=== PATIENT | male | born 1955 | race Caucasian/White ===

== ENCOUNTER 2023-12-11 18:55 | Emergency (ER) | payer BC, SELFPAY ==
[2023-12-11 18:55] VITALS: BP 149/93; PULSE 66; RESP 16; TEMP 36.8; O2SAT 98; BMI 36.6
--- NOTE | 2023-12-11 19:28 | EKG12_ITS ---
Test Reason : ABD PAIN Blood Pressure : / mmHG Vent. Rate : 061 BPM Atrial Rate : 061 BPM P-R Int : 176 ms QRS Dur : 096 ms QT Int : 398 ms P-R-T Axes : 026 -26 030 degrees QTc Int : 400 ms Normal sinus rhythm Normal ECG Confirmed by KI GUERRIER MD ([id number]), communications editor ARIEL BROWN ([id number]) on 12/14/2023 8:14:19 AM Referred By: JAIME Confirmed By:KI GUERRIER MD
--- NOTE | 2023-12-11 19:28 | EDS_ITS ---
HPI HPI - GI History of Present Illness Chief Complaint: Abd Pain Detail of Chief Complaint: Epigastric abdominal pain now resolved. Abdominal Pain/Flank Pain Onset: Today Context: Gradual Onset Timing: Continuous Quality: Sharp Location: Epigastric Current Severity: Gone Maximum Severity: Moderate Worsened by: Nothing Relieved by: Nothing Nausea/Vomiting/Emesis GI Symptom: Negative for Nausea or Vomiting Diarrhea/Melena/Hematochezia GI Symptom: Negative for Diarrhea, Melena or Hematochezia Associated Symptoms Associated Symptoms: Negative for Dysuria, Frequency, Hematuria or Urgency Narrative Narrative: 68-year-old male history of hypertension and cholesterol. Was sitting at home. Had epigastric abdominal pain began around 6:00 and resolved around 645. He said it got more intense and he fell like he was going get sick called the squad and now is resolved. He initially took some Tums without relief squad did not give him any medication. No chest pain. No shortness of breath. No back pain. Currently is pain-free and says he feels fine. Thinks it may have been gas pain. No prior abdominal surgeries. Prior similar symptoms: No Recent Illness/Hospitalization: No PFSH PFSH Medical History Basal cell carcinoma Sleep apnea Hypertension Hypercholesteremia Home Medications ?Medication ?Instructions ?Recorded ?Last Taken ?Type aspirin 81 mg tablet,delayed 81 mg PO .q3day 12/11/23 Unknown History release (Adult Aspirin Regimen) atorvastatin 10 mg tablet 10 mg PO DAILY 12/11/23 Unknown History losartan 100 1 tab PO DAILY 12/11/23 Unknown History mg-hydrochlorothiazide 25 mg tablet Allergy/AdvReac Type Severity Reaction Status Date / Time No Known Allergies Allergy Verified 12/11/23 18:59 Social History Smoking Status: Never smoker ROS ROS ED ROS Narrative Epigastric abdominal pain. Resolved. Constitutional Constitutional ED: Denies chills or fever(s) ENT ENT ED: Denies ear pain Cardiovascular Cardiovascular: Denies chest pain or palpitations Respiratory/Chest Respiratory/Chest: Denies cough, dyspnea or dyspnea on exertion Gastrointestinal Gastrointestinal: Reports abdominal pain; Denies constipation, diarrhea, melena, nausea or vomiting Genitourinary Genitourinary ED: Denies dysuria Musculoskeletal Musculoskeletal: Denies arthralgias Integumentary Denies abscess Neurologic Neurologic: Denies headache(s) Psychiatric Psychiatric: Denies anxiety Endocrine Endocrinology: Denies polydipsia Hematologic/Lymphatic Hematologic/Lymphatic: Denies easy bleeding Allergic/Immunologic Allergic/Immunologic ED: Denies mouth swelling, tongue swelling or urticaria EXAM Physical Exam Narrative Exam Narrative: 68-year-old male vital signs stable afebrile. Sitting upright in bed. Currently without symptoms pain-free. Family at bedside. H EENT exam unremarkable. Neck nontender. Lungs are clear. Heart regular rhythm no murmur. Chest wall ribs nontender. Abdomen soft, nontender, nondistended, normal bowel sounds without peritoneal signs. No pulsatile mass. No reproduc ible pain. Epigastric, right upper quadrant right lower quadrant are all unremarkable. Soft. Positive bowel sounds. Moving all 4 extremities. Nontender no edema. He is awake and alert. Answering questions following commands. Normal produce team lead strength. Normal dorsi plantarflexion. Nontender no edema. Const Vital Signs: 12/11/23 18:55 Temperature 98.2 F Temperature Source Temporal Pulse Rate 66 Respiratory Rate 16 Blood Pressure 149/93 H Blood Pressure Mean 111 Pulse Ox 98 Oxygen Delivery Method Room Air Positive well nourished and well developed; Negative for cachectic, contractures or unkempt General Appearance ED: well developed and NAD; Negative for unkempt, cachectic, contractures or pallor Nutritional Appearance: Negative for cachectic HEENT Reports moist mucous membranes; Denies dry mucous membranes normocephalic and atraumatic; Negative for trauma or tenderness Mouth ED: No dry mucous membranes Mouth: No dry mucous membranes Eyes PERRL and EOMs intact bilaterally General Eye ED: Negative for pale conjunctiva or scleral icterus Neck no lymphadenopathy, supple and no JVD General: Negative for tenderness Carotids: Negative for other Lymph Lymphatic: Negative for other Resp normal respiratory effort and clear to auscultation bilaterally Effort and Inspection: Negative for respiratory distress Auscultation: Negative for rales, rhonchi, wheezes or diminished lung sounds Cardio regular rate, regular rhythm, S1 normal heart sound, S2 normal heart sound and no murmurs Rate: Negative for bradycardia or tachycardic Rhythm: Negative for abnormal rhythm GI non-tender, non-distended and no masses Inspection: Negative for abdominal distention Auscultation: normoactive bowel sounds Palpation: soft; Negative for tender, guarding, hernia, mass, pulsatile mass or rebound tenderness present Back/Spine no CVA tenderness General Back: Negative for CVA tenderness Cervical Spine: Negative for cervical spine tenderness Thoracic Spine / Upper Back: Negative for thoracic spinal tenderness Coccyx: Negative for other Extremity full ROM General Extremety ED: Negative for edema, tenderness or other findings General Extremity: Negative for edema or other findings Neuro CN's II-XII intact bilaterally and moves all extremities Sensorium / Orientation: alert, oriented to person, oriented to place and oriented to time; Negative for orientation impaired, confused, lethargic or stuporous Motor Exam: strength 5/5 throughout; Negative for general weakness or strength abnormal Psych mental status grossly normal and thought process normal Appearance: Negative for unkempt Attitude: No agitated Mood & Affect: Negative for depressed, anxious or tearful Skin no wounds General Skin Exam: Negative for jaundice or pallor Lesions: no lesions Rashes: no rashes Trauma: Negative for abrasion Nails: Negative for discolored MDM MDM MDM Narrative Medical decision making narrative: 68-year-old male with epigastric abdominal pain now resolved. Completely pain- free now. No reproducible pain. Could have been gas, could have been reflux. Excetra. Screening labs. Will be obtained. I will check an EKG and troponin but does not sound cardiac. He does not need any abdominal imaging because currently is completely pain-free. Repeat exam patient is doing well. Abdomen is completely nontender. He is schafer ving no symptoms or pain at this time. He is comfortable being discharged home. We discussed all his test results. History & Record Review Discussion w/independent historian: Patient and Family Additional record(s) reviewed:: Prior inpatient record, Prior outpatient record, Prior ED visit and Prior labs Lab Data Attestation: I reviewed the patient's lab results. Lab results narrative: CBC unremarkable. White count of 10. H&H 13.5 and 40. Platelets 229. Electrolytes show gap 6. Normal BUN of 17 creatinine 1. Glucose 84. Liver enzymes unremarkable. Total bilirubin 1.7. Lipase normal at 37. Chest x-ray normal. Troponin is normal at 7. Labs: Laboratory Results - last 24 hr 12/11/23 19:34 WBC 10.7 RBC 4.37 L Hgb 13.5 Hct 40.4 MCV 92.4 MCH 30.9 MCHC 33.4 RDW Std Deviation 41.9 RDW Coeff of Maria Del Carmen 12.4 Plt Count 229 MPV 11.4 Immature Gran % (Auto) 0.700 Neut % (Auto) 79.8 H Lymph % (Auto) 9.4 L [place] % (Auto) 6.8 Eos % (Auto) 2.8 Baso % (Auto) 0.5 Absolute Neuts (auto) 8.5 H Absolute Lymphs (auto) 1.01 Nucleated RBC % 0 Sodium 144 Potassium 3.8 Chloride 111 H Carbon Dioxide 27.0 Anion Gap 6 BUN 17 Creatinine 1.08 Estim Creat Clear Calc 74.96 Est GFR (MDRD) Af Amer 87 Est GFR (MDRD) Non-Af 72 BUN/Creatinine Ratio 15.7 Glucose 84 Calcium 9.1 Total Bilirubin 1.70 H AST 27 ALT 60 Alkaline Phosphatase 99 Troponin I High Sens 7 Total Protein 6.4 Albumin 3.5 Globulin 2.9 Albumin/Globulin Ratio 1.2 Lipase 37 Radiography Chest X-Ray - ED: 1 View, Normal, Heart, Lungs, Mediastinum, Bony Structures, No Acute Disease and Chronic Changes Diagnostic Testing: Chest x-ray, portable, single view interpreted by myself shows no acute abnormality. Normal cardiac silhouette. Normal mediastinum. Normal lung kruger. Chronic changes. Rhythm Strip Rhythm Strip: Sinus Rhythm Rate: 61 Ectopy: None EKG Initial EKG: Attestation: I personally reviewed and interpreted this EKG as follows: Interpretation: Sinus Rhythm and No Acute Injury Pattern Comments: Normal sinus rhythm rate of 61 no acute signs of NV, ischemia or dysrhythmia. Discharge Plan Triage Chief Complaint: Abd Pain ED Provider: Adrian Duarte Dx/Rx/DC Orders Prescriptions: No Action atorvastatin 10 mg tablet 10 mg PO DAILY losartan-hydrochlorothiazide 100-25 mg tablet 1 tab PO DAILY aspirin [Adult Aspirin Regimen] 81 mg tablet,delayed release (DR/EC) 81 mg PO .q3day Primary Care Provider: Hermila Kumar Referrals: Hermila Kumar DO [Primary Care Provider] - Print Language: Slovenian
[2023-12-11 19:41] LABS: Absolute Lymphocyte Count 1.01 X10^3/uL (0.83-4.51); Absolute Neutrophil Count 8.5 X10^3/uL (2.0-7.7); Basophil# 0.05 X10^3/uL; Basophil% 0.5 % (0-1); Eosinophils% 2.8 % (0-5); Hematocrit 40.4 % (40-54); Hemoglobin 13.5 g/dL (13.0-16.5); Lymphocyte # 1.01 X10^3/ul (0.83-4.51); Lymphocyte % 9.4 % (19-41); Mean Corp Hgb Conc 33.4 g/dL (32-36); Mean Corpuscular Hgb 30.9 pg (27.0-32.0); Mean Corpuscular Volume 92.4 fL (80-94); Mean Platelet Vol. 11.4 fl (6.2-12.0); Monocyte# 0.73 X10^3/uL; Monocyte% 6.8 % (0-10); NRBC Flagged by Analyzer 0 % (0-5); Neutrophil # 8.54 X10^3/uL (2.7-7.7); Neutrophil % 79.8 % (47-70); Platelet Count 229 K/mm3 (150-450); RBC Distribution Width CV 12.4 % (11.6-14.6); RBC Distribution Width SD 41.9 fl (35.1-43.9); Red Blood Count 4.37 M/mm3 (4.6-6.2); White Blood Count 10.7 K/mm3 (4.4-11.0)
[2023-12-11 20:02] LABS: ALB/GLOB Ratio 1.2 RATIO (0.9-2.4); AST(SGOT) 27 U/L (15-37); Alanine Aminotransfer ALT/SGPT 60 U/L (16-61); Albumin, Serum 3.5 g/dL (3.2-5.0); Alkaline Phosphatase 99 U/L (45-117); Anion Gap 6 (5-15); BUN 17 mg/dL (7-18); BUN/Creat Ratio 15.7 RATIO (10-20); Calcium,Total 9.1 mg/dL (8.5-10.1); Chloride 111 mmol/L (98-107); Creatinine, Serum 1.08 mg/dL (0.70-1.30); EST Glomerular Filtration Rate 72 mL/min (>60); Est Glom Filt Rate - Afr Amer 87 mL/min (>60); Estimated Creatinine Clearance 74.96 ml/min; Globulin 2.9 g/dL (2.2-4.2); Glucose 84 mg/dL (74-106); Lipase 37 U/L (13-75); Potassium 3.8 mmol/L (3.5-5.1); Protein, Total 6.4 g/dL (6.4-8.2); Sodium Level 144 mmol/L (136-145); Troponin-I HS 7 pg/mL (3.0-78.0)
--- NOTE | 2023-12-11 20:10 | RAD_ITS ---
EXAM: XR CHEST, 1 VIEW CLINICAL INDICATION: atypical epigastric pain TECHNIQUE: Frontal view of the chest. COMPARISON: 04/01/2015 FINDINGS: LUNGS AND PLEURAL SPACES: Unremarkable. No consolidation or edema. No pneumothorax. No effusion. HEART: Unremarkable. Cardiac silhouette not enlarged. MEDIASTINUM: Central airways and mediastinal contour are unremarkable. BONES/JOINTS: Unremarkable. No acute fracture. SOFT TISSUES: Unremarkable. RAD/Chest 1 View (Portable) IMPRESSION: No radiographic evidence of acute cardiopulmonary disease. Electronically Signed: Renny Hunt MD at 20:47 EDT ,
[2023-12-11 20:47] VITALS: BP 137/78; PULSE 55; RESP 20; TEMP 36.7; O2SAT 97
== END 2023-12-11 20:51 | disposition home or self-care (01) ==
PROVIDERS: Emergency Provider Emergency Medicine; PCP Internal Medicine; Visit Provider Emergency Medicine
DX: R10.13 Epigastric pain (principal); E78.00 Pure hypercholesterolemia, unspecified; I10 Essential (primary) hypertension; Z79.82 Long term (current) use of aspirin; Z79.899 Other long term (current) drug therapy
CPT/HCPCS: 71045; 80053; 83690; 84484; 85025; 93005; 99283

== ENCOUNTER → 2024-03-16 | Outpatient (CLI) | payer BC, SELFPAY ==
--- NOTE | 2024-03-16 07:08 | US_ITS ---
STUDY: ABDOMINAL ULTRASOUND - RIGHT UPPER QUADRANT; ELASTOGRAPHY REASON FOR VISIT: Male, 68 years old. Fatty infiltration of the liver. TECHNIQUE: Ultrasound evaluation of the right upper quadrant was performed with real-time and static chu-scale imaging. Point quantification shear wave elastography was performed ([id number]). TECHNICAL QUALITY: Adequate. COMPARISON: None. FINDINGS: Liver: The liver measures 16.9 cm. There is increased echogenicity consistent with fatty infiltration. The bile ducts are within normal limits. There is hepatic color flow. The direction of portal flow is hepatopetal. There is no demonstrated mass lesion. Median liver stiffness measured 5.4 kPa. Gallbladder: Normal distended gallbladder. The gallbladder wall measures 3 mm. There is a negative sonographic Contreras''s sign. There is no pericholecystic fluid. There are no gallstones. Common Bile Duct (C.B.D.): The common bile duct measures 5 mm. Pancreas: There is normal echogenicity of the visualized pancreas. There is no demonstrated pancreatic mass or cyst. Right Kidney: Normal size of the right kidney. The right kidney measures 11.4 cm x 5.3 cm x 5.4 cm. Normal renal cortex. The right cortex measures 1.6 cm. There is no demonstrated renal mass or cyst. There is no right hydronephrosis. US/ABD Limited w/ Elastography IMPRESSION: 1. Liver stiffness measures 5.4 kPa compatible with F0-F1 (Normal to mild liver fibrosis) Metavir score. Electronically Signed: Romeo Burgos MD at 9:21 EST ,
== END | disposition home or self-care (01) ==
PROVIDERS: PCP Internal Medicine; Referring Provider Internal Medicine; Visit Provider Internal Medicine
DX: K76.0 Fatty (change of) liver, not elsewhere classified (principal)
CPT/HCPCS: 76705; 76981

== ENCOUNTER 2024-04-08 09:37 | Emergency (ER) | payer BC, SELFPAY ==
[2024-04-08 09:40] VITALS: BP 153/91; PULSE 63; RESP 18; TEMP 37; O2SAT 98
[2024-04-08 09:41] VITALS: BMI 33.4
--- NOTE | 2024-04-08 09:42 | ED.RN ---
spole with dr. villarreal if he wanted to see pt. in triage. states to room the pt.
--- NOTE | 2024-04-08 09:59 | EKG12_ITS ---
Test Reason : Blood Pressure : */* mmHG Vent. Rate : 53 BPM Atrial Rate : 53 BPM P-R Int : 186 ms QRS Dur : 96 ms QT Int : 436 ms P-R-T Axes : 25 -24 16 degrees QTcB Int : 409 ms Sinus bradycardia Otherwise normal ECG Confirmed by CHEY ENGLAND, KI ([id number]), magazine editor ARIEL BROWN ([id number]) on 04/10/2024 8:36:22 AM Referred By: Confirmed By: KI GUERRIER MD
--- NOTE | 2024-04-08 09:59 | CT_ITS ---
INDICATION: left facial droop and paraesthesias EXAMINATION: CT BRAIN WITHOUT CONTRAST, CTA HEAD, AND CTA NECK TECHNIQUE: Noncontrast axial images were obtained of the brain. Subsequently, routine carotid CT angiogram protocol was performed without and with IV contrast. In addition, images were obtained of the [place]. NASCET criteria using the distal ICAs for comparison were used for evaluation of stenoses. 3D reconstructions were reviewed. The protocol utilizes one or more of the following dose reduction techniques: automated exposure control, adjustment of mA and/or kV according to patient size,and/or use of iterative reconstruction technique. IV Contrast dosage and agent: 100 cc of [id number] COMPARISON: No relevant prior comparison study available FINDINGS: --CT BRAIN WITHOUT CONTRAST: BRAIN PARENCHYMA: No intra- or extra-axial hemorrhage. No evidence of acute infarct. No intracranial mass or mass effect. There is preservation of the chu/white matter interface. Posterior fossa structures are unremarkable. CSF SPACES: Appropriate for age. No hydrocephalus. Basal cisterns are patent. CALVARIUM, SKULL BASE, PARANASAL SINUSES AND MASTOID AIR CELLS: Coarsened thickening of the right maxillary sinus. ASPECTS Score for Acute Strokes: 10 --CTA NECK: AORTIC ARCH AND BRANCHES: Normal anatomy, patent. RIGHT CCA: No occlusion, significant stenosis or dissection. RIGHT ICA: No occlusion, significant stenosis or dissection. LEFT CCA: No occlusion, significant stenosis or dissection. LEFT ICA: Mild atherosclerotic calcifications in the proximal left ICA with less than 50% stenosis. RIGHT VERTEBRAL ARTERY: No occlusion, significant stenosis or dissection. LEFT VERTEBRAL ARTERY: No occlusion, significant stenosis or dissection. NECK SOFT TISSUES: Unremarkable. --CTA HEAD: --Anterior circulation: ICAs: [Mild atherosclerotic calcifications of the cavernous internal carotid arteries without significant stenosis. ACAs: No significant stenosis at the visualized segments. ACOM: Not visualized. MCAs: Questionable minimal narrowing of the distal left M2 segment without significant stenosis. --Posterior circulation: PCOMs: Faintly visualized on the left side. email producer: No significant stenosis at the visualized segments. BASILAR ARTERY: No significant stenosis. VERTEBRAL ARTERIES: No significant stenosis at the intradural/visualized segments. No evidence of intracranial aneurysm or vascular malformation. CT/CTA Head AND Neck W/ Contrast IMPRESSION: 1. No intracranial great vessel stenosis. 2. Mild atherosclerotic calcifications of the proximal left ICA without significant stenosis. 3. Otherwise unremarkable examination. Electronically Signed: Donovan Winter MD at 12:04 EST ,
--- NOTE | 2024-04-08 10:00 | EX.ED.DYSGE1 ---
HPI History of Present Illness Chief Complaint: Numb/Ting Detail of Chief Complaint: Left face paresthesias and facial droop Informant: patient Narrative Narrative: Patient presents with left-sided paresthesias and facial droop that he noticed this morning. Patient states that he before he went to bed last night he had sensation that he had a fat lip but was able to brush his teeth and did not see anything abnormal. When he woke up this morning around 5:30 AM he had numbness and tingling to the left side of his face and had a facial droop. Patient states that he was able to workout without any difficulty. Patient denies paresthesias in the extremities or weakness in extremities. He denies any vision changes or difficulty with speech. He thinks he may be having a Hutchinson's palsy as he has had multiple friends and have had Hutchinson's palsy. He denies recent illness. He said no fever. He denies significant headache. [facility] Medical History Basal cell carcinoma Sleep apnea Hypertension Hypercholesteremia Home Medications ?Medication ?Instructions ?Recorded ?Last Taken ?Type aspirin 81 mg tablet,delayed 81 mg PO .q3day 12/11/23 Unknown History release (Adult Aspirin Regimen) atorvastatin 10 mg tablet 10 mg PO DAILY 12/11/23 Unknown History losartan 100 1 tab PO DAILY 12/11/23 Unknown History mg-hydrochlorothiazide 25 mg tablet famciclovir 500 mg tablet 500 mg PO Q8H 5 days #21 tabs 04/08/24 Unknown Rx prednisone 20 mg tablet 20 mg PO BID #10 tabs 04/08/24 Unknown Rx Allergy/AdvReac Type Severity Reaction Status Date / Time No Known Allergies Allergy Verified 04/08/24 09:39 Social History Smoking Status: Never smoker ROS ROS ED Review of Systems ROS Unobtainable: other Constitutional Constitutional ED: Reports lethargy; Denies chills, fever(s), sweats or weight loss Eyes Eyes: Denies blurry vision, change in vision or diplopia ENT ENT ED: Denies rhinorrhea or sore throat Cardiovascular Cardiovascular: Denies chest pain, orthopnea or racing heartbeat Respiratory/Chest Respiratory/Chest: Denies cough, dyspnea, dyspnea on exertion, orthopnea or sputum Gastrointestinal Gastrointestinal: Denies abdominal pain, diarrhea, nausea or vomiting Genitourinary Genitourinary ED: Denies dysuria, hematuria or urinary frequency Musculoskeletal Musculoskeletal: Denies arthralgias, back pain, myalgias or neck pain Integumentary Denies abscess, Abrasions or rash Neurologic Neurologic: Reports headache(s) and other Details: Left facial droop and left-sided facial paresthesias ; Denies weakness Psychiatric Psychiatric: Denies anxiety, depression or suicidal thoughts Endocrine Endocrinology: Denies polydipsia, polyphagia or polyuria Hematologic/Lymphatic Hematologic/Lymphatic: Denies easy bleeding, easy bruising or lymphadenopathy Allergic/Immunologic Allergic/Immunologic ED: Denies mouth swelling, tongue swelling or urticaria EXAM Physical Exam Const Vital Signs: 04/08/24 09:40 04/08/24 11:37 04/08/24 12:00 Temperature 98.6 F Temperature Source Oral Pulse Rate 63 55 L 54 L Respiratory Rate 18 16 Blood Pressure 153/91 H 125/96 H 127/69 H Blood Pressure Mean 111 105 88 Pulse Ox 98 100 Oxygen Delivery Method Room Air Room Air Positive well nourished and well developed General Appearance ED: well developed and NAD HEENT Reports TM's clear and moist mucous membranes HEENT Narrative: Left facial droop with decree sensation to the left face. Patient unable to wrinkle the left side of the forehead. He has weakness of the left upper eyelid. normocephalic and atraumatic; Negative for trauma or tenderness Tympanic Membrane ED: Yes TM's clear Eyes PERRL and EOMs intact bilaterally General Eye ED: Negative for pale conjunctiva or scleral icterus Neck no lymphadenopathy, supple and no JVD General: Negative for tenderness Chest Wall inspection of chest normal and palpation of chest normal Chest: Negative for tenderness Resp normal respiratory effort and clear to auscultation bilaterally Effort and Inspection: Negative for respiratory distress or pain with movement Auscultation: Negative for rhonchi, wheezes or diminished lung sounds Cardio regular rate, regular rhythm, S1 normal heart sound, S2 normal heart sound and no murmurs Peripheral Pulses: pulses 2+ throughout GI normal to inspection, nondistended, normoactive bowel sounds, soft to palpation, non-tender, non-distended and no masses Back/Spine no CVA tenderness and no thoracic nor lumbar tenderness Extremity normal to inspection General Extremety ED: Negative for edema General Extremity: Negative for edema Neuro oriented x3, CN's II-XII intact bilaterally, no sensory deficits noted and gait normal Neuro Narrative: Left facial droop and numbness and decree sensation to left face. Unable to wrinkle left forehead. Weakness of the left upper eyelid. No focal weakness otherwise. No difficulty with speech or vision. No ataxia. Sensorium / Orientation: awake, alert, oriented to person, oriented to place and oriented to time Motor Exam: strength 5/5 throughout and strength abnormal Psych mental status grossly normal Skin no rashes or lesions noted and no wounds MDM MDM MDM Narrative Medical decision making narrative: Patient presents to the emergency department with left facial droop and paresthesias to the left face. Symptoms may have started last evening. Patient out of the window for thrombolytics. Woke up with symptoms this morning. No other focal deficits on exam. In the differential would be stroke versus Hutchinson's palsy although suspect this is likely Hutchinson's palsy. Patient had a CBC with differential on arrival sure why, 7.5 with hemoglobin 15.7 and platelet count of 261. Chemistries unremarkable. EKG obtained showed sinus bradycardia with rate of 53 bpm. CTA of head and neck obtained. CT without contrast initially showed no acute findings. There is no evidence of large vessel occlusions or narrowing of the blood vessels in the head or neck. At this point clinically I suspect this is a Hutchinson's palsy. Will start patient on prednisone as well as antiviral. Will refer the neurology for follow-up. Lab Data Attestation: I reviewed the patient's lab results. Labs: Laboratory Results - last 24 hr 04/08/24 04/08/24 09:48 10:08 WBC 7.5 RBC 5.00 Hgb 15.7 Hct 46.0 MCV 92.0 MCH 31.4 MCHC 34.1 RDW Std Deviation 40.5 RDW Coeff of Maria Del Carmen 12.0 Plt Count 261 MPV 11.4 Immature Gran % (Auto) 0.700 Neut % (Auto) 65.2 Lymph % (Auto) 20.5 [place] % (Auto) 8.5 Eos % (Auto) 4.3 Baso % (Auto) 0.8 Absolute Neuts (auto) 4.9 Absolute Lymphs (auto) 1.54 Nucleated RBC % 0 Sodium 139 Potassium 3.5 Chloride 104 Carbon Dioxide 30.0 Anion Gap 5 BUN 13 Creatinine 1.02 Estim Creat Clear Calc 83.22 Est GFR (MDRD) Af Amer 93 Est GFR (MDRD) Non-Af 77 BUN/Creatinine Ratio 12.7 Glucose 94 Calcium 9.5 POC Glucose 98 Radiography Diagnostic Testing: Clinical Impression(s) from Imaging Studies Head/Neck CTA 04/08/24 09:59 IMPRESSION: 1. No intracranial great vessel stenosis. 2. Mild atherosclerotic calcifications of the proximal left ICA without significant stenosis. 3. Otherwise unremarkable examination. Electronically Signed: Donovan Winter MD at 12:04 EST , EKG Initial EKG: Attestation: I personally reviewed and interpreted this EKG as follows: Comments: Sinus bradycardia with ventricular rate of 53 bpm with no acute ST segment changes Discharge Plan Triage Chief Complaint: Numb/Ting ED Provider: Morteza Franz Dx/Rx/DC Orders Clinical Impression: Hutchinson's palsy Instructions: Hutchinson's Palsy Prescriptions: New prednisone 20 mg tablet 20 mg PO BID Qty: 10 0RF famciclovir 500 mg tablet 500 mg PO Q8H 5 Days Qty: 21 0RF No Action atorvastatin 10 mg tablet 10 mg PO DAILY losartan-hydrochlorothiazide 100-25 mg tablet 1 tab PO DAILY aspirin [Adult Aspirin Regimen] 81 mg tablet,delayed release (DR/EC) 81 mg PO .q3day Primary Care Provider: Hermila Kumar Referrals: Hermila Kumar DO [Primary Care Provider] - Galo Gr MD [Non-Staff -Ordering Privileges] - 3-5 Days Activity Restrictions/Additional Instructions: You should tape your left eyelid shut at night to avoid injury to your cornea. Print Language: [place]an Disposition Disposition: Home, Self Care
[2024-04-08 10:21] LABS: Absolute Lymphocyte Count 1.54 X10^3/uL (0.83-4.51); Absolute Neutrophil Count 4.9 X10^3/uL (2.0-7.7); Basophil# 0.06 X10^3/uL; Basophil% 0.8 % (0-1); Eosinophil# 0.32 X10^3/uL; Eosinophils% 4.3 % (0-5); Hemoglobin 15.7 g/dL (13.0-16.5); Lymphocyte # 1.54 X10^3/ul (0.83-4.51); Lymphocyte % 20.5 % (19-41); Mean Corp Hgb Conc 34.1 g/dL (32-36); Mean Corpuscular Hgb 31.4 pg (27.0-32.0); Mean Platelet Vol. 11.4 fl (6.2-12.0); Monocyte# 0.64 X10^3/uL; Monocyte% 8.5 % (0-10); NRBC Flagged by Analyzer 0 % (0-5); Neutrophil % 65.2 % (47-70); Platelet Count 261 K/mm3 (150-450); RBC Distribution Width SD 40.5 fl (35.1-43.9); White Blood Count 7.5 K/mm3 (4.4-11.0)
[2024-04-08 10:32] LABS: Bedside Glucose 98 mg/dL (74-106)
[2024-04-08 10:36] LABS: Anion Gap 5 (5-15); BUN 13 mg/dL (7-18); BUN/Creat Ratio 12.7 RATIO (10-20); Calcium,Total 9.5 mg/dL (8.5-10.1); Chloride 104 mmol/L (98-107); Creatinine, Serum 1.02 mg/dL (0.70-1.30); EST Glomerular Filtration Rate 77 mL/min (>60); Est Glom Filt Rate - Afr Amer 93 mL/min (>60); Estimated Creatinine Clearance 83.22 ml/min; Glucose 94 mg/dL (74-106); Potassium 3.5 mmol/L (3.5-5.1); Sodium Level 139 mmol/L (136-145)
[2024-04-08 11:37] VITALS: BP 125/96; PULSE 55; RESP 16; O2SAT 100
[2024-04-08 12:00] VITALS: BP 127/69; PULSE 54
[2024-04-08] MEDS: predniSONE 20 MG Tablet 60 MG PO (12:18)
[2024-04-08 12:32] VITALS: BP 127/69; PULSE 54; RESP 16; TEMP 37; O2SAT 100
== END 2024-04-08 12:32 | disposition home or self-care (01) ==
PROVIDERS: Emergency Provider Emergency Medicine; PCP Internal Medicine; Visit Provider Emergency Medicine
DX: G51.0 Bell's palsy (principal); R00.1 Bradycardia, unspecified; I10 Essential (primary) hypertension; E78.00 Pure hypercholesterolemia, unspecified; Z79.82 Long term (current) use of aspirin; Z79.899 Other long term (current) drug therapy
CPT/HCPCS: 70496; 70498; 80048; 82962; 85025; 93005; 99282; Q9967

== ENCOUNTER → 2024-05-11 | Outpatient (CLI) | payer BC, SELFPAY ==
[2024-05-17 15:07] LABS: Lyme IgG P18 Ab Absent (.); Lyme IgG P23 Ab Absent (.); Lyme IgG P28 Ab Absent (.); Lyme IgG P30 Ab Absent (.); Lyme IgG P39 Ab Absent (.); Lyme IgG P41 Ab Present (.); Lyme IgG P45 Ab Absent (.); Lyme IgG P58 Ab Absent (.); Lyme IgG P66 Ab Absent (.); Lyme IgG P93 Ab Absent (.); Lyme IgG WB Interpretation Negative (.); Lyme IgM P23 Ab Absent (.); Lyme IgM P39 Ab Absent (.); Lyme IgM P41 Ab Absent (.); Lyme IgM WB Interpretation Negative (.)
== END | disposition home or self-care (01) ==
PROVIDERS: PCP Internal Medicine
DX: G51.0 Bell's palsy (principal)
CPT/HCPCS: 36415; 86617

== ENCOUNTER → 2024-06-08 | Outpatient (CLI) | payer BC, SELFPAY ==
--- NOTE | 2024-06-08 06:38 | MRI_ITS ---
PROCEDURE: BRAIN W/WO CONTRAST REASON FOR EXAM: Atypical Hutchinson's palsy; left side. TECHNIQUE: Multiplanar, multisequence MRI of the brain with and without intravenous gadolinium-based contrast. CONTRAST: 20 mL of IV Clariscan. COMPARISON: None. FINDINGS: The ventricles are normal in size and midline in position. No evidence of acute hemorrhage or infarction. No extra-axial blood or fluid collections. Right maxillary sinus retention cyst. Left maxillary sinus mucosal thickening. The mastoid air cells are well aerated. The orbits are unremarkable. MRI/Brain W/WO Contrast IMPRESSION: No acute intracranial abnormalities. Reading Location: [place] [id number]
== END | disposition home or self-care (01) ==
PROVIDERS: PCP Internal Medicine
DX: G51.0 Bell's palsy (principal)
CPT/HCPCS: 70553; A9575

== ENCOUNTER → 2024-12-12 | Outpatient (CLI) | payer MEDICARE, OTHER, SELFPAY ==
--- OUTSIDE RECORDS SUMMARY | 2024-12-12 06:34 | XMS RPT_ITS | CCD ---
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 Hossein Veloz Unavailable Renee Layton LPN Unavailable Unavailable Josselin Alvarado LPN Unavailable Unavailable Messenger Nola PEREYRA Unavailable Unavailable Unavailable Unavailable Ciesa ROOFER GYPSUM, Susana Unavailable Hermila Kumar DO Unavailable Mohit MAP COLORER Dipika Unavailable Unavailable Unavailable Unavailable Juan Luis Miranda LPN Unavailable Unavailable Camilla RIVERS, Kayela Unavailable Unavailable Hermila Kumar DO Attending Unavailable Hermila Kumar DO Referring Unavailable Hermila Kumar DO Consulting Unavailable Spencer FREDY, Cornelio Unavailable Unavailable Dr. Hermila Kumar DO Primary Care Provider Dr. Hermila Kumar DO Attending Provider Dr. Hermila Kumar DO Referring Provider [phone] Osei WATSON, Dr. Pro Attending Provider [phone] Dr. Morteza Franz DO Emergency Provider Dr. Simone Chacko MD Attending Provider Quan ANALYSIS ANALYST-CMigdalia Attending Provider [phone] Quan ANALYSIS ANALYST-CMigdalia Referring Provider Bharat Roper Attending Unavailable José, Hermila Referring Unavailable José, Hermila Primary Care Unavailable José, Hermila Referring Unavailable José, Hermila Primary Care Unavailable TatumdnerMigdalia Attending Unavailable Adrian Duarte Attending Unavailable José, Hermila Primary Care Unavailable Provider, Ed Physician Attending Unavailab le José, Hermila Primary Care Unavailable José, Hermila Attending Unavailable José, Hermila Referring Unavailable José, Hermila Primary Care Unavailable José, Hermila Attending Unavailable José, Hermila Referring Unavailable José, Hermila Primary Care Unavailable José, Hermila Primary Care Unavailable Migdalia Glass Attending Unavailable Tatumdner, Migdalia Referring Unavailable Bordner, Migdalia Referring Unavailable José, Hermila Primary Care Unavailable Migdalia Glass Attending Unavailable Morteza Franz Attending Unavailable José, Hermila Primary Care Unavailable Simone Chacko Attending Unavailable José, Hermila Referring Unavailable José, Hermila Primary Care Unavailable Medications Current Medications Medication Drug Class(es) Dates Sig (Normalized) Sig (Original) aspirin 81 mg delayed release oral tablet (20 sources) Platelet Aggregation Inhibitor, Nonsteroidal Anti-inflammatory Drug Start: 12-11-2023 End: 05-11-2024 Aspirin (Adult Aspirin Regimen) 81 mg tablet,delayed release (/EC) Active 81 mg PO .COMPLEX May 11, 2024 9:31am 81 mg orally every 3 days; End: 04-08-2010 atorvastatin 10 mg oral tablet (20 sources) HMG-CoA Reductase Inhibitor Start: 12-11-2023 take 1 tablet by mouth once daily Atorvastatin 10 mg tablet Active 10 mg PO DAILY December 11, 2023 12:00am Start: 01-30-2022 Start: 07-31-2021 Start: 07-05-2020 Start: 05-07-2020 take 1 tablet by renan th once daily Atorvastatin Calcium 10 MG Oral Tablet 1 (one) Tablet qd for 0 days Quantity: 90 {Tablet} Refills: 3 Ordered: 07-May-2020 Hermila Kumar DO, DO, Kathleen Start : 07-May-2020 Active Comments: Mail order. new dose Start: 11-02-2019 take 1 tablet by renan th once daily Atorvastatin Calcium 10 MG Oral Tablet 1 (one) Tablet qd for 0 days Quantity: 90 {Tablet} Refills: 3 Ordered: 02-Nov-2019 Hermila Kumar DO, DO, Kathleen Start : 02-Nov-2019 Active Comments: Mail order. new dose Start: 04-27-2019 take 1 tablet by renan th once daily Atorvastatin Calcium 10 MG Oral Tablet 1 (one) Tablet qd for 0 days Quantity: 90 {Tablet} Refills: 3 Ordered: 27-Apr-2019 Hermila Kumar DO, DO, Kathleen Start : 27-Apr-2019 Active Comments: Mail order. Start: 07-26-2017 take 1 tablet by renan th once daily Atorvastatin Calcium 10 MG Oral Tablet 1 (one) Tablet qd for 0 days Quantity: 90 {Tablet} Refills: 3 Ordered: 26-Jul-2017 Hermila Kumar DO, DO, Kathleen Start : 26-Jul-2017 Active Comment on above: Mail order. Mail order. new dose cholecalciferol 0.125 mg oral capsule (20 sources) Vitamin D Start: 05-11-19 take 1 capsule by mouth once daily Cholecalciferol (Vitamin D3) 125 mcg (5,000 unit) capsule Active 125 ug PO daily May 11, 2024 1:00am Start: 12-06-2015 Start: 12-06-2015 take 2 capsules by m outh once daily Vitamin D3 2000 UNIT Oral Capsule 2 (two) Capsule qd for 0 days Quantity: 30 {Capsule} Refills: 4 Ordered: 06-Dec-2015 Hermila Kumar DO, DO, Kathleen Start : 06-Dec-2015 Active hydroCHLOROthiazide 25 mg / losartan potassium 100 mg oral tablet (20 sources) Thiazide Diuretic, Angiotensin 2 Receptor Joya Start: 12-11-2023 Losartan-Hydrochlorothiazide 100-25 mg tablet Active 1 {tbl} PO DAILY December 11, 2023 12:00am Start: 01-30-2022 Start: 07-31-2021 Start: 07-05-2020 Start: 07-05-2020 take 1 tablet by mouth once da halina Losartan Potassium-HCTZ 100- 25 MG Oral Tablet 1 (one) Tablet qd for 0 days Quantity: 90 {Tablet} Refills: 3 Ordered: 05-Jul-2020 Hermila Kumar DO, DO, Kathleen Start : 05-Jul-2020 Active Comments: Mail order. Start: 02-07-2020 take 1 tablet by mouth once da halina Losartan Potassium-HCTZ 100- 25 MG Oral Tablet 1 (one) Tablet qd for 0 days Quantity: 90 {Tablet} Refills: 3 Ordered: 07-Feb-2020 Hermila Kumar DO, DO, Kathleen Start : 07-Feb-2020 Active Comments: Mail order. Start: 04-27-2019 take 1 tablet by mouth once da halina Losartan Potassium-HCTZ 100- 25 MG Oral Tablet 1 (one) Tablet qd for 0 days Quantity: 90 {Tablet} Refills: 3 Ordered: 27-Apr-2019 Hermila Kumar DO, DO, Kathleen Start : 27-Apr-2019 Active Comments: Mail order. Start: 03-09-2018 take 1 tablet by mouth once da halina Losartan Potassium-HCTZ 100- 25 MG Oral Tablet 1 (one) Tablet qd for 0 days Quantity: 90 {Tablet} Refills: 0 Ordered: 09-Mar-2018 Hermila Kumar DO, DO, Kathleen Start : 09-Mar-2018 Active Comment on above: Mail order. vitamin e 180 mg oral capsule (20 sources) Start: 05-11-2024 take 1 capsule by mouth once daily Vitamin E (Dl, Acetate) 180 mg (400 unit) capsule Active 180 mg PO daily May 11, 2024 1:00am take 1 capsule by mouth once mary ellen ly Vitamin E 100 UNIT Oral Capsule 1 daily (100 UNIT) Active Completed/Discontinued Medications Medication Drug Class(es) Dates Sig (Normalized) Sig (Original) docosahexaenoic acid 120 mg / eicosapentaenoic acid 180 mg oral capsule (20 sources) Start: 02-01-2013 End: 04-27-2019 Start: 02-01-2013 End: 04-27-2019 take 2 capsules by mouth once daily FISH OIL ULTRA, 1000MG (Oral Capsule) 2 (two) Capsule Capsule qd for 0 days Quantity: 60 {Capsule} Refills: 0 Ordered: 27-Apr-2019 Dipika Rueda CMA Start : 01-Feb-2013 End : 27-Apr-2019 Discontinued Comments: This order discontinued per [facility]. Comment on above: This order discontin ued per [facility]. famciclovir 500 mg oral tablet (1 source) Herpes Simplex Virus Nucleoside Analog DNA Polymerase Inhibitor Start: 024 End: 025 take 1 tablet by mouth every eight hours Famciclovir 500 mg tablet Discontinued 500 mg PO Q8H 30 08April 08, 2024 1:15pm May 11, 2024 9:32am hydroCHLOROthiazide 25 mg / valsartan 160 mg oral tablet (20 sources) Thiazide Diuretic, Angiotensin 2 Receptor Joya Start: 017 End: 018 Start: 03-15-2017 End: 11-08-2017 take 1 tablet by mouth once daily Diovan HCT 160-25 MG Oral Tablet 1 Tablet qd for 0 days Quantity: 90 {Tablet} Refills: 3 Ordered: 08-Nov-2017 Shanell Conrad RN Start : 15-Mar-2017 End : 08-Nov-2017 Inactive Comments: Mail order. Comment on above: Mail order. icosapent ethyl 1000 mg oral capsule (20 sources) Start: 06-15-2013 End: 02-17-2017 Start: 06-15-2013 End: 02-17-2017 take 2 capsules by mouth twice daily Vascepa 1 GM Oral Capsule 2 (two) Capsule Capsule bid for 0 days Quantity: 120 {Capsule} Refills: 4 Ordered: 17-Feb-2017 Nola Cordova RN Start : 15-Jun-2013 End : 17-Feb-2017 Inactive omega-3 acid ethyl esters (alf) 1000 mg oral capsule (8 sources) Start: 02-01-2013 End: 04-27-2019 take 2 capsules by mouth once daily FISH OIL ULTRA, 1000MG (Oral Capsule) 2 (two) Capsule Capsule qd for 0 days Quantity: 60 {Capsule} Refills: 0 Ordered: 27-Apr-2019 Dipika Rueda CMA Start : 01-Feb-2013 End : 27-Apr-2019 Discontinued Comments: This order discontinued per [facility]. Comment on above: This order discontinued per [facility]. predniSONE 20 mg oral tablet (1 source) Start: 04-08-2024 End: 05-11-2024 take 1 tablet by mouth twice daily Prednisone 20 mg tablet Discontinued 20 mg PO TWICE A DAY April 08, 2024 1:00am May 11, 2024 9:32am sildenafil 100 mg oral tablet (20 sources) Phosphodiesterase 5 Inhibitor Start: 07-31-2021 Start: 05-01-2019 Start: 08-18-2017 End: 04-27-2019 Start: 12-06-2015 Viagra 100 MG Oral Tablet 1 (one) Tablet 2-3 times a week prn for 0 days Quantity: 12 {Tablet} Refills: 3 Ordered: 06-Dec-2015 Hermila Kumar DO, DO, Kathleen Start : 06-Dec-2015 Active Comment on above: DAW Mail order. NEGATED: Highlighted row has not occurred!drug or medication (20 sources) No Known Histori jordana Medications Problems Active Problems Problem Classification Problem Date Documented Date Episodic/Chronic Administrative/socia l admission (20 sources) Counseling procedure with explicit context; Translations: [Patient encounter status] 12-06-2017 Episodic Disorders of lipid metabolism (20 sources) Hypercholesterolemia; Translations: [Hypercholesteremia] Onset: 5 12-06-2017 Chronic Essential hypertension (20 sources) Benign essential hypertension; Translations: [Benign essential HTN] 12-06-2017 Chronic Fluid and electrolyte disorders (20 sources) Hypokalemia; Translations: [Hypokalemia] Resolved: 2 12-02-2012 Episodic Immunizations and screening for infectious disease (20 sources) Need for prophylactic vaccination and inoculation against influenza; Translations: [Patient encounter status] 01-23-2021 Episodic Nonspecific chest pain (20 sources) Chest pain; Translations: [Chest pain] Resolved: 2 12-02-2012 Episodic Nutritional deficiencies (20 sources) Vitamin D deficiency, unspecified; Translations: [Vitamin D deficiency] 12-06-2017 Chronic Other connective tissue disease (20 sources) Aching leg syndrome; Translations: [Aching leg syndrome] Resolved: 0 12-06-2017 Episodic Comment on above: was seen in er Other connective tissue disease (20 sources) Pain in left foot; Translations: [Chronic pain of left foot] 03-17-2017 Episodic Comment on above: attention heel Other liver diseases (1 source) Fatty (change of) liver, not elsewhere classified; Translations: [Fatty (change of) liver, not elsewhere classified] Onset: 5 Chronic Other lower respiratory disease (20 sources) Snoring 12-06-2017 Episodic Other male genital disorders (5 sources) Impotence of organic origin; Translations: [Erectile Dysfunction (Renamed from ED (erectile dysfunction))] 12-06-2017 Chronic Other male genital disorders (10 sources) Impotence; Translations: [Erectile Dysfunction (Renamed from ED (erectile dysfunction))] 10-20-2018 Chronic Other male genital disorders (20 sources) Male erectile dysfunction, unspecified; Translations: [Erectile Dysfunction (Renamed from ED (erectile dysfunction))] 02-14-2020 Chronic Other nervous system disorders (4 sources) Hutchinson's palsy; Translations: [Hutchinson's palsy] 06-19-2024 Episodic Comment on above: 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 He presented to the emergency department and was treated with prednisone and famciclovir x 5 days.He is making a good recovery with a few mild deficits still remaining as noted in the HPI.Screening for Lyme disease was negative. MRI brain W/WO contrast did not note any cranial nerve abnormalities. Stroke was ruled out. Other nervous system disorders (1 source) Facial palsy; Translations: [Hutchinson's palsy] 05-11-2024 Episodic Other nervous system disorders (3 sources) Tremor; Translations: [Tremor, unspecified] 06-19-2024 Episodic Comment on above: There is presence of a low amplitude, low-frequency tremor in the bilateral hands, left slightly worse than right. This appears to be a mild, essential tremor and not a parkinsonian tremor. Per the patient, there is a familial component of essential tremor. The patient states that this tremor has been present most of his life. 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 Significance may represent a 5th cranial nerve issue or may be a variation of 7th cranial nerve. Other non-epithelial cancer of skin (20 sources) Basal cell carcinoma of skin; Translations: [Basal cell carcinoma] 12-06-2017 Episodic Other nutritional; endocrine; and metabolic disorders (20 sources) Body mass index 30+ - obesity; Translations: [BMI 34.0-34.9,adult] Resolved: 0 12-06-2017 Chronic Other screening for suspected conditions (not mental disorders or infectious disease) (20 sources) Abnormal findings on diagnostic imaging of liver and biliary tract; Translations: [Blood chemistry abnormal] Resolved: 9 12-06-2017 Episodic Comment on above: mri liver validated that liver lesion was a hemangioma-- pos anti-smooth musc le antibody Other skin disorders (20 sources) Acne; Translations: [Acne] 12-06-2017 Episodic Other skin disorders (20 sources) Keloid scar; Translations: [Keloid] 12-06-2017 Episodic Residual codes; unclassified (20 sources) Obstructive sleep apnea syndrome; Translations: [CHRISTINA on CPAP] 12-06-2017 Chronic Comment on above: wears cpapm faithful ly Residual codes; unclassified (10 sources) Needs influenza immunization; Translations: [Need for prophylactic vaccination and inoculation against influenza (Renamed from Need for immunization against influenza)] 01-31-2020 Episodic Residual codes; unclassified (20 sources) Current non-smoker ; Translations: [Current non-smoker] 11-02-2019 Episodic Residual codes; unclassified (20 sources) Non-smoker; Translations: [Non-smoker] 01-23-2021 Episodic Syncope (20 sources) Vasovagal syncope; Translations: [Vasovagal syncope] Resolved: 6 02-17-2017 Episodic Unclassified (20 sources) Benign essential HTN Unclassified (20 sources) SCREENING FOR CANCER OF THE PROSTATE (V76.44) Unclassified (20 sources) HYPERTENSION, BENIGN ESSENTIAL (401.1) Unclassified (20 sources) Unclassified (20 sources) Hypercholesteremia (272.0) Unclassified (20 sources) Current non-smoker ; Translations: [Current non-smoker] 12-06-2017 Unclassified (20 sources) Screening status; Translations: [Encounter for screening for malignant neoplasm of colon (Renamed from Special screening for malignant neoplasms, colon)] 12-06-2017 Unclassified (20 sources) BMI 33.0-33.9,adult Unclassified (20 sources) Nutritional counseling; Translations: [Patient encounter status] 10-20-2018 Unclassified (20 sources) BMI 34.0-34.9,adult Unclassified (20 sources) Hypercholesteremia Unclassified (20 sources) CHRISTINA on CPAP Unclassified (20 sources) Elevated LFTs (Renamed from Elevated liver function tests) Unclassified (20 sources) Erectile Dysfunction (Renamed from ED (erectile dysfunction)) Unclassified (19 sources) Pain, foot, chronic, left Unclassified (20 sources) Screening for prostate cancer Unclassified (19 sources) BMI 31.0-31.9,adult Unclassified (19 sources) Keloid Unclassified (20 sources) Patient encounter status; Translations: [Encounter for hepatitis C virus screening test for high risk patient] 11-02-2019 Unclassified (20 sources) Non-smoker; Translations: [Non-smoker] 11-02-2019 Viral infection (6 sources) 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; Translations: [Shingles (herpes zoster) polyneuropathy] 04-21-2022 Episodic Past or Other Problems Problem Classification Problem Date Documented Da te Episodic/Chronic Abdominal pain (2 sources) Abdominal pain; Translations: [Unspecified abdominal pain] Onset: 12-24-2023 12-19-2023 Episodic Other connective tissue disease (14 sources) Chronic pain of left foot; Translations: [Pain, foot, chronic, left] 03-17-2017 Comment on above: attention heel Other nervous system disorders (1 source) Hutchinson's palsy; Translations: [Hutchinson's palsy] Onset: 06-20-2024 Episodic Other nervous system disorders (1 source) Tremor, unspecified; Translations: [Tremor, unspecified] Onset: 05-11-2024 Episodic Other nervous system disorders (1 source) Disorder of trigeminal nerve, unspecified; Translations: [Disorder of trigeminal nerve, unspecified] Onset: 05-11-2024 Episodic Other nervous system disorders (1 source) Anesthesia of skin; Translations: [Anesthesia of skin] Onset: 05-02-2024 Episodic Unclassified (19 sources) ABNORMAL BLOOD EXAMINATION FINDINGS NEC (790.99) Unclassified (20 sources) Abnormal liver ultrasound Unclassified (19 sources) Abnormal blood chemistry Unclassified (20 sources) Abnormal blood finding; Translations: [Hematopoietic system finding] Resolved: 12-06-2015 02-17-2017 Unclassified (19 sources) Leg pain, bilateral (729.5) Results Test Name Value Interpretation Reference Range Facility Coronary Angiography CTon Coronary Angiography CT [facility] [address] [place] [address] 09/25/24 1700 MR#: [id number] Acct: [id number] Name: NOEMI PERKINS Rep #: [id number] : 1955 69 From: Bharat Roper MD PCP: Dr. Hermila Kumar, DO Status:REG REF Y Location: CT Calcium Scoring Date of Study:: 09/22/24 Indications Indications: FH Coronary Calcium Scoring: High-resolution Computed Tomographic imaging of the chest was performed on ], with particular attention paid to the coronary arteries. Images from the examination were analyzed for the presence and extent of coronary artery calcification , using coronary calcium quantification software. The patient tolerated the procedure well and there were no complications. The results of the coronary calcification analysis are provided below. Findings Coronary Artery Left Anterior Descending (LAD): 31.6 Left Circumflex (LCX): 4 Right Coronary Artery (RCA): 188 Total Agatston Score: 224 Percentile Rankin-50% Calcium Scoring Interpretation: Different methods to categorize the overall amount of coronary plaque. Overall amount CAC SIS Visual of coronary plaque P1 Mild -100 <2 1-2 vessels with mild amount of plaque P2 Moderate 101-300 3-4 1-2 vessels with moderate amount, 3 vessels with mild amount of plaque P3 Severe 301-999 5-7 3 vessels with moderate amount, 1 vessel with severe amount of plaque P4 Extensive >1000 >8 2-3 vessels with severe amount of plaque Calcium Score: Moderate: 1-2 vessels w/moderate amt, 3 vessels w/mild amt of plaque Conclusion: 1-2 vessel moderate CAD present. 09/25/24 170 Date Bharat Roper MD Cosigner Signature (if applicable): Date CC: Dr. Bharat Roper MD; Dr. Hermila Kumar DO Signed Normal [facility] Limited Chest CT Cardiac Onl yon 09-22-[address] Cardiac Only [facility] [address] [place], [place] [id number] Limited Chest CT Cardiac Only MR#: [id number] Acct: [id number] Name: NOEMI PERKINS Rep #: [id number] : 1955 M 69 From: Gavin Lazaro PCP: Dr. Hermila Kumar DO Status: REG REF Study: Limited Chest CT Cardiac Only Date of Exam: Exam# [id number] Ordering Dr: Hermila Kumar DO PROCEDURE: LIMITED CHEST CT CARDIAC ONLY REASON FOR EXAM: SCREEN TECHNIQUE: CT for coronary artery calcium scoring. One or more dose reduction techniques were used (e.g., Automated exposure control, adjustment of the mA and/or kV according to patient size, use of iterative reconstruction technique). COMPARISON: None. CT/Limited Chest CT Cardiac Only IMPRESSION: Limited imaging of the lungs demonstrates no acute process. No pleural effusion or pneumothorax is seen in visualized areas. No adenopathy is noted. The visualized upper abdomen demonstrates no significant abnormality. Reading Location: [address] CC: Dr. Hermila Kumar DO [place]: Signed Normal [facility] Neurology Visit Reporton Neurology Visit Report [facility] [address] [place] [address], [address] [place] [id number] OFFICE VISIT Date of Service: 06/19/24 MR#: [id number] Acct: [id number] Name: NOEMI PERKINS Rep #: [id number] : 1955 Provider: ALON almonte Age/Sex: 68/M Location: [facility] [place]. Status: Signed HPI HPI Chief Complaint: Follow-up, 1 month Details: The patient is a 68-year-old right handed male who presents for 1 month follow-up. He was originally referred by [facility] ER for left-sided Hutchinson's Palsy. He established care with Dr. Chacko on 05/11/2024. History: (04/08/2024): Patient presented to [facility] for left-sided facial weakness. He was determined to have Hutchinson's Palsy. Emergency room completed a CTA head/neck that was rather unremarkable. There was no significant stenosis. There was mild atherosclerotic calcifications of the proximal left ICA without significant stenosis. Please see supplemental information below for radiology report. He was discharged from the ER with a 5-day course of prednisone and famciclovir. (05/11/2024): Patient established care and was evaluated by neurologist Dr. Chacko along with myself. The patient completed treatment of prednisone and famciclovir for his left-sided Hutchinson's palsy. He is showing good improvement. He had a complete Hutchinson's palsy by his description. On exam, he can close his left eye but there is decreased blink. There is some loss of facial expression on the left side involving the forehead, cheek, and lips. Of interest, is the loss of sensation at the corner of the left side of the mouth, loss of sensation lateral aspect of the tongue and tip of the tongue. The loss of sensation involving the tongue anterior two thirds on the left side is a branch of the 7th nerve known as the chorda tympani. The corner of the mouth however is more often thought of is being supplied by the 5th cranial nerve. This would imply that patient may have either to cranial nerves involved or he may have an anatomic variation on the 7th cranial nerve. Because of the slightly atypical anatomic distribution with regard to sensory change, an MRI brain with and without contrast was ordered. The patient was also screened for Lyme disease as he frequents the outdoors. He has not had recent COVID. He has been vaccinated for shingles. He has not had any vesicle outbreaks noted. This is sometimes seen in cases of Carey Rangel.There may be a genetic component as multiple family members have had Hutchinson's palsy. (06/19/2024): Mr. Perkins presents today for a follow-up visit with myself to review results and to evaluate progress. He is accompanied by his . The laboratory findings were not indicative of Lyme disease or an acute infection. Serology only had band 41 present- this is not indicative of disease as there would need to be 5 positive bands to correlate with a positive test. The MRI images were reviewed with Dr. Chacko and and no abnormalities were appreciated. There was no evidence of stroke. Please see supplemental information for the full radiology report. These negative findings were shared with the patient. On exam, the patient is making excellent improvement. He states that he feels he has significantly improved since his last visit approximately 1 month ago but starting to plateau. 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 This is again noted on his forehead, cheeks, and lips. He describes mild loss of taste on the left side of his tongue. Taste impairment can sometimes be difficult to differentiate from true sensory loss; however, there remains to be decreased sensation on the lateral aspect of his left upper and lower lip. His tongue is midline. The patient states that lip numbness has made some improvement over the past 3 months. The patient states he has no problems with chewing, pocketing food, drooling, etc. I do not warrant him to be an aspiration risk; therefore, I do not believe a speech therapy consult for swallowing function is needed at present time. The patient is able to close his left eye completely. He had saccadic pursuit horizontally and vertically. Pupils were equal, approximately 4mm in size, and round. There is not excessive lacrimation. He describes chronic, bilateral eye irritation with tearing secondary to air leaks on his CPAP machine. There is no hyperacusis. Hearing is equal bilaterally on exam. The patient states he never had hearing sensitivity or distortion of sound. The patient did described the presence of pain behind his left ear for 3 weeks wh (more content not included)... Normal [facility] Brain W/WO Contraston 2024 Brain W/WO Contrast [facility] Imaging Services [address] [place], [place] [address] Brain W/WO Contrast MR#: [id number] Acct: [id number] Name: NOEMI PERKISN Rep #: [id number] : 1955 M 68 From: Adria Schmidt MD PCP: Dr. Hermila Kumar DO Status: REG CLI Study: Brain W/WO Contrast Date of Exam: 06/08/24 Exam# [id number] Ordering Dr: Migdalia Glass ANALYSIS ANALYST-C PROCEDURE: BRAIN W/WO CONTRAST REASON FOR EXAM: Atypical Hutchinson's palsy; left side. TECHNIQUE: Multiplanar, multisequence MRI of the brain with and without intravenous gadolinium-based contrast. CONTRAST: 20 mL of IV Clariscan. COMPARISON: None. FINDINGS: The ventricles are normal in size and midline in position. No evidence of acute hemorrhage or infarction. No extra-axial blood or fluid collections. Right maxillary sinus retention cyst. Left maxillary sinus mucosal thickening. The mastoid air cells are well aerated. The orbits are unremarkable. MRI/Brain W/WO Contrast IMPRESSION: No acute intracranial abnormalities. Reading Location: [id number] CC: ANALYSIS ANALYST-C Migdalia Glass; Dr. Hermila Kumar DO [place]: Signed Normal [facility] Magnetic resonance imaging r eportOrdered By: Adria Schmidt on 06-08-2024 Study report [facility] Imaging Services [address] [place], [place] [address] Brain W/WO Contrast MR#: [id number] Acct: [id number] Name: NOEMI PERKINS Rep #: [id number] : 1955 M 68 From: Paul Schmidt MD PCP: Dr. Hermila Kumar DO Status: RE G CLI Study:Brain W/WO Contrast Date of Exam: 06/08/24 Exam# [id number] Ordering Dr: Migdalia Glass ANALYSIS ANALYST-Fabiana PROCEDURE: BRAIN W/WO CONTRAST REASON FOR EXAM: Atypical Hutchinson's palsy; left side. TECHNIQUE: Multiplanar, multisequence MRI of the brain with and without intravenous gadolinium-based contrast. CONTRAST: 20 mL of IV Clariscan. COMPARISON: None. FINDINGS: The ventricles are normal in size and midline in position. No evidence of acutehemorrhage or infarction. No extra-axial blood or fluid collections. Right maxillary sinus retention cyst. Left maxillary sinus mucosal thickening. The mastoid air cells are well aerated. The orbits are unremarkable. MRI/Brain W/WO Contrast IMPRESSION: No acute intracranial abnormalities. Reading Location: [id number] CC: ANALYSIS ANALYST-Fabiana Glsas; Dr. Hermila Kumar DO ~ [place]: Signed [facility] Lyme Antibodies,W Bloton LYME IgG INTERP Negative Normal . [facility] Comment on above: Result Comment: Posi tive: 5 of the following Borrelia-specific bands: 18,23,28,30,39,41,45,58, 66, and 93. Negative: No bands or banding patterns which do not meet positive criteria. Performed By: #### L 7000.5800 ####[facility] [address] [place], [address] LYME IgM INTERP Negative Normal . [facility] Comment on above: Result Comment: Note : An equivocal or positive EIA result followed by a negative Line Blot result is considered NEGATIVE. An equivocal or positive EIA result followed by a positive Line Blot is considered POSITIVE by the CDC. Positive: 2 of the following bands: 23,39 or 41 Negative: No bands or banding patterns which do not meet positive criteria. Criteria for positivity are those recommended by CDC/ASTPHLD. p23=Osp C, x63=hxvteeraf Note: Sera from individuals with the following may cross react in the Lyme Line Blot assays: other spirochetal diseases (periodontal disease, leptospirosis, relapsing fever, yaws, and pinta); connective autoimmune (Rheumatoid Arthritis and Systemic Lupus Erythematosus and also individuals with Antinuclear Antibody); other infections ([place] Spotted Fever; Cristofer-Panchal Virus, and Cytomegalovirus). Please Note: Lyme immunoblot alone is not recommended for the diagnosis of Lyme disease. Current guidelines recommend the use of a two-tiered approach to Lyme serology testing to improve the sensitivity and specificity of testing. [facility] offers test code 536050 Lyme Disease Serology with Reflex to aid in the diagnosis of Lyme Disease. Performed at: [address] [id number] Vp Product Management: Ann Yun MD, Phone: [phone] Performed By: #### L ####[facility] [address] [place], [address] P18 Ab Absent Normal . [facility] Comment on above: Performed By: #### L 6999.0 ####[facility] [address] [place], [address] P23 Ab Absent Normal . [facility] Comment on above: Performed By: #### L 6999.5799 ####[facility] [address] [place], [address] P28 Ab Absent Normal . [facility] Comment on above: Performed By: #### L 6999.5800 ####[facility] [address] [place], [address] P30 Ab Absent Normal . [facility] Comment on above: Performed By: #### L 6999.580 ####[facility] [address] [place], [address] P39 Ab Absent Normal . [facility] Comment on above: Performed By: #### L 6999.5800 ####[facility] [address] [place], [address] P41 Ab Present Abnormal . [facility] Comment on above: Performed By: #### L 7000.5800 ####[facility] [address] [place], [address] P41 Ab Absent Normal . [facility] Comment on above: Performed By: #### L 7000.5800 ####[facility] [address] [place], [address] P45 Ab Absent Normal . [facility] Comment on above: Performed By: #### L 7000.5800 ####[facility] [address] [place], [address] P58 Ab Absent Normal . [facility] Comment on above: Performed By: #### L 7000.5800 ####[facility] [address] [place], [address] P66 Ab Absent Normal . [facility] Comment on above: Performed By: #### L 7000.5800 ####[facility] [address] [place], [address] P93 Ab Absent Normal . [facility] Comment on above: Performed By: #### L 7000.5800 ####[facility] [address] [place], [address] Lyme disease 18 kil[place] p rotein IgG antibody detectionOrdered By: Migdalia Glass on 05-11-2024 Lyme Disease IgG Ab 18 kDa Band Absent . [facility] Lyme disease 23 [place] p rotein IgM antibody detectionOrdered By: Migdalia Glass on 05-11-2024 Lyme Disease IgM Ab 23 kDa Band Absent . [facility] Lyme disease 28 [place] p rotein IgG antibody detectionOrdered By: Migdalia Glass on 05-11-2024 Lyme Disease IgG Ab 28 kDa Band Absent . [facility] Lyme disease 39 [place] p rotein IgG antibody detectionOrdered By: Migdalia Glass on 05-11-2024 Lyme Disease IgG Ab 39 kDa Band Absent . [facility] Lyme disease 39 [place] p rotein IgM antibody detectionOrdered By: Migdalia Glass on 05-11-2024 Lyme Disease IgM Ab 39 kDa Band Absent . [facility] Lyme disease 41 [place] p rotein IgG antibody detectionOrdered By: Migdalia Glass on 05-11-2024 Lyme Disease IgG Ab 41 kDa Band Present High . [facility] Lyme disease 41 [place] p rotein IgM antibody detectionOrdered By: Migdalia Glass on 05-11-2024 Lyme Disease IgM Ab 41 kDa Band Absent . [facility] Lyme disease 45 kil[place] p rotein IgG antibody detectionOrdered By: Migdalia Glass on 05-11-2024 Lyme Disease IgG Ab 45 kDa Band Absent . [facility] Lyme disease 58 kil[place] p rotein IgG antibody detectionOrdered By: Migdalia Glass on 05-11-2024 Lyme Disease IgG Ab 58 kDa Band Absent . [facility] Lyme disease 66 kil[place] p rotein IgG antibody assayOrdered By: Migdalia Glass on 05-11-2024 Lyme Disease IgG Ab 66 kDa Band Absent . [facility] Lyme disease p23 IgG antibod y assayOrdered By: Migdalia Glass on 05-11-2024 Lyme Disease IgG Ab 23 kDa Band Absent . [facility] Neurology Visit Reporton Neurology Visit Report [facility] [address], [address] [place] [address] OFFICE VISIT Date of Service: 05/11/24 MR#: [id number] Acct: [id number] Name: NOEMI PERKINS Rep #: [id number] : 1955 Provider: Dr. Simone ny MD Age/Sex: 68/M Location: [facility] Status: Signed HPI HPI Chief Complaint: Establish Care Details: The patient is a 68-year-old right handed male who presents to [facility]. He was referred 04/08/2024 by [facility] ER for Hutchinson's Palsy. Emergency room did CTA head/neck with radiology interpretation: 1. ???No intracranial great vessel stenosis 2. ???Mild atherosclerotic calcifications of the proximal left ICA without significant stenosis 3. ???Otherwise, unremarkable examination. He was discharged from ER with new RX's: prednisone 20 mg tablet 20 mg PO BID Qty: 10 0RF and famciclovir 500 mg tablet 500 mg PO Q8H 5 Days Qty: 21 0RF. Patient presents with his for evaluation of Hutchinson's palsy. Patient has received treatment completed treatment for left-sided Hutchinson's palsy. He is showing good improvement. He had a complete Hutchinson's palsy by his description. At this point in time he can close his left eye. He does have some decreased blink and some loss of facial expression on the left side involving the forehead as well as the muscles of the cheek and lips. Of interest is the loss of sensation at the corner of the left side of the mouth, loss of sensation lateral aspect of the tongue and tip of the tongue. The loss of sensation involving the tongue anterior two thirds on the left side is a branch of the 7th nerve known as the chorda tympani. The corner of the mouth however is more often thought of is being supplied by the 5th cranial nerve. This would imply that patient may have either to cranial nerves involved or he may have an anatomic variation on the 7th cranial nerve. Patient appears to be making excellent improvement. Because he has a slightly atypical anatomic distribution with regard to sensory change I thought it would be appropriate to obtain an MRI with and without contrast of the brain. I also thought it be appropriate to screen patient for Lyme disease. He does go into the [facility]. He has not had recent COVID. He has been vaccinated for shingles. He has not had any vesicle outbreaks noted. This is sometimes seen in cases of Carey Rangel. Multiple family members have had Hutchinson's palsy. ROS General No recent illnesses no recent tick bites. HEENT: No recent head trauma or neck trauma. Conjunctive a clear although he has blocked tear ducts causing frequent tearing. No difficulties with his parotid gland. Did have ear infections as a child. 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 Neurologic no strokes no seizures. Did have sciatica in the past left-sided. Exam Const Other: Blood pressure 146/84 pulse 67 respiration 16 temperature 98.6 O2 sat 96%. General well-developed well-nourished male. BMI 33.4% Respiratory clear to auscultation Cardiac regular rhythm no murmur Abdomen nondistended Extremities without evidence of trauma Skin appears intact. No obvious lesions on exposed areas Neurologic examination: Mental status: Awake alert oriented person place day month and year. Memory intact. Language shows no senior receptionist expression repetition. Insight and judgment is normal. No delusions hallucinations. CN II-XII: Pupils equal round react to light. Visual kruger full to confrontation. Extraocular muscles intact. No nystagmus. Patient does have a Hutchinson's palsy moderate degree left side of face. He can close the eye. Hutchinson's phenomenon noted. Sensation does appear to be changed left corner of mouth tip of left side of tongue and perhaps lateral aspect of tongue. Tuning fork test for hearing is intact in all 3 test. Swallowing phonation and tongue otherwise normal. Tongue is normal with respect to motor movement. Motor exam: No focal weakness identified. Normal bulk tone and strength. Cerebellar testing shows that he does have a mild tremor on finger-nose maneuvers. It is greater on the right than the left but asymmetry is very subtle. Reflexes are 2+ at the biceps 2+ right knee absent left knee (old sciatica problem) toes downgoing. Sensory exam intact to tactile and vibratory sense. Station gait normal. Romberg slight wavering. No drift. Assessment and Plan Assessment and Plan (1) Hutchinson's palsy: Status: Acute Comment: Left (2) Tremor: Status: Acute Comment: Patient had a complete Hutchinson's palsy as noted in HPI. Patient did receive treatment and appears to be making good recovery. Patient did have a small sensory area on the le (more content not included)... Normal [facility] No Panel InformationOrdered By: Migdalia Glass on 05-11-2024 Lyme Disease IgG Ab 30 kDa Band Absent . [facility] Lyme Disease IgG Ab 93 kDa Band Absent . [facility] Lyme Disease IgG West Blot Interp Negative . [facility] Comment on above: Positive: 5 of the f ollowing Borrelia-specific bands: 18,23,28,30,39,41,45,58, 66, and 93. Negative: No bands or banding patterns which do not meet positive criteria. Lyme Disease IgM Ab (Western Blot) Negative . [facility] Comment on above: Note: An equivocal o r positive EIA result followed by anegative Line Blot result is considered NEGATIVE. Anequivocal or positive EIA result followed by a positiveLine Blot is considered POSITIVE by the CDC.Positive: 2 of the following bands: 23,39 or 41Negative: No bands or banding patterns which do not meetpositive criteria.Criteria for positivity are those recommended byCDC/ASTPHLD. p23=Osp C, j07=[id number]:Sera from individuals with the following may cross reactin the Lyme Line Blot assays: other spirochetal diseases(periodontal disease, leptospirosis, relapsing fever, yaws,and pinta); connective autoimmune (Rheumatoid Arthritis andSystemic Lupus Erythematosus and also individuals withAntinuclear Antibody); other infections (Rick MountainSpotted Fever; Cristofer-Panchal Virus, and Cytomegalovirus).Please Note: Lyme immunoblot alone is not recommended forthe diagnosis of Lyme disease. Current guidelines recommendthe use of a two-tiered approach to Lyme serology testingto improve the sensitivity and specificity of testing.[facility] offers test code 605499 Lyme Disease Serology withReflex to aid in the diagnosis of Lyme Disease.Performed at: [address] [id number] Director: Ann Yun MD, Phone: [phone] Lead EKGon 04-08-2024 12 Lead EKG [facility] Cardiovascular Services [address] [place] [address] 12 Lead EKG 04/08/24 1103 MR#: [id number] Acct: [id number] Name: NOEMI PERKINS Rep #: [id number] : 1955 68 From: Bharat Roper MD Attending Dr: Status: DEP ER Ordering : Morteza Franz DO Date: 04/08/24 Location: ED Sex: M C Admitted: Test Reason : Blood Pressure : */* mmHG Vent. Rate : 53 BPM Atrial Rate : 53 BPM P-R Int : 186 ms QRS Dur : 96 ms QT Int : 436 ms P-R-T Axes : 25 -24 16 degrees QTcB Int : 409 ms Sinus bradycardia Otherwise normal ECG Confirmed by BHARAT ROPER MD ([id number]), editorial project manager ARIEL BROWN ([id number]) on 04/10/2024 8:36:22 AM Referred By: Confirmed By: BHARAT ROPER MD 04/10/24 0836 Date Bharat Roper MD CC: Dr. Hermila Kumar, DO; Dr. Morteza Franz DO Signed Normal [facility] Absolute neutrophil countOrd ered By: Morteza Franz on 04-08-2024 Neutrophils (Bld) [#/Vol] 4.9 10*3/uL 2.0-7.7 [facility] Basic Metabolic Profile (BMP )on 04-08-2024 BUN/CRE 12.7 RATIO Normal 10-20 [facility] Comment on above: Performed By: #### L 100.0100, L500.2500 #### [facility] [address] [place], [address] CA,Total 9.5 mg/dL Normal 8.5-10.1 [facility] Comment on above: Performed By: #### L 100.0100, L500.2500 #### [facility] [address] [place], [address] Chloride [Moles/Vol] 104 mmol/L Normal 98-107 [facility] Comment on above: Performed By: #### L 100.0100, L500.2500 #### [facility] [address] [place], [address] CO2 [Moles/Vol] 30.0 mmol/L Normal 21.0-32.0 [facility] Comment on above: Performed By: #### L 100.0100, L500.2500 #### [facility] [address] [place], [address] Creatinine [Mass/Vol] 1.02 mg/dL Normal 0.70-1.30 [facility] Comment on above: Result Comment: The validity of the calculated GFR GFRAA in patients over 70 years has not been determined. Clinical correlation is essential. Performed By: #### L 100.0100, L500.2500 #### [facility] [address] [place], [address] ECRCL 83.22 ml/min Normal [facility] Comment on above: Performed By: #### L 100.0100, L500.2500 #### [facility] [address] [place], [address] EST GFR - AA 93 mL/min Normal >60 [facility] Comment on above: Result Comment: Afri can [place] GFR Calc Performed By: #### L 100.0100, L500.2500 #### [facility] [address] [place], [address] GAP 5 Normal 5-15 [facility] Comment on above: Performed By: #### L 100.0100, L500.2500 #### [facility] [address] [place], [address] GFR/1.73 sq M.predicted among non-blacks MDRD (S/P/Bld) [Vol rate/Area] 77 mL/min/{1.73_m2} Normal >60 [facility] Comment on above: Result Comment: Non- GFR Calc Performed By: #### L 100.0100, L500.2500 #### [facility] [address] [place], [address] Glucose [Mass/Vol] 94 mg/dL Normal 74-106 [facility] Comment on above: Performed By: #### L 100.0100, L500.2500 #### [facility] [address] [place], [address] Potassium [Moles/Vol] 3.5 mmol/L Normal 3.5-5.1 [facility] Comment on above: Performed By: #### L 100.0100, L500.2500 #### [facility] [address] [place], [address] Sodium [Moles/Vol] 139 mmol/L Normal 136-145 [facility] Comment on above: Performed By: #### L 100.0100, L500.2500 #### [facility] [address] [place], [address] Urea nitrogen [Mass/Vol] 13 mg/dL Normal 7-18 [facility] Comment on above: Performed By: #### L 100.0100, L500.2500 #### [facility] [address] [place], [address] Basophil percentageOrdered B y: Remus Ungur on 04-08-2024 Basophils/100 WBC (Bld) 0.8 % 0-1 [facility] Bedside Glucoseon 04-08-2024 FINGERSTICK GLU 98 mg/dL Normal 74-106 [facility] Comment on above: Result Comment: MARYBETH CONLEY OF PATIENT CARE PER NURSING PROTOCOL Performed By: #### L 501.080 #### [facility] [address] [place], [address] Blood urea nitrogen (BUN)/cr eatinine ratioOrdered By: Remus Ungur on 04-08-2024 Urea nitrogen/Creatinine [Mass ratio] 12.7 mg/mg 10-20 [facility] CBC W/Diff, Automatedon - Absolute Lymph 1.54 X10 3/uL Normal 0.83-4.51 [facility] Comment on above: Performed By: #### L 100.0100, L500.2500 #### [facility] [address] [place], [address] Absolute Neut 4.9 X10 3/uL Normal 2.0-7.7 [facility] Comment on above: Performed By: #### L 100.0100, L500.2500 #### [facility] [address] [place], [address] Basophils/100 WBC (Bld) 0.8 % Normal 0-1 [facility] Comment on above: Performed By: #### L 100.0100, L500.2500 #### [facility] [address] [place], [address] Eosinophils/100 WBC (Bld) 4.3 % Normal 0-5 [facility] Comment on above: Performed By: #### L 100.0100, L500.2500 #### [facility] [address] [place], [address] Erythrocyte distribution width (RBC) [Ratio] 12.0 % Normal 11.6-14.6 [facility] Comment on above: Performed By: #### L 100.0100, L500.2500 #### [facility] [address] [place], [address] Hematocrit (Bld) [Volume fraction] 46.0 % Normal 40-54 [facility] Comment on above: Performed By: #### L 100.0100, L500.2500 #### [facility] [address] [place], [address] Hemoglobin (Bld) [Mass/Vol] 15.7 g/dL Normal 13.0-16.5 [facility] Comment on above: Performed By: #### L 100.0100, L500.2500 #### [facility] [address] [place], [address] IG% 0.700 Normal 0.0-0.9 [facility] Comment on above: Result Comment: IG% - Immature Granulocytes (promyelocytes, myelocytes and metamyelocytes) > 1% indicates that a LEFT SHIFT is Present. Performed By: #### L 100.0100, L500.2500 #### [facility] [address] [place], [address] Lymphocytes/100 WBC (Bld) 20.5 % Normal 19-41 [facility] Comment on above: Performed By: #### L 100.0100, L500.2500 #### [facility] [address] [place], [address] MCH (RBC) [Entitic mass] 31.4 pg Normal 27.0-32.0 [facility] Comment on above: Performed By: #### L 100.0100, L500.2500 #### [facility] [address] [place], [address] MCHC (RBC) [Mass/Vol] 34.1 g/dL Normal 32-36 [facility] Comment on above: Performed By: #### L 100.0100, L500.2500 #### [facility] [address] [place], [address] MCV (RBC) [Entitic vol] 92.0 fL Normal 80-94 [facility] Comment on above: Performed By: #### L 100.0100, L500.2500 #### [facility] [address] [place], [address] Monocytes/100 WBC (Bld) 8.5 % Normal 0-10 [facility] Comment on above: Performed By: #### L 100.0100, L500.2500 #### [facility] [address] [place], [address] Neutrophils/100 WBC (Bld) 65.2 % Normal 47-70 [facility] Comment on above: Performed By: #### L 100.0100, L500.2500 #### [facility] [address] [place], [address] Nucleated RBC (Bld) [#/Vol] 0 10*3/uL Normal 0-5 [facility] [facility] Comment on above: Performed By: #### L 100.0100, L500.2500 #### [facility] [address] [place], [address] Platelet mean volume (Bld) [Entitic vol] 11.4 fL Normal 6.2-12.0 [facility] Comment on above: Performed By: #### L 100.0100, L500.2500 #### [facility] [address] [place], [address] Platelets (Bld) [#/Vol] 261 10*3/uL Normal 150-450 [facility] Comment on above: Performed By: #### L 100.0100, L500.2500 #### [facility] [address] [place], [address] RBC (Bld) [#/Vol] 5.00 10*6/uL Normal 4.6-6.2 [facility] Comment on above: Performed By: #### L 100.0100, L500.2500 #### [facility] [address] [place], [address] RDW SD 40.5 fl Normal 35.1-43.9 [facility] Comment on above: Performed By: #### L 100.0100, L500.2500 #### [facility] [address] [place], [address] WBC (Bld) [#/Vol] 7.5 10*3/uL Normal 4.4-11.0 [facility] Comment on above: Performed By: #### L 100.0100, L500.2500 #### [facility] [address] [place], [address] CTA Head AND Neck W/ Contras ton 04-08-2024 CTA Head AND Neck W/ Contrast [facility] Imaging Services [address] [place] [address] CTA Head AND Neck W/ Contrast MR#: [id number] Acct: [id number] Name: NOEMI PERKINS Rep #: [id number] : 1955 M 68 From: Donovan Lazaro PCP: Dr. Hermila Kumar, DO Status: REG ER Study: CTA Head AND Neck W/ Contrast Date of Exam: Exam# [id number] Ordering Dr: Morteza Franz DO [id number] INDICATION: left facial droop and paraesthesias EXAMINATION: CT BRAIN WITHOUT CONTRAST, CTA HEAD, AND CTA NECK TECHNIQUE: Noncontrast axial images were obtained of the brain. Subsequently, routine carotid CT angiogram protocol was performed without and with IV contrast. In addition, images were obtained of the [place]. NASCET criteria using the distal ICAs for comparison were used for evaluation of stenoses. 3D reconstructions were reviewed. The protocol utilizes one or more of the following dose reduction techniques: automated exposure control, adjustment of mA and/or kV according to patient size,and/or use of iterative reconstruction technique. IV Contrast dosage and agent: 100 cc of Isovue-370 COMPARISON: No relevant prior comparison study available FINDINGS: --CT BRAIN WITHOUT CONTRAST: BRAIN PARENCHYMA: No intra- or extra-axial hemorrhage. No evidence of acute infarct. No intracranial mass or mass effect. There is preservation of the chu/white matter interface. Posterior fossa structures are unremarkable. CSF SPACES: Appropriate for age. No hydrocephalus. Basal cisterns are patent. CALVARIUM, SKULL BASE, PARANASAL SINUSES AND MASTOID AIR CELLS: Coarsened thickening of the right maxillary sinus. ASPECTS Score for Acute Strokes: 10 --CTA NECK: AORTIC ARCH AND BRANCHES: Normal anatomy, patent. RIGHT CCA: No occlusion, significant stenosis or dissection. RIGHT ICA: No occlusion, significant stenosis or dissection. LEFT CCA: No occlusion, significant stenosis or dissection. LEFT ICA: Mild atherosclerotic calcifications in the proximal left ICA with less than 50% stenosis. RIGHT VERTEBRAL ARTERY: No occlusion, significant stenosis or dissection. LEFT VERTEBRAL ARTERY: No occlusion, significant stenosis or dissection. NECK SOFT TISSUES: Unremarkable. --CTA HEAD: --Anterior circulation: ICAs: [Mild atherosclerotic calcifications of the cavernous internal carotid arteries without significant stenosis. ACAs: No significant stenosis at the visualized segments. ACOM: Not visualized. MCAs: Questionable minimal narrowing of the distal left M2 segment without significant stenosis. --Posterior circulation: PCOMs: Faintly visualized on the left side. 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 BASILAR ARTERY: No significant stenosis. VERTEBRAL ARTERIES: No significant stenosis at the intradural/visualized segments. No evidence of intracranial aneurysm or vascular malformation. CT/CTA Head AND Neck W/ Contrast IMPRESSION: 1. No intracranial great vessel stenosis. 2. Mild atherosclerotic calcifications of the proximal left ICA without significant stenosis. 3. Otherwise unremarkable examination. Electronically Signed: Donovan Winter MD at 12:04 EST , CC: Dr. Hermila Kumar DO; Dr. Morteza Franz DO [place]: Signed Normal [facility] Carbon dioxide measurementOr dered By: Morteza Franz on 04-08-2024 CO2 [Moles/Vol] 30.0 mmol/L 21.0-32.0 [facility] Chloride measurementOrdered By: Morteza Franz on 04-08-2024 Chloride [Moles/Vol] 104 mmol/L 98-107 [facility] Emergency Department Summary on 04-08-2024 Emergency Department Summary [facility] Medical Records Department [address] [place] [address] Emergency Department Summary 04/08/24 MR#: [id number] Acct: [id number] Name: NOEMI PERKINS Rep #: [id number] : 1955 68 From: Morteza Franz DO PCP: Dr. Hermila Kumar DO Status:DEP ER Location: ED HPI History of Present Illness Chief Complaint: Numb/Ting Detail of Chief Complaint: Left face paresthesias and facial droop Informant: patient Narrative Narrative: Patient presents with left-sided paresthesias and facial droop that he noticed this morning. Patient states that he before he went to bed last night he had sensation that he had a fat lip but was able to brush his teeth and did not see anything abnormal. When he woke up this morning around 5:30 AM he had numbness and tingling to the left side of his face and had a facial droop. Patient states that he was able to workout without any difficulty. Patient denies paresthesias in the extremities or weakness in extremities. He denies any vision changes or difficulty with speech. He thinks he may be having a Hutchinson's palsy as he has had multiple friends and have had Hutchinson's palsy. He denies recent illness. He said no fever. He denies significant headache. [facility] Medical History Basal cell carcinoma Sleep apnea Hypertension Hypercholesteremia Home Medications ???Medication ???Instructions ???Recorded ???Last Taken ???Type aspirin 81 mg tablet,delayed 81 mg PO .q3day 12/11/23 Unknown History release (Adult Aspirin Regimen) atorvastatin 10 mg tablet 10 mg PO DAILY 12/11/23 Unknown History losartan 100 1 tab PO DAILY 12/11/23 Unknown History mg-hydrochlorothiazide 25 mg tablet famciclovir 500 mg tablet 500 mg PO Q8H 5 days #21 tabs 04/08/24 Unknown Rx prednisone 20 mg tablet 20 mg PO BID #10 tabs 04/08/24 Unknown Rx Allergy/AdvReac Type Severity Reaction Status Date / Time No Known Allergies Allergy Verified 04/08/24 09:39 Social History Smoking Status: Never smoker ROS ROS ED Review of Systems ROS Unobtainable: other Constitutional Constitutional ED: Reports lethargy; Denies chills, fever(s), sweats or weight loss Eyes Eyes: Denies blurry vision, change in vision or diplopia ENT ENT ED: Denies rhinorrhea or sore throat Cardiovascular Cardiovascular: Denies chest pain, orthopnea or racing heartbeat Respiratory/Chest Respiratory/Chest: Denies cough, dyspnea, dyspnea on exertion, orthopnea or sputum Gastrointestinal Gastrointestinal: Denies abdominal pain, diarrhea, nausea or vomiting Genitourinary Genitourinary ED: Denies dysuria, hematuria or urinary frequency Musculoskeletal Musculoskeletal: Denies arthralgias, back pain, myalgias or neck pain Integumentary Denies abscess, Abrasions or rash Neurologic Neurologic: Reports headache(s) and other Details: Left facial droop and left-sided facial paresthesias ; Denies weakness Psychiatric Psychiatric: Denies anxiety, depression or suicidal thoughts Endocrine Endocrinology: Denies polydipsia, polyphagia or polyuria Hematologic/Lymphatic Hematologic/Lymphatic: Denies easy bleeding, easy bruising or lymphadenopathy Allergic/Immunologic Allergic/Immunologic ED: Denies mouth swelling, tongue swelling or urticaria EXAM Physical Exam Const Vital Signs: 04/08/24 09:40 04/08/24 11:37 04/08/24 12:00 Temperature 98.6 F Temperature Source Oral Pulse Rate 63 55 L 54 L Respiratory Rate 18 16 Blood Pressure 153/91 H 125/96 H 127/69 H Blood Pressure Mean 111 105 88 Pulse Ox 98 100 Oxygen Delivery Method Room Air Room Air Positive well nourished and well developed General Appearance ED: well developed and NAD HEENT Reports TM's clear and moist mucous membranes HEENT Narrative: Left facial droop with decree sensation to the left face. Patient unable to wrinkle the left side of the forehead. He has weakness of the left upper eyelid. normocephalic and atraumatic; Negative for trauma or tenderness Tympanic Membrane ED: Yes TM's clear Eyes PERRL and EOMs intact bilaterally General Eye ED: Negative for pale conjunctiva or scleral icterus Neck no lymphadenopathy, supple and no JVD General: Negative for tenderness Chest Wall inspection of chest normal and palpation of chest normal Chest: Negative for tenderness Resp normal respiratory effort and clear to auscultation bilaterally Effort and Inspection: Negative for respiratory distress or pain with movement Auscultation: Negative for rhonchi, wheezes or diminished lung sounds Cardio regular rate, regular rhythm, S1 normal heart sound, S2 normal heart sound and no murmurs Peripheral Pulses: pulses 2+ throughout GI normal to inspectio (more content not included)... Normal [facility] Eosinophil percentageOrdered By: Morteza Franz on 04-08-2024 Eosinophils/100 WBC (Bld) 4.3 % 0-5 [facility] Erythrocyte distribution wid th ratioOrdered By: Morteza Franz on 04-08-2024 Erythrocyte distribution width (RBC) [Ratio] 12.0 % 11.6-14.6 [facility] Erythrocyte distribution wid th standard deviationOrdered By: Morteza Franz on 04-08-2024 Erythrocyte distribution width (RBC) [Entitic vol] 40.5 fL 35.1-43.9 [facility] Estimated glomerular filtrat ion rate (GFR) AmericanOrdered By: Morteza Franz on 04-08-2024 Estimated GFR (MDRD) Amer 93 mL/min >60 [facility] Comment on above: GFR Calc Estimation of creatinine kalli aranceOrdered By: Morteza Franz on 04-08-2024 Estimated Creatinine Clearance Calc 83.22 ml/min [facility] Glomerular filtration rate ( GFR) estimationOrdered By: Morteza Franz on 04-08-2024 Estimated GFR (MDRD) Non-Af Amer 77 mL/min >60 [facility] Comment on above: Non- GFR Calc Glucose measurementOrdered B y: Morteza Franz on 04-08-2024 Glucose [Mass/Vol] 94 mg/dL 74-106 [facility] Glucose measurement at bedsi deOrdered By: Morteza Franz on 04-08-2024 Bedside Glucose (Misc Panel) 98 mg/dL 74-106 [facility] Comment on above: MANAGEMENT OF PATIEN T CARE PER NURSING PROTOCOL Hematocrit Auto (Bld) [Volum e fraction]Ordered By: Morteza Franz on 04-08-2024 Hematocrit (Bld) [Volume fraction] 46.0 % 40-54 [facility] Hemoglobin measurementOrdere d By: Mroteza Franz on 04-08-2024 Hemoglobin (Bld) [Mass/Vol] 15.7 g/dL 13.0-16.5 [facility] Immature granulocytes/100 WB C Auto (Bld)Ordered By: Morteza Franz on 04-08-2024 Immature granulocytes/100 WBC (Bld) 0.700 % 0.0-0.9 [facility] Comment on above: IG% - Immature Granu locytes (promyelocytes, myelocytes and metamyelocytes) > 1% indicates that a LEFT SHIFT is Present. Lymphocytes Auto (Unsp spec) [#/Vol]Ordered By: Morteza Franz on 04-08-2024 Lymphocytes (Bld) [#/Vol] 1.54 10*3/uL 0.83-4.51 [facility] Lymphocytes/100 WBC Auto (Un sp spec)Ordered By: Morteza Franz on 04-08-2024 Lymphocytes/100 WBC (Bld) 20.5 % 19-41 [facility] MCV (mean corpuscular volume ) determinationOrdered By: Rem Unglibby on 04-08-2024 MCV (RBC) [Entitic vol] 92.0 fL 80-94 [facility] Mean corpuscular hemoglobin (MCH) determinationOrdered By: Remus Ungur on 04-08-2024 MCH (RBC) [Entitic mass] 31.4 pg 27.0-32.0 [facility] Mean corpuscular hemoglobin concentration (MCHC) determinationOrdered By: Remus Ungur on 04-08-2024 MCHC (RBC) [Mass/Vol] 34.1 g/dL 32-36 [facility] Mean platelet volume determi nationOrdered By: Remus Ungur on 04-08-2024 Platelet mean volume (Bld) [Entitic vol] 11.4 fL 6.2-12.0 [facility] Monocyte percentageOrdered B y: Remus Unglibby on 04-08-2024 Monocytes/100 WBC (Bld) 8.5 % 0-10 [facility] Neutrophil percentageOrdered By: Remus Ungur on 04-08-2024 Neutrophils/100 WBC (Bld) 65.2 % 47-70 [facility] Nucleated red blood cell per centageOrdered By: Rem Ungur on 04-08-2024 Nucleated RBC/100 WBC (Bld) [Ratio] 0 % 0-5 [facility] Platelet countOrdered By: Re crystal Franz on 04-08-2024 Platelets (Bld) [#/Vol] 261 10*3/uL 150-450 [facility] Potassium measurementOrdered By: Rem Unglibby on 04-08-2024 Potassium [Moles/Vol] 3.5 mmol/L 3.5-5.1 [facility] RBC Auto (Bld) [#/Vol]Ordere d By: Remus Ungur on 04-08-2024 RBC (Bld) [#/Vol] 5.00 10*6/uL 4.6-6.2 [facility] Serum anion gap measurementO rdered By: Remus Unglibby on 04-08-2024 Anion gap [Moles/Vol] 5 mmol/L 5-15 [facility] Serum or plasma calcium ai urement (mass/volume)Ordered By: Remus Patrickur on 04-08-2024 Calcium [Mass/Vol] 9.5 mg/dL 8.5-10.1 [facility] Serum or plasma creatinine m easurement (mass/volume)Ordered By: Remus Ungur on 04-08-2024 Creatinine [Mass/Vol] 1.02 mg/dL 0.70-1.30 [facility] Comment on above: The validity of the calculated GFR & GFRAA in patients over 70 years has not been determined. Clinical correlation is essential. Serum or plasma urea nitroge n measurement (mass/volume)Ordered By: Remus Unglibby on 04-08-2024 Urea nitrogen [Mass/Vol] 13 mg/dL 7-18 [facility] Sodium levelOrdered By: Remu s Ungur on 04-08-2024 Sodium [Moles/Vol] 139 mmol/L 136-145 [facility] White blood cell (WBC) count Ordered By: Remus Unglibby on 04-08-2024 WBC (Bld) [#/Vol] 7.5 10*3/uL 4.4-11.0 [facility] ABD Limited w/ Elastographyo n 03-16-2024 ABD Limited w/ Elastography [facility] Imaging Services [address] [place], [place] [id number] ABD Limited w/ Elastography MR#: [id number] Acct: [id number] Name: NOEMI PERKINS Rep #: [id number] : 1955 M 68 From: Romeo ucrtis MD PCP: Dr. Hermila Kumar, DO Status: REG CLI Study: ABD Limited w/ Elastography Date of Exam: 09/02 Exam# [id number] Ordering Dr: Hermila Kumar DO [id number] STUDY: ABDOMINAL ULTRASOUND - RIGHT UPPER QUADRANT; ELASTOGRAPHY REASON FOR VISIT: Male, 68 years old. Fatty infiltration of the liver. TECHNIQUE: Ultrasound evaluation of the right upper quadrant was performed with real-time and static chu-scale imaging. Point quantification shear wave elastography was performed (Kal[place]). TECHNICAL QUALITY: Adequate. COMPARISON: None. FINDINGS: Liver: The liver measures 16.9 cm. There is increased echogenicity consistent with fatty infiltration. The bile ducts are within normal limits. There is hepatic color flow. The direction of portal flow is hepatopetal. There is no demonstrated mass lesion. Median liver stiffness measured 5.4 kPa. Gallbladder: Normal distended gallbladder. The gallbladder wall measures 3 mm. There is a negative sonographic Contreras''s sign. There is no pericholecystic fluid. There are no gallstones. Common Bile Duct (C.B.D.): The common bile duct measures 5 mm. Pancreas: There is normal echogenicity of the visualized pancreas. There is no demonstrated pancreatic mass or cyst. Right Kidney: Normal size of the right kidney. The right kidney measures 11.4 cm x 5.3 cm x 5.4 cm. Normal renal cortex. The right cortex measures 1.6 cm. There is no demonstrated renal mass or cyst. There is no right hydronephrosis. US/ABD Limited w/ Elastography IMPRESSION: 1. Liver stiffness measures 5.4 kPa compatible with F0-F1 (Normal to mild liver fibrosis) Metavir score. Electronically Signed: Romeo Burgos MD at 9:21 EST Reading Location ID and State: [facility] / [place] , Service support , CC: Dr. Hermila Kumar DO [place]: Signed Normal [facility] 12 Lead EKGon 12-11-2023 12 Lead EKG [facility] Cardiovascular Services [address] [place] [address] 12 Lead EKG 12/11/23 1939 MR#: [id number] Acct: [id number] Name: LONA PERKINS Rep #: [id number] : 1955 68 From: Bharat Roper MD Attending Dr: Status: DEP ER Ordering Dr: Adrian Duarte MD Date: 12/11/23 Location: ED Sex: M C Admitted: Test Reason : ABD PAIN Blood Pressure : / mmHG Vent. Rate : 061 BPM Atrial Rate : 061 BPM P-R Int : 176 ms QRS Dur : 096 ms QT Int : 398 ms P-R-T Axes : 026 -26 030 degrees QTc Int : 400 ms Normal sinus rhythm Normal ECG Confirmed by JACQUELIN ENGLAND, BHARAT ([id number]), editorial project manager ARIEL BROWN ([id number]) on 12/14/2023 8:14:19 AM Referred By: JW Confirmed By:BHARAT ROPER MD 12/14/23 0814 Date Bharat Roper MD CC: Dr. Adrian Duarte MD; Dr. Hermila Kumar, Signed Normal [facility] CBC W/Diff, Automatedon 08-3 -2023 Absolute Lymph 1.01 X10 3/uL Normal 0.83-4.51 [facility] Comment on above: Performed By: #### L 500.4050, L501.2450, L501.4020, L100.0100 #### [facility] [address] [place], [address] Absolute Neut 8.5 X10 3/uL High 2.0-7.7 [facility] Comment on above: Performed By: #### L 500.4050, L501.2450, L501.4020, L100.0100 #### [facility] [address] [place], [address] Basophils/100 WBC (Bld) 0.5 % Normal 0-1 [facility] Comment on above: Performed By: #### L 500.4050, L501.2450, L501.4020, L100.0100 #### [facility] [address] [place], [address] Eosinophils/100 WBC (Bld) 2.8 % Normal 0-5 [facility] Comment on above: Performed By: #### L 500.4050, L501.2450, L501.4020, L100.0100 #### [facility] [address] [place], [address] Erythrocyte distribution width (RBC) [Ratio] 12.4 % Normal 11.6-14.6 [facility] Comment on above: Performed By: #### L 500.4050, L501.2450, L501.4020, L100.0100 #### [facility] [address] [place], [address] Hematocrit (Bld) [Volume fraction] 40.4 % Normal 40-54 [facility] Comment on above: Performed By: #### L 500.4050, L501.2450, L501.4020, L100.0100 #### [facility] [address] [place], [address] Hemoglobin (Bld) [Mass/Vol] 13.5 g/dL Normal 13.0-16.5 [facility] Comment on above: Performed By: #### L 500.4050, L501.2450, L501.4020, L100.0100 #### [facility] [address] [place], [address] IG% 0.700 Normal 0.0-0.9 [facility] Comment on above: Result Comment: IG% - Immature Granulocytes (promyelocytes, myelocytes and metamyelocytes) > 1% indicates that a LEFT SHIFT is Present. Performed By: #### L 500.4050, L501.2450, L501.4020, L100.0100 #### [facility] [address] [place], [address] Lymphocytes/100 WBC (Bld) 9.4 % Low 19-41 [facility] Comment on above: Performed By: #### L 500.4050, L501.2450, L501.4020, L100.0100 #### [facility] [address] [place], [address] MCH (RBC) [Entitic mass] 30.9 pg Normal 27.0-32.0 [facility] Comment on above: Performed By: #### L 500.4050, L501.2450, L501.4020, L100.0100 #### [facility] [address] [place], [address] MCHC (RBC) [Mass/Vol] 33.4 g/dL Normal 32-36 [facility] Comment on above: Performed By: #### L 500.4050, L501.2450, L501.4020, L100.0100 #### [facility] [address] [place], [address] MCV (RBC) [Entitic vol] 92.4 fL Normal 80-94 [facility] Comment on above: Performed By: #### L 500.4050, L501.2450, L501.4020, L100.0100 #### [facility] [address] [place], [address] Monocytes/100 WBC (Bld) 6.8 % Normal 0-10 [facility] Comment on above: Performed By: #### L 500.4050, L501.2450, L501.4020, L100.0100 #### [facility] [address] [place], [address] Neutrophils/100 WBC (Bld) 79.8 % High 47-70 [facility] Comment on above: Performed By: #### L 500.4050, L501.2450, L501.4020, L100.0100 #### [facility] [address] [place], [address] Nucleated RBC (Bld) [#/Vol] 0 10*3/uL Normal 0-5 [facility] Comment on above: Performed By: #### L 500.4050, L501.2450, L501.4020, L100.0100 #### [facility] [address] [place], [address] Platelet mean volume (Bld) [Entitic vol] 11.4 fL Normal 6.2-12.0 [facility] Comment on above: Performed By: #### L 500.4050, L501.2450, L501.4020, L100.0100 #### [facility] [address] [place], [address] Platelets (Bld) [#/Vol] 229 10*3/uL Normal 150-450 [facility] Comment on above: Performed By: #### L 500.4050, L501.2450, L501.4020, L100.0100 #### [facility] [address] [place], [address] RBC (Bld) [#/Vol] 4.37 10*6/uL Low 4.6-6.2 [facility] Comment on above: Performed By: #### L 500.4050, L501.2450, L501.4020, L100.0100 #### [facility] [address] [place], [address] RDW SD 41.9 fl Normal 35.1-43.9 [facility] Comment on above: Performed By: #### L 500.4050, L501.2450, L501.4020, L100.0100 #### [facility] [address] [place], [address] WBC (Bld) [#/Vol] 10.7 10*3/uL Normal 4.4-11.0 [facility] Comment on above: Performed By: #### L 500.4050, L501.2450, L501.4020, L100.0100 #### [facility] [address] [place], [address] Chest 1 View (Portable)on Chest 1 View (Portable) [facility] Imaging Services [address] [place] [address] Chest 1 View (Portable) MR#: [id number] Acct: [id number] Name: LONA PERKINS Rep #: [id number] : 1955 M 68 From: Renny Hunt MD PCP: Dr. Hermila Kumar, Status: REG ER Study: Chest 1 View (Portable) Date of Exam: 12/11/23 Exam# [id number] Ordering Dr: Adrian Duarte MD [id number] EXAM: XR CHEST, 1 VIEW CLINICAL INDICATION: atypical epigastric pain TECHNIQUE: Frontal view of the chest. COMPARISON: 04/01/2015 FINDINGS: LUNGS AND PLEURAL SPACES: Unremarkable. No consolidation or edema. No pneumothorax. No effusion. HEART: Unremarkable. Cardiac silhouette not enlarged. MEDIASTINUM: Central airways and mediastinal contour are unremarkable. BONES/JOINTS: Unremarkable. No acute fracture. SOFT TISSUES: Unremarkable. RAD/Chest 1 View (Portable) IMPRESSION: No radiographic evidence of acute cardiopulmonary disease. Electronically Signed: Renny Hunt MD at 20:47 EDT , CC: Dr. Adrian Duarte MD; Dr. Hermila Kumar DO [place]: Signed Normal [facility] Comprehensive Metabolic Prof ilon 12-11-2023 Albumin [Mass/Vol] 3.5 g/dL Normal 3.2-5.0 [facility] Comment on above: Order Comment: 'TROP ' Serial specimen #1, #2 or #3: 1 Performed By: #### L 500.4050, L501.2450, L501.4020, L100.0100 #### [facility] [address] [place], [address] Albumin/Globulin [Mass ratio] 1.2 {ratio} Normal 0.9-2.4 [facility] Comment on above: Order Comment: 'TROP ' Serial specimen #1, #2 or #3: 1 Performed By: #### L 500.4050, L501.2450, L501.4020, L100.0100 #### [facility] [address] [place], [address] ALK P 99 U/L Normal 45-117 [facility] Comment on above: Order Comment: 'TROP ' Serial specimen #1, #2 or #3: 1 Performed By: #### L 500.4050, L501.2450, L501.4020, L100.0100 #### [facility] [address] [place], [address] ALT [Catalytic activity/Vol] 60 U/L Normal 16-61 [facility] Comment on above: Order Comment: 'TROP ' Serial specimen #1, #2 or #3: 1 Performed By: #### L 500.4050, L501.2450, L501.4020, L100.0100 #### [facility] [address] [place], [address] AST [Catalytic activity/Vol] 27 U/L Normal 15-37 [facility] Comment on above: Order Comment: 'TROP ' Serial specimen #1, #2 or #3: 1 Performed By: #### L 500.4050, L501.2450, L501.4020, L100.0100 #### [facility] [address] [place], [address] Bilirubin [Mass/Vol] 1.70 mg/dL High 0.20-1.00 [facility] Comment on above: Order Comment: 'TROP ' Serial specimen #1, #2 or #3: 1 Result Comment: For patients on eltrombopag therapy, use of Dimension [place] TBIL is not recommended. Performed By: #### L 500.4050, L501.2450, L501.4020, L100.0100 #### [facility] [address] [place], [address] BUN/CRE 15.7 RATIO Normal 10-20 [facility] Comment on above: Order Comment: 'TROP ' Serial specimen #1, #2 or #3: 1 Performed By: #### L 500.4050, L501.2450, L501.4020, L100.0100 #### [facility] [address] [place], [address] CA,Total 9.1 mg/dL Normal 8.5-10.1 [facility] Comment on above: Order Comment: 'TROP ' Serial specimen #1, #2 or #3: 1 Performed By: #### L 500.4050, L501.2450, L501.4020, L100.0100 #### [facility] [address] [place], [address] Chloride [Moles/Vol] 111 mmol/L High 98-107 [facility] Comment on above: Order Comment: 'TROP ' Serial specimen #1, #2 or #3: 1 Performed By: #### L 500.4050, L501.2450, L501.4020, L100.0100 #### [facility] [address] [place], [address] CO2 [Moles/Vol] 27.0 mmol/L Normal 21.0-32.0 [facility] Comment on above: Order Comment: 'TROP ' Serial specimen #1, #2 or #3: 1 Performed By: #### L 500.4050, L501.2450, L501.4020, L100.0100 #### [facility] [address] [place], [address] Creatinine [Mass/Vol] 1.08 mg/dL Normal 0.70-1.30 [facility] Comment on above: Order Comment: 'TROP ' Serial specimen #1, #2 or #3: 1 Result Comment: The validity of the calculated GFR GFRAA in patients over 70 years has not been determined. Clinical correlation is essential. Performed By: #### L 500.4050, L501.2450, L501.4020, L100.0100 #### [facility] [address] [place], [address] ECRCL 74.96 ml/min Normal [facility] Comment on above: Order Comment: 'TROP ' Serial specimen #1, #2 or #3: 1 Performed By: #### L 500.4050, L501.2450, L501.4020, L100.0100 #### [facility] [address] [place], [address] EST GFR - AA 87 mL/min Normal >60 [facility] Comment on above: Order Comment: 'TROP ' Serial specimen #1, #2 or #3: 1 Result Comment: Afri can [place] GFR Calc Performed By: #### L 500.4050, L501.2450, L501.4020, L100.0100 #### [facility] [address] [place], [address] GAP 6 Normal 5-15 [facility] Comment on above: Order Comment: 'TROP ' Serial specimen #1, #2 or #3: 1 Performed By: #### L 500.4050, L501.2450, L501.4020, L100.0100 #### [facility] [address] [place], [address] GFR/1.73 sq M.predicted among non-blacks MDRD (S/P/Bld) [Vol rate/Area] 72 mL/min/{1.73_m2} Normal >60 [facility] Comment on above: Order Comment: 'TROP ' Serial specimen #1, #2 or #3: 1 Result Comment: Non- GFR Calc Performed By: #### L 500.4050, L501.2450, L501.4020, L100.0100 #### [facility] [address] [place], [address] Globulin (S) [Mass/Vol] 2.9 g/dL Normal 2.2-4.2 [facility] Comment on above: Order Comment: 'TROP ' Serial specimen #1, #2 or #3: 1 Performed By: #### L 500.4050, L501.2450, L501.4020, L100.0100 #### [facility] [address] [place], [address] Glucose [Mass/Vol] 84 mg/dL Normal 74-106 [facility] Comment on above: Order Comment: 'TROP ' Serial specimen #1, #2 or #3: 1 Performed By: #### L 500.4050, L501.2450, L501.4020, L100.0100 #### [facility] [address] [place], [address] Potassium [Moles/Vol] 3.8 mmol/L Normal 3.5-5.1 [facility] Comment on above: Order Comment: 'TROP ' Serial specimen #1, #2 or #3: 1 Performed By: #### L 500.4050, L501.2450, L501.4020, L100.0100 #### [facility] [address] [place], [address] Sodium [Moles/Vol] 144 mmol/L Normal 136-145 [facility] Comment on above: Order Comment: 'TROP ' Serial specimen #1, #2 or #3: 1 Performed By: #### L 500.4050, L501.2450, L501.4020, L100.0100 #### [facility] [address] [place], [address] T PROT 6.4 g/dL Normal 6.4-8.2 [facility] Comment on above: Order Comment: 'TROP ' Serial specimen #1, #2 or #3: 1 Performed By: #### L 500.4050, L501.2450, L501.4020, L100.0100 #### [facility] [address] [place], [address] Urea nitrogen [Mass/Vol] 17 mg/dL Normal 7-18 [facility] Comment on above: Order Comment: 'TROP ' Serial specimen #1, #2 or #3: 1 Performed By: #### L 500.4050, L501.2450, L501.4020, L100.0100 #### [facility] [address] [place], [address] Emergency Department Summary on 12-11-2023 Emergency Department Summary [facility] Medical Records Department [address] [place] [address] Emergency Department Summary 12/11/23 MR#: [id number] Acct: [id number] Name: LONA PERKINS Rep #: [id number] : 1955 68 From: Adrian Duarte MD PCP: Dr. Hermila Kumar, DO Status:REG ER Location: ED HPI HPI - GI History of Present Illness Chief Complaint: Abd Pain Detail of Chief Complaint: Epigastric abdominal pain now resolved. Abdominal Pain/Flank Pain Onset: Today Context: Gradual Onset Timing: Continuous Quality: Sharp Location: Epigastric Current Severity: Gone Maximum Severity: Moderate Worsened by: Nothing Relieved by: Nothing Nausea/Vomiting/Emesis GI Symptom: Negative for Nausea or Vomiting Diarrhea/Melena/Hematoche codi GI Symptom: Negative for Diarrhea, Melena or Hematochezia Associated Symptoms Associated Symptoms: Negative for Dysuria, Frequency, Hematuria or Urgency Narrative Narrative: 68-year-old male history of hypertension and cholesterol. Was sitting at home. Had epigastric abdominal pain began around 6:00 and resolved around 645. He said it got more intense and he fell like he was going get sick called the squad and now is resolved. He initially took some Tums without relief squad did not give him any medication. No chest pain. No shortness of breath. No back pain. Currently is pain-free and says he feels fine. Thinks it may have been gas pain. No prior abdominal surgeries. Prior similar symptoms: No Recent Illness/Hospitalization: No PFSH PFS Medical History Basal cell carcinoma Sleep apnea Hypertension Hypercholesteremia Home Medications ???Medication ???Instructions ???Recorded ???Last Taken ???Type aspirin 81 mg tablet,delayed 81 mg PO .q3day 12/11/23 Unknown History release (Adult Aspirin Regimen) atorvastatin 10 mg tablet 10 mg PO DAILY 12/11/23 Unknown History losartan 100 1 tab PO DAILY 12/11/23 Unknown History mg-hydrochlorothiazide 25 mg tablet Allergy/AdvReac Type Severity Reaction Status Date / Time No Known Allergies Allergy Verified 12/11/23 18:59 Social History Smoking Status: Never smoker ROS ROS ED ROS Narrative Epigastric abdominal pain. Resolved. Constitutional Constitutional ED: Denies chills or fever(s) ENT ENT ED: Denies ear pain Cardiovascular Cardiovascular: Denies chest pain or palpitations Respiratory/Chest Respiratory/Chest: Denies cough, dyspnea or dyspnea on exertion Gastrointestinal Gastrointestinal: Reports abdominal pain; Denies constipation, diarrhea, melena, nausea or vomiting Genitourinary Genitourinary ED: Denies dysuria Musculoskeletal Musculoskeletal: Denies arthralgias Integumentary Denies abscess Neurologic Neurologic: Denies headache(s) Psychiatric Psychiatric: Denies anxiety Endocrine Endocrinology: Denies polydipsia Hematologic/Lymphatic Hematologic/Lymphatic: Denies easy bleeding Allergic/Immunologic Allergic/Immunologic ED: Denies mouth swelling, tongue swelling or urticaria EXAM Physical Exam Narrative Exam Narrative: 68-year-old male vital signs stable afebrile. Sitting upright in bed. Currently without symptoms pain-free. Family at bedside. H EENT exam unremarkable. Neck nontender. Lungs are clear. Heart regular rhythm no murmur. Chest wall ribs nontender. Abdomen soft, nontender, nondistended, normal bowel sounds without peritoneal signs. No pulsatile mass. No reproducible pain. Epigastric, right upper quadrant right lower quadrant are all unremarkable. Soft. Positive bowel sounds. Moving all 4 extremities. Nontender no edema. He is awake and alert. Answering questions following commands. Normal valve grinder strength. Normal dorsi plantarflexion. Nontender no edema. Const Vital Signs: 12/11/23 18:55 Temperature 98.2 F Temperature Source Temporal Pulse Rate 66 Respiratory Rate 16 Blood Pressure 149/93 H Blood Pressure Mean 111 Pulse Ox 98 Oxygen Delivery Method Room Air Positive well nourished and well developed; Negative for cachectic, contractures or unkempt General Appearance ED: well developed and NAD; Negative for unkempt, cachectic, contractures or pallor Nutritional Appearance: Negative for cachectic HEENT Reports moist mucous membranes; Denies dry mucous membranes normocephalic and atraumatic; Negative for trauma or tenderness Mouth ED: No dry mucous membranes Mouth: No dry mucous membranes Eyes PERRL and EOMs intact bilaterally General Eye ED: Negative for pale conjunctiva or scleral icterus Neck no lymphadenopathy, supple and no JVD General: Negative for tenderness Carotids: Negative for other Lymph Lymphatic: Negative for other Resp normal respiratory effort and cl (more content not included)... Normal [facility] L501.4020on 12-11-2023 TROPONIN-I HS 7 pg/mL Normal 3.0-78.0 [facility] Comment on above: Order Comment: 'TROP ' Serial specimen #1, #2 or #3: 1 Result Comment: Plea se Note: New Test Units and Gender Specific Reference Ranges. For more information see Policy Stat Procedure [place] High Sensitivity Troponin (TNIH) and attachments. Performed By: #### L 500.4050, L501.2450, L501.4020, L100.0100 ####[facility] [id number] [place], [address] Lipaseon 12-11-2023 Lipase [Catalytic activity/Vol] 37 U/L Normal 13-75 [facility] Comment on above: Order Comment: 'TROP ' Serial specimen #1, #2 or #3: 1 Result Comment: Plea se note: LIPASE revised reference range effective 22. New Lipase methodology. Expected to produce lower values than the previous assay method. NEW Reference Range: 13 - 75 U/L Performed By: #### L 500.4050, L501.2450, L501.4020, L100.0100 #### [facility] [address] [place], [address] CALCIFEDIOL ([id number])Ordered B y: Strap Buckler on 09-02-2022 25-hydroxyvitamin D [Mass/Vol] 51.0 ng/mL Normal 30.0-100.0 [facility]; [facility] Work Phone: CBC, PLATELETS & MANUAL DIFF ([id number])Ordered By: Strap Buckler on 09-02-2022 Basophils (Bld) [#/Vol] 0.1 10*3/uL Normal 0.0-0.2 [facility]; [facility] Work Phone: Basophils/100 WBC (Bld) 1 % Normal [facility]; [facility] Work Phone: Eosinophils (Bld) [#/Vol] 0.3 10*3/uL Normal 0.0-0.4 [facility]; [facility] Work Phone: Eosinophils/100 WBC (Bld) 4 % Normal [facility]; [facility] Work Phone: Erythrocyte distribution width (RBC) [Ratio] 12.4 % Normal 11.6-15.4 [facility]; [facility] Work Phone: Hematocrit (Bld) [Volume fraction] 44.7 % Normal 37.5-51.0 [facility]; [facility] Work Phone: Hemoglobin (Bld) [Mass/Vol] 15.3 g/dL Normal 13.0-17.7 [facility]; [facility] Work Phone: Immature granulocytes (Bld) [#/Vol] 0.1 10*3/uL Normal 0.0-0.1 [facility]; [facility] Work Phone: Immature granulocytes/100 WBC (Bld) 1 % Normal [facility]; [facility] Work Phone: Lymphocytes (Bld) [#/Vol] 1.2 10*3/uL Normal 0.7-3.1 [facility]; [facility] Work Phone: Lymphocytes/100 WBC (Bld) 16 % Normal [facility]; [facility] Work Phone: MCH (RBC) [Entitic mass] 31.5 pg Normal 26.6-33.0 [facility]; [facility] Work Phone: MCHC (RBC) [Mass/Vol] 34.2 g/dL Normal 31.5-35.7 [facility]; [facility] Work Phone: MCV (RBC) [Entitic vol] 92 fL Normal 79-97 [facility]; [facility] Work Phone: Monocytes (Bld) [#/Vol] 0.5 10*3/uL Normal 0.1-0.9 [facility]; [facility] Work Phone: Monocytes/100 WBC (Bld) 7 % Normal [facility]; [facility] Work Phone: Neutrophils (Bld) [#/Vol] 5.3 10*3/uL Normal 1.4-7.0 [facility]; [facility] Work Phone: Neutrophils/100 WBC (Bld) 71 % Normal [facility]; [facility] Work Phone: Platelets (Bld) [#/Vol] 236 10*3/uL Normal 150-450 [facility]; [facility] Work Phone: RBC (Bld) [#/Vol] 4.85 10*6/uL Normal 4.14-5.80 [facility]; [facility] Work Phone: WBC (Bld) [#/Vol] 7.4 10*3/uL Normal 3.4-10.8 [facility]; [facility] Work Phone: LIPID PANEL ([id number])Ordered B y: Strap Buckler on 09-02-2022 Cholesterol [Mass/Vol] 165 mg/dL Normal 100-199 [facility]; [facility] Work Phone: Cholesterol in HDL [Mass/Vol] 42 mg/dL Normal [facility]; [facility] Work Phone: Triglyceride [Mass/Vol] 208 mg/dL Abnormal 0-[address] [facility]; [facility] Work Phone: LIPID PANEL ([id number]) 35 mg/dL Normal 5-40 [facility]; [facility] Work Phone: LIPID PANEL ([id number]) 88 mg/dL Normal 0-99 [facility]; [facility] Work Phone: LIPID PANEL ([id number]) 2.1 {ratio} Normal 0.0-3.6 [facility]; [facility] Work Phone: METABOLIC PANEL, COMPREHENSI VE ([id number])Ordered By: Strap Buckler on 09-02-2022 Albumin [Mass/Vol] 4.5 g/dL Normal 3.8-4.8 [facility]; [facility] Work Phone: Albumin/Globulin [Mass ratio] 2.1 {ratio} Normal 1.2-2.[address] [facility]; [facility] Work Phone: ALP [Catalytic activity/Vol] 118 U/L Normal 44-[address] [facility]; [facility] Work Phone: ALT [Catalytic activity/Vol] 50 U/L Abnormal 0-[address] [facility]; [facility] Work Phone: AST [Catalytic activity/Vol] 21 U/L Normal 0-[address] [facility]; [facility] Work Phone: Bilirubin [Mass/Vol] 1.9 mg/dL Abnormal 0.0-1.2 [facility]; [facility] Work Phone: Calcium [Mass/Vol] 9.7 mg/dL Normal 8.6-10.2 [facility]; [facility] Work Phone: Chloride [Moles/Vol] 102 mmol/L Normal 96-106 [facility]; [facility] Work Phone: CO2 [Moles/Vol] 26 mmol/L Normal 20-29 [facility]; [facility] Work Phone: Creatinine [Mass/Vol] 1.09 mg/dL Normal 0.76-1.27 [facility]; [facility] Work Phone: Globulin (S) [Mass/Vol] 2.1 g/dL Normal 1.5-4.5 [facility]; [facility] Work Phone: Glucose [Mass/Vol] 93 mg/dL Normal 70-99 [facility]; [facility] Work Phone: Potassium [Moles/Vol] 4.0 mmol/L Normal 3.5-5.2 [facility]; [facility] Work Phone: Protein [Mass/Vol] 6.6 g/dL Normal 6.0-8.5 [facility]; [facility] Work Phone: Sodium [Moles/Vol] 142 mmol/L Normal 134-144 [facility]; [facility] Work Phone: Urea nitrogen [Mass/Vol] 13 mg/dL Normal 8-27 [facility]; [facility] Work Phone: Urea nitrogen/Creatinine [Mass ratio] 12 mg/mg Normal 10-24 [facility]; [facility] Work Phone: METABOLIC PANEL, COMPREHENSIVE ([id number]) 74 mL/min/1.73 Normal [facility]; [facility] Work Phone: MICROALB;CREAT RATION, RAND UR ([id number])Ordered By: Strap Buckler on 09-02-2022 Albumin DL <= 20 mg/L (U) [Mass/Vol] mg/dL Normal [facility]; [facility] Work Phone: Albumin/Creatinine (U) [Mass ratio] <4 Normal 0-29 [facility]; [facility] Work Phone: Creatinine (U) [Mass/Vol] 81.3 mg/dL Normal [facility]; [facility] Work Phone: PSA (PROSTATE SPECIFIC ANTIG EN) ([id number])Ordered By: Strap Buckler on 05-24-2023 Prostate specific Ag [Mass/Vol] 3.1 ng/mL Normal 0.0-4.0 [facility]; [facility] Work Phone: TSH (THYROID STIMULATING HOR LYNNE) ([id number])Ordered By: Strap Buckler on 09-02-2022 TSH Qn 2.370 {uIU/mL} Normal 0.450-4.50 0 [facility]; [facility] Work Phone: Urinalysis, Complete W/ Micr oscopic Examination with reflex to urine culture, routine ([id number])Ordered By: Strap Buckler on 09-02-2022 Urinalysis, Complete W/ Microscopic Examination with reflex to urine culture, routine (21364) 1.015 1 Normal 1.005-1.03 0 [facility]; [facility] Work Phone: Urinalysis, Complete W/ Microscopic Examination with reflex to urine culture, routine (86085) 6.5 1 Normal 5.0-7.5 [facility]; [facility] Work Phone: Urinalysis, Complete W/ Microscopic Examination with reflex to urine culture, routine (31290) Yellow Normal [facility]; [facility] Work Phone: Urinalysis, Complete W/ Microscopic Examination with reflex to urine culture, routine (16626) Clear Normal [facility]; [facility] Work Phone: Urinalysis, Complete W/ Microscopic Examination with reflex to urine culture, routine (46011) Negative Normal [facility]; [facility] Work Phone: Urinalysis, Complete W/ Microscopic Examination with reflex to urine culture, routine (58601) 0.2 mg/dL Normal 0.2-1.0 [facility]; [facility] Work Phone: Urinalysis, Complete W/ Microscopic Examination with reflex to urine culture, routine (81704) MICRON Normal [facility]; [facility] Work Phone: Urinalysis, Complete W/ Microscopic Examination with reflex to urine culture, routine (25717) See below: Normal [facility]; [facility] Work Phone: Urinalysis, Complete W/ Microscopic Examination with reflex to urine culture, routine (68593) NOFLEX Normal [facility]; [facility] Work Phone: CBC, PLATELETS & MANUAL DIFF ([id number])Ordered By: Strap Buckler on 01-22-2022 Basophils (Bld) [#/Vol] 0.0 10*3/uL Normal 0.0-0.2 [facility]; [facility] Work Phone: Basophils/100 WBC (Bld) 1 % Normal [facility]; [facility] Work Phone: Eosinophils (Bld) [#/Vol] 0.3 10*3/uL Normal 0.0-0.4 [facility]; [facility] Work Phone: Eosinophils/100 WBC (Bld) 4 % Normal [facility]; [facility] Work Phone: Erythrocyte distribution width (RBC) [Ratio] 12.4 % Normal 11.6-15.4 [facility]; [facility] Work Phone: Hematocrit (Bld) [Volume fraction] 43.7 % Normal 37.5-51.0 [facility]; [facility] Work Phone: Hemoglobin (Bld) [Mass/Vol] 14.4 g/dL Normal 13.0-17.7 [facility]; [facility] Work Phone: Immature granulocytes (Bld) [#/Vol] 0.1 10*3/uL Normal 0.0-0.1 [facility]; [facility] Work Phone: Immature granulocytes/100 WBC (Bld) 1 % Normal [facility]; [facility] Work Phone: Lymphocytes (Bld) [#/Vol] 1.2 10*3/uL Normal 0.7-3.1 [facility]; [facility] Work Phone: Lymphocytes/100 WBC (Bld) 19 % Normal [facility]; [facility] Work Phone: MCH (RBC) [Entitic mass] 30.9 pg Normal 26.6-33.0 [facility]; [facility] Work Phone: MCHC (RBC) [Mass/Vol] 33.0 g/dL [facility] 31.5-35.7 [facility]; [facility] Work Phone: MCV (RBC) [Entitic vol] 94 fL Normal 79-97 [facility]; [facility] Work Phone: Monocytes (Bld) [#/Vol] 0.6 10*3/uL Normal 0.1-0.9 [facility]; [facility] Work Phone: Monocytes/100 WBC (Bld) 9 % Normal [facility]; [facility] Work Phone: Neutrophils (Bld) [#/Vol] 4.4 10*3/uL Normal 1.4-7.0 [facility]; [facility] Work Phone: Neutrophils/100 WBC (Bld) 66 % Normal [facility]; [facility] Work Phone: Platelets (Bld) [#/Vol] 221 10*3/uL Normal 150-450 [facility]; [facility] Work Phone: RBC (Bld) [#/Vol] 4.66 10*6/uL Normal 4.14-5.80 [facility]; [facility] Work Phone: WBC (Bld) [#/Vol] 6.6 10*3/uL Normal 3.4-10.8 [facility] [facility] [place] [facility]; [facility] Work Phone: LIPID PANEL ([id number])Ordered B y: Strap Buckler on 01-22-2022 Cholesterol [Mass/Vol] 152 mg/dL Normal 100-199 [facility]; [facility] Work Phone: Cholesterol in HDL [Mass/Vol] 44 mg/dL Normal [facility]; [facility] Work Phone: Triglyceride [Mass/Vol] 169 mg/dL Abnormal 0-149 [facility]; [facility] Work Phone: LIPID PANEL ([id number]) 29 mg/dL Normal 5-40 Compr ensive [facility]; [facility] Work Phone: LIPID PANEL ([id number]) 79 mg/dL Normal 0-99 [facility] ehensive Internal Medicine; [facility] Work Phone: LIPID PANEL ([id number]) 1.8 {ratio} Normal 0.0-3.6 [facility] Internal Medicine; [facility] Internal Medicine Work Phone: METABOLIC PANEL, COMPREHENSI VE ([id number])Ordered By: Strap Buckler on 01-22-2022 Albumin [Mass/Vol] 4.3 g/dL Normal 3.8-4.8 [facility] Internal Medicine; [facility] Internal Medicine Work Phone: Albumin/Globulin [Mass ratio] 2.0 {ratio} Normal 1.2-2.[address] [facility] Internal Medicine; [facility] Internal Medicine Work Phone: ALP [Catalytic activity/Vol] 114 U/L Normal 44-[address] [facility] Internal Medicine; [facility] Internal Medicine Work Phone: ALT [Catalytic activity/Vol] 35 U/L Normal 0-[address] [facility] Internal [facility]; [facility] Work Phone: AST [Catalytic activity/Vol] 18 U/L Normal 0-[address] [facility] Internal Medicine; [facility] Internal Medicine Work Phone: Bilirubin [Mass/Vol] 1.2 mg/dL Normal 0.0-1.2 [facility] Internal Medicine; [facility] Internal Medicine Work Phone: Calcium [Mass/Vol] 9.4 mg/dL Normal 8.6-10.2 [facility] Internal Medicine; [facility] Work Phone: Chloride [Moles/Vol] 103 mmol/L Normal 96-106 [facility]; [facility] Internal Medicine Work Phone: CO2 [Moles/Vol] 24 mmol/L Normal 20-29 [facility] Internal Medicine; [facility] Internal Medicine Work Phone: Creatinine [Mass/Vol] 1.01 mg/dL Normal 0.76-1.27 [facility] Internal Medicine; [facility] Internal Medicine Work Phone: Globulin (S) [Mass/Vol] 2.1 g/dL Normal 1.5-4.5 [facility]; [facility] Work Phone: Glucose [Mass/Vol] 96 mg/dL Normal 70-99 [facility] Work Phone: Potassium [Moles/Vol] 4.1 mmol/L Normal 3.5-5.2 [facility] prehensive Internal Medicine; [facility] Work Phone: Protein [Mass/Vol] 6.4 g/dL Normal 6.0-8.5 [facility] Work Phone: Sodium [Moles/Vol] 141 mmol/L Normal 134-144 [facility] Internal Medicine; [facility] Work Phone: Urea nitrogen [Mass/Vol] 14 mg/dL Normal 8-27 [facility]; [facility] Work Phone: Urea nitrogen/Creatinine [Mass ratio] 14 mg/mg Normal 10-24 [facility]; [facility] Work Phone: METABOLIC PANEL, COMPREHENSIVE ([id number]) 82 mL/min/1.73 Normal [facility]; [facility] Work Phone: MICROALBUMINOrdered By: Syst em Truant Officer on 01-22-2022 Albumin DL <= 20 mg/L (U) [Mass/Vol] 6.2 ug/mL Normal [facility]; [facility] Work Phone: Albumin/Creatinine (U) [Mass ratio] 4 {mg/g_creat} Normal 0-29 [facility]; [facility] Work Phone: Creatinine (U) [Mass/Vol] 162.1 mg/dL Normal [facility]; [facility] Work Phone: TSH (THYROID STIMULATING HOR LYNNE) ([id number])Ordered By: Strap Buckler on 01-22-2022 TSH Qn 2.940 {uIU/mL} Normal 0.450-4.50 0 [facility]; [facility] Work Phone: URINALYSIS ([id number])Ordered By : Strap Buckler on 01-22-2022 Appearance (U) Clear Normal [facility]; [facility] Work Phone: Bilirubin Ql (U) Negative Normal Comprehe nsive Internal Medicine; [facility] Internal Medicine Work Phone: Color (U) Yellow Normal [facility]; [facility] Work Phone: Glucose Ql (U) Negative Normal [facility]; [facility] Internal Medicine Work Phone: Hemoglobin Ql (U) Negative Normal Compreh ensive Internal Medicine; [facility] Internal Medicine Work Phone: Ketones Ql (U) Negative Normal [facility]; [facility] Internal Medicine Work Phone: Leukocyte esterase Test strip Ql (U) Negative Normal [facility]; [facility] Work Phone: Microscopic observation LM Nom (Urine sed) MICNIP Normal [facility]; [facility] Internal Medicine Work Phone: Nitrite Ql (U) Negative Normal [facility]; [facility] Work Phone: pH (U) 6.5 [pH] Normal 5.0-7.5 [facility]; [facility] Work Phone: Protein Ql (U) Negative Normal [facility]; [facility] Internal Medicine Work Phone: Specific gravity (U) [Rel density] 1.021 1 Normal 1.005-1.03 0 [facility]; [facility] Work Phone: Urobilinogen (U) [Mass/Vol] 0.2 mg/dL Normal 0.2-1.0 [facility]; [facility] Work Phone: CALCIFEDIOL ([id number])Ordered B y: Strap Buckler on 07-31-2021 25-hydroxyvitamin D [Mass/Vol] 46.2 ng/mL Normal 30.0-100.0 [facility]; [facility] Internal Medicine Work Phone: CBC W/AUTO DIFF WBC ([id number])O rdered By: Strap Buckler on 07-31-2021 Basophils (Bld) [#/Vol] 0.1 10*3/uL Normal 0.0-0.2 [facility]; [facility] Internal Medicine Work Phone: Basophils/100 WBC (Bld) 1 % Normal [facility]; [facility] Work Phone: Eosinophils (Bld) [#/Vol] 0.3 10*3/uL Normal 0.0-0.4 [facility]; [facility] Work Phone: Eosinophils/100 WBC (Bld) 4 % Normal [facility]; [facility] Work Phone: Erythrocyte distribution width (RBC) [Ratio] 12.6 % Normal 11.6-15.4 [facility]; [facility] Work Phone: Hematocrit (Bld) [Volume fraction] 45.1 % Normal 37.5-51.0 [facility]; [facility] Work Phone: Hemoglobin (Bld) [Mass/Vol] 15.3 g/dL Normal 13.0-17.7 [facility]; [facility] Work Phone: Immature granulocytes (Bld) [#/Vol] 0.0 10*3/uL Normal 0.0-0.1 [facility]; [facility] Work Phone: Immature granulocytes/100 WBC (Bld) 1 % Normal [facility]; [facility] Work Phone: Lymphocytes (Bld) [#/Vol] 1.3 10*3/uL Normal 0.7-3.1 [facility]; [facility] Work Phone: Lymphocytes/100 WBC (Bld) 19 % Normal [facility]; [facility] Work Phone: MCH (RBC) [Entitic mass] 31.3 pg Normal 26.6-33.0 [facility]; [facility] Work Phone: MCHC (RBC) [Mass/Vol] 33.9 g/dL Normal 31.5-35.7 [facility] prehensive Internal Medicine; [facility] Work Phone: MCV (RBC) [Entitic vol] 92 fL Normal 79-97 [facility]; [facility] Work Phone: Monocytes (Bld) [#/Vol] 0.5 10*3/uL Normal 0.1-0.9 [facility]; [facility] Work Phone: Monocytes/100 WBC (Bld) 8 % Normal [facility]; [facility] Work Phone: Neutrophils (Bld) [#/Vol] 4.6 10*3/uL Normal 1.4-7.0 [facility]; [facility] Work Phone: Neutrophils/100 WBC (Bld) 67 % Normal [facility]; [facility] Work Phone: Platelets (Bld) [#/Vol] 268 10*3/uL Normal 150-450 [facility]; [facility] Work Phone: RBC (Bld) [#/Vol] 4.89 10*6/uL Normal 4.14-5.80 Compr ensive [facility]; [facility] Work Phone: WBC (Bld) [#/Vol] 6.7 10*3/uL Normal 3.4-10.8 Compre [facility] [place] [facility]; [facility] Work Phone: LIPID PANEL ([id number])Ordered B y: Strap Buckler on 07-31-2021 Cholesterol [Mass/Vol] 166 mg/dL Normal 100-199 [facility]; [facility] Work Phone: Cholesterol in HDL [Mass/Vol] 46 mg/dL Normal [facility]; [facility] Work Phone: Triglyceride [Mass/Vol] 159 mg/dL Abnormal 0-149 [facility]; [facility] Work Phone: LIPID PANEL ([id number]) 28 mg/dL Normal 5-40 [facility]ensive [facility]; [facility] Work Phone: LIPID PANEL ([id number]) 92 mg/dL Normal 0-99 Compr [facility]; [facility] Work Phone: LIPID PANEL ([id number]) 2.0 {ratio} Normal 0.0-3.6 [facility]; [facility] Work Phone: METABOLIC PANEL, COMPREHENSI VE ([id number])Ordered By: Strap Buckler on 07-31-2021 Albumin [Mass/Vol] 4.6 g/dL Normal 3.8-4.8 [facility] Internal [facility]; [facility] Work Phone: Albumin/Globulin [Mass ratio] 2.3 {ratio} Abnormal 1.2-2.[address] [facility]; [facility] Work Phone: ALP [Catalytic activity/Vol] 115 U/L Normal 44-[address] [facility]; [facility] Work Phone: ALT [Catalytic activity/Vol] 39 U/L Normal 0-[address] [facility]; [facility] Work Phone: AST [Catalytic activity/Vol] 21 U/L Normal 0-[address] [facility] Internal Medicine; [facility] Medicine Work Phone: Bilirubin [Mass/Vol] 2.2 mg/dL Abnormal 0.0-1.2 [facility]; [facility] Work Phone: Calcium [Mass/Vol] 9.8 mg/dL Normal 8.6-10.2 [facility]; [facility] Work Phone: Chloride [Moles/Vol] 103 mmol/L Normal 96-106 [facility]; [facility] Internal Medicine Work Phone: CO2 [Moles/Vol] 23 mmol/L Normal 20-29 [facility]; [facility] Work Phone: Creatinine [Mass/Vol] 1.05 mg/dL Normal 0.76-1.27 [facility]; [facility] Work Phone: Globulin (S) [Mass/Vol] 2.0 g/dL Normal 1.5-4.[address] [facility] Internal Medicine; [facility] Internal Medicine Work Phone: Glucose [Mass/Vol] 88 mg/dL Normal 65-99 [facility] Internal Medicine; [facility] Internal Medicine Work Phone: Potassium [Moles/Vol] 4.1 mmol/L Normal 3.5-5.2 [facility] prehensive Internal Medicine; [facility] Work Phone: Protein [Mass/Vol] 6.6 g/dL Normal 6.0-8.5 [facility]; [facility] Work Phone: Sodium [Moles/Vol] 142 mmol/L Normal 134-144 [facility]; [facility] Work Phone: Urea nitrogen [Mass/Vol] 15 mg/dL Normal 8-27 [facility]; [facility] Work Phone: Urea nitrogen/Creatinine [Mass ratio] 14 mg/mg Normal 10-24 [facility]; [facility] Work Phone: METABOLIC PANEL, COMPREHENSIVE ([id number]) 78 mL/min/1.73 Normal Comprehens [facility]; [facility] Work Phone: MICROALBUMINOrdered By: Syst em Truant Officer on 07-31-2021 Albumin DL <= 20 mg/L (U) [Mass/Vol] 3.8 ug/mL Normal [facility]; [facility] Work Phone: Albumin/Creatinine (U) [Mass ratio] 3 {mg/g_creat} Normal 0-[address] [facility]; [facility] Work Phone: Creatinine (U) [Mass/Vol] 141.3 mg/dL Normal [facility]; [facility] Work Phone: PSA (PROSTATE SPECIFIC ANTIG EN) (V76.44)Ordered By: Strap Buckler on 07-31-2021 Prostate specific Ag [Mass/Vol] 3.4 ng/mL Normal 0.0-4.0 [facility]; [facility] Work Phone: TSH ([id number])Ordered By: Syste m Truant Officer on 07-31-2021 TSH Qn 2.670 {uIU/mL} Normal 0.450-4.[address] [facility] Internal [facility]; [facility] Work Phone: URINALYSIS, W/ MICRO ([id number]) Ordered By: Strap Buckler on 07-31-2021 Appearance (U) Clear Normal Comprehens [facility]; [facility] Work Phone: Bilirubin Ql (U) Negative Normal Comprehe nsive Internal Medicine; [facility] Internal Medicine Work Phone: Color (U) Yellow Normal [facility]; [facility] Work Phone: Glucose Ql (U) Negative Normal Comprehens [facility]; [facility] Internal Medicine Work Phone: Hemoglobin Ql (U) Negative Normal Compreh ensive Internal Medicine; [facility] Internal Medicine Work Phone: Ketones Ql (U) Negative Normal Com[facility]; [facility] Internal Medicine Work Phone: Leukocyte esterase Test strip Ql (U) Negative Normal [facility]; [facility] Work Phone: Microscopic observation LM Nom (Urine sed) MICRON Normal [facility]; [facility] Internal Medicine Work Phone: Microscopic observation LM Nom (Urine sed) See below: Normal [facility]; [facility] Internal Medicine Work Phone: Nitrite Ql (U) Negative Normal [facility]; [facility] Internal [facility] Work Phone: pH (U) 7.0 [pH] Normal 5.0-7.5 [facility]; [facility] Work Phone: Protein Ql (U) Trace Normal Com[facility]; [facility] Internal Medicine Work Phone: Specific gravity (U) [Rel density] 1.020 1 Normal 1.005-1.03 0 [facility]; [facility] Work Phone: Urobilinogen (U) [Mass/Vol] 0.2 mg/dL Normal 0.2-1.0 [facility]; [facility] Internal Medicine Work Phone: CBC & PLATELETS (AUTO) ([id number] [id number])Ordered By: Strap Buckler on 06-16-2021 Erythrocyte distribution width (RBC) [Ratio] 12.5 % Normal 11.6-15.4 [facility]; [facility] Work Phone: Hematocrit (Bld) [Volume fraction] 45.5 % Normal 37.5-51.0 [facility]; [facility] Work Phone: Hemoglobin (Bld) [Mass/Vol] 15.5 g/dL Normal 13.0-17.[address] [facility] Internal Medicine; [facility] Internal Medicine Work Phone: MCH (RBC) [Entitic mass] 31.1 pg Normal 26.6-33.0 [facility]; [facility] Internal Medicine Work Phone: MCHC (RBC) [Mass/Vol] 34.1 g/dL Normal 31.5-35.7 [facility] Internal [facility]; [facility] Internal Medicine Work Phone: MCV (RBC) [Entitic vol] 91 fL Normal 79-[address] [facility] Internal Medicine; [facility] Internal Medicine Work Phone: Platelets (Bld) [#/Vol] 269 10*3/uL Normal 150-450 [facility]; [facility] Internal Medicine Work Phone: RBC (Bld) [#/Vol] 4.99 10*6/uL Normal 4.14-5.80 [facility] Internal [facility]; [facility] Internal Medicine Work Phone: WBC (Bld) [#/Vol] 8.5 10*3/uL Normal 3.4-10.8 [facility] Internal Medicine; [facility] Internal Medicine Work Phone: PT (PROTHROMBIN TIME) ([id number] )Ordered By: Strap Buckler on 06-16-2021 INR Coag (PPP) [Relative time] 1.0 {INR} Normal 0.9-1.[address] [facility] Internal [facility] Internal Medicine Work Phone: PT Coag (PPP) [Time] 10.4 s Normal 9.1-12.0 [facility] Internal [facility] Internal Medicine Work Phone: RENAL FUNCTION PANEL ([id number]) Ordered By: Strap Buckler on 06-16-2021 Albumin [Mass/Vol] 4.7 g/dL Normal 3.8-4.8 [facility] [place] [facility] Work Phone: Calcium [Mass/Vol] 9.9 mg/dL Normal 8.6-10.2 [facility] [place] [facility] Work Phone: Chloride [Moles/Vol] 103 mmol/L Normal 96-106 Comp rehensive Internal Medicine; [facility] Work Phone: CO2 [Moles/Vol] 22 mmol/L Normal 20-29 [facility]; [facility] Work Phone: Creatinine [Mass/Vol] 1.10 mg/dL Normal 0.76-1.27 [facility] prehensive Internal Medicine; [facility] Work Phone: Glucose [Mass/Vol] 80 mg/dL Normal 65-99 [facility]; [facility] Work Phone: Phosphate [Mass/Vol] 3.5 mg/dL Normal 2.8-4.1 [facility]; [facility] Work Phone: Potassium [Moles/Vol] 4.2 mmol/L Normal 3.5-5.2 [facility] prehensive Internal Medicine; [facility] Work Phone: Sodium [Moles/Vol] 143 mmol/L Normal 134-144 [facility]; [facility] Work Phone: Urea nitrogen [Mass/Vol] 14 mg/dL Normal 8-[address] [facility]; [facility] Work Phone: Urea nitrogen/Creatinine [Mass ratio] 13 mg/mg Normal 10-24 [facility]; [facility] Work Phone: RENAL FUNCTION PANEL ([id number]) 74 mL/min/1.[address] [facility]; [facility] Work Phone: Urinalysis, Office ([id number])Or dered By: Ana Lilia Alvarez on 06-16-2021 Bilirubin Ql (U) Negative Normal [facility] ns[facility]; [facility] Work Phone: Glucose Test strip (U) [Mass/Vol] Negative Normal [facility]; [facility] Work Phone: Hemoglobin Ql (U) non-hemolyzed trace Normal [facility]; [facility] Work Phone: Ketones Ql (U) Negative Normal [facility]; [facility] Work Phone: Leukocyte esterase Test strip Ql (U) Negative Normal [facility]; [facility] Work Phone: Nitrite Ql (U) Negative Normal Comprehens [facility]; [facility] Work Phone: pH (U) 6 [pH] Abnormal [facility]; [facility] Work Phone: Protein Ql (U) Negative Normal Comprehens [facility]; [facility] Work Phone: Specific gravity (U) [Rel density] 1.010 1 Normal [facility]; [facility] Work Phone: Urobilinogen (24H U) [Mass/Time] Normal Normal [facility]; [facility] Work Phone: CBC, PLATELETS & MANUAL DIFF ([id number])Ordered By: Strap Buckler on 01-20-2021 Basophils (Bld) [#/Vol] 0.1 10*3/uL Normal 0.0-0.2 [facility]; [facility] Work Phone: Basophils/100 WBC (Bld) 1 % Normal [facility]; [facility] Work Phone: Eosinophils (Bld) [#/Vol] 0.3 10*3/uL Normal 0.0-0.4 [facility]; [facility] Work Phone: Eosinophils/100 WBC (Bld) 6 % Normal [facility]; [facility] Work Phone: Erythrocyte distribution width (RBC) [Ratio] 12.4 % Normal 11.6-15.4 [facility]; [facility] Work Phone: Hematocrit (Bld) [Volume fraction] 42.5 % Normal 37.5-51.0 [facility]; [facility] Work Phone: Hemoglobin (Bld) [Mass/Vol] 14.1 g/dL Normal 13.0-17.7 [facility]; [facility] Work Phone: Immature granulocytes (Bld) [#/Vol] 0.0 10*3/uL Normal 0.0-0.1 [facility]; [facility] Work Phone: Immature granulocytes/100 WBC (Bld) 1 % Normal [facility]; [facility] Work Phone: Lymphocytes (Bld) [#/Vol] 1.1 10*3/uL Normal 0.7-3.1 [facility]; [facility] Work Phone: Lymphocytes/100 WBC (Bld) 21 % Normal [facility]; [facility] Work Phone: MCH (RBC) [Entitic mass] 31.2 pg Normal 26.6-33.0 [facility]; [facility] Work Phone: MCHC (RBC) [Mass/Vol] 33.2 g/dL Normal 31.5-35.7 [facility] prehensive Internal Medicine; [facility] Work Phone: MCV (RBC) [Entitic vol] 94 fL Normal 79-97 [facility]; [facility] Work Phone: Monocytes (Bld) [#/Vol] 0.5 10*3/uL Normal 0.1-0.9 [facility]; [facility] Work Phone: Monocytes/100 WBC (Bld) 9 % Normal [facility]; [facility] Work Phone: Neutrophils (Bld) [#/Vol] 3.2 10*3/uL Normal 1.4-7.0 [facility]; [facility] Work Phone: Neutrophils/100 WBC (Bld) 62 % Normal [facility]; [facility] Work Phone: Platelets (Bld) [#/Vol] 224 10*3/uL Normal 150-450 [facility]; [facility] Work Phone: RBC (Bld) [#/Vol] 4.52 10*6/uL Normal 4.14-5.80 [facility] ehensive Internal Medicine; [facility] Work Phone: WBC (Bld) [#/Vol] 5.1 10*3/uL Normal 3.4-10.8 Compre hensive Internal Medicine; [facility] Work Phone: LIPID PANEL (30882)Ordered B y: Strap Buckler on 01-20-2021 Cholesterol [Mass/Vol] 169 mg/dL Normal 100-199 [facility]; [facility] Work Phone: Cholesterol in HDL [Mass/Vol] 54 mg/dL Normal [facility]; [facility] Work Phone: Triglyceride [Mass/Vol] 85 mg/dL Normal 0-149 [facility]; [facility] Work Phone: LIPID PANEL (15765) 16 mg/dL Normal 5-40 [facility]; [facility] Work Phone: LIPID PANEL (94133) 99 mg/dL Normal 0-99 [facility]; [facility] Work Phone: LIPID PANEL (20786) 1.8 {ratio} Normal 0.0-3.6 [facility]; [facility] Work Phone: METABOLIC PANEL, COMPREHENSI VE (84787)Ordered By: Strap Buckler on 01-20-2021 Albumin [Mass/Vol] 4.5 g/dL Normal 3.8-4.8 [facility]; [facility] Work Phone: Albumin/Globulin [Mass ratio] 2.3 {ratio} Abnormal 1.2-2.[address] [facility]; [facility] Work Phone: ALP [Catalytic activity/Vol] 99 U/L Normal 44-121 [facility]; [facility] Work Phone: ALT [Catalytic activity/Vol] 19 U/L Normal 0-44 [facility]; [facility] Work Phone: AST [Catalytic activity/Vol] 16 U/L Normal 0-[address] [facility]; [facility] Work Phone: Bilirubin [Mass/Vol] 1.9 mg/dL Abnormal 0.0-1.2 [facility]; [facility] Work Phone: Calcium [Mass/Vol] 9.4 mg/dL Normal 8.6-10.2 [facility] [place]; [facility] Work Phone: Chloride [Moles/Vol] 106 mmol/L Normal 96-106 [facility]; [facility] Work Phone: CO2 [Moles/Vol] 24 mmol/L Normal 20-29 [facility]; [facility] Work Phone: Creatinine [Mass/Vol] 1.02 mg/dL Normal 0.76-1.27 [facility]; [facility] Work Phone: GFR/1.73 sq M.predicted among blacks CKD-EPI (S/P/Bld) [Vol rate/Area] 88 mL/min/1.[address] [facility]; [facility] Work Phone: GFR/1.73 sq M.predicted among non-blacks CKD-EPI (S/P/Bld) [Vol rate/Area] 76 mL/min/1.[address] [facility]; [facility] Work Phone: Globulin (S) [Mass/Vol] 2.0 g/dL Normal 1.5-4.[address] [facility]; [facility] Work Phone: Glucose [Mass/Vol] 98 mg/dL Normal 65-99 [facility]; [facility] Work Phone: Potassium [Moles/Vol] 4.2 mmol/L Normal 3.5-5.2 [facility]; [facility] Work Phone: Protein [Mass/Vol] 6.5 g/dL Normal 6.0-8.5 [facility]; [facility] Work Phone: Sodium [Moles/Vol] 143 mmol/L Normal 134-144 [facility]; [facility] Work Phone: Urea nitrogen [Mass/Vol] 15 mg/dL Normal 8-[address] [facility]; [facility] Work Phone: Urea nitrogen/Creatinine [Mass ratio] 15 mg/mg Normal 10-[address] [facility]; [facility] Work Phone: MICROALBUMINOrdered By: Syst em Truant Officer on 01-20-2021 Albumin DL <= 20 mg/L (U) [Mass/Vol] 7.1 ug/mL Normal [facility]; [facility] Work Phone: Albumin/Creatinine (U) [Mass ratio] 5 {mg/g_creat} Normal 0-29 [facility]; [facility] Work Phone: Creatinine (U) [Mass/Vol] 148.7 mg/dL Normal [facility]; [facility] Work Phone: TSH (THYROID STIMULATING HOR LYNNE) ([id number])Ordered By: Strap Buckler on 01-20-2021 TSH Qn 2.000 {uIU/mL} Normal 0.450-4.50 0 [facility]; [facility] Work Phone: URINALYSIS ([id number])Ordered By : Strap Buckler on 01-20-2021 Appearance (U) Clear Normal [facility]; [facility] Work Phone: Bilirubin Ql (U) Negative Normal Comprehe nsive [facility]; [facility] Work Phone: Color (U) Yellow Normal [facility]; [facility] Work Phone: Glucose Ql (U) Negative Normal [facility]; [facility] Work Phone: Hemoglobin Ql (U) Negative Normal Compreh ensive [facility]; [facility] Work Phone: Ketones Ql (U) Negative Normal [facility]; [facility] Work Phone: Leukocyte esterase Test strip Ql (U) Negative Normal [facility]; [facility] Work Phone: Microscopic observation LM Nom (Urine sed) MICNIP Normal [facility]; [facility] Work Phone: Nitrite Ql (U) Negative Normal [facility]; [facility] Work Phone: pH (U) 7.0 [pH] Normal 5.0-7.5 [facility]; [facility] Work Phone: Protein Ql (U) Negative Normal [facility]; [facility] Work Phone: Specific gravity (U) [Rel density] 1.022 1 Normal 1.005-1.03 0 [facility]; [facility] Work Phone: Urobilinogen (U) [Mass/Vol] 0.2 mg/dL Normal 0.2-1.0 [facility]; [facility] Work Phone: CBC W/AUTO DIFF WBC (12167)O rdered By: Strap Buckler on 06-26-2020 Basophils (Bld) [#/Vol] 0.0 {x10E3/uL} Normal 0.0-0.2 [facility]; [facility] Work Phone: Comment on above: Test(s) 672455-QBF-B ; 736672-OSB-X; 651904-Oxiaoxmxckdrc; 865540-Rmwuqpsqhjx, Total; 697565-MGT-M (Total); 836180-Frvvf LDL-P; 209486-LHV Size; 185494-DM-JR Scorewas developed and its performance characteristics determinedby Drop[employer]. It has not been cleared or approved by the Foodand Drug Administration.PATIENT WAS FASTINGPERFORMED BY: [employer] [address] [id number] BY: [employer] Hmafke6440 [facility] [id number] Basophils (Bld) [#/Vol] 0.0 10*3/uL Normal 0.0-0.2 [facility]; [facility] Work Phone: Basophils/100 WBC (Bld) 0 % Normal [facility]; [facility] Work Phone: Comment on above: Test(s) 846569-DSG-G ; 199092-VER-L; 282794-Lazamgabyzlfp; 965380-Cokjxzohppr, Total; 401429-AZC-O (Total); 331851-Crkmz LDL-P; 452285-EDD Size; 215926-OR-XS Scorewas developed and its performance characteristics determinedby Dropbox. It has not been cleared or approved by the Foodand Drug Administration.PATIENT WAS FASTINGPERFORMED BY: [employer] [id number] BY: [employer] Stixkm8260 [facility] [id number] Eosinophils (Bld) [#/Vol] 0.2 {x10E3/uL} Normal 0.0-0.4 [facility]; [facility] Work Phone: Comment on above: Test(s) 576117-QXI-A ; 715352-VEJ-P; 865708-Vsxiuountkand; 892519-Xoyydkkkqto, Total; 776027-QVK-R (Total); 945989-Htpyn LDL-P; 689188-ZYB Size; 549520-IW-YZ Scorewas developed and its performance characteristics determinedby Drop[employer]. It has not been cleared or approved by the Foodand Drug Administration.PATIENT WAS FASTINGPERFORMED BY: [employer] [address] [id number] BY: [employer]6370 [facility] [id number] Eosinophils (Bld) [#/Vol] 0.2 10*3/uL Normal 0.0-0.4 [facility]; [facility] Work Phone: Eosinophils/100 WBC (Bld) 2 % Normal [facility]; [facility] Work Phone: Comment on above: Test(s) 715390-UBC-P ; 958104-OWP-R; 290242-Slckwmcvwssku; 846708-Jqfetkpbaee, Total; 342120-FZC-O (Total); 957526-Zqeke LDL-P; 097334-NJK Size; 824991-CH-OF Scorewas developed and its performance characteristics determinedby Dropbox. It has not been cleared or approved by the Foodand Drug Administration.PATIENT WAS FASTINGPERFORMED BY: [employer] [id number] BY: [employer] Gvnynr0380 [facility] [id number] Erythrocyte distribution width (RBC) [Ratio] 12.2 % Normal 11.6-15.4 [facility]; [facility] Work Phone: Comment on above: Test(s) 650569-KUE-J ; 796550-HYR-T; 161249-Dbwzhmubvvkko; 838767-Ldkngfjleiw, Total; 377533-TLE-Z (Total); 574313-Tonta LDL-P; 032039-IQN Size; 561215-JT-IE Scorewas developed and its performance characteristics determinedby [employer]. It has not been cleared or approved by the Foodand Drug Administration.PATIENT WAS FASTINGPERFORMED BY: [employer] [id number] BY: [email or web address] [facility] [id number] Hematocrit (Bld) [Volume fraction] 42.0 % Normal 37.5-51.[address] [facility] Internal [facility]; [facility] Work Phone: Comment on above: Test(s) 386372-ZYZ-Z ; 582158-FFA-V; 550388-Lvaymjsyntkxh; 307856-Cyayasnkzyr, Total; 559464-EGQ-W (Total); 331267-Hnkgc LDL-P; 612907-DDC Size; 856565-YY-GR Scorewas developed and its performance characteristics determinedby Dropbox. It has not been cleared or approved by the Foodand Drug Administration.PATIENT WAS FASTINGPERFORMED BY: [employer] [id number] BY: [employer]6370 [facility] [id number] Hemoglobin (Bld) [Mass/Vol] 14.4 g/dL Normal 13.0-17.7 [facility]; [facility] Work Phone: Comment on above: Test(s) 282047-XSA-J ; 997407-ZRU-V; 786951-Cdhboruefzxpq; 217537-Qdzipphafil, Total; 255831-KIE-S (Total); 028096-Bpnvo LDL-P; 728739-HAF Size; 171938-VN-EP Scorewas developed and its performance characteristics determinedby Dropbox. It has not been cleared or approved by the Foodand Drug Administration.PATIENT WAS FASTINGPERFORMED BY: [employer] [id number] BY: EndoInSightEast Orange VA Medical CenterRdrpxk7112 [facility] [id number] Immature granulocytes (Bld) [#/Vol] 0.0 {x10E3/uL} Normal 0.0-0.1 [facility]; [facility] Work Phone: Comment on above: Test(s) 183975-YZR-F ; 694528-UTQ-S; 491395-Sdpqmimufbzqm; 556952-Zraywemjycp, Total; 282631-ZWV-N (Total); 321188-Axyff LDL-P; 341714-HQI Size; 429141-WD-YQ Scorewas developed and its performance characteristics determinedby Dropbox. It has not been cleared or approved by the Foodand Drug Administration.PATIENT WAS FASTINGPERFORMED BY: [employer] [id number] BY: EndoInSightAngela V[place] [id number] [facility] [id number] Immature granulocytes (Bld) [#/Vol] 0.0 10*3/uL Normal 0.0-0.1 [facility]; [facility] Work Phone: Immature granulocytes/100 WBC (Bld) 1 % Normal [facility]; [facility] Work Phone: Comment on above: Test(s) 619258-WLU-D ; 602255-VOJ-X; 539584-Hhobngddarveq; 506986-Unlckurcraq, Total; 716236-JAF-E (Total); 721354-Dipoh LDL-P; 090612-HCR Size; 105267-DC-TO Scorewas developed and its performance characteristics determinedby Dropbox. It has not been cleared or approved by the Foodand Drug Administration.PATIENT WAS FASTINGPERFORMED BY: [employer] [id number] BY: EndoInSight72 Clark Streetblin [place] [id number] Lymphocytes (Bld) [#/Vol] 1.1 {x10E3/uL} Normal 0.7-3.1 [facility]; [facility] Work Phone: Comment on above: Test(s) 419302-TRC-K ; 488806-WLW-G; 099074-Kcfwssyprchhc; 797793-Yrvixslavtu, Total; 989717-VWT-U (Total); 948216-Wcsio LDL-P; 874847-JGW Size; 802537-GC-OZ Scorewas developed and its performance characteristics determinedby Dropbox. It has not been cleared or approved by the Foodand Drug Administration.PATIENT WAS FASTINGPERFORMED BY: [employer] [address] [id number] BY: [employer]6370 [facility] [id number] Lymphocytes (Bld) [#/Vol] 1.1 10*3/uL Normal 0.7-3.1 [facility]; [facility] Work Phone: Lymphocytes/100 WBC (Bld) 16 % Normal [facility]; [facility] Work Phone: Comment on above: Test(s) 627797-XSD-Z ; 348104-TJB-O; 432525-Gjxykxfceewlm; 194953-Scwppoznxno, Total; 762185-QWR-L (Total); 487270-Ubueh LDL-P; 959801-XUZ Size; 364445-PM-SJ Scorewas developed and its performance characteristics determinedby Dropbox. It has not been cleared or approved by the Foodand Drug Administration.PATIENT WAS FASTINGPERFORMED BY: [employer] [address] [id number] BY: [email or web address] [facility] [id number] MCH (RBC) [Entitic mass] 32.0 pg Normal 26.6-33.0 [facility]; [facility] Work Phone: Comment on above: Test(s) 354601-FGQ-G ; 226145-VAS-C; 645505-Auuvgfsudgajz; 158477-Ybkduvdmrqa, Total; 596483-ECD-J (Total); 618252-Djxaf LDL-P; 034833-IMA Size; 436869-KW-DK Scorewas developed and its performance characteristics determinedby Dropbox. It has not been cleared or approved by the Foodand Drug Administration.PATIENT WAS FASTINGPERFORMED BY: [employer] [id number] BY: [email or web address] [facility] [id number] MCHC (RBC) [Mass/Vol] 34.3 g/dL Normal 31.5-35.7 [facility] prehensive Internal Medicine; [facility] Work Phone: Comment on above: Test(s) 249505-BHN-J ; 945917-CER-I; 375840-Sjvbsxlbfhixe; 985993-Sqsploolqay, Total; 750174-MDU-Q (Total); 784661-Wfnur LDL-P; 809349-HPT Size; 454895-UO-FC Scorewas developed and its performance characteristics determinedby Dropbox. It has not been cleared or approved by the Foodand Drug Administration.PATIENT WAS FASTINGPERFORMED BY: [employer] [address] [id number] BY: [employer]6370 [facility] [id number] MCV (RBC) [Entitic vol] 93 fL Normal 79-[address] [facility]; [facility] Work Phone: Comment on above: Test(s) 667515-MVQ-U ; 069774-WYQ-C; 067622-Egbaznxjcljzz; 076418-Fhlopiqlplf, Total; 233100-KXH-H (Total); 437209-Okhmb LDL-P; 999661-ZYO Size; 471391-ZJ-OD Scorewas developed and its performance characteristics determinedby Dropbox. It has not been cleared or approved by the Foodand Drug Administration.PATIENT WAS FASTINGPERFORMED BY: [employer] [id number] BY: [employer]6370 [facility] [id number] Monocytes (Bld) [#/Vol] 0.5 {x10E3/uL} Normal 0.1-0.9 [facility]; [facility] Work Phone: Comment on above: Test(s) 729312-LGL-F ; 874709-ZJL-R; 171246-Ruxicqdhmfifn; 759413-Esxrnkksbpe, Total; 171190-OVV-X (Total); 275777-Xiiqw LDL-P; 012610-IWR Size; 056742-PZ-SQ Scorewas developed and its performance characteristics determinedby Dropbox. It has not been cleared or approved by the Foodand Drug Administration.PATIENT WAS FASTINGPERFORMED BY: [employer] [address] [id number] BY: [email or web address] [facility] [id number] Monocytes (Bld) [#/Vol] 0.5 10*3/uL Normal 0.1-0.9 [facility]; [facility] Work Phone: Monocytes/100 WBC (Bld) 7 % Normal [facility]; [facility] Work Phone: Comment on above: Test(s) 744255-MGD-D ; 100448-YKD-V; 947036-Pditsvortsici; 464542-Wvtvynegdne, Total; 968190-MLV-O (Total); 373311-Qgyic LDL-P; 158252-SEV Size; 285315-JO-ZG Scorewas developed and its performance characteristics determinedby Dropbox. It has not been cleared or approved by the Foodand Drug Administration.PATIENT WAS FASTINGPERFORMED BY: [employer] [address] [id number] BY: [employer]6370 [facility] [id number] Neutrophils (Bld) [#/Vol] 5.1 {x10E3/uL} Normal 1.4-7.0 [facility]; [facility] Work Phone: Comment on above: Test(s) 703691-OGU-M ; 709144-ZIS-L; 817219-Efnoqsdhbpzmd; 823777-Gjeiacmgzfa, Total; 652695-WKX-F (Total); 809979-Vdsld LDL-P; 565082-AMU Size; 086261-PL-YX Scorewas developed and its performance characteristics determinedby Dropbox. It has not been cleared or approved by the Foodand Drug Administration.PATIENT WAS FASTINGPERFORMED BY: [employer] [id number] BY: [email or web address] [facility] [id number] Neutrophils (Bld) [#/Vol] 5.1 10*3/uL Normal 1.4-7.0 [facility]; [facility] Work Phone: Neutrophils/100 WBC (Bld) 74 % Normal [facility]; [facility] Work Phone: Comment on above: Test(s) 490695-LQE-L ; 740750-LMW-O; 786984-Abkmrdsnjnluc; 621144-Qncyrxcpcpj, Total; 445903-YNE-I (Total); 305040-Uoeuf LDL-P; 045494-QZN Size; 917660-UT-NR Scorewas developed and its performance characteristics determinedby Dropbox. It has not been cleared or approved by the [employer] Drug Administration.PATIENT WAS FASTINGPERFORMED BY: [employer] [id number] BY: [employer]6370 [facility] [id number] Platelets (Bld) [#/Vol] 231 {x10E3/uL} Normal 150-450 [facility]; [facility] Work Phone: Comment on above: Test(s) 609734-GVZ-J ; 056331-AVZ-S; 149039-Zbgtmsghdtash; 015546-Faookrhvmjg, Total; 652300-GKM-H (Total); 823159-Rxgng LDL-P; 300274-OJF Size; 660443-IL-KK Scorewas developed and its performance characteristics determinedby Dropbox. It has not been cleared or approved by the Foodand Drug Administration.PATIENT WAS FASTINGPERFORMED BY: [employer] [address] [id number] BY: [employer] Dlhnor9945 [facility] [id number] Platelets (Bld) [#/Vol] 231 10*3/uL Normal 150-[address] [facility]; [facility] Work Phone: RBC (Bld) [#/Vol] 4.50 {x10E6/uL} Normal 4.14-5.80 [facility] Internal [facility]; [facility] Work Phone: Comment on above: Test(s) 329353-DOT-Z ; 107842-HWH-B; 912363-Pzfniyiqwmeka; 277718-Libqciksnwd, Total; 674173-EWW-K (Total); 032773-Glriw LDL-P; 706934-ITD Size; 492807-NG-IS Scorewas developed and its performance characteristics determinedby Dropbox. It has not been cleared or approved by the Foodand Drug Administration.PATIENT WAS FASTINGPERFORMED BY: [employer] [address] [id number] BY: [employer] Lbwthn6156 [facility] [id number] RBC (Bld) [#/Vol] 4.50 10*6/uL Normal 4.14-5.80 [facility]; [facility] Work Phone: WBC (Bld) [#/Vol] 6.9 {x10E3/uL} Normal 3.4-10.8 [facility]; [facility] Work Phone: Comment on above: Test(s) 493089-BES-V ; 239645-LFD-G; 624129-Qlppiitryxshc; 996753-Fwaqdrzjksi, Total; 546574-SDE-R (Total); 179936-Uyles LDL-P; 583250-EYP Size; 263880-IL-JK Scorewas developed and its performance characteristics determinedby Dropbox. It has not been cleared or approved by the Foodand Drug Administration.PATIENT WAS FASTINGPERFORMED BY: [facility] [id number] BY: EndoInSightEast Orange VA Medical CenterRwvvox8409 [facility] [id number] WBC (Bld) [#/Vol] 6.9 10*3/uL Normal 3.4-10.8 [facility]; [facility] Work Phone: METABOLIC PANEL, COMPREHENSI VE (33910)Ordered By: Strap Buckler on 06-26-2020 Albumin [Mass/Vol] 4.5 g/dL Normal 3.8-4.8 [facility]; [facility] Work Phone: Comment on above: Test(s) 209272-ZHI-N ; 521492-YSW-O; 595826-Ywmkkovatgzmu; 372536-Umoopzlatmi, Total; 473156-RSO-W (Total); 915265-Inzij LDL-P; 541573-LKQ Size; 766815-AH-RH Scorewas developed and its performance characteristics determinedby Dropbox. It has not been cleared or approved by the Foodand Drug Administration.PATIENT WAS FASTINGPERFORMED BY: [employer] [id number] BY: EndoInSightEast Orange VA Medical CenterNkzmgo2610 [facility] [id number] Albumin/Globulin [Mass ratio] 2.1 {ratio} Normal 1.2-2.[address] [facility] Internal [facility]; [facility] Work Phone: Comment on above: Test(s) 711977-YSD-G ; 086414-WKC-G; 546561-Lefbtxgdupmik; 162674-Cpnbchwgixu, Total; 436587-XNJ-C (Total); 327224-Ahbym LDL-P; 407244-FPD Size; 165349-NX-LN Scorewas developed and its performance characteristics determinedby Dropbox. It has not been cleared or approved by the Foodand Drug Administration.PATIENT WAS FASTINGPERFORMED BY: [employer] [id number] BY: [employer] Xqzvit5534 [place] ElementumBlue Ridge Regional Hospital [id number] ALP [Catalytic activity/Vol] 97 [iU]/L Normal 39-117 [facility]; [facility] Work Phone: Comment on above: Test(s) 279790-RAP-Q ; 762516-MDM-U; 634609-Wkaikrpnaogtx; 313328-Idqjuiplkar, Total; 131506-DOY-Q (Total); 630619-Mnmaq LDL-P; 470553-YZW Size; 042192-GA-AP Scorewas developed and its performance characteristics determinedby Dropbox. It has not been cleared or approved by the Foodand Drug Administration.PATIENT WAS FASTINGPERFORMED BY: [employer] [address] [id number] BY: [employer] Wucplw8238 [facility] [id number] ALP [Catalytic activity/Vol] 97 U/L Normal 39-117 [facility]; [facility] Work Phone: ALT [Catalytic activity/Vol] 25 [iU]/L Normal 0-44 [facility]; [facility] Work Phone: Comment on above: Test(s) 814814-UJF-V ; 511198-LNJ-Q; 449966-Zdmbafrirknlz; 291639-Mbaptiqkpkp, Total; 683523-SSQ-V (Total); 686258-Ejanf LDL-P; 775394-IKW Size; 330476-JB-UR Scorewas developed and its performance characteristics determinedby Dropbox. It has not been cleared or approved by the Foodand Drug Administration.PATIENT WAS FASTINGPERFORMED BY: End[facility]Sight[address] [id number] BY: EndoInSightAngela [place] [id number] [facility] [id number] ALT [Catalytic activity/Vol] 25 U/L Normal 0-44 [facility]; [facility] Work Phone: AST [Catalytic activity/Vol] 17 [iU]/L Normal 0-40 [facility]; [facility] Work Phone: Comment on above: Test(s) 212242-LFL-O ; 506008-IMB-M; 592172-Jlzwgfbkrznto; 109187-Yhiuwobtfzg, Total; 109442-GQY-E (Total); 821594-Skuyg LDL-P; 863553-UIF Size; 165277-UY-DP Scorewas developed and its performance characteristics determinedby Dropbox. It has not been cleared or approved by the Foodand Drug Administration.PATIENT WAS FASTINGPERFORMED BY: [employer] [address] [id number] BY: [email or web address] [facility] [id number] AST [Catalytic activity/Vol] 17 U/L Normal 0-40 [facility]; [facility] Work Phone: Bilirubin [Mass/Vol] 1.6 mg/dL Abnormal 0.0-1.2 [facility]; [facility] Work Phone: Comment on above: Test(s) 225425-CZW-J ; 208428-VVP-L; 278866-Ntkzdvppyvwjy; 554242-Qamdjwhmzsh, Total; 050039-NSY-S (Total); 761671-Eozcc LDL-P; 035415-LYN Size; 896964-PM-JF Scorewas developed and its performance characteristics determinedby Dropbox. It has not been cleared or approved by the [employer] Drug Administration.PATIENT WAS FASTINGPERFORMED BY: [employer] [address] [id number] BY: [employer]6[address] [facility] [id number] Calcium [Mass/Vol] 9.6 mg/dL Normal 8.6-10.2 [facility]; [facility] Work Phone: Comment on above: Test(s) 635459-UTF-H ; 102867-KAX-J; 144984-Ykoojmijyogak; 843941-Jummcipduiv, Total; 309549-LHV-J (Total); 975070-Igmjr LDL-P; 898809-GGU Size; 694145-VH-LY Scorewas developed and its performance characteristics determinedby Dropbox. It has not been cleared or approved by the Foodand Drug Administration.PATIENT WAS FASTINGPERFORMED BY: [employer] [address] [id number] BY: [employer]6[address] [facility] [id number] Chloride [Moles/Vol] 105 mmol/L Normal 96-106 [facility]; [facility] Work Phone: Comment on above: Test(s) 108827-HXA-D ; 578384-QSP-A; 320871-Koxpjyulklxdo; 224684-Iyuyervskcb, Total; 094029-RUE-T (Total); 796446-Kcknz LDL-P; 176007-QAK Size; 577762-LL-AI Scorewas developed and its performance characteristics determinedby Dropbox. It has not been cleared or approved by the Foodand Drug Administration.PATIENT WAS FASTINGPERFORMED BY: [employer] [address] [id number] BY: [employer]6[address] [facility] [id number] CO2 [Moles/Vol] 23 mmol/L Normal 20-29 [facility] Internal [facility]; [facility] Work Phone: Comment on above: Test(s) 173997-SGV-J ; 714206-MBU-W; 653552-Ezrvnfjtiumyj; 314440-Mhnqnvsofci, Total; 271235-CAA-Q (Total); 160272-Bocjk LDL-P; 788659-XOT Size; 308711-XC-OH Scorewas developed and its performance characteristics determinedby Dropbox. It has not been cleared or approved by the Foodand Drug Administration.PATIENT WAS FASTINGPERFORMED BY: [employer] [address] [id number] BY: [employer]6[address] [facility] [id number] Creatinine [Mass/Vol] 0.97 mg/dL Normal 0.76-1.27 [facility] prehensive Internal Medicine; [facility] Work Phone: Comment on above: Test(s) 594013-QYP-V ; 934200-TOR-Z; 498837-Ycunifobnfbpk; 007293-Qksuwipuvqw, Total; 315267-BDK-Y (Total); 932387-Tuvup LDL-P; 909978-YWD Size; 600614-NB-VO Scorewas developed and its performance characteristics determinedby Dropbox. It has not been cleared or approved by the Foodand Drug Administration.PATIENT WAS FASTINGPERFORMED BY: [employer] [address] [id number] BY: [email or web address] [facility] [id number] GFR/1.73 sq M predicted among blacks CKD-EPI (S/P/Bld) [Vol rate/Area] 94 mL/min/1.73 Normal [facility]; [facility] Work Phone: Comment on above: Test(s) 923682-UMZ-V ; 830061-VWB-K; 382321-Dmscaadduqqam; 124377-Svdchnpppql, Total; 950869-KVA-S (Total); 524475-Oduks LDL-P; 008617-KGK Size; 148109-HO-VM Scorewas developed and its performance characteristics determinedby Dropbox. It has not been cleared or approved by the Foodand Drug Administration.PATIENT WAS FASTINGPERFORMED BY: [employer] [address] [id number] BY: [employer] [id number] [facility] [id number] GFR/1.73 sq M predicted among non-blacks CKD-EPI (S/P/Bld) [Vol rate/Area] 82 mL/min/1.73 Normal [facility]; [facility] Work Phone: Comment on above: Test(s) 399208-CEB-F ; 699045-OJN-M; 948462-Ziiyktsqvfaqf; 497069-Exbbrhbsjtg, Total; 858345-CWY-P (Total); 438123-Zpftc LDL-P; 148664-WTD Size; 546606-DP-ZL Scorewas developed and its performance characteristics determinedby Dropbox. It has not been cleared or approved by the Foodand Drug Administration.PATIENT WAS FASTINGPERFORMED BY: [employer] [address] [id number] BY: [employer] Ziicfd0872 [place] [facility] [id number] Globulin (S) [Mass/Vol] 2.1 g/dL Normal 1.5-4.[address] [facility] Internal Medicine; [facility] Work Phone: Comment on above: Test(s) 857837-QQC-V ; 755426-NWH-I; 351204-Slzpkvaidhxhr; 358614-Lqmtsibmwpy, Total; 645845-RFP-S (Total); 658450-Qxweg LDL-P; 519938-IVZ Size; 056448-LS-BZ Scorewas developed and its performance characteristics determinedby Dropbox. It has not been cleared or approved by the Foodand Drug Administration.PATIENT WAS FASTINGPERFORMED BY: [employer] [address] [id number] BY: [email or web address] [facility] [id number] Glucose [Mass/Vol] 93 mg/dL Normal 65-99 [facility] Internal Medicine; [facility] Work Phone: Comment on above: Test(s) 067881-URE-A ; 057753-DXS-P; 812287-Bdtebwfqvmsbz; 829467-Jkfbujpozmu, Total; 544412-LNJ-P (Total); 517469-Aqovn LDL-P; 172105-UKS Size; 101974-ZX-QB Scorewas developed and its performance characteristics determinedby Dropbox. It has not been cleared or approved by the Foodand Drug Administration.PATIENT WAS FASTINGPERFORMED BY: [employer] [address] [id number] BY: [employer]6[address] [facility] [id number] Potassium [Moles/Vol] 4.4 mmol/L Normal 3.5-5.2 [facility]; [facility] Work Phone: Comment on above: Test(s) 185751-IWT-S ; 963880-QHV-P; 025100-Auzxjmvxysnsf; 148616-Glxqtrmsznx, Total; 345005-MFE-D (Total); 421325-Ycqcu LDL-P; 609098-FQO Size; 035557-WS-RI Scorewas developed and its performance characteristics determinedby Dropbox. It has not been cleared or approved by the Foodand Drug Administration.PATIENT WAS FASTINGPERFORMED BY: [employer] [id number] BY: [email or web address] [facility] [id number] Protein [Mass/Vol] 6.6 g/dL Normal 6.0-8.5 [facility]; [facility] Work Phone: Comment on above: Test(s) 689259-AFP-B ; 884520-RZS-O; 404966-Vztenqrjuevco; 455278-Znbqmaicvqt, Total; 481330-IHJ-J (Total); 657119-Ocyee LDL-P; 328121-TIG Size; 946975-FW-YR Scorewas developed and its performance characteristics determinedby Dropbox. It has not been cleared or approved by the Foodand Drug Administration.PATIENT WAS FASTINGPERFORMED BY: [employer] [id number] BY: [employer]6370 [facility] [id number] Sodium [Moles/Vol] 142 mmol/L Normal 134-144 [facility]; [facility] Work Phone: Comment on above: Test(s) 265270-XXK-X ; 269986-IAK-J; 822415-Lswzceeyuggaq; 787432-Awxbxydwace, Total; 476697-PYD-M (Total); 419791-Gxnku LDL-P; 086200-UHD Size; 638968-IU-IS Scorewas developed and its performance characteristics determinedby Dropbox. It has not been cleared or approved by the Foodand Drug Administration.PATIENT WAS FASTINGPERFORMED BY: [employer] [address] [id number] BY: EndoInSightNew Mexico Behavioral Health Institute at Las VegasIhxnnm4892 [address] [facility] [id number] Urea nitrogen [Mass/Vol] 13 mg/dL Normal 8-27 [facility]; [facility] Work Phone: Comment on above: Test(s) 450937-VNM-G ; 174511-ZWY-W; 691219-Bqeyoynoqsdzt; 476662-Ekanadjmrvi, Total; 242238-HON-O (Total); 901375-Efxyo LDL-P; 124614-NJC Size; 089477-XY-FL Scorewas developed and its performance characteristics determinedby Dropbox. It has not been cleared or approved by the Foodand Drug Administration.PATIENT WAS FASTINGPERFORMED BY: [employer] [address] [id number] BY: [employer]6[address] [facility] [id number] Urea nitrogen/Creatinine [Mass ratio] 13 mg/mg Normal 10-24 [facility]; [facility] Work Phone: Comment on above: Test(s) 644480-CQQ-E ; 566168-PJN-N; 738737-Dsztbonzfybqj; 827802-Wrhqsrurihs, Total; 829675-WQC-U (Total); 590989-Jzjab LDL-P; 492090-SAX Size; 736499-XL-KW Scorewas developed and its performance characteristics determinedby Dropbox. It has not been cleared or approved by the Foodand Drug Administration.PATIENT WAS FASTINGPERFORMED BY: [employer] [address] [id number] BY: [employer] Solutions[employer]6[address] [facility] [id number] MICROALBUMINOrdered By: Syst em Truant Officer on 06-26-2020 Albumin DL <= 20 mg/L (U) [Mass/Vol] 3.4 ug/mL Normal [facility]; [facility] Work Phone: Comment on above: Test(s) 420410-LBG-H ; 088067-DMZ-O; 168125-Awwcrsuktobbe; 790650-Qjspycudyof, Total; 226330-BFM-E (Total); 780236-Llihg LDL-P; 394386-VBM Size; 455292-MV-WL Scorewas developed and its performance characteristics determinedby Dropbox. It has not been cleared or approved by the Foodand Drug Administration.PATIENT WAS FASTINGPERFORMED BY: [employer] [address] [id number] BY: [facility] [id number] Albumin/Creatinine (U) [Mass ratio] 4 {mg/g_creat} Normal 0-29 [facility]; [facility] Work Phone: Comment on above: Normal: 0 - 29 Moder ately increased: 30 - 300 Severely increased: >300 Test(s) 994764-CZS-C ; 915807-JTF-R; 588433-Rmzfxhyemzebn; 309093-Irljcquzvgc, Total; 582185-JHH-M (Total); 122059-Qppxd LDL-P; 839440-VDZ Size; 084942-IT-JH Scorewas developed and its performance characteristics determinedby Dropbox. It has not been cleared or approved by the [employer] Drug Administration.PATIENT WAS FASTINGPERFORMED BY: [employer] [id number] BY: [email or web address] [facility] [id number] Creatinine (U) [Mass/Vol] 75.9 mg/dL Normal [facility]; [facility] Work Phone: Comment on above: Test(s) 697102-YHR-E ; 946339-LRX-S; 893194-Vvmgkojzekwca; 143261-Voxxfqjtexf, Total; 652381-LID-M (Total); 999238-Wmjge LDL-P; 846919-BJJ Size; 053680-OK-PO Scorewas developed and its performance characteristics determinedby Dropbox. It has not been cleared or approved by the Foodand Drug Administration.PATIENT WAS FASTINGPERFORMED BY: [employer] [address] [id number] BY: [employer] Oiskge3093 [facility] [id number] NMR Profile (53936)Ordered B y: Strap Buckler on 06-26-2020 Cholesterol [Mass/Vol] 159 mg/dL Normal 100-199 [facility]; [facility] Work Phone: Comment on above: Test(s) 971775-OZT-M ; 163942-ONX-Y; 132926-Gmtezdtfmvvjb; 669520-Ilyzeqaznqk, Total; 995775-GIF-L (Total); 509122-Uflxc LDL-P; 875397-MER Size; 052272-WN-TV Scorewas developed and its performance characteristics determinedby Dropbox. It has not been cleared or approved by the Foodand Drug Administration.PATIENT WAS FASTINGPERFORMED BY: [employer] [address] [id number] BY: [email or web address] [facility] [id number] Lipoprotein.alpha [Moles/Vol] 34.8 umol/L Normal [facility]; [facility] Work Phone: Comment on above: Test(s) 305778-ZTL-Q ; 054475-VYQ-M; 625202-Gkzcwkrdiwrro; 352767-Bgsnyylmqto, Total; 533454-YFG-Y (Total); 279060-Cmfze LDL-P; 763033-UWR Size; 127432-YM-JR Scorewas developed and its performance characteristics determinedby Dropbox. It has not been cleared or approved by the Foodand Drug Administration.PATIENT WAS FASTINGPERFORMED BY: [employer] [id number] BY: [employer] Bxxhkj0818 [address] [facility] [id number] Lipoprotein.beta.subp article [Entitic length] 20.1 nm Abnormal [facility]; [facility] Work Phone: Comment on above: INTERPRETATIVE INFORMATION PARTICLE CONCENTRATION AND SIZE <--Lower CVD Risk Higher CVD Risk--> LDL AND HDL PARTICLES Percentile in Reference Population HDL-P (total) High 75th 50th 25th Low >34.9 34.9 30.5 26.7 <26.7 . Small LDL-P Low 25th 50th 75th High <117 117 527 839 >839 . LDL Size <-Large (Pattern A)-> <-Small (Pattern B)-> 23.0 20.6 20.5 19.0 Small LDL-P and LDL Size are associated with CVD risk, but not afterLDL-P is taken into account. Test(s) 256375-KLP-J ; 258648-UFP-X; 549733-Eqpguqfrnzlbu; 214822-Bfcoqeosqxa, Total; 276430-IKJ-E (Total); 972989-Uykak LDL-P; 730756-CJB Size; 561855-JI-YB Scorewas developed and its performance characteristics determinedby Dropbox. It has not been cleared or approved by the Foodand Drug Administration.PATIENT WAS FASTINGPERFORMED BY: [facility] [address] [id number] BY: LabCoEast Orange VA Medical CenterErrgfg7328 [facility] [id number] Lipoprotein.beta.subp article [Moles/Vol] 1215 nmol/L Abnormal Comprehens[facility] e [facility]; [facility] Work Phone: Comment on above: Low < 1000 Moderate 1000 - 1299 Borderline-High 1300 - 1599 High 1600 - 2000 Very High > 2000 Test(s) 691350-SML-N ; 991888-TED-T; 220166-Yiajjlpzcgapc; 101623-Fskpmeuqnjq, Total; 816320-VQV-I (Total); 600175-Dkryu LDL-P; 829371-PUD Size; 778114-SD-TY Scorewas developed and its performance characteristics determinedby Dropbox. It has not been cleared or approved by the Foodand Drug Administration.PATIENT WAS FASTINGPERFORMED BY: [employer] [address] [id number] BY: [email or web address] [facility] [id number] Lipoprotein.beta.subp article.small [Moles/Vol] 788 nmol/L Abnormal [facility]; [facility] Work Phone: Comment on above: Test(s) 982588-UYP-O ; 984986-PWP-T; 433107-Whapbkzanannw; 497835-Aodqhaeqron, Total; 063124-PFS-B (Total); 258229-Uswhs LDL-P; 647132-WRO Size; 047659-BC-FP Scorewas developed and its performance characteristics determinedby Dropbox. It has not been cleared or approved by the Foodand Drug Administration.PATIENT WAS FASTINGPERFORMED BY: [employer] [address] [id number] BY: [employer]6370 [facility] [id number] Triglyceride [Mass/Vol] 132 mg/dL Normal 0-149 [facility]; [facility] Work Phone: Comment on above: Test(s) 952071-CQH-G ; 609859-CFQ-I; 404833-Yjlfkovxbapxa; 732533-Oskmnrcziuy, Total; 315219-FYP-P (Total); 679333-Hwjqg LDL-P; 925307-OWP Size; 066735-ZL-DJ Scorewas developed and its performance characteristics determinedby Dropbox. It has not been cleared or approved by the Foodand Drug Administration.PATIENT WAS FASTINGPERFORMED BY: [employer] [address] [id number] BY: [employer]6370 [facility] [id number] NMR Profile (52112) 52 mg/dL Normal [facility]ensive Internal Medicine; [facility] Work Phone: Comment on above: Test(s) 498932-IBB-I ; 840282-DOT-O; 924663-Rjjwoxhzsxmmr; 877364-Fqdlmtxzhvd, Total; 663315-ZZT-F (Total); 559461-Mpwmf LDL-P; 317146-YKT Size; 655290-VS-CP Scorewas developed and its performance characteristics determinedby Dropbox. It has not been cleared or approved by the Foodand Drug Administration.PATIENT WAS FASTINGPERFORMED BY: [employer] [id number] BY: [email or web address] [facility] [id number] NMR Profile (84573) 84 mg/dL Normal 0-99 [facility]ensive [facility] Medicine; [facility] Work Phone: Comment on above: . Optimal < 100 Abov e optimal 100 - 129 Borderline 130 - 159 High 160 - 189 Very high > 189 . Test(s) 940459-DXG-T ; 438768-FWO-O; 762238-Qczgiruedsbcz; 802133-Kdvbwbwhhtu, Total; 071558-JOH-W (Total); 864427-Xdexl LDL-P; 688355-YSU Size; 779925-PE-SO Scorewas developed and its performance characteristics determinedby Dropbox. It has not been cleared or approved by the Foodand Drug Administration.PATIENT WAS FASTINGPERFORMED BY: [employer] [address] [id number] BY: [employer]6370 [facility] [id number] NMR Profile (69568) 132 mg/dL Normal 0-149 [facility] ehensive Internal Medicine; [facility] Work Phone: NMR Profile (68813) 159 mg/dL Normal 100-199 [facility]ensive [facility]; [facility] Work Phone: TSH (62777)Ordered By: Crowd Fusion[employer] m Truant Officer on 06-26-2020 TSH Qn 2.560 {uIU/mL} Normal 0.450-4.50 0 [facility]; [facility] Work Phone: Comment on above: Test(s) 741091-EWT-R ; 080462-JXX-B; 477764-Jqwccquczhgsq; 529210-Ibrfowgucdu, Total; 969425-UIE-I (Total); 961348-Okced LDL-P; 825683-WYV Size; 526975-LH-YE Scorewas developed and its performance characteristics determinedby Dropbox. It has not been cleared or approved by the Foodand Drug Administration.PATIENT WAS FASTINGPERFORMED BY: [employer] [facility] [id number] BY: [email or web address] [place] [id number] URINALYSIS, W/ MICRO (73405) Ordered By: Strap Buckler on 06-26-2020 Appearance (U) Clear Normal [facility]; [facility] Work Phone: Comment on above: Test(s) 636057-KQX-G ; 357053-PAS-P; 332945-Rcztvviaiyznb; 473276-Iqjpejxkfnq, Total; 820881-NHT-J (Total); 686393-Yavwd LDL-P; 044217-PBJ Size; 150173-UI-NZ Scorewas developed and its performance characteristics determinedby Dropbox. It has not been cleared or approved by the Foodand Drug Administration.PATIENT WAS FASTINGPERFORMED BY: [employer] [id number] BY: mobifriends70 [employer] [place] [id number] Bilirubin Ql (U) Negative Normal Comprehe nsive Internal Medicine; [facility] Work Phone: Comment on above: Test(s) 899805-YJU-H ; 173768-OQX-M; 794516-Nbyixzzyxidzl; 158505-Oqwcralntsb, Total; 964771-GSJ-L (Total); 447571-Raxga LDL-P; 379067-RRI Size; 350390-EK-MP Scorewas developed and its performance characteristics determinedby Dropbox. It has not been cleared or approved by the Foodand Drug Administration.PATIENT WAS FASTINGPERFORMED BY: [employer] [address] [id number] BY: mobifriends70 [place] [facility] [id number] Bilirubin Ql (U) Negative Normal Comprehe nsive Internal Medicine; [facility] Work Phone: Color (U) Yellow Normal [facility]; [facility] Work Phone: Comment on above: Test(s) 292257-OVW-J ; 903836-LTI-F; 662908-Vknlylzocwmij; 175427-Jdsdaqcxcvz, Total; 044674-YZK-T (Total); 399677-Ztmft LDL-P; 591734-ASC Size; 891243-JG-JG Scorewas developed and its performance characteristics determinedby Dropbox. It has not been cleared or approved by the [employer] Drug Administration.PATIENT WAS FASTINGPERFORMED BY: [employer] [address] [id number] BY: [email or web address] [facility] [id number] Glucose Ql (U) Negative Normal [facility]; [facility] Work Phone: Comment on above: Test(s) 943279-DSZ-P ; 150653-HNN-Y; 482092-Guxlgegihuzkt; 036350-Uzbblpmczys, Total; 923495-LKP-E (Total); 550652-Yvccm LDL-P; 132780-WKA Size; 507007-NO-YT Scorewas developed and its performance characteristics determinedby Dropbox. It has not been cleared or approved by the Foodand Drug Administration.PATIENT WAS FASTINGPERFORMED BY: [employer] [address] [id number] BY: [employer]6370 [address] [facility] [id number] Glucose Ql (U) Negative Normal [facility]prehens [facility]; [facility] Work Phone: Hemoglobin Ql (U) Negative Normal Compreh ensive Internal Medicine; [facility] Work Phone: Comment on above: Test(s) 046663-HGZ-I ; 695650-QNL-G; 939044-Pxdrvnmqlrrvb; 258753-Hiostytueet, Total; 146387-SXF-B (Total); 640304-Yyjlf LDL-P; 078101-BUP Size; 002536-RX-JP Scorewas developed and its performance characteristics determinedby Dropbox. It has not been cleared or approved by the Foodand Drug Administration.PATIENT WAS FASTINGPERFORMED BY: [employer] [id number] BY: [email or web address] [facility] [id number] Hemoglobin Ql (U) Negative Normal Compreh ensive Internal Medicine; [facility] Work Phone: Ketones Ql (U) Negative Normal Comprehens [facility]; [facility] Work Phone: Comment on above: Test(s) 575404-AEQ-O ; 590994-ZLC-I; 130205-Pijzntmatgbae; 053304-Sknmtpotrpe, Total; 678619-SQM-I (Total); 097286-Zcpxn LDL-P; 437792-MDV Size; 173089-LP-EH Scorewas developed and its performance characteristics determinedby Dropbox. It has not been cleared or approved by the Foodand Drug Administration.PATIENT WAS FASTINGPERFORMED BY: [employer] [address] [id number] BY: [employer] Qsurcy2600 [facility] [id number] Ketones Ql (U) Negative Normal [facility]; [facility] Work Phone: Leukocyte esterase Test strip Ql (U) Negative Normal [facility]; [facility] Work Phone: Comment on above: Test(s) 692509-VMH-K ; 220846-GQU-V; 820043-Zhpiguodstqhm; 907507-Iaadoikolxx, Total; 073775-WDJ-Z (Total); 187301-Jnazt LDL-P; 743331-YCY Size; 089773-YF-WT Scorewas developed and its performance characteristics determinedby Dropbox. It has not been cleared or approved by the Foodand Drug Administration.PATIENT WAS FASTINGPERFORMED BY: [employer] [address] [id number] BY: [email or web address] [facility] [id number] Leukocyte esterase Test strip Ql (U) Negative Normal [facility]; [facility] Work Phone: Microscopic observation LM Nom (Urine sed) See below: Normal [facility]; [facility] Work Phone: Comment on above: Microscopic was javon cated and was performed. Test(s) 633401-YAP-P ; 807275-QCS-P; 360137-Cafddketqowvn; 471198-Sgjlvzbzpmk, Total; 029076-JUG-W (Total); 984661-Aouce LDL-P; 368133-VTC Size; 638168-QJ-TV Scorewas developed and its performance characteristics determinedby [employer]. It has not been cleared or approved by the Foodand Drug Administration.PATIENT WAS FASTINGPERFORMED BY: [employer] [address] [id number] BY: [employer]6370 [facility] [id number] Microscopic observation LM Nom (Urine sed) MICRON Normal [facility]; [facility] Work Phone: Comment on above: Microscopic follows if indicated. Test(s) 640936-NKR-Q ; 624481-AVE-K; 994760-Wheqanjyymdhj; 049302-Jrglfgkmbow, Total; 133786-GZX-Z (Total); 234575-Hpbhg LDL-P; 036813-BVR Size; 645356-FI-AW Scorewas developed and its performance characteristics determinedby [employer]. It has not been cleared or approved by the Foodand Drug Administration.PATIENT WAS FASTINGPERFORMED BY: BN [facility] [id number] BY: [employer] Ywbens1324 [facility] [id number] Nitrite Ql (U) Negative Normal Comprehens [facility]; [facility] Work Phone: Comment on above: Test(s) 821164-FEN-D ; 739928-MRB-R; 264668-Zzewgerbtlxnl; 089292-Ohptltjyodg, Total; 926515-JAM-A (Total); 102768-Ncwsw LDL-P; 615464-ZKT Size; 122374-OM-XW Scorewas developed and its performance characteristics determinedby [employer]. It has not been cleared or approved by the Foodand Drug Administration.PATIENT WAS FASTINGPERFORMED BY: [employer] [address] [id number] BY: [email or web address] [address] ElementumBlue [facility] [id number] Nitrite Ql (U) Negative Normal Comprehens [facility]; [facility] Work Phone: pH (U) 6.5 [pH] Normal 5.0-7.5 [facility]; [facility] Work Phone: Comment on above: Test(s) 434806-VYR-T ; 410758-CFA-W; 450014-Tzvpfsnlnzgkp; 632196-Affsrdsheip, Total; 547459-UWR-O (Total); 710634-Qksnh LDL-P; 577234-JDZ Size; 011565-UM-HY Scorewas developed and its performance characteristics determinedby [employer]. It has not been cleared or approved by the Foodand Drug Administration.PATIENT WAS FASTINGPERFORMED BY: [employer] [id number] BY: [employer] Orqqkd1602 [facility] [id number] Protein Ql (U) Negative Normal Comprehens [facility]; [facility] Work Phone: Comment on above: Test(s) 779931-PHP-D ; 994445-LYM-B; 219718-Lfyfomtjpmddm; 667161-Bpbebxucoaw, Total; 561731-SKV-Z (Total); 421480-Uyjib LDL-P; 619288-JAK Size; 197830-BY-ES Scorewas developed and its performance characteristics determinedby [employer]. It has not been cleared or approved by the Foodand Drug Administration.PATIENT WAS FASTINGPERFORMED BY: [employer] [address] [id number] BY: [email or web address] [facility] [id number] Protein Ql (U) Negative Normal Comprehens [facility]; [facility] Work Phone: Specific gravity (U) [Rel density] 1.014 1 Normal 1.005-1.03 0 [facility]; [facility] Work Phone: Comment on above: Test(s) 688403-VAC-N ; 951910-IZF-Y; 820279-Qgkdyzuyahnya; 123887-Dkswhwkvffu, Total; 586055-UHC-D (Total); 011555-Svvus LDL-P; 438984-ZMI Size; 070347-SH-BQ Scorewas developed and its performance characteristics determinedby [employer]. It has not been cleared or approved by the Foodand Drug Administration.PATIENT WAS FASTINGPERFORMED BY: [employer] [address] [id number] BY: [employer]6370 [facility] [id number] Urobilinogen (U) [Mass/Vol] 0.2 mg/dL Normal 0.2-1.0 [facility]; [facility] Work Phone: Urobilinogen Test strip (U) [Mass/Vol] 0.2 mg/dL Normal 0.2-1.0 [facility]; [facility] Work Phone: Comment on above: Test(s) 538303-MBJ-J ; 800955-BLO-N; 635688-Ilerlfwyesaaq; 668673-Iurobibuixo, Total; 729084-SFA-Y (Total); 855530-Euvkz LDL-P; 095896-MXX Size; 761536-XO-WQ Scorewas developed and its performance characteristics determinedby [employer]. It has not been cleared or approved by the Foodand Drug Administration.PATIENT WAS FASTINGPERFORMED BY: [employer] [id number] BY: [facility] Ghrumj5844 [facility] [id number] HEPATIC FUNCTION PANEL (8007 6)Ordered By: Strap Buckler on 01-31-2020 Albumin [Mass/Vol] 4.5 g/dL Normal 3.8-4.8 [facility] Internal Medicine Work Phone: Comment on above: Test(s) 422691-DAA-A ; 417414-PFG-P; 076872-Okrurscsvpjfp; 816696-Oerlefuwvnz, Total; 967444-ZRI-J (Total); 343168-Rwmqk LDL-P; 062879-YNG Size; 897629-MV-WG Scorewas developed and its performance characteristics determinedby [employer]. It has not been cleared or approved by the Foodand Drug Administration.PATIENT WAS FASTINGPERFORMED BY: [employer] [address] [id number] BY: mobifriends70 [facility] [id number] ALP [Catalytic activity/Vol] 111 [iU]/L Normal 39-[address] [facility] Internal Medicine Work Phone: Comment on above: Test(s) 334313-XND-Z ; 846801-TZR-A; 863991-Xaoxetnuuaqxz; 042811-Cnmgwiowakl, Total; 973599-QNW-M (Total); 751933-Vgifv LDL-P; 180490-WNW Size; 874763-YW-GT Scorewas developed and its performance characteristics determinedby [employer]. It has not been cleared or approved by the Foodand Drug Administration.PATIENT WAS FASTINGPERFORMED BY: [employer] [address] [id number] BY: mobifriends70 Lfores InnohatRandolph Health [id number] ALP [Catalytic activity/Vol] 111 U/L Normal 39-117 [facility]; [facility] Work Phone: ALT [Catalytic activity/Vol] 40 [iU]/L Normal 0-[address] [facility] Internal Medicine Work Phone: Comment on above: Test(s) 899714-JID-Y ; 749023-ZSA-Y; 921972-Cjxmoghpofhre; 449280-Cpcmbucamfh, Total; 425883-PAA-M (Total); 844060-Opejb LDL-P; 279303-VXF Size; 365420-RV-ON Scorewas developed and its performance characteristics determinedby [employer]. It has not been cleared or approved by the Foodand Drug Administration.PATIENT WAS FASTINGPERFORMED BY: [employer] [id number] BY: FliqzSt. Joseph Medical CenterManhattan PharmaceuticalsRandolph Health [id number] ALT [Catalytic activity/Vol] 40 U/L Normal 0-44 [facility]; [facility] Internal [facility] Work Phone: AST [Catalytic activity/Vol] 20 [iU]/L Normal 0-[address] [facility] Internal Medicine Work Phone: Comment on above: Test(s) 535680-LOE-Z ; 836174-WUG-O; 816820-Liwgdwqxfjyot; 349924-Rrvgdrzrbmd, Total; 711830-NBQ-W (Total); 395215-Shmrl LDL-P; 310895-ZHA Size; 029958-PI-PE Scorewas developed and its performance characteristics determinedby [employer]. It has not been cleared or approved by the Foodand Drug Administration.PATIENT WAS FASTINGPERFORMED BY: [employer] [address] [id number] BY: [email or web address] [facility] [id number] AST [Catalytic activity/Vol] 20 U/L Normal 0-[address] [facility]; [facility] Work Phone: Bilirubin [Mass/Vol] 1.9 mg/dL Abnormal 0.0-1.2 Comp rehensive Internal Medicine Work Phone: Comment on above: Test(s) 644025-VTU-O ; 993594-BBF-Q; 329662-Iydhczfyvqivc; 987176-Fpzxoqqritr, Total; 088580-QAT-D (Total); 919144-Pzymv LDL-P; 435113-DVR Size; 793778-KD-TL Scorewas developed and its performance characteristics determinedby [employer]. It has not been cleared or approved by the Foodand Drug Administration.PATIENT WAS FASTINGPERFORMED BY: [employer] [address] [id number] BY: [email or web address] [facility] [id number] Bilirubin.direct [Mass/Vol] 0.35 mg/dL Normal 0.00-0.[address] [facility] Internal Medicine Work Phone: Comment on above: Test(s) 000333-CLX-M ; 332137-BJW-O; 554445-Fdwsztugebyxm; 903417-Nziaiphkgle, Total; 458386-BFC-J (Total); 302080-Wrkng LDL-P; 840095-NTX Size; 458517-MX-RK Scorewas developed and its performance characteristics determinedby [employer]. It has not been cleared or approved by the Foodand Drug Administration.PATIENT WAS FASTINGPERFORMED BY: [employer] [address] [id number] BY: [employer] Tujwqd7286 [facility] [id number] Protein [Mass/Vol] 6.6 g/dL Normal 6.0-8.5 [facility] Internal Medicine Work Phone: Comment on above: Test(s) 346145-FEN-X ; 230488-APU-D; 023763-Csxqojslcogek; 142236-Chfjyhqtwss, Total; 930061-ZVZ-O (Total); 883913-Ojzqf LDL-P; 066364-KIU Size; 068032-EP-BE Scorewas developed and its performance characteristics determinedby [employer]. It has not been cleared or approved by the Foodand Drug Administration.PATIENT WAS FASTINGPERFORMED BY: [employer] Nhzxpvkziw4891 [facility] [id number] BY: EndoInSightEast Orange VA Medical CenterZdohbp5205 [facility] [id number] HEPATITIS C ANTIBODY (04837) Ordered By: Strap Buckler on 01-31-2020 HCV Ab Signal/Cutoff IA [Rel units/Vol] {ratio} Normal 0.0-0.9 [facility] Work Phone: Comment on above: Negative: < 0.8 Inde terminate: 0.8 - 0.9 Positive: > 0.9 . The CDC recommends that a positive HCV antibody result be followed up with a HCV Nucleic Acid Amplification test (231417). Test(s) 993241-VYT-M ; 379961-WEB-I; 694516-Hpnyutkqmvbhe; 712392-Dzrrnvdpqrz, Total; 433225-EWF-H (Total); 484041-Kmuin LDL-P; 441803-XEY Size; 370568-CQ-PT Scorewas developed and its performance characteristics determinedby [employer]. It has not been cleared or approved by the Foodand Drug Administration.PATIENT WAS FASTINGPERFORMED BY: [employer] Icrqznoyfr8679 [facility] [id number] BY: [employer] Wdritj2308 [facility] [id number] HCV Ab Signal/Cutoff IA [Rel units/Vol] {ratio} Normal 0.0-0.9 [facility]; [facility] Work Phone: NMR Profile (69799)Ordered B y: Strap Buckler on 01-31-2020 Cholesterol [Mass/Vol] 166 mg/dL Normal 100-199 [facility] Work Phone: Comment on above: Test(s) 490177-WOH-X ; 374150-EPX-H; 225457-Xvcwcifxaylfy; 911245-Nebdxoivrvp, Total; 222294-PHG-J (Total); 987808-Altjf LDL-P; 807912-BLE Size; 517086-PF-PD Scorewas developed and its performance characteristics determinedby [employer]. It has not been cleared or approved by the Foodand Drug Administration.PATIENT WAS FASTINGPERFORMED BY: [employer] [id number] BY: [employer] Ghfktf2446 Flores ElementumBlue Ridge Regional Hospital [id number] Cholesterol in LDL [Mass/Vol] 88 mg/dL Normal 0-99 [facility] Work Phone: Comment on above: . Optimal < 100 Abov e optimal 100 - 129 Borderline 130 - 159 High 160 - 189 Very high > 189 . Test(s) 236223-FZV-F ; 943327-ADF-T; 763051-Xrfiirgcaetgn; 273083-Grrinqvbxnq, Total; 701966-QFH-J (Total); 912017-Sbwlj LDL-P; 236824-FNK Size; 798814-BS-UB Scorewas developed and its performance characteristics determinedby [employer]. It has not been cleared or approved by the Foodand Drug Administration.PATIENT WAS FASTINGPERFORMED BY: Kiva[address] [id number] BY: mobifriends70 [facility] [id number] Lipoprotein.alpha [Moles/Vol] 35.1 umol/L Normal [facility] Work Phone: Comment on above: Test(s) 001849-MLP-U ; 069986-GKB-W; 819476-Eluzyqjbedpjj; 537880-Wugwrnhugsg, Total; 509934-KXR-J (Total); 250728-Tvmja LDL-P; 371290-ZPI Size; 619251-BF-AU Scorewas developed and its performance characteristics determinedby [employer]. It has not been cleared or approved by the Foodand Drug Administration.PATIENT WAS FASTINGPERFORMED BY: [employer] [address] [id number] BY: [employer]6370 [facility] [id number] Lipoprotein.beta.subp article [Entitic length] 20.0 nm Abnormal [facility] Work Phone: Comment on above: INTERPRETATIVE INFORMATION PARTICLE CONCENTRATION AND SIZE <--Lower CVD Risk Higher CVD Risk--> LDL AND HDL PARTICLES Percentile in Reference Population HDL-P (total) High 75th 50th 25th Low >34.9 34.9 30.5 26.7 <26.7 . Small LDL-P Low 25th 50th 75th High <117 117 527 839 >839 . LDL Size <-Large (Pattern A)-> <-Small (Pattern B)-> 23.0 20.6 20.5 19.0 Small LDL-P and LDL Size are associated with CVD risk, but not afterLDL-P is taken into account. Test(s) 874199-TLT-C ; 827327-FMP-M; 448812-Yukjlmsykxjrh; 488711-Wvpqmhdogcd, Total; 809076-FQK-D (Total); 059147-Cdofj LDL-P; 784782-LLH Size; 320306-ZR-OP Scorewas developed and its performance characteristics determinedby [employer]. It has not been cleared or approved by the Foodand Drug Administration.PATIENT WAS FASTINGPERFORMED BY: LabMedigram[address] [id number] BY: LabMedigramEast Orange VA Medical CenterQoltpi9890 [facility] [id number] Lipoprotein.beta.subp article [Moles/Vol] 1287 nmol/L Abnormal Comprehensiv e Internal Medicine Work Phone: Comment on above: Low < 1000 Moderate 1000 - 1299 Borderline-High 1300 - 1599 High 1600 - 2000 Very High > 2000 Test(s) 563293-ROJ-G ; 242288-NEI-G; 867179-Vnziflksinkcu; 955942-Ofjwalopohx, Total; 838445-HIP-P (Total); 070014-Ttvld LDL-P; 224575-HNJ Size; 792106-FQ-SQ Scorewas developed and its performance characteristics determinedby [employer]. It has not been cleared or approved by the Foodand Drug Administration.PATIENT WAS FASTINGPERFORMED BY: [employer] [address] [id number] BY: mobifriends70 [place] InnohatRandolph Health [id number] Lipoprotein.beta.subp article.small [Moles/Vol] 842 nmol/L Abnormal [facility] Work Phone: Comment on above: Test(s) 085794-KTH-O ; 579482-ZHS-A; 236597-Jbkdawljlkbva; 539944-Tptzdhymjdt, Total; 353168-JBQ-F (Total); 774280-Lryyn LDL-P; 248171-ABB Size; 046034-TT-LT Scorewas developed and its performance characteristics determinedby [employer]. It has not been cleared or approved by the Foodand Drug Administration.PATIENT WAS FASTINGPERFORMED BY: [employer] [address] [id number] BY: mobifriends70 VR1[facility] [id number] Triglyceride [Mass/Vol] 202 mg/dL Abnormal 0-149 [facility] Work Phone: Comment on above: Test(s) 446516-WLX-W ; 494818-FOO-K; 380979-Ekvkhdwaheosw; 386826-Meadibexuwq, Total; 922860-TJS-O (Total); 927705-Tvegu LDL-P; 354895-NZT Size; 978432-OS-EU Scorewas developed and its performance characteristics determinedby [employer]. It has not been cleared or approved by the Foodand Drug Administration.PATIENT WAS FASTINGPERFORMED BY: [employer] [address] [id number] BY: [employer]6370 FloresSt. Joseph Medical CenterManhattan PharmaceuticalsRandolph Health [id number] NMR Profile (92430) 44 mg/dL Normal [facility] Work Phone: Comment on above: Test(s) 267484-PJR-V ; 809945-EFX-C; 172478-Qizntvlddcmgb; 171106-Pybrakgdrff, Total; 946538-MDQ-K (Total); 522157-Dfqvg LDL-P; 990381-VFR Size; 493703-JM-TJ Scorewas developed and its performance characteristics determinedby [employer]Siste[employer]. It has not been cleared or approved by the Foodand Drug Administration.PATIENT WAS FASTINGPERFORMED BY: BN [facility] Fmmnppywhc8348 [facility] [id number] BY: CB [facility] Fxxskh1304 [facility] [id number] NMR Profile (47028) 88 mg/dL Normal 0-99 [facility] ehensive Internal Medicine; [facility] Work Phone: NMR Profile (66309) 202 mg/dL Abnormal 0-149 [facility] ehensive Internal Medicine; [facility] Work Phone: NMR Profile (72322) 166 mg/dL Normal 100-199 [facility]ensive Internal Medicine; [facility] Work Phone: PSA (PROSTATE SPECIFIC ANTIG EN) (V76.44)Ordered By: Strap Buckler on 01-31-2020 Prostate specific Ag [Mass/Vol] 2.4 ng/mL Normal 0.0-4.0 [facility] Work Phone: Comment on above: Neema ECLIA methodol ogy. .According to the [place] [employer], Serum PSA shoulddecrease and remain at undetectable levels after radicalprostatectomy. The AUA defines biochemical recurrence as an initialPSA value 0.2 ng/mL or greater followed by a subsequent confirmatoryPSA value 0.2 ng/mL or greater.Values obtained with different assay methods or kits cannot be usedinterchangeably. Results cannot be interpreted as absolute evidenceof the presence or absence of malignant disease. Test(s) 905694-BKP-Y ; 041537-WHM-V; 179456-Eemgwebtopfnm; 866678-Crvksizsrdc, Total; 302776-YOI-Y (Total); 019483-Kllez LDL-P; 702120-ISD Size; 481582-UX-TF Scorewas developed and its performance characteristics determinedby [employer]. It has not been cleared or approved by the Foodand Drug Administration.PATIENT WAS FASTINGPERFORMED BY: [employer] [address] [id number] BY: [employer] Opfhdg3002 [facility] [id number] CALCIFEDIOL (08590)Ordered B y: Strap Buckler on 10-24-2019 25-Hydroxyvitamin D2+25-Hydroxyvitamin D3 [Mass/Vol] 45.5 ng/mL Normal 30.0-100.0 [facility] Work Phone: Comment on above: Vitamin D deficiency has been defined by the [place] of[place]icine and an Endocrine Society practice guideline as alevel of serum 25-OH vitamin D less than 20 ng/mL (1,2).The Endocrine Society went on to further define vitamin Dinsufficiency as a level between 21 and 29 ng/mL (2).1. IOM ([place] of Medicine). 2010. Dietary reference intakes for calcium and D. [place]: The National Academies Press.2. An aMaria MF, Dhaval NC, Glendy RAGLAND, et al. Evaluation, treatment, and prevention of vitamin D deficiency: an Endocrine Society clinical practice guideline. JCEM. 2010; 96(7):1911-30. Test(s) 464811-OVM-I ; 357764-IGO-H; 743639-JZP-R; 277452-Xusijqiuzqnxh; 665519-Owjgnvmyyei, Total; 201854-BLV-P (Total);222164-Dberf LDL-P; 808239-NNJ Size; 443956-FU-IS Scorewas developed and its performance characteristics determinedby [employer]. It has not been cleared or approved by the Foodand Drug Administration.PATIENT WAS FASTINGPERFORMED BY: [employer] [address] [id number] BY: [employer] Eyqiot8613 [facility] [id number] CBC, PLATELETS & MANUAL DIFF (75784)Ordered By: Strap Buckler on 10-24-2019 Basophils (Bld) [#/Vol] 0.1 {x10E3/uL} Normal 0.0-0.2 [facility] Work Phone: Comment on above: Test(s) 843111-GHP-L ; 209022-XNR-X; 458533-PKZ-C; 494097-Vxunxntahywja; 826986-Rccyuoqpgpb, Total; 909732-NYT-E (Total);396671-Irdbz LDL-P; 385860-HSN Size; 860851-WV-NK Scorewas developed and its performance characteristics determinedby [employer]. It has not been cleared or approved by the Foodand Drug Administration.PATIENT WAS FASTINGPERFORMED BY: Kiva[address] [id number] BY: mobifriends70 [facility] [id number] Basophils (Bld) [#/Vol] 0.1 10*3/uL Normal 0.0-0.2 [facility]; [facility] Work Phone: Basophils/100 WBC (Bld) 1 % Normal [facility] Work Phone: Comment on above: Test(s) 002277-DYZ-C ; 774265-WIL-C; 072004-DYA-G; 644975-Fqayxymuowmrb; 151571-Jroqzivbbjv, Total; 292454-CPA-W (Total);172132-Evgzn LDL-P; 626405-NPI Size; 986265-TW-AC Scorewas developed and its performance characteristics determinedby [employer]. It has not been cleared or approved by the Foodand Drug Administration.PATIENT WAS FASTINGPERFORMED BY: [employer] [address] [id number] BY: mobifriends70 [facility] [id number] Eosinophils (Bld) [#/Vol] 0.3 {x10E3/uL} Normal 0.0-0.4 [facility] Work Phone: Comment on above: Test(s) 661251-BZY-Z ; 604902-RFL-C; 452984-NTP-J; 950580-Bevnrnmixidgh; 081781-Ioxwnsjkhhm, Total; 099431-RLJ-N (Total);230596-Szuos LDL-P; 335567-LXM Size; 346686-PG-TK Scorewas developed and its performance characteristics determinedby [employer]. It has not been cleared or approved by the Foodand Drug Administration.PATIENT WAS FASTINGPERFORMED BY: [employer] [address] [id number] BY: [employer] Ppoikc9375 [facility] [id number] Eosinophils (Bld) [#/Vol] 0.3 10*3/uL Normal 0.0-0.4 [facility]; [facility] Work Phone: Eosinophils/100 WBC (Bld) 4 % Normal [facility] Work Phone: Comment on above: Test(s) 052270-INQ-O ; 210668-JGM-X; 278858-LMD-V; 235742-Dsswgzurswchy; 285974-Azkavippwgf, Total; 143328-SUM-J (Total);069284-Ydskp LDL-P; 720718-WVI Size; 434228-VJ-ZW Scorewas developed and its performance characteristics determinedby [employer]. It has not been cleared or approved by the Foodand Drug Administration.PATIENT WAS FASTINGPERFORMED BY: [employer] [address] [id number] BY: [employer]6370 [facility] [id number] Erythrocyte distribution width (RBC) [Ratio] 12.3 % Normal 11.6-15.4 [facility] Work Phone: Comment on above: Test(s) 589759-TFX-J ; 015818-YWJ-C; 015216-RYJ-U; 382237-Ecuvcflfclvvh; 675528-Bmsmgzltjxu, Total; 070414-CXK-D (Total);174295-Azbvx LDL-P; 647608-BJK Size; 861821-BC-LX Scorewas developed and its performance characteristics determinedby [employer]. It has not been cleared or approved by the Foodand Drug Administration.PATIENT WAS FASTINGPERFORMED BY: Kiva[address] [id number] BY: [employer] Pixdrb5629 [facility] [id number] Hematocrit (Bld) [Volume fraction] 45.2 % Normal 37.5-51.0 [facility] Work Phone: Comment on above: Test(s) 598229-ZLQ-I ; 001501-FMH-B; 306952-GHB-C; 917098-Ygwenxzilyvdy; 525828-Srkixmrhvfq, Total; 107560-GLQ-L (Total);587630-Defvt LDL-P; 427506-RVK Size; 791031-WE-FH Scorewas developed and its performance characteristics determinedby [employer]. It has not been cleared or approved by the Foodand Drug Administration.PATIENT WAS FASTINGPERFORMED BY: Kiva[address] [id number] BY: [employer]6370 [facility]Two [facility] [id number] Hemoglobin (Bld) [Mass/Vol] 15.0 g/dL Normal 13.0-17.7 [facility] Work Phone: Comment on above: Test(s) 702263-RAM-Q ; 247517-YVU-M; 560248-NMR-J; 114897-Xnmxtaafqukwh; 450076-Mxjejtjpgqw, Total; 539047-IYF-W (Total);773757-Wqhrg LDL-P; 485631-HXR Size; 677307-ZM-XG Scorewas developed and its performance characteristics determinedby [employer]. It has not been cleared or approved by the Foodand Drug Administration.PATIENT WAS FASTINGPERFORMED BY: [employer] [address] [id number] BY: Sherpa Digital MediaEast Orange VA Medical CenterRprqyw4815 [facility] [id number] Immature granulocytes (Bld) [#/Vol] 0.1 {x10E3/uL} Normal 0.0-0.1 [facility] Work Phone: Comment on above: Test(s) 576247-QOP-I ; 066524-BTK-M; 578360-WSG-E; 735640-Rqqncenjvtxsg; 327911-Lnpiphapttg, Total; 295718-ZHD-J (Total);657348-Ralea LDL-P; 717181-XJA Size; 653099-JM-BQ Scorewas developed and its performance characteristics determinedby [employer]. It has not been cleared or approved by the Foodand Drug Administration.PATIENT WAS FASTINGPERFORMED BY: [employer] [address] [id number] BY: mobifriends70 [address] [facility] [id number] Immature granulocytes (Bld) [#/Vol] 0.1 10*3/uL Normal 0.0-0.1 [facility]; [facility] Work Phone: Immature granulocytes/100 WBC (Bld) 1 % Normal [facility] Work Phone: Comment on above: Test(s) 499276-BVW-M ; 055643-LUO-Y; 315616-ADW-X; 283285-Rszbifmqfhuja; 708886-Jfuegfnkcmb, Total; 648120-KDX-T (Total);429686-Fmtnl LDL-P; 553942-LCY Size; 240961-FN-EV Scorewas developed and its performance characteristics determinedby [employer]. It has not been cleared or approved by the Foodand Drug Administration.PATIENT WAS FASTINGPERFORMED BY: [employer] [address] [id number] BY: [employer]6370 FloresSt. Joseph Medical CenterManhattan PharmaceuticalsRandolph Health [id number] Lymphocytes (Bld) [#/Vol] 1.3 {x10E3/uL} Normal 0.7-3.1 [facility] Work Phone: Comment on above: Test(s) 318960-AAX-Y ; 994686-MUW-P; 265464-FPS-T; 914800-Myqoxzrsqxecq; 998023-Ebvonavrepm, Total; 226153-AFN-M (Total);267116-Waaml LDL-P; 863076-EGN Size; 854605-KS-GI Scorewas developed and its performance characteristics determinedby [employer]. It has not been cleared or approved by the Foodand Drug Administration.PATIENT WAS FASTINGPERFORMED BY: [employer] [address] [id number] BY: [employer] Ycvbfc2583 [facility] [id number] Lymphocytes (Bld) [#/Vol] 1.3 10*3/uL Normal 0.7-3.1 [facility]; [facility] Work Phone: Lymphocytes/100 WBC (Bld) 18 % Normal [facility] Work Phone: Comment on above: Test(s) 101170-BBX-G ; 828758-HNV-V; 169795-QQV-L; 214044-Cfhnyxvhwberx; 500150-Teqqjvupoez, Total; 173522-QRL-R (Total);163405-Jsnrb LDL-P; 651178-NZA Size; 723438-JA-CJ Scorewas developed and its performance characteristics determinedby [employer]. It has not been cleared or approved by the Foodand Drug Administration.PATIENT WAS FASTINGPERFORMED BY: [employer] [address] [id number] BY: [employer] Lisexm3306 [facility] [id number] MCH (RBC) [Entitic mass] 31.0 pg Normal 26.6-33.0 [facility] Work Phone: Comment on above: Test(s) 800976-BIT-U ; 587515-YJR-A; 018973-HRY-N; 480250-Pamapwbusthut; 229836-Yhlyudzxqne, Total; 990032-WPC-X (Total);748699-Pedza LDL-P; 487970-URZ Size; 597049-YC-QA Scorewas developed and its performance characteristics determinedby [employer]. It has not been cleared or approved by the Foodand Drug Administration.PATIENT WAS FASTINGPERFORMED BY: [employer] [address] [id number] BY: [employer]6370 [facility] [id number] MCHC (RBC) [Mass/Vol] 33.2 g/dL Normal 31.5-35.7 [facility] Work Phone: Comment on above: Test(s) 504310-XIY-M ; 391776-NIR-K; 086370-AJO-Q; 496335-Kgsoscgkngmze; 398958-Qfvcfjdqslz, Total; 563699-HJX-T (Total);833679-Bzkdn LDL-P; 065919-TRW Size; 168055-BP-TU Scorewas developed and its performance characteristics determinedby [employer]. It has not been cleared or approved by the Foodand Drug Administration.PATIENT WAS FASTINGPERFORMED BY: [employer] [address] [id number] BY: mobifriends70 [facility] [id number] MCV (RBC) [Entitic vol] 93 fL Normal 79-[address] [facility] Internal Medicine Work Phone: Comment on above: Test(s) 359696-UEK-J ; 574974-HQW-K; 356906-XLE-X; 887372-Tpgtlhfcttjhy; 491600-Avniqvudvpe, Total; 153683-QWP-P (Total);693275-Apfvb LDL-P; 306402-JLD Size; 917438-ZM-XP Scorewas developed and its performance characteristics determinedby [employer]. It has not been cleared or approved by the Foodand Drug Administration.PATIENT WAS FASTINGPERFORMED BY: [employer] [address] [id number] BY: [employer] Solutionslin6370 [facility] [id number] Monocytes (Bld) [#/Vol] 0.6 {x10E3/uL} Normal 0.1-0.[address] [facility] Internal Medicine Work Phone: Comment on above: Test(s) 802562-GLR-E ; 912694-ZYZ-J; 995174-ZNR-B; 999156-Zphqwbctukogp; 118479-Chqrxkkyrnl, Total; 201223-YKT-S (Total);994632-Axsol LDL-P; 363865-JNS Size; 296482-XE-AK Scorewas developed and its performance characteristics determinedby [employer]. It has not been cleared or approved by the Foodand Drug Administration.PATIENT WAS FASTINGPERFORMED BY: [employer] [address] [id number] BY: [employer] Ikchwt3504 [facility] [id number] Monocytes (Bld) [#/Vol] 0.6 10*3/uL Normal 0.1-0.9 [facility]; [facility] Work Phone: Monocytes/100 WBC (Bld) 7 % Normal [facility] Work Phone: Comment on above: Test(s) 321830-VAH-S ; 642423-UHL-J; 829301-VTH-I; 016206-Jqwuvhadmqlyg; 929982-Qfaeyhmrjpp, Total; 881333-QYK-Q (Total);350099-Wohhr LDL-P; 399629-PPG Size; 025642-YV-CP Scorewas developed and its performance characteristics determinedby [employer]. It has not been cleared or approved by the Foodand Drug Administration.PATIENT WAS FASTINGPERFORMED BY: [employer] [address] [id number] BY: [employer] Qmlmtg3773 [facility] [id number] Neutrophils (Bld) [#/Vol] 5.2 {x10E3/uL} Normal 1.4-7.0 [facility] Work Phone: Comment on above: Test(s) 756394-ROK-U ; 188182-RRQ-N; 606608-FGW-R; 933611-Mhprfgnqnluad; 936799-Dbavnvfkkam, Total; 715249-LHP-Q (Total);453306-Knayy LDL-P; 196889-MWR Size; 383676-HC-TW Scorewas developed and its performance characteristics determinedby [employer]. It has not been cleared or approved by the Foodand Drug Administration.PATIENT WAS FASTINGPERFORMED BY: [employer] [address] [id number] BY: EndoInSightEast Orange VA Medical CenterPsugmf3469 [facility] [id number] Neutrophils (Bld) [#/Vol] 5.2 10*3/uL Normal 1.4-7.0 [facility]; [facility] Work Phone: Neutrophils/100 WBC (Bld) 69 % Normal [facility] Work Phone: Comment on above: Test(s) 864173-VQB-O ; 093256-HXQ-I; 100724-LEC-I; 876967-Dzvyexxpcwzne; 893459-Kktdqxmgtsh, Total; 855887-DSF-G (Total);528258-Clxqp LDL-P; 101490-GDN Size; 257402-WE-RR Scorewas developed and its performance characteristics determinedby [employer]. It has not been cleared or approved by the Foodand Drug Administration.PATIENT WAS FASTINGPERFORMED BY: [employer] [address] [id number] BY: [employer] Vxujoj8230 [facility] [id number] Platelets (Bld) [#/Vol] 238 {x10E3/uL} Normal 150-450 [facility] Work Phone: Comment on above: Test(s) 157715-CDJ-E ; 054721-FES-Y; 962993-GSC-T; 460393-Zodieankafaop; 271212-Ocpsdeoneer, Total; 030794-DGT-Y (Total);241419-Fuggx LDL-P; 941044-ELM Size; 267803-TI-PL Scorewas developed and its performance characteristics determinedby [employer]. It has not been cleared or approved by the Foodand Drug Administration.PATIENT WAS FASTINGPERFORMED BY: [employer] [address] [id number] BY: EndoInSightAngela Ville 1740370 [facility] [id number] Platelets (Bld) [#/Vol] 238 10*3/uL Normal 150-[address] [facility] Work Phone: RBC (Bld) [#/Vol] 4.84 {x10E6/uL} Normal 4.14-5.80 [facility] Internal Medicine Work Phone: Comment on above: Test(s) 335386-GDK-O ; 463255-LAG-M; 353088-DIR-M; 955771-Ubomyhxcsdpbr; 425205-Oapilxdynoo, Total; 553499-CUY-X (Total);480269-Ohtkd LDL-P; 159906-WSF Size; 548093-HZ-XT Scorewas developed and its performance characteristics determinedby [employer]. It has not been cleared or approved by the Foodand Drug Administration.PATIENT WAS FASTINGPERFORMED BY: [employer] [id number] BY: mobifriends70 [facility] HospitalManhattan PharmaceuticalsRandolph Health [id number] RBC (Bld) [#/Vol] 4.84 10*6/uL Normal 4.14-5.80 [facility] Internal [facility] Internal Medicine Work Phone: WBC (Bld) [#/Vol] 7.5 {x10E3/uL} Normal 3.4-10.8 [facility] Internal Medicine Work Phone: Comment on above: Test(s) 903361-JYG-Q ; 996988-YAU-L; 810331-VYW-N; 323870-Fmtiorsmsocoe; 925398-Ucoxjmnkvyq, Total; 775558-EKA-I (Total);916551-Brpnh LDL-P; 887333-JML Size; 504626-VJ-AJ Scorewas developed and its performance characteristics determinedby [employer]. It has not been cleared or approved by the Foodand Drug Administration.PATIENT WAS FASTINGPERFORMED BY: Kivaton1447 [facility] [id number] BY: Cognitive NetworksRandolph Health [id number] WBC (Bld) [#/Vol] 7.5 10*3/uL Normal 3.4-10.8 [facility] Internal [facility]; [facility] Work Phone: METABOLIC PANEL, COMPREHENSI VE ([id number])Ordered By: Strap Buckler on 10-24-2019 Albumin [Mass/Vol] 4.7 g/dL Normal 3.8-4.8 [facility] Internal Medicine Work Phone: Comment on above: Test(s) 271526-NYJ-J ; 343384-HYG-I; 443162-TJA-B; 302446-Blwvzpupnvhbg; 805006-Jxxdgbrquqp, Total; 304128-WTB-Q (Total);858338-Zsljk LDL-P; 033396-UYF Size; 789196-ZI-AN Scorewas developed and its performance characteristics determinedby [employer]. It has not been cleared or approved by the Foodand Drug Administration.PATIENT WAS FASTINGPERFORMED BY: PowerGen[employer] [facility] [id number] BY: mobifriends70 [facility] [id number] Albumin/Globulin [Mass ratio] 2.5 {ratio} Abnormal 1.2-2.2 [facility] Work Phone: Comment on above: Test(s) 959681-KHR-E ; 329391-HOA-M; 975609-RNP-Q; 594807-Qwbssvcwrkzfy; 564649-Noxyzvrmrbm, Total; 966032-SJX-P (Total);421005-Bwolg LDL-P; 869917-MCL Size; 385621-UA-SE Scorewas developed and its performance characteristics determinedby [employer]. It has not been cleared or approved by the Foodand Drug Administration.PATIENT WAS FASTINGPERFORMED BY: [employer] Track1447 [facility] [id number] BY: [employer]6370 [facility] [id number] ALP [Catalytic activity/Vol] 107 [iU]/L Normal 39-117 [facility] Work Phone: Comment on above: Test(s) 986395-TWR-G ; 684270-UJF-E; 460095-JUL-D; 163450-Retyzsquusxrm; 447126-Oztqzjrvlta, Total; 920979-TNN-O (Total);607199-Ixtma LDL-P; 803323-LZU Size; 140691-EW-AX Scorewas developed and its performance characteristics determinedby [employer]. It has not been cleared or approved by the Foodand Drug Administration.PATIENT WAS FASTINGPERFORMED BY: [employer] [address] [id number] BY: [employer] Oouker8397 [facility] [id number] ALP [Catalytic activity/Vol] 107 U/L Normal 39-117 [facility]; [facility] Work Phone: ALT [Catalytic activity/Vol] 46 [iU]/L Abnormal 0-44 [facility] Work Phone: Comment on above: Test(s) 291929-GCF-F ; 244134-GOL-L; 968005-JTV-D; 512103-Iwkdglprkekxb; 240470-Kguzfyjqtgk, Total; 087603-UHF-U (Total);046986-Thufp LDL-P; 670830-GYT Size; 315756-NZ-MC Scorewas developed and its performance characteristics determinedby [employer]. It has not been cleared or approved by the [employer] Drug Administration.PATIENT WAS FASTINGPERFORMED BY: [employer] [address] [id number] BY: [employer] Hijemp0965 [facility] [id number] ALT [Catalytic activity/Vol] 46 U/L Abnormal 0-44 [facility]; [facility] Work Phone: AST [Catalytic activity/Vol] 25 [iU]/L Normal 0-40 [facility] Work Phone: Comment on above: Test(s) 923236-HUG-A ; 842261-SLK-R; 562983-XXS-D; 998273-Svgqgstwnwgnv; 695992-Aygtvnourpa, Total; 822802-QUP-X (Total);231001-Skzwp LDL-P; 419305-STP Size; 243658-US-RU Scorewas developed and its performance characteristics determinedby [employer]. It has not been cleared or approved by the Foodand Drug Administration.PATIENT WAS FASTINGPERFORMED BY: [employer] [address] [id number] BY: [employer] Kwptes8502 [facility] [id number] AST [Catalytic activity/Vol] 25 U/L Normal 0-40 [facility]; [facility] Work Phone: Bilirubin [Mass/Vol] 1.4 mg/dL Abnormal 0.0-1.2 [facility] Work Phone: Comment on above: Test(s) 809389-FWB-C ; 099556-GLD-L; 382707-NEA-S; 542440-Ibcnpcritmybd; 363184-Bafrtkfboxh, Total; 468515-QRV-Z (Total);467381-Kbjje LDL-P; 359414-NLY Size; 437994-YN-WP Scorewas developed and its performance characteristics determinedby [employer]. It has not been cleared or approved by the Foodand Drug Administration.PATIENT WAS FASTINGPERFORMED BY: [employer] [address] [id number] BY: EndoInSightEast Orange VA Medical CenterBbxjnu4954 [facility] [id number] Calcium [Mass/Vol] 9.5 mg/dL Normal 8.6-10.2 [facility] Internal Medicine Work Phone: Comment on above: Test(s) 215247-GDF-J ; 747826-UHL-J; 213450-LHK-D; 837252-Hdbtvwlvennun; 232571-Gnezslcmisl, Total; 035650-MFD-M (Total);414878-Ezryp LDL-P; 222074-PLQ Size; 914859-AD-HX Scorewas developed and its performance characteristics determinedby [employer]. It has not been cleared or approved by the Foodand Drug Administration.PATIENT WAS FASTINGPERFORMED BY: Kivaton1447 [facility] [id number] BY: [employer]6370 [facility] [id number] Chloride [Moles/Vol] 102 mmol/L Normal 96-106 [facility] Internal Medicine Work Phone: Comment on above: Test(s) 782758-ASO-Y ; 259937-JZP-V; 651747-PAH-A; 857873-Qrikkdfwobyur; 112540-Olpsyrmlyyq, Total; 623341-FBT-Q (Total);044759-Yzayw LDL-P; 031407-UPS Size; 284134-XQ-LK Scorewas developed and its performance characteristics determinedby [employer]. It has not been cleared or approved by the [employer] Drug Administration.PATIENT WAS FASTINGPERFORMED BY: Kivaton1447 [facility] [id number] BY: [employer]6370 [facility] [id number] CO2 [Moles/Vol] 26 mmol/L Normal 20-29 [facility] Internal Medicine Work Phone: Comment on above: Test(s) 541331-HPH-J ; 991713-YTG-Q; 266411-UKS-E; 532072-Mfewsqpnmrfpd; 753204-Zgcuaienvgi, Total; 377300-EXL-I (Total);513346-Evbox LDL-P; 955656-TKH Size; 365723-OH-OD Scorewas developed and its performance characteristics determinedby [employer]. It has not been cleared or approved by the Foodand Drug Administration.PATIENT WAS FASTINGPERFORMED BY: Kivaton1447 [facility] [id number] BY: [employer]6370 [facility] [id number] Creatinine [Mass/Vol] 1.14 mg/dL Normal 0.76-1.27 [facility] Internal Medicine Work Phone: Comment on above: Test(s) 820177-FSL-H ; 132857-HZV-V; 074780-EJO-O; 662571-Njvqghztcyyyk; 741111-Xrynxktcmwg, Total; 103152-TGY-Z (Total);173384-Ezgoi LDL-P; 767154-ETU Size; 862773-KM-FM Scorewas developed and its performance characteristics determinedby [employer]. It has not been cleared or approved by the Foodand Drug Administration.PATIENT WAS FASTINGPERFORMED BY: [employer] [address] [id number] BY: [employer] Cmvbci1461 [facility] [id number] GFR/1.73 sq M predicted among blacks CKD-EPI (S/P/Bld) [Vol rate/Area] 78 mL/min/1.73 Normal [facility] Work Phone: Comment on above: Test(s) 820337-RZE-N ; 644946-HKQ-J; 460835-IFG-U; 114352-Fimekqeijxjhl; 106192-Wfndprqwace, Total; 363164-CII-Z (Total);147369-Wrfgl LDL-P; 813760-UHH Size; 082356-GN-IE Scorewas developed and its performance characteristics determinedby [employer]. It has not been cleared or approved by the Foodand Drug Administration.PATIENT WAS FASTINGPERFORMED BY: [employer] [address] [id number] BY: [employer] Sqwvwd4292 [facility] [id number] GFR/1.73 sq M predicted among non-blacks CKD-EPI (S/P/Bld) [Vol rate/Area] 67 mL/min/1.73 Normal [facility] Work Phone: Comment on above: Test(s) 847199-UWV-A ; 288000-UKL-G; 309749-BBX-L; 151385-Dcqzdemdmuxiv; 407541-Wjikwywcgpq, Total; 826433-VCJ-F (Total);124363-Kavhv LDL-P; 510822-QEV Size; 671949-YT-BO Scorewas developed and its performance characteristics determinedby [employer]. It has not been cleared or approved by the Foodand Drug Administration.PATIENT WAS FASTINGPERFORMED BY: [employer] [address] [id number] BY: [employer] Ukzoyk7909 [facility] [id number] Globulin (S) [Mass/Vol] 1.9 g/dL Normal 1.5-4.[address] [facility] Internal Medicine Work Phone: Comment on above: Test(s) 244040-WXL-N ; 907816-RQV-P; 217094-LZF-C; 597710-Tisvfwkimahzh; 597614-Uwvlsyhcrol, Total; 021160-BDR-J (Total);637614-Payff LDL-P; 060668-ALR Size; 953494-XL-AQ Scorewas developed and its performance characteristics determinedby [employer]. It has not been cleared or approved by the Foodand Drug Administration.PATIENT WAS FASTINGPERFORMED BY: Kiva[address] [id number] BY: [employer]6370 [facility] [id number] Glucose [Mass/Vol] 96 mg/dL Normal 65-99 [facility] Internal Medicine Work Phone: Comment on above: Test(s) 156996-PDV-B ; 134945-MHE-Q; 138148-XKI-Z; 850153-Iueftjoseddxr; 984309-Khbnityshpo, Total; 073904-WKT-P (Total);971042-Wizgb LDL-P; 477311-GAU Size; 253760-QL-TO Scorewas developed and its performance characteristics determinedby [employer]. It has not been cleared or approved by the Foodand Drug Administration.PATIENT WAS FASTINGPERFORMED BY: [employer] [address] [id number] BY: EndoInSightNew Mexico Behavioral Health Institute at Las VegasKmhalp7809 [facility] [id number] Potassium [Moles/Vol] 4.0 mmol/L Normal 3.5-5.2 [facility] Internal Medicine Work Phone: Comment on above: Test(s) 743751-FEW-I ; 136121-MCZ-B; 856524-LSE-W; 573045-Iespdgbgxljjq; 102215-Ipqsbzbbmor, Total; 765557-PGA-Z (Total);443328-Epjbz LDL-P; 008825-KVU Size; 115383-SH-GJ Scorewas developed and its performance characteristics determinedby [employer]. It has not been cleared or approved by the Foodand Drug Administration.PATIENT WAS FASTINGPERFORMED BY: [employer] [address] [id number] BY: mobifriends70 [facility] [id number] Protein [Mass/Vol] 6.6 g/dL Normal 6.0-8.5 [facility] Internal Medicine Work Phone: Comment on above: Test(s) 000093-WIV-V ; 141342-QMH-S; 700439-ZRO-H; 874187-Ywiyceqqurtdd; 918824-Icafrlbclgi, Total; 427183-XCX-X (Total);222466-Lmnnq LDL-P; 917417-DMQ Size; 597568-AS-GU Scorewas developed and its performance characteristics determinedby [employer]. It has not been cleared or approved by the Foodand Drug Administration.PATIENT WAS FASTINGPERFORMED BY: [employer] [address] [id number] BY: [employer]6370 [facility] [id number] Sodium [Moles/Vol] 141 mmol/L Normal 134-144 [facility] Internal Medicine Work Phone: Comment on above: Test(s) 590054-VTG-T ; 978390-XYT-V; 857624-TFF-S; 266522-Uzzdsohrpkczh; 723971-Lpggyilcumw, Total; 507532-JWE-I (Total);980490-Ibxil LDL-P; 058563-IZH Size; 284486-SV-IY Scorewas developed and its performance characteristics determinedby [employer]. It has not been cleared or approved by the Foodand Drug Administration.PATIENT WAS FASTINGPERFORMED BY: Kiva[address] [id number] BY: [employer] Gfqfgj5499 VR1[facility] [id number] Urea nitrogen [Mass/Vol] 12 mg/dL Normal 8- [facility] Work Phone: Comment on above: Test(s) 025853-PKO-F ; 203495-UCB-A; 835368-JVR-N; 664292-Kzsbjwzllgolg; 484933-Huoembmuvpm, Total; 124118-SNQ-W (Total);047841-Nafvo LDL-P; 212816-SDY Size; 307715-DD-BT Scorewas developed and its performance characteristics determinedby [employer]. It has not been cleared or approved by the Foodand Drug Administration.PATIENT WAS FASTINGPERFORMED BY: Kiva[address] [id number] BY: mobifriends70 [address] InnohatRandolph Health [id number] Urea nitrogen/Creatinine [Mass ratio] 11 mg/mg Normal 10- [facility] Work Phone: Comment on above: Test(s) 067509-ZXF-S ; 063802-ECG-Q; 098156-VNN-U; 390159-Wjvqfzvbavpoz; 662323-Mocypmjpcbc, Total; 340179-GRN-O (Total);844546-Izqev LDL-P; 254543-SBF Size; 626124-CJ-HW Scorewas developed and its performance characteristics determinedby [employer]. It has not been cleared or approved by the Foodand Drug Administration.PATIENT WAS FASTINGPERFORMED BY: [employer] [address] [id number] BY: [employer] Solutionslin6370 [facility] [id number] MICROALBUMINOrdered By: Syst em Truant Officer on 10-24-2019 Albumin DL <= 20 mg/L (U) [Mass/Vol] mg/dL Normal [facility] Work Phone: Comment on above: Verified by repeat analysis Test(s) 288345-GMD-B ; 357459-GJK-Z; 537261-QKV-L; 105123-Arspmogsdhyjb; 574341-Sxqxldgxtxf, Total; 100752-WDH-C (Total);731944-Xvhxe LDL-P; 591055-HWB Size; 944709-EX-VP Scorewas developed and its performance characteristics determinedby [employer]. It has not been cleared or approved by the Foodand Drug Administration.PATIENT WAS FASTINGPERFORMED BY: [employer] [address] [id number] BY: mobifriends70 [facility] [id number] Albumin DL <= 20 mg/L (U) [Mass/Vol] mg/dL Normal [facility]; [facility] Work Phone: Albumin/Creatinine (U) [Mass ratio] <13 Normal 0-29 [facility] Work Phone: Comment on above: Normal: 0 - 29 Moder ately increased: 30 - 300 Severely increased: >300 Please note reference interval change Test(s) 492557-RCT-H ; 938024-PLK-C; 784360-XMZ-P; 324537-Kbcmksmqppxhn; 046765-Ncxdylwlhvk, Total; 786346-AUQ-H (Total);924020-Xgzhd LDL-P; 815572-HXP Size; 775829-AA-CA Scorewas developed and its performance characteristics determinedby [employer]. It has not been cleared or approved by the Foodand Drug Administration.PATIENT WAS FASTINGPERFORMED BY: [employer] [address] [id number] BY: [employer]6370 [facility] [id number] Creatinine (U) [Mass/Vol] 22.5 mg/dL Normal [facility] Work Phone: Comment on above: Test(s) 219800-AYJ-I ; 033612-ZLM-R; 272905-SDT-H; 135185-Sdtszvhtmiofk; 214436-Obuseldswli, Total; 394924-VND-L (Total);492736-Ojcui LDL-P; 595796-CSA Size; 647147-AC-RK Scorewas developed and its performance characteristics determinedby [employer]. It has not been cleared or approved by the Foodand Drug Administration.PATIENT WAS FASTINGPERFORMED BY: [employer] [address] [id number] BY: Kleer70 [facility] [id number] NMR Profile (14518)Ordered B y: Strap Buckler on 10-24-2019 Cholesterol [Mass/Vol] 179 mg/dL Normal 100-199 [facility] Work Phone: Comment on above: Test(s) 112661-BEP-P ; 777938-NSA-Q; 982329-AQM-M; 508610-Eyjczsfibrwgk; 490477-Lekafrywnfr, Total; 039818-TDA-V (Total);859956-Fayor LDL-P; 399367-SPR Size; 302250-WY-BV Scorewas developed and its performance characteristics determinedby [employer]. It has not been cleared or approved by the Foodand Drug Administration.PATIENT WAS FASTINGPERFORMED BY: [employer] [address] [id number] BY: mobifriends70 [facility] [id number] Lipoprotein.alpha [Moles/Vol] 37.1 umol/L Normal [facility] Work Phone: Comment on above: Test(s) 624584-BDS-Q ; 448728-MPC-L; 741468-SIF-C; 498187-Okvyhmmqyvnrv; 733023-Bvozlleoydm, Total; 267242-WOD-D (Total);118479-Vjzxn LDL-P; 594256-PBN Size; 386476-TM-CU Scorewas developed and its performance characteristics determinedby [employer]. It has not been cleared or approved by the Foodand Drug Administration.PATIENT WAS FASTINGPERFORMED BY: [employer] [address] [id number] BY: mobifriends70 [facility] [id number] Lipoprotein.beta.subp article [Entitic length] 20.0 nm Abnormal [facility] Work Phone: Comment on above: INTERPRETATIVE INFORMATION PARTICLE CONCENTRATION AND SIZE <--Lower CVD Risk Higher CVD Risk--> LDL AND HDL PARTICLES Percentile in Reference Population HDL-P (total) High 75th 50th 25th Low >34.9 34.9 30.5 26.7 <26.7 . Small LDL-P Low 25th 50th 75th High <117 117 527 839 >839 . LDL Size <-Large (Pattern A)-> <-Small (Pattern B)-> 23.0 20.6 20.5 19.0 Small LDL-P and LDL Size are associated with CVD risk, but not afterLDL-P is taken into account. Test(s) 637141-GEY-T ; 719039-AAY-N; 808701-HQQ-I; 119759-Ysccmsafxqqdl; 256213-Mqyyrgrvrbf, Total; 275199-ERP-R (Total);685770-Wguik LDL-P; 297122-YBU Size; 915573-XJ-MC Scorewas developed and its performance characteristics determinedby [facility]. It has not been cleared or approved by the Foodand Drug Administration.PATIENT WAS FASTINGPERFORMED BY: [address] [id number] BY: [facility]6370 [facility] [id number] Lipoprotein.beta.subp article [Moles/Vol] 1662 nmol/L Abnormal Comprehensiv e Internal Medicine Work Phone: Comment on above: Low < 1000 Moderate 1000 - 1299 Borderline-High 1300 - 1599 High 1600 - 2000 Very High > 2000 Test(s) 690151-IRX-L ; 572065-IFU-Q; 839400-WTJ-Q; 680956-Fmkmaxhrhgogo; 348177-Efdxqbpwiio, Total; 151464-ARZ-J (Total);906998-Owmpi LDL-P; 655998-CJT Size; 596392-OA-RZ Scorewas developed and its performance characteristics determinedby [employer]. It has not been cleared or approved by the [employer] Drug Administration.PATIENT WAS FASTINGPERFORMED BY: [employer] [id number] BY: [facility] [id number] Lipoprotein.beta.subp article.small [Moles/Vol] 1103 nmol/L Abnormal [facility] Work Phone: Comment on above: Test(s) 610114-OUH-S ; 969068-LKX-I; 388024-OIG-T; 966451-Ajemwcnsohhst; 425049-Dcjfoxsedgi, Total; 263530-ZEC-O (Total);210827-Omjzs LDL-P; 385944-PGF Size; 507886-JX-UI Scorewas developed and its performance characteristics determinedby [employer]. It has not been cleared or approved by the [employer] Drug Administration.PATIENT WAS FASTINGPERFORMED BY: [employer] [id number] BY: [employer]6370 [facility] [id number] Triglyceride [Mass/Vol] 143 mg/dL Normal 0-149 [facility] Work Phone: Comment on above: Test(s) 357254-EAX-U ; 515339-IUS-X; 749972-YHB-X; 546809-Ycnzbcskijrfx; 112648-Zcjzlrxcoqu, Total; 603705-GAR-G (Total);766746-Roben LDL-P; 175528-MMD Size; 753302-XA-WP Scorewas developed and its performance characteristics determinedby [employer]. It has not been cleared or approved by the Foodand Drug Administration.PATIENT WAS FASTINGPERFORMED BY: [employer] [id number] BY: EndoInSightEast Orange VA Medical CenterDntyhs3497 [facility] [id number] NMR Profile (63598) 105 mg/dL Abnormal 0-99 [facility] Internal Medicine Work Phone: Comment on above: . Optimal < 100 Abov e optimal 100 - 129 Borderline 130 - 159 High 160 - 189 Very high > 189 .LDL-C is inaccurate if patient is non-fasting. Test(s) 691198-XRH-T ; 623092-ZVI-M; 528809-MLX-G; 029142-Nqcslkufbhocd; 408850-Ppwyhzmwdnu, Total; 812243-RQM-X (Total);813070-Kiazo LDL-P; 596368-TAZ Size; 926311-SO-AG Scorewas developed and its performance characteristics determinedby [employer]. It has not been cleared or approved by the Foodand Drug Administration.PATIENT WAS FASTINGPERFORMED BY: [employer] [address] [id number] BY: [employer]6370 [facility] [id number] NMR Profile (13140) 45 mg/dL Normal [facility] Internal Medicine Work Phone: Comment on above: Test(s) 521055-SOL-C ; 491992-EWM-N; 493597-SJB-E; 522704-Nwjplqvpuagze; 435509-Axpezkhexcq, Total; 738509-OJK-P (Total);702445-Tdukn LDL-P; 392945-LXA Size; 791721-NF-RP Scorewas developed and its performance characteristics determinedby [employer]. It has not been cleared or approved by the Foodand Drug Administration.PATIENT WAS FASTINGPERFORMED BY: [employer] [address] [id number] BY: Sherpa Digital MediaEast Orange VA Medical CenterUahldr4229 [facility] [id number] NMR Profile (57514) 143 mg/dL Normal 0-149 Compr ehensive Internal Medicine; [facility] Work Phone: NMR Profile (12926) 179 mg/dL Normal 100-199 Compr ehensive Internal Medicine; [facility] Work Phone: URINALYSIS ([id number])Ordered By : Strap Buckler on 10-24-2019 Appearance (U) Clear Normal Comprehens [facility] Work Phone: Comment on above: Test(s) 866184-AYE-E ; 481414-DMO-U; 248778-AOY-G; 409333-Cbwtunyqnyhoq; 826097-Hnxovbopqsu, Total; 743014-LTB-J (Total);872238-Szqlm LDL-P; 599685-FHE Size; 884092-UL-WT Scorewas developed and its performance characteristics determinedby [employer]. It has not been cleared or approved by the Foodand Drug Administration.PATIENT WAS FASTINGPERFORMED BY: [employer] [place] [address] [id number] BY: mobifriends70 [facility] [id number] Bilirubin Ql (U) Negative Normal Comprehe nsive Internal Medicine Work Phone: Comment on above: Test(s) 522597-ZSN-B ; 687997-GTE-X; 329837-UBW-X; 582494-Fgdfnfdgpqpev; 780180-Vuskukgxgdv, Total; 374134-HYK-B (Total);463271-Xuvlt LDL-P; 190339-OMZ Size; 290068-GL-JD Scorewas developed and its performance characteristics determinedby [employer]. It has not been cleared or approved by the Foodand Drug Administration.PATIENT WAS FASTINGPERFORMED BY: [employer] [id number] BY: [employer]6370 [facility] [id number] Bilirubin Ql (U) Negative Normal Comprehe nsive Internal Medicine; [facility] Work Phone: Color (U) Yellow Normal [facility] Work Phone: Comment on above: Test(s) 442179-GFW-H ; 614279-TGW-E; 731164-BPC-R; 185094-Dfuhvarubdtby; 044528-Ausuxzplsdf, Total; 958812-XZU-Q (Total);666777-Bhulo LDL-P; 309497-XRV Size; 339470-SV-TK Scorewas developed and its performance characteristics determinedby [employer]. It has not been cleared or approved by the Foodand Drug Administration.PATIENT WAS FASTINGPERFORMED BY: [employer] [address] [id number] BY: [employer] Hfrhou3257 [facility] [id number] Glucose Ql (U) Negative Normal Comprehens [facility] Work Phone: Comment on above: Test(s) 998155-WQO-J ; 851487-DLD-A; 315843-TUR-Y; 520910-Pmjlvhajbmnug; 503759-Ztyvlarlsqi, Total; 116116-JHQ-C (Total);879755-Ezqpx LDL-P; 216591-KTX Size; 187639-RO-BC Scorewas developed and its performance characteristics determinedby [employer]. It has not been cleared or approved by the Foodand Drug Administration.PATIENT WAS FASTINGPERFORMED BY: [employer] [address] [id number] BY: [employer] Fkvtlm5514 [facility] [id number] Glucose Ql (U) Negative Normal Comprehens [facility]; [facility] Work Phone: Hemoglobin Ql (U) Negative Normal Compreh ensive Internal Medicine Work Phone: Comment on above: Test(s) 068299-CWE-A ; 454221-MVI-B; 862980-MVF-F; 829627-Eauebkzsqotlz; 211052-Iehyizlrvdf, Total; 479579-RQI-A (Total);906907-Tfznt LDL-P; 843557-XBK Size; 659177-PS-IA Scorewas developed and its performance characteristics determinedby [employer]. It has not been cleared or approved by the Foodand Drug Administration.PATIENT WAS FASTINGPERFORMED BY: [employer] [id number] BY: [employer] Wqkgty5856 [facility] [id number] Hemoglobin Ql (U) Negative Normal Compreh ensive Internal Medicine; [facility] Work Phone: Ketones Ql (U) Negative Normal Com[facility] Work Phone: Comment on above: Test(s) 715318-JDV-W ; 017919-UVK-U; 334943-MEH-O; 719638-Mwjmlzfseeblx; 751262-Iperokaqaht, Total; 285104-QAV-J (Total);504466-Phmmu LDL-P; 579650-GNV Size; 852930-GH-QO Scorewas developed and its performance characteristics determinedby [employer]. It has not been cleared or approved by the Foodand Drug Administration.PATIENT WAS FASTINGPERFORMED BY: [employer] [address] [id number] BY: [employer] Clkmjh8616 [facility] [id number] Ketones Ql (U) Negative Normal Comprehens [facility]; [facility] Work Phone: Leukocyte esterase Test strip Ql (U) Negative Normal [facility] Work Phone: Comment on above: Test(s) 517248-MXO-I ; 915928-YOX-X; 432170-GPP-H; 483417-Cgtxstokmhtzu; 136282-Ldpkxskhpbg, Total; 381670-RGL-D (Total);441598-Pffxi LDL-P; 048998-MZT Size; 517794-XW-FD Scorewas developed and its performance characteristics determinedby [employer]. It has not been cleared or approved by the Foodand Drug Administration.PATIENT WAS FASTINGPERFORMED BY: [employer] [address] [id number] BY: [employer] Ssntve3077 [facility] [id number] Leukocyte esterase Test strip Ql (U) Negative Normal [facility]; [facility] Work Phone: Microscopic observation LM Nom (Urine sed) MICNIP Normal [facility] Work Phone: Comment on above: Microscopic not javon cated and not performed. Test(s) 196844-TDD-P ; 437936-PQV-E; 271701-TFX-S; 389615-Wzaxicbhochru; 315958-Nyrvisxagpt, Total; 847044-WNY-E (Total);014166-Dyvrv LDL-P; 900716-IHG Size; 124242-IN-GQ Scorewas developed and its performance characteristics determinedby [employer]. It has not been cleared or approved by the Foodand Drug Administration.PATIENT WAS FASTINGPERFORMED BY: [employer] [id number] BY: [facility]qzTwo [facility] Hospital [id number] Nitrite Ql (U) Negative Normal Comprehens [facility] Work Phone: Comment on above: Test(s) 163500-LJU-R ; 198308-IGD-O; 918560-RXN-I; 906367-Zlruinisprfck; 987320-Jiswruwvymt, Total; 469156-QXQ-L (Total);379589-Abdng LDL-P; 725456-HAI Size; 614488-IN-HY Scorewas developed and its performance characteristics determinedby [employer]. It has not been cleared or approved by the Foodand Drug Administration.PATIENT WAS FASTINGPERFORMED BY: [employer] [address] [id number] BY: [employer] Solutions[employer]6370 [address] ElementumBlue [facility] Regional Hospital [id number] Nitrite Ql (U) Negative Normal Comprehens [facility]; [facility] Work Phone: pH (U) 7.5 [pH] Normal 5.0-7.5 [facility] Work Phone: Comment on above: Test(s) 812643-BJL-H ; 280278-MBI-L; 120003-MGL-Q; 464991-Mpfqtyitnpnjv; 975420-Bbajknnlkvl, Total; 242406-OUF-W (Total);092783-Ugxkc LDL-P; 266818-PEX Size; 711230-VT-HY Scorewas developed and its performance characteristics determinedby [employer]. It has not been cleared or approved by the Foodand Drug Administration.PATIENT WAS FASTINGPERFORMED BY: [employer] [address] [id number] BY: EndoInSightAngela [place] 1740370 [facility] [id number] Protein Ql (U) Negative Normal Comprehens [facility] Internal Medicine Work Phone: Comment on above: Test(s) 291037-IVL-H ; 031532-WHG-H; 537006-WCP-S; 747949-Invupllwrsrjc; 537556-Wdkqxrgtdqn, Total; 935905-HDA-O (Total);849772-Zvukl LDL-P; 161634-PVA Size; 638223-ZI-AH Scorewas developed and its performance characteristics determinedby [employer]. It has not been cleared or approved by the Foodand Drug Administration.PATIENT WAS FASTINGPERFORMED BY: [employer] [address] [id number] BY: EndoInSightEast Orange VA Medical CenterZrexvv6544 [facility] [id number] Protein Ql (U) Negative Normal Comprehens [facility]; [facility] Work Phone: Specific gravity (U) [Rel density] 1.005 1 Normal 1.005-1.03 0 [facility] Work Phone: Comment on above: Test(s) 308576-ZYC-W ; 137063-EFW-P; 453782-EPX-M; 744948-Ccojwnhtkaabu; 052635-Uqwgnsislrz, Total; 173223-PZU-L (Total);909517-Yvyjm LDL-P; 306320-XUP Size; 557714-XY-KG Scorewas developed and its performance characteristics determinedby [employer]. It has not been cleared or approved by the Foodand Drug Administration.PATIENT WAS FASTINGPERFORMED BY: [place]ataCoAndrea [place] [address] [facility] [id number] BY: [facility]6370 [facility] [id number] Urobilinogen (U) [Mass/Vol] 0.2 mg/dL Normal 0.2-1.[address] [facility] Internal Medicine; [facility] Internal Medicine Work Phone: Urobilinogen Test strip (U) [Mass/Vol] 0.2 mg/dL Normal 0.2-1.0 [facility] Internal Medicine Work Phone: Comment on above: Test(s) 256900-KHF-Q ; 984105-VJM-X; 856265-KWZ-K; 417704-Qfhgduphxlxkw; 316712-Jjdahvqdqlh, Total; 253207-AHR-X (Total);790680-Ytndn LDL-P; 103134-HZD Size; 729791-KO-TQ Scorewas developed and its performance characteristics determinedby [employer]. It has not been cleared or approved by the Foodand Drug Administration.PATIENT WAS FASTINGPERFORMED BY: [place]InSightAnd[place] [address]87 [facility] [id number] BY: EndoInSightEast Orange VA Medical CenterLkhrxq0923 [facility] [id number] CBC W/AUTO DIFF WBC (42811)O rdered By: Strap Buckler on 04-17-2019 Basophils (Bld) [#/Vol] 0.0 {x10E3/uL} Normal 0.0-0.[address] [facility] Internal Medicine Work Phone: Comment on above: PATIENT WAS FASTINGP ERFORMED BY: EndoInSightEast Orange VA Medical CenterDdsdsd8734 [facility] [id number] Basophils (Bld) [#/Vol] 0.0 10*3/uL Normal 0.0-0.[address] [facility] Internal Medicine; [facility] Internal Medicine Work Phone: Basophils/100 WBC (Bld) 0 % Normal [facility] Internal Medicine Work Phone: Comment on above: PATIENT WAS FASTINGP ERFORMED BY: [employer] [id number] Eosinophils (Bld) [#/Vol] 0.4 {x10E3/uL} Normal 0.0-0.4 [facility] Work Phone: Comment on above: PATIENT WAS FASTINGP ERFORMED BY: [facility]Asp[facility] [facility] [place] [id number] Eosinophils (Bld) [#/Vol] 0.4 10*3/uL Normal 0.0-0.4 [facility]; [facility] Work Phone: Eosinophils/100 WBC (Bld) 6 % Normal [facility] Work Phone: Comment on above: PATIENT WAS FASTINGP ERFORMED BY: [facility]Asp[facility]6370 [facility] [id number] Erythrocyte distribution width (RBC) [Ratio] 13.0 % Normal 11.6-15.4 [facility] Work Phone: Comment on above: Please note refere nce interval change PATIENT WAS FASTINGP ERFORMED BY: [facility] Hozwwc4593 [facility] [id number] Hematocrit (Bld) [Volume fraction] 42.0 % Normal 37.5-51.0 [facility] Work Phone: Comment on above: PATIENT WAS FASTINGP ERFORMED BY: [facility] Hlwyuc4691 [facility] [id number] Hemoglobin (Bld) [Mass/Vol] 14.8 g/dL Normal 13.0-17.7 [facility] Work Phone: Comment on above: PATIENT WAS FASTINGP ERFORMED BY: [facility] Ajwqdo17[address] [facility] [id number] Immature granulocytes (Bld) [#/Vol] 0.0 {x10E3/uL} Normal 0.0-0.1 [facility] Work Phone: Comment on above: PATIENT WAS FASTINGP ERFORMED BY: [facility] Yhpeyh5089 [address] [facility] [id number] Immature granulocytes (Bld) [#/Vol] 0.0 10*3/uL Normal 0.0-0.1 [facility]; [facility] Work Phone: Immature granulocytes/100 WBC (Bld) 0 % Normal [facility] Work Phone: Comment on above: PATIENT WAS FASTINGP ERFORMED BY: [facility] Qhtxgd3412 [address] [facility] Hospitalbl[facility] [place] [id number] Lymphocytes (Bld) [#/Vol] 1.4 {x10E3/uL} Normal 0.7-3.1 [facility] Work Phone: Comment on above: PATIENT WAS FASTINGP ERFORMED BY: [facility]Asp[facility] [facility] Hospitalbl[facility] [place] [id number] Lymphocytes (Bld) [#/Vol] 1.4 10*3/uL Normal 0.7-3.1 [facility]; [facility] Work Phone: Lymphocytes/100 WBC (Bld) 23 % Normal [facility] Work Phone: Comment on above: PATIENT WAS FASTINGP ERFORMED BY: [facility]6[address] [facility] [id number] MCH (RBC) [Entitic mass] 32.0 pg Normal 26.6-33.[address] [facility] Internal Medicine Work Phone: Comment on above: PATIENT WAS FASTINGP ERFORMED BY: [facility] [facility] [id number] MCHC (RBC) [Mass/Vol] 35.2 g/dL Normal 31.5-35.7 [facility] Internal Medicine Work Phone: Comment on above: PATIENT WAS FASTINGP ERFORMED BY: [facility] Qfsraa1018 [address] [facility] HospitalD[facility] [place] [id number] MCV (RBC) [Entitic vol] 91 fL Normal 79-[address] [facility] Internal Medicine Work Phone: Comment on above: PATIENT WAS FASTINGP ERFORMED BY: [facility] Wtpdmf2722 Flores RoadDublin [place] [id number] Monocytes (Bld) [#/Vol] 0.5 {x10E3/uL} Normal 0.1-0.9 [facility] Work Phone: Comment on above: PATIENT WAS FASTINGP ERFORMED BY: [facility] Iiktia9758 [facility] [id number] Monocytes (Bld) [#/Vol] 0.5 10*3/uL Normal 0.1-0.9 [facility]; [facility] Work Phone: Monocytes/100 WBC (Bld) 8 % Normal [facility] Work Phone: Comment on above: PATIENT WAS FASTINGP ERFORMED BY: [facility]6370 [facility] [id number] Neutrophils (Bld) [#/Vol] 3.8 {x10E3/uL} Normal 1.4-7.0 [facility] Work Phone: Comment on above: PATIENT WAS FASTINGP ERFORMED BY: [facility]6370 [facility] [id number] Neutrophils (Bld) [#/Vol] 3.8 10*3/uL Normal 1.4-7.0 [facility]; [facility] Work Phone: Neutrophils/100 WBC (Bld) 63 % Normal [facility] Work Phone: Comment on above: PATIENT WAS FASTINGP ERFORMED BY: [facility]6370 [facility] [id number] Platelets (Bld) [#/Vol] 247 {x10E3/uL} Normal 150-450 [facility] Work Phone: Comment on above: PATIENT WAS FASTINGP ERFORMED BY: [facility] Jwjlxq6429 [facility] [id number] Platelets (Bld) [#/Vol] 247 10*3/uL Normal 150-450 [facility]; [facility] Work Phone: RBC (Bld) [#/Vol] 4.62 {x10E6/uL} Normal 4.14-5.80 [facility] Internal Medicine Work Phone: Comment on above: PATIENT WAS FASTINGP ERFORMED BY: [facility] Myvvgz17[address] [facility] [place] [id number] RBC (Bld) [#/Vol] 4.62 10*6/uL Normal 4.14-5.80 [facility]ensive Internal Medicine; [facility] Work Phone: WBC (Bld) [#/Vol] 6.1 {x10E3/uL} Normal 3.4-10.8 [facility] Work Phone: Comment on above: PATIENT WAS FASTINGP ERFORMED BY: [facility] Urugzd7518 [facility] [id number] WBC (Bld) [#/Vol] 6.1 10*3/uL Normal 3.4-10.8 [facility] Internal Medicine; [facility] Work Phone: LIPID PANEL ([id number])Ordered B y: Strap Buckler on 04-17-2019 Cholesterol [Mass/Vol] 180 mg/dL Normal 100-199 [facility] Work Phone: Comment on above: PATIENT WAS FASTINGP ERFORMED BY: [facility] LabMedigramrp Utbrpw5166 [facility] [id number] Cholesterol in HDL [Mass/Vol] 45 mg/dL Normal [facility] Work Phone: Comment on above: PATIENT WAS FASTINGP ERFORMED BY: [facility] LabSisteer Uuvwrp6499 [address] [facility]Blue [facility] [id number] Cholesterol in LDL [Mass/Vol] 110 mg/dL Abnormal 0-99 [facility] Work Phone: Comment on above: PATIENT WAS FASTINGP ERFORMED BY: LabMedigramrp Mhjpqs2275 [address] [facility] [id number] Cholesterol in LDL/Cholesterol in HDL [Mass ratio] 2.4 {ratio} Normal 0.0-3.6 [facility] Work Phone: Comment on above: LDL/HDL Ratio Men Wo men 1/2 Avg.Risk 1.0 1.5 Avg.Risk 3.6 3.2 2X Avg.Risk 6.2 5.0 3X Avg.Risk 8.0 6.1 PATIENT WAS FASTINGP ERFORMED BY: [facility] AM AnalyticsHiram HensleyOcxpfm2953 [facility] [id number] Cholesterol in VLDL [Mass/Vol] 25 mg/dL Normal 5-40 [facility] Work Phone: Comment on above: PATIENT WAS FASTINGP ERFORMED BY: [facility] Hensleylin6370 [facility] [id number] Triglyceride [Mass/Vol] 127 mg/dL Normal 0-149 [facility] Work Phone: Comment on above: PATIENT WAS FASTINGP ERFORMED BY: [facility] Hensleylin6370 [facility] [id number] METABOLIC PANEL, COMPREHENSI VE ([id number])Ordered By: Strap Buckler on 04-17-2019 Albumin [Mass/Vol] 4.6 g/dL Normal 3.6-4.8 [facility] Internal Medicine Work Phone: Comment on above: Effective May 01, 2019 Albumin reference interval will be changing to: Age Male Female 0 - 7 days 3.6 - 4.9 3.6 - 4.9 8 - 30 days 3.4 - 4.7 3.4 - 4.7 1 - 6 month 3.7 - 4.8 3.7 - 4.8 7 months - 2 years 3.9 - 5.0 3.9 - 5.0 3 - 5 years 4.0 - 5.0 4.0 - 5.0 6 - 12 years 4.1 - 5.0 4.0 - 5.0 13 - 30 years 4.1 - 5.2 3.9 - 5.0 31 - 50 years 4.0 - 5.0 3.8 - 4.8 51 - 60 years 3.8 - 4.9 3.8 - 4.9 61 - 70 years 3.8 - 4.8 3.8 - 4.8 71 - 80 years 3.7 - 4.7 3.7 - 4.7 81 - 89 years 3.6 - 4.6 3.6 - 4.6 >89 years 3.5 - 4.6 3.5 - 4.6 PATIENT WAS FASTINGP ERFORMED BY: [facility] Reyez Mamayu9838 Flores RoadDublin [place] [id number] Albumin/Globulin [Mass ratio] 2.2 {ratio} Normal 1.2-2.2 [facility] Work Phone: Comment on above: PATIENT WAS FASTINGP ERFORMED BY: [facility] Uuwtzn3291 Flores RoadDublin [place] [id number] ALP [Catalytic activity/Vol] 99 [iU]/L Normal 39-117 [facility] Work Phone: Comment on above: PATIENT WAS FASTINGP ERFORMED BY: [facility] Chervg3896 [address] RoadDublin [place] [id number] ALP [Catalytic activity/Vol] 99 U/L Normal 39-117 [facility]; [facility] Work Phone: ALT [Catalytic activity/Vol] 29 [iU]/L Normal 0-44 [facility] Work Phone: Comment on above: PATIENT WAS FASTINGP ERFORMED BY: [facility] Zpncwo6274 [address] RoadDublin [place] [id number] ALT [Catalytic activity/Vol] 29 U/L Normal 0-44 [facility]; [facility] Work Phone: AST [Catalytic activity/Vol] 17 [iU]/L Normal 0-40 [facility] Work Phone: Comment on above: PATIENT WAS FASTINGP ERFORMED BY: LabDeaconess Incarnate Word Health SystemKhveoa8577 [address] RoadDublin [place] [id number] AST [Catalytic activity/Vol] 17 U/L Normal 0-40 [facility]; [facility] Work Phone: Bilirubin [Mass/Vol] 1.8 mg/dL Abnormal 0.0-1.2 Comp [facility] Internal Medicine Work Phone: Comment on above: PATIENT WAS FASTINGP ERFORMED BY: [facility] Nwniho1787 [address] RoadDublin [place] [id number] Calcium [Mass/Vol] 9.4 mg/dL Normal 8.6-10.2 [facility] Internal Medicine Work Phone: Comment on above: PATIENT WAS FASTINGP ERFORMED BY: CB [facility] Alewkc9600 [address] RoadDublin [place] [id number] Chloride [Moles/Vol] 104 mmol/L Normal 96-106 [facility] Work Phone: Comment on above: PATIENT WAS FASTINGP ERFORMED BY: CB [facility] Mvssoo2544 [address] RoadDublin [place] [id number] CO2 [Moles/Vol] 24 mmol/L Normal 20-29 [facility] Internal Medicine Work Phone: Comment on above: PATIENT WAS FASTINGP ERFORMED BY: CB [facility] Jldanw8429 [address] RoadDublin [place] [id number] Creatinine [Mass/Vol] 1.01 mg/dL Normal 0.76-1.27 [facility] Internal Medicine Work Phone: Comment on above: PATIENT WAS FASTINGP ERFORMED BY: [facility] Wrimph1603 [address] RoadDublin [place] [id number] GFR/1.73 sq M predicted among blacks CKD-EPI (S/P/Bld) [Vol rate/Area] 90 mL/min/1.73 Normal [facility] Work Phone: Comment on above: PATIENT WAS FASTINGP ERFORMED BY: [facility] Eesfrm4995 [address] RoadDublin [place] [id number] GFR/1.73 sq M predicted among non-blacks CKD-EPI (S/P/Bld) [Vol rate/Area] 78 mL/min/1.73 Normal [facility] Work Phone: Comment on above: PATIENT WAS FASTINGP ERFORMED BY: CB [facility] Ghuwtn0640 [address] RoadDublin [place] [id number] Globulin (S) [Mass/Vol] 2.1 g/dL Normal 1.5-4.5 [facility] Work Phone: Comment on above: PATIENT WAS FASTINGP ERFORMED BY: CB [facility] Yvepsh5750 [address] RoadDublin [place] [id number] Glucose [Mass/Vol] 90 mg/dL Normal 65-99 [facility] Internal Medicine Work Phone: Comment on above: PATIENT WAS FASTINGP ERFORMED BY: [facility] Wgguzp1332 [address] RoadDublin [place] [id number] Potassium [Moles/Vol] 4.1 mmol/L Normal 3.5-5.2 [facility] Internal Medicine Work Phone: Comment on above: PATIENT WAS FASTINGP ERFORMED BY: [facility] Wtwfpp8659 [address] Roadblin [place] [id number] Protein [Mass/Vol] 6.7 g/dL Normal 6.0-8.5 [facility] Internal Medicine Work Phone: Comment on above: PATIENT WAS FASTINGP ERFORMED BY: [facility] Nmfwui0516 [address] RoadCatawba Valley Medical Centerin [place] [id number] Sodium [Moles/Vol] 143 mmol/L Normal 134-144 [facility] Internal Medicine Work Phone: Comment on above: PATIENT WAS FASTINGP ERFORMED BY: [facility] LabCokorina Lqrtoj8[address] [facility] [place] [id number] Urea nitrogen [Mass/Vol] 14 mg/dL Normal 8-[address] [facility] Internal Medicine Work Phone: Comment on above: PATIENT WAS FASTINGP ERFORMED BY: [facility] LabCokorina Kcybhw[address] [facility]in [place] [id number] Urea nitrogen/Creatinine [Mass ratio] 14 mg/mg Normal 10-24 [facility] Work Phone: Comment on above: PATIENT WAS FASTINGP ERFORMED BY: [facility] Vmtsmz9[address] [facility]in [place] [id number] MICROALBUMINOrdered By: Syst em Truant Officer on 04-17-2019 Albumin DL <= 20 mg/L (U) [Mass/Vol] mg/dL Normal [facility] Work Phone: Comment on above: PATIENT WAS FASTINGP ERFORMED BY: [facility] Rcmlct0777 [address] Roadblin [place] [id number] Albumin DL <= 20 mg/L (U) [Mass/Vol] mg/dL Normal [facility]; [facility] Work Phone: Albumin/Creatinine (U) [Mass ratio] <3.2 Normal 0.0-30.0 [facility] Work Phone: Comment on above: Normal: 0.0 - 30.0 A lbuminuria: 31.0 - 300.0 Clinical albuminuria: >300.0 Effective May 01, 2019 the reference interval for Albumin/Creatinine Ratio will be changing to: Normal: 0 - 29 Moderately increased: 30 - 300 Severely Increased: >300 The result type will also be changing to 0. PATIENT WAS FASTINGP ERFORMED BY: [facility] Zktery7859 [address] RoadDublin [place] [id number] Creatinine (U) [Mass/Vol] 94.5 mg/dL Normal [facility] Work Phone: Comment on above: PATIENT WAS FASTINGP ERFORMED BY: [facility] Ufeykb6730 [address] RoadDublin [place] [id number] URINALYSIS, W/ MICRO ([id number]) Ordered By: Strap Buckler on 04-17-2019 Appearance (U) Clear Normal Comprehens [facility] Work Phone: Comment on above: PATIENT WAS FASTINGP ERFORMED BY: [facility] LabCokorina HensleyJkqgip6989 [address] RoadDublin [place] [id number] Bilirubin Ql (U) Negative Normal Comprehe nsive Internal Medicine Work Phone: Comment on above: PATIENT WAS FASTINGP ERFORMED BY: [facility] Osmned4539 [address] RoadDublin [place] [id number] Bilirubin Ql (U) Negative Normal Comprehe nsive Internal Medicine; [facility] Work Phone: Color (U) Yellow Normal [facility] Work Phone: Comment on above: PATIENT WAS FASTINGP ERFORMED BY: [facility] Cbgnla3712 [address] RoadDublin [place] [id number] Glucose Ql (U) Negative Normal Com[facility] Work Phone: Comment on above: PATIENT WAS FASTINGP ERFORMED BY: [facility] Jnvfpe0275 [address] RoadDublin [place] [id number] Glucose Ql (U) Negative Normal Comprehens [facility]; [facility] Work Phone: Hemoglobin Ql (U) Negative Normal Compreh ensive Internal Medicine Work Phone: Comment on above: PATIENT WAS FASTINGP ERFORMED BY: [facility] Svupqm3649 [address] RoadDublin [place] [id number] Hemoglobin Ql (U) Negative Normal Compreh ensive Internal Medicine; [facility] Work Phone: Ketones Ql (U) Negative Normal Comprehens [facility] Work Phone: Comment on above: PATIENT WAS FASTINGP ERFORMED BY: [facility] Mmifed3897 [address] RoadDublin [place] [id number] Ketones Ql (U) Negative Normal Comprehens [facility]; [facility] Work Phone: Leukocyte esterase Test strip Ql (U) Negative Normal [facility] Work Phone: Comment on above: PATIENT WAS FASTINGP ERFORMED BY: LabCo Petpdm9457 [address] RoadDublin [place] [id number] Leukocyte esterase Test strip Ql (U) Negative Normal [facility]; [facility] Work Phone: Microscopic observation LM Nom (Urine sed) MICRON Normal [facility] Work Phone: Comment on above: Microscopic follows if indicated. PATIENT WAS FASTINGP ERFORMED BY: [facility] Qrzynu3429 [address] RoadDublin [place] [id number] Microscopic observation LM Nom (Urine sed) See below: Normal [facility] Work Phone: Comment on above: Microscopic was javon cated and was performed. PATIENT WAS FASTINGP ERFORMED BY: [facility] Xeslge2612 [address] RoadDublin [place] [id number] Nitrite Ql (U) Negative Normal Comprehens [facility] Work Phone: Comment on above: PATIENT WAS FASTINGP ERFORMED BY: [facility] Neozti6179 [address] RoadDublin [place] [id number] Nitrite Ql (U) Negative Normal Comprehens [facility]; [facility] Work Phone: pH (U) 5.5 [pH] Normal 5.0-7.5 [facility] Work Phone: Comment on above: PATIENT WAS FASTINGP ERFORMED BY: [facility] LabCokorina BossQkvuvg3511 Flores Innohatin [place] [id number] Protein Ql (U) Negative Normal Comprehens [facility] Work Phone: Comment on above: PATIENT WAS FASTINGP ERFORMED BY: [facility] LabCo Ufplnp3964 [address] [facility] [id number] Protein Ql (U) Negative Normal Comprehens [facility]; [facility] Internal Medicine Work Phone: Specific gravity (U) [Rel density] 1.014 1 Normal 1.005-1.[address] [facility] Internal Medicine Work Phone: Comment on above: PATIENT WAS FASTINGP ERFORMED BY: [facility] Dkigfn1088 [facility] [id number] Urobilinogen (U) [Mass/Vol] 0.2 mg/dL Normal 0.2-1.0 [facility]; [facility] Work Phone: Urobilinogen Test strip (U) [Mass/Vol] 0.2 mg/dL Normal 0.2-1.0 [facility] Internal [facility] Work Phone: Comment on above: PATIENT WAS FASTINGP ERFORMED BY: [facility] Takczh8044 [facility] [id number] CALCIFIDIOL (24980) VIT D 25 Ordered By: Strap Buckler on 10-11-2018 25-Hydroxyvitamin D2+25-Hydroxyvitamin D3 [Mass/Vol] 44.6 ng/mL Normal 30.0-100.[address] [facility] Internal Medicine Work Phone: Comment on above: Vitamin D deficiency has been defined by the [place] ofMedicine and an Endocrine Society practice guideline as alevel of serum 25-OH vitamin D less than 20 ng/mL (1,2).The Endocrine Society went on to further define vitamin Dinsufficiency as a level between 21 and 29 ng/mL (2).1. IOM ([place] of Medicine). 2010. Dietary reference intakes for calcium and D. [place]: The National Academies Press.2. Ana Maria MF, Dhaval NC, Glendy RAGLAND, et al. Evaluation, treatment, and prevention of vitamin D deficiency: an Endocrine Society clinical practice guideline. JCEM. 2010; 96(7):1911-30. PATIENT WAS FASTINGP ERFORMED BY: [facility] Zoyqbggibk6[address] [id number] BY: [facility] Gqfywj8889 [facility] [id number] CBC W/AUTO DIFF WBC (44129)O rdered By: Strap Buckler on 10-11-2018 Basophils (Bld) [#/Vol] 0.0 {x10E3/uL} Normal 0.0-0.2 [facility] Work Phone: Comment on above: PATIENT WAS FASTINGP ERFORMED BY: [employer] Gaosnvbcfa50[address] [id number] BY: mobifriends70 [facility] [id number] Basophils (Bld) [#/Vol] 0.0 10*3/uL Normal 0.0-0.2 [facility]; [facility] Work Phone: Basophils/100 WBC (Bld) 0 % Normal [facility] Work Phone: Comment on above: PATIENT WAS FASTINGP ERFORMED BY: EndoInSight[address] [id number] BY: Kleer70 [facility] [id number] Eosinophils (Bld) [#/Vol] 0.3 {x10E3/uL} Normal 0.0-0.4 [facility] Work Phone: Comment on above: PATIENT WAS FASTINGP ERFORMED BY: EndoInSight[address] [id number] BY: [facility] Hddufi0845 [address] ElementumBlue Ridge Regional Hospital [id number] Eosinophils (Bld) [#/Vol] 0.3 10*3/uL Normal 0.0-0.4 [facility]; [facility] Work Phone: Eosinophils/100 WBC (Bld) 4 % Normal [facility] Work Phone: Comment on above: PATIENT WAS FASTINGP ERFORMED BY: EndoInSight[address] [id number] BY: LabCoAngela [place] [id number] [facility] [id number] Erythrocyte distribution width (RBC) [Ratio] 13.0 % Normal 12.3-15.4 [facility] Work Phone: Comment on above: PATIENT WAS FASTINGP ERFORMED BY: LabMedigram[address] [id number] BY: LabCo Wubzru4644 [facility] [id number] Hematocrit (Bld) [Volume fraction] 41.0 % Normal 37.5-51.0 [facility] Work Phone: Comment on above: PATIENT WAS FASTINGP ERFORMED BY: EndoInSight[address] [id number] BY: LabCo Kcdqwr2105 [facility] [id number] Hemoglobin (Bld) [Mass/Vol] 14.1 g/dL Normal 13.0-17.7 [facility] Work Phone: Comment on above: PATIENT WAS FASTINGP ERFORMED BY: LabMedigram[address] [id number] BY: LabCo Zusegt0982 [facility] [id number] Immature granulocytes (Bld) [#/Vol] 0.0 {x10E3/uL} Normal 0.0-0.1 [facility] Work Phone: Comment on above: PATIENT WAS FASTINGP ERFORMED BY: AM Analytics[address] [id number] BY: LabCoEast Orange VA Medical CenterVbvtfq9310 [facility] [id number] Immature granulocytes (Bld) [#/Vol] 0.0 10*3/uL Normal 0.0-0.1 [facility]; [facility] Work Phone: Immature granulocytes/100 WBC (Bld) 1 % Normal [facility] Work Phone: Comment on above: PATIENT WAS FASTINGP ERFORMED BY: AM Analytics[address] [id number] BY: [place] [id number] [facility] [id number] Lymphocytes (Bld) [#/Vol] 1.2 {x10E3/uL} Normal 0.7-3.1 [facility] Work Phone: Comment on above: PATIENT WAS FASTINGP ERFORMED BY: EndoInSight[address] [id number] BY: EndoInSightAngela [place] [id number] [facility] [id number] Lymphocytes (Bld) [#/Vol] 1.2 10*3/uL Normal 0.7-3.1 [facility]; [facility] Work Phone: Lymphocytes/100 WBC (Bld) 18 % Normal [facility] Work Phone: Comment on above: PATIENT WAS FASTINGP ERFORMED BY: EndoInSight[address] [id number] BY: EndoInSightEast Orange VA Medical CenterEtkebs1020 [facility] [id number] MCH (RBC) [Entitic mass] 31.2 pg Normal 26.6-33.0 [facility] Work Phone: Comment on above: PATIENT WAS FASTINGP ERFORMED BY: AM Analytics[address] [id number] BY: [place] [id number] [facility] [id number] MCHC (RBC) [Mass/Vol] 34.4 g/dL Normal 31.5-35.7 [facility]ensive [facility] Work Phone: Comment on above: PATIENT WAS FASTINGP ERFORMED BY: Lab[address] [id number] BY: [facility] LabCo Wstpmw8101 Flores RoadDublin [place] [id number] MCV (RBC) [Entitic vol] 91 fL Normal 79-97 [facility] Work Phone: Comment on above: PATIENT WAS FASTINGP ERFORMED BY: Lab[address] [id number] BY: [facility] LabCo Smsntr2487 [address] RoadDublin [place] [id number] Monocytes (Bld) [#/Vol] 0.3 {x10E3/uL} Normal 0.1-0.[address] [facility] Internal Medicine Work Phone: Comment on above: PATIENT WAS FASTINGP ERFORMED BY: AM Analytics[address] [id number] BY: [facility] LabMelinda Ville [id number] [address] [facility] [id number] Monocytes (Bld) [#/Vol] 0.3 10*3/uL Normal 0.1-0.9 [facility]; [facility] Work Phone: Monocytes/100 WBC (Bld) 5 % Normal [facility] Work Phone: Comment on above: PATIENT WAS FASTINGP ERFORMED BY: AM Analytics[address] [id number] BY: [facility] Ersyfc4145 [address] Roadblin [place] [id number] Neutrophils (Bld) [#/Vol] 5.1 {x10E3/uL} Normal 1.4-7.[address] [facility] Internal Medicine Work Phone: Comment on above: PATIENT WAS FASTINGP ERFORMED BY: [address] [id number] BY: [facility] Nhmoso6764 [facility] [id number] Neutrophils (Bld) [#/Vol] 5.1 10*3/uL Normal 1.4-7.0 [facility]; [facility] Work Phone: Neutrophils/100 WBC (Bld) 72 % Normal [facility] Work Phone: Comment on above: PATIENT WAS FASTINGP ERFORMED BY: [address] [id number] BY: LabAspirus Ontonagon Hospital6370 [facility] [id number] Platelets (Bld) [#/Vol] 277 {x10E3/uL} Normal 150-450 [facility] Work Phone: Comment on above: PATIENT WAS FASTINGP ERFORMED BY: EndoInSight[address] [id number] BY: [facility] LabAspirus Ontonagon Hospital6370 [facility] [id number] Platelets (Bld) [#/Vol] 277 10*3/uL Normal 150-450 [facility]; [facility] Work Phone: RBC (Bld) [#/Vol] 4.52 {x10E6/uL} Normal 4.14-5.80 [facility] Internal Medicine Work Phone: Comment on above: PATIENT WAS FASTINGP ERFORMED BY: EndoInSight[address] [id number] BY: [place] [id number] [facility] [id number] RBC (Bld) [#/Vol] 4.52 10*6/uL Normal 4.14-5.80 [facility] Internal Medicine; [facility] Work Phone: WBC (Bld) [#/Vol] 7.0 {x10E3/uL} Normal 3.4-10.8 [facility] Internal Medicine Work Phone: Comment on above: PATIENT WAS FASTINGP ERFORMED BY: AM Analytics[address] [id number] BY: [employer]6370 [facility] [id number] WBC (Bld) [#/Vol] 7.0 10*3/uL Normal 3.4-10.8 [facility] Internal Medicine; [facility] Work Phone: LIPOPROTEIN, BLD, BY NMR ([id number])Ordered By: Strap Buckler on 10-11-2018 Cholesterol [Mass/Vol] 175 mg/dL Normal 100-199 [facility] Work Phone: Comment on above: PATIENT WAS FASTINGP ERFORMED BY: [employer] [facility] [id number] BY: mobifriends70 [facility] [id number] Lipoprotein.alpha [Moles/Vol] 37.8 umol/L Normal [facility] Work Phone: Comment on above: PATIENT WAS FASTINGP ERFORMED BY: [employer] [place] [address] [id number] BY: mobifriends70 [facility] [id number] Lipoprotein.beta.subp article [Entitic length] 20.3 nm Abnormal [facility] Work Phone: Comment on above: INTERPRETATIVE INFORMATION PARTICLE CONCENTRATION AND SIZE <--Lower CVD Risk Higher CVD Risk--> LDL AND HDL PARTICLES Percentile in Reference Population HDL-P (total) High 75th 50th 25th Low >34.9 34.9 30.5 26.7 <26.7 . Small LDL-P Low 25th 50th 75th High <117 117 527 839 >839 . LDL Size <-Large (Pattern A)-> <-Small (Pattern B)-> 23.0 20.6 20.5 19.0 Small LDL-P and LDL Size are associated with CVD risk, but not afterLDL-P is taken into account. .These assays were developed and their performance characteristicsdetermined by [employer]. These assays have not been cleared by Nina Food and Drug Administration. The clinical utility of theselaboratory values have not been fully established. PATIENT WAS FASTINGP ERFORMED BY: [employer] LabSisteer [address] [id number] BY: [employer] LabSisteer Bqcyfp0271 [facility] [id number] Lipoprotein.beta.subp article [Moles/Vol] 1374 nmol/L Abnormal Comprehensiv e Internal Medicine Work Phone: Comment on above: Low < 1000 Moderate 1000 - 1299 Borderline-High 1300 - 1599 High 1600 - 2000 Very High > 2000 PATIENT WAS FASTINGP ERFORMED BY: [employer] LabMedigramrp [address] [id number] BY: [employer] LabMedigramrp Gpegog3454 VR1[facility] [id number] Lipoprotein.beta.subp article.small [Moles/Vol] 696 nmol/L Abnormal [facility] Work Phone: Comment on above: PATIENT WAS FASTINGP ERFORMED BY: [employer] LabMedigramrp Gthlvxbhrb[address] [id number] BY: [employer] LabSisteer Iqdxog3[address] InnohatRandolph Health [id number] Triglyceride [Mass/Vol] 133 mg/dL Normal 0-149 [facility] Work Phone: Comment on above: PATIENT WAS FASTINGP ERFORMED BY: [employer] LabMedigramrp Hdvbmfgmvh[address] [id number] BY: [employer] LabCoInnovega Kbczfz0489 [address] ElementumBlue Ridge Regional Hospital [id number] LIPOPROTEIN, BLD, BY NMR ([id number]) 97 mg/dL Normal 0-99 [facility] Work Phone: Comment on above: . Optimal < 100 Abov e optimal 100 - 129 Borderline 130 - 159 High 160 - 189 Very high > 189 .LDL-C is inaccurate if patient is non-fasting. PATIENT WAS FASTINGP ERFORMED BY: [employer] [id number] BY: [facility] Vcfhus9361 [address] ElementumBlue Ridge Regional Hospital [id number] LIPOPROTEIN, BLD, BY NMR ([id number]) 51 mg/dL Normal [facility] Work Phone: Comment on above: PATIENT WAS FASTINGP ERFORMED BY: [employer] [address] [id number] BY: [employer] Yclnpy4327 VR1[facility] [id number] LIPOPROTEIN, BLD, BY NMR ([id number]) 133 mg/dL Normal 0-149 [facility]; [facility] Work Phone: LIPOPROTEIN, BLD, BY NMR ([id number]) 175 mg/dL Normal 100-199 [facility]; [facility] Work Phone: METABOLIC PANEL, COMPREHENSI VE ([id number])Ordered By: Strap Buckler on 10-11-2018 Albumin [Mass/Vol] 4.5 g/dL Normal 3.6-4.8 [facility] Work Phone: Comment on above: PATIENT WAS FASTINGP ERFORMED BY: [employer] [address] [id number] BY: [facility] Fdiiqk2891 [address] ElementumBlue Ridge Regional Hospital [id number] Albumin/Globulin [Mass ratio] 2.3 {ratio} Abnormal 1.2-2.2 [facility] Work Phone: Comment on above: PATIENT WAS FASTINGP ERFORMED BY: EndoInSight[address] [id number] BY: [facility] Ydbjud5739 [address] [facility] [id number] ALP [Catalytic activity/Vol] 94 [iU]/L Normal 39-117 [facility] Work Phone: Comment on above: PATIENT WAS FASTINGP ERFORMED BY: [employer] [id number] BY: [employer]6[address] [facility] [id number] ALP [Catalytic activity/Vol] 94 U/L Normal 39-117 [facility]; [facility] Work Phone: ALT [Catalytic activity/Vol] 27 [iU]/L Normal 0-44 [facility] Work Phone: Comment on above: PATIENT WAS FASTINGP ERFORMED BY: [employer] [id number] BY: mobifriends70 [facility] [id number] ALT [Catalytic activity/Vol] 27 U/L Normal 0-44 [facility]; [facility] Work Phone: AST [Catalytic activity/Vol] 18 [iU]/L Normal 0-40 [facility] Work Phone: Comment on above: PATIENT WAS FASTINGP ERFORMED BY: [employer] [address] [id number] BY: [employer] Solutionslin6370 [facility] [id number] AST [Catalytic activity/Vol] 18 U/L Normal 0-40 [facility]; [facility] Work Phone: Bilirubin [Mass/Vol] 1.2 mg/dL Normal 0.0-1.2 Comp rehensive Internal Medicine Work Phone: Comment on above: PATIENT WAS FASTINGP ERFORMED BY: [employer] [id number] BY: [employer] [employer]6370 [facility] [id number] Calcium [Mass/Vol] 9.6 mg/dL Normal 8.6-10.2 [facility] [place] Internal Medicine Work Phone: Comment on above: PATIENT WAS FASTINGP ERFORMED BY: BN [facility] Idncfyfpgr6773 [facility] [id number] BY: CB [facility] Akyqiw6352 [address] RoadDublin [place] [id number] Chloride [Moles/Vol] 105 mmol/L Normal 96-106 Comp rehensive Internal Medicine Work Phone: Comment on above: PATIENT WAS FASTINGP ERFORMED BY: BN [facility] Wnszmrgnld051[address] [id number] BY: CB [facility] Gbvapn2901 [address] RoadDublin [place] [id number] CO2 [Moles/Vol] 23 mmol/L Normal 20-29 [facility] Internal Medicine Work Phone: Comment on above: PATIENT WAS FASTINGP ERFORMED BY: BN [facility] Dlctbigdth36[address] [id number] BY: CB [facility] Cufroo9[address] RoadDublin [place] [id number] Creatinine [Mass/Vol] 1.05 mg/dL Normal 0.76-1.27 [facility] Work Phone: Comment on above: PATIENT WAS FASTINGP ERFORMED BY: BN [facility] Kgdyngjxnx01[address] [id number] BY: CB [facility] Rfbmxv2700 [address] RoadDublin [place] [id number] GFR/1.73 sq M predicted among blacks CKD-EPI (S/P/Bld) [Vol rate/Area] 86 mL/min/1.73 Normal [facility] Work Phone: Comment on above: PATIENT WAS FASTINGP ERFORMED BY: BN [facility] Ezbnxhvqod7[address] [id number] BY: CB [facility] Ayzyhj3884 [address] RoadDublin [place] [id number] GFR/1.73 sq M predicted among non-blacks CKD-EPI (S/P/Bld) [Vol rate/Area] 75 mL/min/1.73 Normal [facility] Work Phone: Comment on above: PATIENT WAS FASTINGP ERFORMED BY: LabCo[address] [id number] BY: LUH [facility] Jveucf5[address] RoadDublin [place] [id number] Globulin (S) [Mass/Vol] 2.0 g/dL Normal 1.5-4.[address] [facility] Internal Medicine Work Phone: Comment on above: PATIENT WAS FASTINGP ERFORMED BY: [facility] [address] [id number] BY: LUH [facility] Vnijzr6865 [address] RoadDublin [place] [id number] Glucose [Mass/Vol] 99 mg/dL Normal 65-99 [facility] Internal Medicine Work Phone: Comment on above: PATIENT WAS FASTINGP ERFORMED BY: LabCo[address] [id number] BY: LUH [facility] Ikgfmp9796 [address] RoadDuin [place] [id number] Potassium [Moles/Vol] 3.8 mmol/L Normal 3.5-5.2 [facility] Internal Medicine Work Phone: Comment on above: PATIENT WAS FASTINGP ERFORMED BY: Lab[address] [id number] BY: LUH [facility] Jylqcm7264 [address] RoadDublin [place] [id number] Protein [Mass/Vol] 6.5 g/dL Normal 6.0-8.5 [facility] Internal Medicine Work Phone: Comment on above: PATIENT WAS FASTINGP ERFORMED BY: LabCo[address] [id number] BY: LUH [facility] Rxpebn1046 [address] RoadDublin [place] [id number] Sodium [Moles/Vol] 144 mmol/L Normal 134-144 [facility] Internal Medicine Work Phone: Comment on above: PATIENT WAS FASTINGP ERFORMED BY: LabCo[address] [id number] BY: [facility] Mavegw8297 [address] RoadDublin [place] [id number] Urea nitrogen [Mass/Vol] 14 mg/dL Normal 8-27 [facility] Work Phone: Comment on above: PATIENT WAS FASTINGP ERFORMED BY: LabCo[address] [id number] BY: [facility] Hrfeyt1491 [address] RoadDublin [place] [id number] Urea nitrogen/Creatinine [Mass ratio] 13 mg/mg Normal 10-24 [facility] Work Phone: Comment on above: PATIENT WAS FASTINGP ERFORMED BY: LabMedigram[address] [id number] BY: [facility] Vdthuv9861 [address] RoadDuin [place] [id number] MICROALBUMINOrdered By: Syst em Truant Officer on 10-11-2018 Albumin DL <= 20 mg/L (U) [Mass/Vol] 4.8 ug/mL Normal [facility] Work Phone: Comment on above: PATIENT WAS FASTINGP ERFORMED BY: Lab[address] [id number] BY: [facility] Lzsesd34[address] [facility]in [place] [id number] Albumin/Creatinine (U) [Mass ratio] 3.4 {mg/g_creat} Normal 0.0-30.0 [facility] Work Phone: Comment on above: Normal: 0.0 - 30.0 A lbuminuria: 31.0 - 300.0 Clinical albuminuria: >300.0 PATIENT WAS FASTINGP ERFORMED BY: AM Analytics[address] [id number] BY: [facility] Beaawt1173 [address] RoadDublin [place] [id number] Creatinine (U) [Mass/Vol] 139.7 mg/dL Normal [facility] Work Phone: Comment on above: PATIENT WAS FASTINGP ERFORMED BY: LabCo[address] [id number] BY: LUH [facility] Xseerh1356 [address] RoadDublin [place] [id number] URINALYSIS, W/ MICRO (41992) Ordered By: Strap Buckler on 10-11-2018 Appearance (U) Clear Normal Comprehens [facility] Internal Medicine Work Phone: Comment on above: PATIENT WAS FASTINGP ERFORMED BY: [facility] [address] [id number] BY: LUH [facility] Bmplcm6594 [address] RoadDublin [place] [id number] Bilirubin Ql (U) Negative Normal Comprehe nsive Internal Medicine Work Phone: Comment on above: PATIENT WAS FASTINGP ERFORMED BY: LabCo[address] [id number] BY: LUH [facility] Hmondz7[address] RoadDublin [place] [id number] Bilirubin Ql (U) Negative Normal Comprehe nsive Internal Medicine; [facility] Work Phone: Color (U) Yellow Normal [facility] Work Phone: Comment on above: PATIENT WAS FASTINGP ERFORMED BY: LabCo[address] [id number] BY: LUH [facility] Qsbbgp5301 Fol[address] RoadDublin [place] [id number] Glucose Ql (U) Negative Normal Comprehens [facility] Internal Medicine Work Phone: Comment on above: PATIENT WAS FASTINGP ERFORMED BY: LabCo[address] [id number] BY: LUH [facility] Trpcaf4264 [address] RoadDublin [place] [id number] Glucose Ql (U) Negative Normal Comprehens [facility]; [facility] Work Phone: Hemoglobin Ql (U) Negative Normal Compreh ensive Internal Medicine Work Phone: Comment on above: PATIENT WAS FASTINGP ERFORMED BY: EndoIn[employer]ight[address] [id number] BY: [facility] Ucigym7[address] RoadDublin [place] [id number] Hemoglobin Ql (U) Negative Normal Compreh ensive Internal Medicine; [facility] Work Phone: Ketones Ql (U) Negative Normal Comprehens [facility] Internal Medicine Work Phone: Comment on above: PATIENT WAS FASTINGP ERFORMED BY: [employer] [address] [id number] BY: [facility] Kamybn2740 [address] RoadDublin [place] [id number] Ketones Ql (U) Negative Normal Comprehens [facility] Internal [facility]; [facility] Work Phone: Leukocyte esterase Test strip Ql (U) Negative Normal [facility] Work Phone: Comment on above: PATIENT WAS FASTINGP ERFORMED BY: [employer] [address] [id number] BY: LabMedigramrp Vwfzjd4637 [address] RoadDublin [place] [id number] Leukocyte esterase Test strip Ql (U) Negative Normal [facility]; [facility] Work Phone: Microscopic observation LM Nom (Urine sed) See below: Normal [facility] Work Phone: Comment on above: Microscopic was javon cated and was performed. PATIENT WAS FASTINGP ERFORMED BY: EndoIn[employer]ight[address] [id number] BY: [facility] Mpnpfn8489 [address] RoadDublin [place] [id number] Microscopic observation LM Nom (Urine sed) MICRON Normal [facility] Work Phone: Comment on above: Microscopic follows if indicated. PATIENT WAS FASTINGP ERFORMED BY: EndoIn[employer]ight[address] [id number] BY: [facility] Ahhwgb8888 [address] RoadDublin [place] [id number] Nitrite Ql (U) Negative Normal Comprehens [facility] Internal Medicine Work Phone: Comment on above: PATIENT WAS FASTINGP ERFORMED BY: EndoInSight[address] [id number] BY: LUH LabMedigram Svyusj3864 [address] RoadDublin [place] [id number] Nitrite Ql (U) Negative Normal Comprehens [facility]; [facility] Work Phone: pH (U) 6.0 [pH] Normal 5.0-7.5 [facility] Work Phone: Comment on above: PATIENT WAS FASTINGP ERFORMED BY: Endo[employer]ight[address] [id number] BY: [employer] Dlrwwc4865 [address] RoadDublin [place] [id number] Protein Ql (U) Negative Normal Comprehens [facility] Internal Medicine Work Phone: Comment on above: PATIENT WAS FASTINGP ERFORMED BY: EndoInSight[address] [id number] BY: LUH LabMedigram Qpnhns2084 [address] RoadDublin [place] [id number] Protein Ql (U) Negative Normal Comprehens [facility] Internal [facility]; [facility] Work Phone: Specific gravity (U) [Rel density] 1.021 1 Normal 1.005-1.03 0 [facility] Work Phone: Comment on above: PATIENT WAS FASTINGP ERFORMED BY: EndoInSight[address] [id number] BY: LabMedigram Ktggsb5950 [address] RoadDublin [place] [id number] Urobilinogen (U) [Mass/Vol] 0.2 mg/dL Normal 0.2-1.0 [facility]; [facility] Work Phone: Urobilinogen Test strip (U) [Mass/Vol] 0.2 mg/dL Normal 0.2-1.0 Comprehensi ve Internal Medicine Work Phone: Comment on above: PATIENT WAS FASTINGP ERFORMED BY: AM [facility] Hospital1447 [facility] [id number] BY: LUH AM AnalyticsAspirus Ontonagon Hospital6370 [facility] [id number] CALCIFEDIOL (94584)Ordered B y: Strap Buckler on 04-15-2018 25-Hydroxyvitamin D2+25-Hydroxyvitamin D3 mass conc 50.0 ng/mL Normal 30.0-100.0 [facility] Work Phone: Comment on above: Vitamin D deficiency has been defined by the [place] ofOhio[facility]len[facility] Hospitalcine and an Endocrine Society practice guideline as alevel of serum 25-OH vitamin D less than 20 ng/mL (1,2).The Endocrine Society went on to further define vitamin Dinsufficiency as a level between 21 and 29 ng/mL (2).1. IOM ([place] of Medicine). 2010. Dietary reference intakes for calcium and D. [place]: The National Academies Press.2. Ana Maria MF, Dhaval PUGA, Glendy RAGLAND, et al. Evaluation, treatment, and prevention of vitamin D deficiency: an Endocrine Society clinical practice guideline. JCEM. 2010; 96(7):1911-30. PATIENT WAS FASTINGP ERFORMED BY: LUH EndoIn[employer]ight Tyqyqx8513 [facility] [id number] CBC & PLATELETS (AUTO) (8502 7)Ordered By: Strap Buckler on 04-15-2018 Erythrocyte distribution width (RBC) [Ratio] 12.8 % Normal 12.3-15.[address] [facility] Internal Medicine Work Phone: Comment on above: PATIENT WAS FASTINGP ERFORMED BY: LabMedigram Ghmhgl2666 [facility] [id number] Erythrocyte distribution width Auto Ratio (RBC) 12.8 % Normal 12.3-15.[address] [facility] Internal Medicine Work Phone: Hematocrit (Bld) [Volume fraction] 43.8 % Normal 37.5-51.[address] [facility] Internal Medicine Work Phone: Comment on above: PATIENT WAS FASTINGP ERFORMED BY: LabCoEast Orange VA Medical CenterZkujyq6920 [facility] [id number] Hematocrit Auto Volume Fraction (Bld) 43.8 % Normal 37.5-51.0 [facility] Internal Medicine Work Phone: Hemoglobin mass conc (Bld) 14.7 g/dL Normal 13.0-17.[address] [facility] Internal Medicine Work Phone: Comment on above: PATIENT WAS FASTINGP ERFORMED BY: [facility]6370 [facility] [id number] MCH (RBC) [Entitic mass] 30.6 pg Normal 26.6-33.[address] [facility] Internal Medicine Work Phone: Comment on above: PATIENT WAS FASTINGP ERFORMED BY: [place] [id number] [facility] [id number] MCH Auto Entitic mass (RBC) 30.6 pg Normal 26.6-33.[address] [facility] Internal Medicine Work Phone: MCHC (RBC) [Mass/Vol] 33.6 g/dL Normal 31.5-35.7 [facility] Internal Medicine Work Phone: Comment on above: PATIENT WAS FASTINGP ERFORMED BY: [facility]6370 [facility] [id number] MCHC Auto mass conc (RBC) 33.6 g/dL Normal 31.5-35.[address] [facility] Internal Medicine Work Phone: MCV (RBC) [Entitic vol] 91 fL Normal 79-[address] [facility] Internal Medicine Work Phone: Comment on above: PATIENT WAS FASTINGP ERFORMED BY: [place] [id number] [facility] [id number] MCV Auto Entitic volume (RBC) 91 fL Normal 79-[address] [facility] Internal Medicine Work Phone: Platelets (Bld) [#/Vol] 255 {x10E3/uL} Normal 150-379 [facility] Work Phone: Comment on above: PATIENT WAS FASTINGP ERFORMED BY: [place] [id number] [facility] [id number] Platelets (Bld) [#/Vol] 255 10*3/uL Normal 150-379 [facility]; [facility] Work Phone: Platelets Auto #/vol (Bld) 255 {x10E3/uL} Normal 150-379 [facility] Work Phone: RBC (Bld) [#/Vol] 4.80 {x10E6/uL} Normal 4.14-5.80 [facility] Work Phone: Comment on above: PATIENT WAS FASTINGP ERFORMED BY: L[facility] EndoInSight Hisqjq01[address] ElementumBlue Ridge Regional Hospital [id number] RBC (Bld) [#/Vol] 4.80 10*6/uL Normal 4.14-5.80 [facility] Internal Medicine; [facility] Work Phone: RBC Auto #/vol (Bld) 4.80 {x10E6/uL} Normal 4.14-5.80 [facility] Work Phone: WBC (Bld) [#/Vol] 7.0 {x10E3/uL} Normal 3.4-10.8 [facility] Internal Medicine Work Phone: Comment on above: PATIENT WAS FASTINGP ERFORMED BY: LUH EndoInSight Szsofo0330 [facility] [id number] WBC (Bld) [#/Vol] 7.0 10*3/uL Normal 3.4-10.8 [facility]; [facility] Work Phone: WBC Auto #/vol (Bld) 7.0 {x10E3/uL} Normal 3.4-10.8 [facility] Work Phone: LIPID PANEL (86525)Ordered B y: Strap Buckler on 04-15-2018 Cholesterol in HDL mass conc 37 mg/dL Abnormal [facility] Work Phone: Comment on above: PATIENT WAS FASTINGP ERFORMED BY: Kleer70 [facility] [id number] Cholesterol in LDL mass conc 84 mg/dL Normal 0-99 [facility] Work Phone: Comment on above: PATIENT WAS FASTINGP ERFORMED BY: LUH LabHiram HensleyMhazyn5[address] [facility] [id number] Cholesterol in LDL/Cholesterol in HDL mass ratio 2.3 {ratio} Normal 0.0-3.6 [facility] Work Phone: Comment on above: LDL/HDL Ratio Men Wo men 1/2 Avg.Risk 1.0 1.5 Avg.Risk 3.6 3.2 2X Avg.Risk 6.2 5.0 3X Avg.Risk 8.0 6.1 PATIENT WAS FASTINGP ERFORMED BY: LUH LabHiram HensleyDvevve3768 [facility] [id number] Cholesterol in VLDL mass conc 20 mg/dL Normal 5-40 [facility] Work Phone: Comment on above: PATIENT WAS FASTINGP ERFORMED BY: LUH Hensleylin6370 [facility] [id number] Cholesterol mass conc 141 mg/dL Normal 100-199 [facility] prehensive Internal Medicine Work Phone: Comment on above: PATIENT WAS FASTINGP ERFORMED BY: LUH LabHiram HensleyLebdnl7667 [facility] [id number] Triglyceride mass conc 102 mg/dL Normal 0-149 [facility] Work Phone: Comment on above: PATIENT WAS FASTINGP ERFORMED BY: LUH Hensleylin6370 [facility] [id number] METABOLIC PANEL, COMPREHENSI VE ([id number])Ordered By: Strap Buckler on 04-15-2018 Albumin mass conc 4.7 g/dL Normal 3.6-4.8 Compreh ensive Internal Medicine Work Phone: Comment on above: PATIENT WAS FASTINGP ERFORMED BY: LUH LabHiram HensleyBfvcop4169 [facility] [id number] Albumin/Globulin mass ratio 2.4 {ratio} Abnormal 1.2-2.2 [facility] Work Phone: Comment on above: PATIENT WAS FASTINGP ERFORMED BY: L[facility] Hensleylin6370 [facility] [place] [id number] ALP [Catalytic activity/Vol] 106 U/L Normal 39-117 [facility]; [facility] Internal Medicine Work Phone: ALP enzyme act/vol 106 [iU]/L Normal 39-117 [facility] Internal Medicine Work Phone: Comment on above: PATIENT WAS FASTINGP ERFORMED BY: L[facility] Boss[address] [facility] [id number] ALT [Catalytic activity/Vol] 32 U/L Normal 0-44 [facility]; [facility] Internal Medicine Work Phone: ALT enzyme act/vol 32 [iU]/L Normal 0-44 [facility] Internal Medicine Work Phone: Comment on above: PATIENT WAS FASTINGP ERFORMED BY: [facility] Boss[address] [facility] [id number] AST [Catalytic activity/Vol] 16 U/L Normal 0-[address] [facility] Internal Medicine; [facility] Internal Medicine Work Phone: AST enzyme act/vol 16 [iU]/L Normal 0-40 [facility] Internal Medicine Work Phone: Comment on above: PATIENT WAS FASTINGP ERFORMED BY: [facility] Boss[address] [facility] [id number] Bilirubin mass conc 1.2 mg/dL Normal 0.0-1.2 [facility] Internal Medicine Work Phone: Comment on above: PATIENT WAS FASTINGP ERFORMED BY: [facility] Boss6370 [facility] [id number] Calcium mass conc 9.5 mg/dL Normal 8.6-10.2 [facility] Internal Medicine Work Phone: Comment on above: PATIENT WAS FASTINGP ERFORMED BY: LUH LabHiram Boss[address] [facility] [id number] Chloride molar conc 102 mmol/L Normal 96-106 [facility] Internal Medicine Work Phone: Comment on above: PATIENT WAS FASTINGP ERFORMED BY: LUH LabHiram Boss6370 [facility] [id number] CO2 molar conc 25 mmol/L Normal 20-29 Comprehens [facility] Internal Medicine Work Phone: Comment on above: PATIENT WAS FASTINGP ERFORMED BY: LUH Dereje Hensleylin6370 [facility] [id number] Creatinine mass conc 1.06 mg/dL Normal 0.76-1.27 Comp rehensive Internal Medicine Work Phone: Comment on above: PATIENT WAS FASTINGP ERFORMED BY: [facility] Gqxhgk8391 [facility] [id number] GFR/1.73 sq M predicted among blacks CKD-EPI vol rate/area (S/P/Bld) 86 mL/min/1.73 Normal Comprehensiv e Internal Medicine Work Phone: Comment on above: PATIENT WAS FASTINGP ERFORMED BY: [facility] Ctufjd3348 [facility] [id number] GFR/1.73 sq M predicted among non-blacks CKD-EPI vol rate/area (S/P/Bld) 74 mL/min/1.73 Normal [facility] Work Phone: Comment on above: PATIENT WAS FASTINGP ERFORMED BY: [facility] Jxxaza7732 [facility] [id number] Globulin (S) [Mass/Vol] 2.0 g/dL Normal 1.5-4.5 [facility] Work Phone: Comment on above: PATIENT WAS FASTINGP ERFORMED BY: [facility] Zddeke8068 [facility] [id number] Globulin Calculated mass conc (S) 2.0 g/dL Normal 1.5-4.5 [facility] Work Phone: Glucose mass conc 87 mg/dL Normal 65-99 Compreh ensive Internal Medicine Work Phone: Comment on above: PATIENT WAS FASTINGP ERFORMED BY: [facility] Xylvdj7565 [facility] [id number] Potassium molar conc 4.2 mmol/L Normal 3.5-5.2 Comp rehensive Internal Medicine Work Phone: Comment on above: PATIENT WAS FASTINGP ERFORMED BY: [facility] Boss[address] [facility]Blue [facility] [id number] Protein mass conc 6.7 g/dL Normal 6.0-8.5 Compreh ensive Internal Medicine Work Phone: Comment on above: PATIENT WAS FASTINGP ERFORMED BY: L[facility] Gonsalez70 [facility] [id number] Sodium molar conc 141 mmol/L Normal 134-144 Compreh ensive Internal Medicine Work Phone: Comment on above: PATIENT WAS FASTINGP ERFORMED BY: [facility] Gonsalez70 [facility] [id number] Urea nitrogen mass conc 13 mg/dL Normal 8-27 [facility] Work Phone: Comment on above: PATIENT WAS FASTINGP ERFORMED BY: [facility] Gonsalez70 [facility] [id number] Urea nitrogen/Creatinine mass ratio 12 mg/mg Normal 10-24 [facility] Work Phone: Comment on above: PATIENT WAS FASTINGP ERFORMED BY: [facility] Boss6370 [facility] [id number] MICROALBUMINOrdered By: Syst em Truant Officer on 04-15-2018 Albumin DL <= 20 mg/L (U) [Mass/Vol] mg/dL Normal [facility]; [facility] Work Phone: Albumin DL <= 20 mg/L mass conc (U) mg/dL Normal [facility] Work Phone: Comment on above: PATIENT WAS FASTINGP ERFORMED BY: [facility] Boss6370 [facility] [id number] Albumin/Creatinine mass ratio (U) <13.6 Normal 0.0-30.0 [facility] Work Phone: Comment on above: Normal: 0.0 - 30.0 A lbuminuria: 31.0 - 300.0 Clinical albuminuria: >300.0 PATIENT WAS FASTINGP ERFORMED BY: [facility] Gonsalez70 [address] RoadDublin [place] [id number] Creatinine mass conc (U) 22.1 mg/dL Normal [facility] Work Phone: Comment on above: PATIENT WAS FASTINGP ERFORMED BY: [facility] Iclfts1383 [address] RoadDublin [place] [id number] TSH (THYROID STIMULATING HOR LYNNE) ([id number])Ordered By: Strap Buckler on 04-15-2018 Thyrotropin Qn 2.390 {uIU/mL} Normal 0.450-4.50 0 [facility] Work Phone: Comment on above: PATIENT WAS FASTINGP ERFORMED BY: [facility] Cfssmt3675 [address] Roadblin [place] [id number] URINALYSIS ([id number])Ordered By : Strap Buckler on 04-15-2018 Appearance Nom (U) Clear Normal Compre hensive Internal Medicine Work Phone: Comment on above: PATIENT WAS FASTINGP ERFORMED BY: [facility] Zosrcj9223 [address]blin [place] [id number] Bilirubin Ql (U) Negative Normal Comprehe nsive Internal Medicine Work Phone: Comment on above: PATIENT WAS FASTINGP ERFORMED BY: [facility] Zjjmnd2643 [address] RoadDublin [place] [id number] Bilirubin Ql (U) Negative Normal Comprehe nsive Internal Medicine; [facility] Work Phone: Color Nom (U) Yellow Normal Comprehensi ve Internal Medicine Work Phone: Comment on above: PATIENT WAS FASTINGP ERFORMED BY: [facility] Byzabo5454 [address] RoadDublin [place] [id number] Glucose Ql (U) Negative Normal Comprehens [facility] Work Phone: Comment on above: PATIENT WAS FASTINGP ERFORMED BY: [facility] Nubmvz4459 [address] RoadDublin [place] [id number] Glucose Ql (U) Negative Normal Comprehens [facility]; [facility] Work Phone: Hemoglobin Ql (U) Negative Normal Compreh ensive Internal Medicine Work Phone: Comment on above: PATIENT WAS FASTINGP ERFORMED BY: LUH LabHiram HensleyLfsztm8012 [address] RoadDublin [place] [id number] Hemoglobin Ql (U) Negative Normal Compreh ensive Internal Medicine; [facility] Work Phone: Hemoglobin Test strip Ql (U) Negative Normal [facility] Work Phone: Ketones Ql (U) Negative Normal Comprehens [facility] Work Phone: Comment on above: PATIENT WAS FASTINGP ERFORMED BY: L[facility] LabHiram HensleyWvpmql5116 [address] RoadDublin [place] [id number] Ketones Ql (U) Negative Normal Comprehens [facility]; [facility] Work Phone: Leukocyte esterase Test strip Ql (U) Negative Normal [facility] Work Phone: Comment on above: PATIENT WAS FASTINGP ERFORMED BY: [facility] Hensleylin6370 [address] RoadDublin [place] [id number] Leukocyte esterase Test strip Ql (U) Negative Normal [facility]; [facility] Work Phone: Microscopic observation LM Nom (Urine sed) MICNIP Normal [facility] Work Phone: Comment on above: Microscopic not javon cated and not performed. PATIENT WAS FASTINGP ERFORMED BY: [facility] Hensleylin6[address] RoadDublin [place] [id number] Nitrite Ql (U) Negative Normal Comprehens [facility] Work Phone: Comment on above: PATIENT WAS FASTINGP ERFORMED BY: [facility] LabCokorina HensleyNqgmcc3[address] RoadDublin [place] [id number] Nitrite Ql (U) Negative Normal [facility]; [facility] Work Phone: Nitrite Test strip Ql (U) Negative Normal [facility] Work Phone: pH (U) 7.0 [pH] Normal 5.0-7.5 [facility] Work Phone: Comment on above: PATIENT WAS FASTINGP ERFORMED BY: [facility] Isbjhy5105 [facility] [id number] pH Test strip (U) 7.0 [pH] Normal 5.0-7.5 Compreh ensive Internal Medicine Work Phone: Protein Ql (U) Negative Normal Comprehens [facility] Work Phone: Comment on above: PATIENT WAS FASTINGP ERFORMED BY: [facility]6370 [facility] [id number] Protein Ql (U) Negative Normal Comprehens [facility]; [facility] Work Phone: Protein Test strip Ql (U) Negative Normal [facility] Work Phone: Specific gravity Relative Density (U) 1.008 1 Normal 1.005-1.03 0 [facility] Work Phone: Comment on above: PATIENT WAS FASTINGP ERFORMED BY: [facility] [id number] Urobilinogen (U) [Mass/Vol] 0.2 mg/dL Normal 0.2-1.0 [facility]; [facility] Work Phone: Urobilinogen Test strip mass conc (U) 0.2 mg/dL Normal 0.2-1.0 Comprehensiv e Internal Medicine Work Phone: Comment on above: PATIENT WAS FASTINGP ERFORMED BY: [facility]6370 [facility] [id number] Comp. Metabolic Panel (14)Or dered By: Strap Buckler on 11-29-2017 Albumin mass conc 4.5 g/dL Normal 3.6-4.8 Compreh ensive Internal Medicine Work Phone: Albumin/Globulin mass ratio 2.0 {ratio} Normal 1.2-2.2 [facility] Work Phone: ALP enzyme act/vol 108 [iU]/L Normal 39-117 Compre hensive Internal Medicine Work Phone: ALT enzyme act/vol 45 [iU]/L Abnormal 0-44 Compre hensive [facility] Medicine Work Phone: AST enzyme act/vol 22 [iU]/L Normal 0-40 Compre hensive [facility] Medicine Work Phone: Bilirubin mass conc 1.9 mg/dL Abnormal 0.0-1.2 Compr ehensive Internal Medicine Work Phone: Calcium mass conc 9.8 mg/dL Normal 8.6-10.2 Compreh ensive Internal Medicine Work Phone: Chloride molar conc 102 mmol/L Normal 96-106 Compr ehensive Internal Medicine Work Phone: CO2 molar conc 26 mmol/L Normal 20-29 [facility]prehens [facility] Work Phone: Creatinine mass conc 0.97 mg/dL Normal 0.76-1.27 Comp rehensive Internal Medicine Work Phone: GFR/1.73 sq M predicted among blacks CKD-EPI vol rate/area (S/P/Bld) 96 mL/min/1.73 Normal Comprehensiv e Internal Medicine Work Phone: GFR/1.73 sq M predicted among non-blacks CKD-EPI vol rate/area (S/P/Bld) 83 mL/min/1.73 Normal [facility] Work Phone: Globulin Calculated mass conc (S) 2.2 g/dL Normal 1.5-4.5 [facility] Work Phone: Glucose mass conc 89 mg/dL Normal 65-99 Compreh ensive Internal Medicine Work Phone: Potassium molar conc 4.4 mmol/L Normal 3.5-5.2 Comp rehensive Internal Medicine Work Phone: Protein mass conc 6.7 g/dL Normal 6.0-8.5 Compreh ensive Internal Medicine Work Phone: Sodium molar conc 145 mmol/L Abnormal 134-144 Compreh ensive [facility] Medicine Work Phone: Urea nitrogen mass conc 12 mg/dL Normal 8-27 [facility] Work Phone: Urea nitrogen/Creatinine mass ratio 12 mg/mg Normal 10-24 [facility] Work Phone: CALCIFEDIOL ([id number])Ordered B y: Strap Buckler on 08-11-2017 25-Hydroxyvitamin D2+25-Hydroxyvitamin D3 mass conc 46.3 ng/mL Normal 30.0-100.0 [facility] Work Phone: Comment on above: Vitamin D deficiency has been defined by the [place] of[place]icine and an Endocrine Society practice guideline as alevel of serum 25-OH vitamin D less than 20 ng/mL (1,2).The Endocrine Society went on to further define vitamin Dinsufficiency as a level between 21 and 29 ng/mL (2).1. IOM ([place] of Medicine). 2010. Dietary reference intakes for calcium and D. [place]: The National Academies Press.2. Ana Maria MF, Dhaval PUGA, Glendy RAGLAND, et al. Evaluation, treatment, and prevention of vitamin D deficiency: an Endocrine Society clinical practice guideline. JCEM. 2010; 96(7):1911-30. PATIENT WAS FASTINGP ERFORMED BY: [employer] [place] [id number] CBC WITH MANUAL DIFF ([id number]) Ordered By: Strap Buckler on 08-11-2017 Basophils (Bld) [#/Vol] 0.0 {x10E3/uL} Normal 0.0-0.2 [facility] Work Phone: Comment on above: PATIENT WAS FASTINGP ERFORMED BY: [email or web address] [facility] [id number] Basophils (Bld) [#/Vol] 0.0 10*3/uL Normal 0.0-0.2 [facility]; [facility] Work Phone: Basophils Auto #/vol (Bld) 0.0 {x10E3/uL} Normal 0.0-0.2 [facility] Work Phone: Basophils/100 WBC (Bld) 0 % Normal [facility] Work Phone: Comment on above: PATIENT WAS FASTINGP ERFORMED BY: [email or web address] [facility] [id number] Basophils/100 WBC Auto (Bld) 0 % Normal [facility] Work Phone: Eosinophils (Bld) [#/Vol] 0.3 {x10E3/uL} Normal 0.0-0.4 [facility] Work Phone: Comment on above: PATIENT WAS FASTINGP ERFORMED BY: [facility] Ulsfof[address] [facility]umBlue [facility] [id number] Eosinophils (Bld) [#/Vol] 0.3 10*3/uL Normal 0.0-0.4 [facility]; [facility] Work Phone: Eosinophils Auto #/vol (Bld) 0.3 {x10E3/uL} Normal 0.0-0.4 [facility] Work Phone: Eosinophils/100 WBC (Bld) 5 % Normal [facility] Work Phone: Comment on above: PATIENT WAS FASTINGP ERFORMED BY: Kleer[address] [facility]um[facility] [id number] Eosinophils/100 WBC Auto (Bld) 5 % Normal [facility] Work Phone: Erythrocyte distribution width (RBC) [Ratio] 13.1 % Normal 12.3-15.4 [facility] Work Phone: Comment on above: PATIENT WAS FASTINGP ERFORMED BY: [employer] Zprfdo47[address] ElementumBlue [facility] [id number] Erythrocyte distribution width Auto Ratio (RBC) 13.1 % Normal 12.3-15.4 [facility] Work Phone: Hematocrit (Bld) [Volume fraction] 42.5 % Normal 37.5-51.0 [facility] Work Phone: Comment on above: PATIENT WAS FASTINGP ERFORMED BY: mobifriends70 [address] [facility]um[facility] [id number] Hematocrit Auto Volume Fraction (Bld) 42.5 % Normal 37.5-51.0 [facility] Internal [facility] Work Phone: Hemoglobin mass conc (Bld) 14.3 g/dL Normal 13.0-17.7 [facility] Work Phone: Comment on above: PATIENT WAS FASTINGP ERFORMED BY: [facility] [id number] Immature granulocytes #/vol (Bld) 0.0 {x10E3/uL} Normal 0.0-0.1 [facility] Work Phone: Comment on above: PATIENT WAS FASTINGP ERFORMED BY: [place] [id number] [facility] [id number] Immature granulocytes (Bld) [#/Vol] 0.0 10*3/uL Normal 0.0-0.1 [facility]; [facility] Work Phone: Immature granulocytes/100 WBC (Bld) 0 % Normal [facility] Work Phone: Comment on above: PATIENT WAS FASTINGP ERFORMED BY: [place] [id number] [facility] [id number] Lymphocytes (Bld) [#/Vol] 1.6 {x10E3/uL} Normal 0.7-3.1 [facility] Work Phone: Comment on above: PATIENT WAS FASTINGP ERFORMED BY: [place] [id number] [facility] [id number] Lymphocytes (Bld) [#/Vol] 1.6 10*3/uL Normal 0.7-3.1 [facility]; [facility] Work Phone: Lymphocytes Auto #/vol (Bld) 1.6 {x10E3/uL} Normal 0.7-3.1 [facility] Work Phone: Lymphocytes/100 WBC (Bld) 25 % Normal [facility] Work Phone: Comment on above: PATIENT WAS FASTINGP ERFORMED BY: [place] [id number] [facility] [id number] Lymphocytes/100 WBC Auto (Bld) 25 % Normal [facility] Work Phone: MCH (RBC) [Entitic mass] 31.0 pg Normal 26.6-33.0 [facility] Work Phone: Comment on above: PATIENT WAS FASTINGP ERFORMED BY: [facility]6370 [facility] [id number] MCH Auto Entitic mass (RBC) 31.0 pg Normal 26.6-33.0 [facility] Work Phone: MCHC (RBC) [Mass/Vol] 33.6 g/dL Normal 31.5-35.7 [facility] Internal Medicine Work Phone: Comment on above: PATIENT WAS FASTINGP ERFORMED BY: [facility] [place] [id number] [facility] [id number] MCHC Auto mass conc (RBC) 33.6 g/dL Normal 31.5-35.[address] [facility] Internal Medicine Work Phone: MCV (RBC) [Entitic vol] 92 fL Normal 79-97 [facility] Work Phone: Comment on above: PATIENT WAS FASTINGP ERFORMED BY: [facility] [place] [id number] [facility] [id number] MCV Auto Entitic volume (RBC) 92 fL Normal 79-[address] [facility] Internal Medicine Work Phone: Monocytes (Bld) [#/Vol] 0.4 {x10E3/uL} Normal 0.1-0.[address] [facility] Internal Medicine Work Phone: Comment on above: PATIENT WAS FASTINGP ERFORMED BY: [facility]6370 [facility] [id number] Monocytes (Bld) [#/Vol] 0.4 10*3/uL Normal 0.1-0.9 [facility]; [facility] Work Phone: Monocytes Auto #/vol (Bld) 0.4 {x10E3/uL} Normal 0.1-0.9 [facility] Work Phone: Monocytes/100 WBC (Bld) 7 % Normal [facility] Work Phone: Comment on above: PATIENT WAS FASTINGP ERFORMED BY: [place] [id number] [facility] [id number] Monocytes/100 WBC Auto (Bld) 7 % Normal [facility] Work Phone: Neutrophils (Bld) [#/Vol] 4.0 {x10E3/uL} Normal 1.4-7.0 [facility] Work Phone: Comment on above: PATIENT WAS FASTINGP ERFORMED BY: [facility] AM AnalyticsHiram HensleyLjuwyt5[address] ElementumBlue [facility] [id number] Neutrophils (Bld) [#/Vol] 4.0 10*3/uL Normal 1.4-7.0 [facility]; [facility] Work Phone: Neutrophils Auto #/vol (Bld) 4.0 {x10E3/uL} Normal 1.4-7.0 [facility] Work Phone: Neutrophils/100 WBC (Bld) 63 % Normal [facility] Work Phone: Comment on above: PATIENT WAS FASTINGP ERFORMED BY: [facility] AM AnalyticsHiram HensleyWtdraq7381 [facility] [id number] Neutrophils/100 WBC Auto (Bld) 63 % Normal [facility] Work Phone: Platelets (Bld) [#/Vol] 237 {x10E3/uL} Normal 150-379 [facility] Work Phone: Comment on above: PATIENT WAS FASTINGP ERFORMED BY: [facility] AM AnalyticsHiram HensleyQshloe3[address] [facility]umBlue [facility] [id number] Platelets (Bld) [#/Vol] 237 10*3/uL Normal 150-379 [facility]; [facility] Work Phone: Platelets Auto #/vol (Bld) 237 {x10E3/uL} Normal 150-379 [facility] Work Phone: RBC (Bld) [#/Vol] 4.61 {x10E6/uL} Normal 4.14-5.80 [facility] Internal Medicine Work Phone: Comment on above: PATIENT WAS FASTINGP ERFORMED BY: [facility] LabHiram HensleyRylnja95[address] ElementumBlue [facility] [id number] RBC (Bld) [#/Vol] 4.61 10*6/uL Normal 4.14-5.80 [facility] ehensive Internal Medicine; [facility] Work Phone: RBC Auto #/vol (Bld) 4.61 {x10E6/uL} Normal 4.14-5.80 [facility] Work Phone: WBC (Bld) [#/Vol] 6.3 {x10E3/uL} Normal 3.4-10.8 [facility] Work Phone: Comment on above: PATIENT WAS FASTINGP ERFORMED BY: [employer]6370 [facility] [id number] WBC (Bld) [#/Vol] 6.3 10*3/uL Normal 3.4-10.8 [facility] Internal Medicine; [facility] Work Phone: WBC Auto #/vol (Bld) 6.3 {x10E3/uL} Normal 3.4-10.8 [facility] Work Phone: Lipid Panel ([id number])Ordered B y: Strap Buckler on 08-11-2017 Cholesterol in HDL mass conc 44 mg/dL Normal [facility] Work Phone: Comment on above: PATIENT WAS FASTINGP ERFORMED BY: [employer]ifriends70 [facility] [id number]; ov 5/9 Cholesterol in LDL mass conc 94 mg/dL Normal 0-99 [facility] Work Phone: Comment on above: PATIENT WAS FASTINGP ERFORMED BY: [employer]6370 [facility]MostBlue [facility] [id number]; ov 5/9 Cholesterol in LDL/Cholesterol in HDL mass ratio 2.1 {ratio} Normal 0.0-3.6 [facility] Work Phone: Comment on above: LDL/HDL Ratio Men Wo men 1/2 Avg.Risk 1.0 1.5 Avg.Risk 3.6 3.2 2X Avg.Risk 6.2 5.0 3X Avg.Risk 8.0 6.1 PATIENT WAS FASTINGP ERFORMED BY: CB [facility] Rkxdim0835 [address] RoadDublin [place] [id number]; ov 5/9 Cholesterol in VLDL mass conc 22 mg/dL Normal 5-40 [facility] Work Phone: Comment on above: PATIENT WAS FASTINGP ERFORMED BY: CB [facility] Ipvolz0158 [address] RoadDublin [place] [id number]; ov 5/9 Cholesterol mass conc 160 mg/dL Normal 100-199 [facility] prehensive Internal Medicine Work Phone: Comment on above: PATIENT WAS FASTINGP ERFORMED BY: CB [facility] Iqwrag67[address] RoadDublin [place] [id number]; ov 5/9 Triglyceride mass conc 111 mg/dL Normal 0-149 [facility] Work Phone: Comment on above: PATIENT WAS FASTINGP ERFORMED BY: CB [facility] Vhqhzr4620 [address] RoadDublin [place] [id number]; ov 5/9 MICROALBUMINOrdered By: Syst em Truant Officer on 08-11-2017 Albumin DL <= 20 mg/L mass conc (U) 6.0 ug/mL Normal [facility] Work Phone: Comment on above: PATIENT WAS FASTINGP ERFORMED BY: CB [facility] Iouhrp5[address] RoadDublin [place] [id number] Albumin/Creatinine mass ratio (U) 4.7 {mg/g_creat} Normal 0.0-30.0 [facility] Work Phone: Comment on above: PATIENT WAS FASTINGP ERFORMED BY: CB [facility] Kdoxkv9054 [address] RoadDublin [place] [id number] Creatinine mass conc (U) 128.6 mg/dL Normal [facility] Work Phone: Comment on above: PATIENT WAS FASTINGP ERFORMED BY: CB [facility] Ohvaav0770 [address] RoadDublin [place] [id number] Metabolic Panel, Comprehensi ve ([id number])Ordered By: Strap Buckler on 08-11-2017 Albumin mass conc 4.3 g/dL Normal 3.6-4.8 Compreh ensive Internal Medicine Work Phone: Comment on above: PATIENT WAS FASTINGP ERFORMED BY: [facility] Cmetce1297 [address] RoadDublin [place] [id number] Albumin/Globulin mass ratio 1.9 {ratio} Normal 1.2-2.[address] [facility] Internal Medicine Work Phone: Comment on above: PATIENT WAS FASTINGP ERFORMED BY: CB [facility] Utqjzd9606 [address] RoadDublin [place] [id number] ALP [Catalytic activity/Vol] 101 U/L Normal 39-117 [facility]; [facility] Internal Medicine Work Phone: ALP enzyme act/vol 101 [iU]/L Normal 39-117 [facility] Internal Medicine Work Phone: Comment on above: PATIENT WAS FASTINGP ERFORMED BY: [facility] Hirkdo7074 [address] RoadDublin [place] [id number] ALT [Catalytic activity/Vol] 37 U/L Normal 0-44 [facility]; [facility] Internal Medicine Work Phone: ALT enzyme act/vol 37 [iU]/L Normal 0-44 [facility] Internal Medicine Work Phone: Comment on above: PATIENT WAS FASTINGP ERFORMED BY: [facility] Snuyok08[address] RoadDublin [place] [id number] AST [Catalytic activity/Vol] 25 U/L Normal 0-[address] [facility] Internal Medicine; [facility] Internal Medicine Work Phone: AST enzyme act/vol 25 [iU]/L Normal 0-40 [facility] Internal Medicine Work Phone: Comment on above: PATIENT WAS FASTINGP ERFORMED BY: CB [facility] Lbnsof3612 [address] RoadDublin [place] [id number] Bilirubin mass conc 1.8 mg/dL Abnormal 0.0-1.2 [facility] Internal Medicine Work Phone: Comment on above: PATIENT WAS FASTINGP ERFORMED BY: CB [facility] Bymeai8944 [address] RoadDublin [place] [id number] Calcium mass conc 9.2 mg/dL Normal 8.6-10.2 Compreh ensive Internal Medicine Work Phone: Comment on above: PATIENT WAS FASTINGP ERFORMED BY: [facility] Eldyge4864 [address] RoadDublin [place] [id number] Chloride molar conc 102 mmol/L Normal 96-106 Compr ehensive Internal Medicine Work Phone: Comment on above: PATIENT WAS FASTINGP ERFORMED BY: [facility] Rsjoon1801 [address] RoadDublin [place] [id number] CO2 molar conc 24 mmol/L Normal 18-29 Comprehens [facility] Work Phone: Comment on above: PATIENT WAS FASTINGP ERFORMED BY: CB [facility] Myjqow0125 [address] Roadblin [place] [id number] Creatinine mass conc 0.95 mg/dL Normal 0.76-1.27 Comp [facility]ensive Internal Medicine Work Phone: Comment on above: PATIENT WAS FASTINGP ERFORMED BY: CB [facility] Nrfhoy6495 [address]Lower [place] [id number] GFR/1.73 sq M predicted among blacks CKD-EPI vol rate/area (S/P/Bld) 99 mL/min/1.73 Normal Comprehensiv e Internal Medicine Work Phone: Comment on above: PATIENT WAS FASTINGP ERFORMED BY: CB [facility] Iksqbh8116 [address] RoadCatawba Valley Medical Centerin [place] [id number] GFR/1.73 sq M predicted among non-blacks CKD-EPI vol rate/area (S/P/Bld) 85 mL/min/1.73 Normal [facility] Work Phone: Comment on above: PATIENT WAS FASTINGP ERFORMED BY: CB [facility] Bpfmko6812 Flores RoadCatawba Valley Medical Centerin [place] [id number] Globulin (S) [Mass/Vol] 2.3 g/dL Normal 1.5-4.5 [facility] Work Phone: Comment on above: PATIENT WAS FASTINGP ERFORMED BY: CB [facility] Lvpbmh3082 [address] RoadDublin [place] [id number] Globulin Calculated mass conc (S) 2.3 g/dL Normal 1.5-4.5 [facility] Work Phone: Glucose mass conc 94 mg/dL Normal 65-99 Compreh ensive Internal Medicine Work Phone: Comment on above: PATIENT WAS FASTINGP ERFORMED BY: [facility] Rbplpr4733 [address] RoadDublin [place] [id number] Potassium molar conc 4.1 mmol/L Normal 3.5-5.2 Comp rehensive Internal Medicine Work Phone: Comment on above: PATIENT WAS FASTINGP ERFORMED BY: CB [facility] Fugdil7470 [address] RoadDublin [place] [id number] Protein mass conc 6.6 g/dL Normal 6.0-8.5 Compreh ensive Internal Medicine Work Phone: Comment on above: PATIENT WAS FASTINGP ERFORMED BY: [facility] Ttmqvw7985 [address] RoadDublin [place] [id number] Sodium molar conc 143 mmol/L Normal 134-144 Compreh ensive Internal Medicine Work Phone: Comment on above: PATIENT WAS FASTINGP ERFORMED BY: [facility] Assqck1354 [address] RoadDublin [place] [id number] Urea nitrogen mass conc 11 mg/dL Normal 8-27 [facility] Work Phone: Comment on above: PATIENT WAS FASTINGP ERFORMED BY: [facility] Gjqkgo6797 [address] RoadDublin [place] [id number] Urea nitrogen/Creatinine mass ratio 12 mg/mg Normal 10-24 [facility] Work Phone: Comment on above: PATIENT WAS FASTINGP ERFORMED BY: [facility] Lmxcdg6586 [address] RoadDublin [place] [id number] TSH ([id number])Ordered By: Grzegorz sanchez [employer] Officer on 08-11-2017 Thyrotropin Qn 2.830 {uIU/mL} Normal 0.450-4.50 0 [facility] Work Phone: Comment on above: PATIENT WAS FASTINGP ERFORMED BY: [facility] Uysdar2256 [address] RoadDublin [place] [id number] URINALYSIS ([id number])Ordered By : Strap Buckler on 08-11-2017 Appearance Nom (U) Clear Normal Compre hensive Internal Medicine Work Phone: Comment on above: PATIENT WAS FASTINGP ERFORMED BY: [facility] Boss6[address] RoadDublin [place] [id number] Bilirubin Ql (U) Negative Normal Comprehe nsive Internal Medicine Work Phone: Comment on above: PATIENT WAS FASTINGP ERFORMED BY: [facility] LabHiram HensleyQczdvk2428 [address] RoadDublin [place] [id number] Bilirubin Ql (U) Negative Normal Comprehe nsive Internal Medicine; [facility] Work Phone: Color Nom (U) Yellow Normal Comprehensi ve Internal Medicine Work Phone: Comment on above: PATIENT WAS FASTINGP ERFORMED BY: [facility] Hensleylin6[address] RoadDuin [place] [id number] Glucose Ql (U) Negative Normal Comprehens [facility] Work Phone: Comment on above: PATIENT WAS FASTINGP ERFORMED BY: [facility] Hensleylin6[address] RoadDuin [place] [id number] Glucose Ql (U) Negative Normal Comprehens [facility]; [facility] Work Phone: Hemoglobin Ql (U) Negative Normal Compreh ensive Internal Medicine Work Phone: Comment on above: PATIENT WAS FASTINGP ERFORMED BY: [facility] LabHiram HensleyIrpvju6920 [address] RoadDublin [place] [id number] Hemoglobin Ql (U) Negative Normal Compreh ensive Internal Medicine; [facility] Work Phone: Hemoglobin Test strip Ql (U) Negative Normal [facility] Work Phone: Ketones Ql (U) Negative Normal Comprehens [facility] Work Phone: Comment on above: PATIENT WAS FASTINGP ERFORMED BY: [facility] LabHiram HensleyXgxdyx8395 [address] RoadDublin [place] [id number] Ketones Ql (U) Negative Normal Comprehens [facility]; [facility] Work Phone: Leukocyte esterase Test strip Ql (U) Negative Normal [facility] Work Phone: Comment on above: PATIENT WAS FASTINGP ERFORMED BY: [facility] LabHiram HensleyQbaszu0675 [address] RoadDublin [place] [id number] Leukocyte esterase Test strip Ql (U) Negative Normal [facility]; [facility] Work Phone: Microscopic observation LM Nom (Urine sed) MICNIP Normal [facility] Work Phone: Comment on above: Microscopic not javon cated and not performed. PATIENT WAS FASTINGP ERFORMED BY: [facility] LabHiram HensleyLhiaab4501 [address] RoadDublin [place] [id number] Nitrite Ql (U) Negative Normal Comprehens [facility] Work Phone: Comment on above: PATIENT WAS FASTINGP ERFORMED BY: [facility] Hensleylin6[address] RoadDublin [place] [id number] Nitrite Ql (U) Negative Normal Comprehens [facility]; [facility] Work Phone: Nitrite Test strip Ql (U) Negative Normal [facility] Work Phone: pH (U) 5.0 [pH] Normal 5.0-7.5 [facility] Work Phone: Comment on above: PATIENT WAS FASTINGP ERFORMED BY: [facility] Hensleylin6[address] RoadDublin [place] [id number] pH Test strip (U) 5.0 [pH] Normal 5.0-7.5 Compreh ensive Internal Medicine Work Phone: Protein Ql (U) Negative Normal Comprehens [facility] Work Phone: Comment on above: PATIENT WAS FASTINGP ERFORMED BY: [facility] LabCokorina HensleyXbzoyc68[address] RoadDublin [place] [id number] Protein Ql (U) Negative Normal Comprehens [facility]; [facility] Work Phone: Protein Test strip Ql (U) Negative Normal [facility] Work Phone: Specific gravity Relative Density (U) 1.019 1 Normal 1.005-1.03 0 [facility] Work Phone: Comment on above: PATIENT WAS FASTINGP ERFORMED BY: [facility] AnalyticsL[facility] Niityt1750 [facility] [id number] Urobilinogen (U) [Mass/Vol] 0.2 mg/dL Normal 0.2-1.0 [facility]; [facility] Work Phone: Urobilinogen Test strip mass conc (U) 0.2 mg/dL Normal 0.2-1.0 Comprehensiv e Internal Medicine Work Phone: Comment on above: PATIENT WAS FASTINGP ERFORMED BY: [facility] Nfideb8598 [facility] [id number] MICROSOMAL ANTIBODY ([id number])O rdered By: Strap Buckler on 04-08-2017 Liver kidney microsomal 1 Ab Qn (S) <1.0 Normal 0.0-20.0 [facility] Work Phone: Comment on above: Negative 0.0 - 20.0 Equivocal 20.1 - 24.9 Positive >24.9 . LKM type 1 antibodies are detected in patients with autoimmune hepatitis type 2 and in up to 8% of patients with chronic HCV infection. PATIENT NOT FASTINGP ERFORMED BY: [facility] Hnuhgo8980 [facility] [id number] CREATININE BLOOD ([id number])Orde red By: Strap Buckler on 03-09-2017 Creatinine mass conc 1.00 mg/dL Normal 0.76-1.27 Comp [facility] Internal Medicine Work Phone: Comment on above: PATIENT NOT FASTINGP ERFORMED BY: [facility] AM AnalyticsAsp[facility]ton[facility]6370 [facility] [id number] GFR/1.73 sq M predicted among blacks CKD-EPI vol rate/area (S/P/Bld) 93 mL/min/1.73 Normal Comprehensiv e Internal Medicine Work Phone: Comment on above: PATIENT NOT FASTINGP ERFORMED BY: AM AnalyticsAspirus [facility]ton[facility] Hospital6370 [facility] [id number] GFR/1.73 sq M predicted among non-blacks CKD-EPI vol rate/area (S/P/Bld) 80 mL/min/1.73 Normal [facility] Work Phone: Comment on above: PATIENT NOT FASTINGP ERFORMED BY: [facility] EndoInSightkorina HensleyFmszry9181 [facility] [id number] MITESH (ANTINUCLEAR ANTIBODY) ( [id number])Ordered By: Strap Buckler on 02-17-2017 Nuclear Ab Ql (S) Negative Normal Compreh ensive Internal Medicine Work Phone: Comment on above: PATIENT NOT FASTINGP ERFORMED BY: mobifriends70 [facility] [id number] Nuclear Ab Ql (S) Negative Normal Compreh ensive Internal Medicine; [facility] Work Phone: ANTI-LIVER/KIDNEY MICROSOMAL ANTIBODY ([id number])Ordered By: Strap Buckler on 02-17-2017 Thyroperoxidase Ab Qn 138 {IU/mL} Abnormal 0-34 Co mprehensive Internal Medicine Work Phone: Comment on above: PATIENT NOT FASTINGP ERFORMED BY: mobifriends70 [facility] [id number] TPO Ab Qn 138 [IU]/mL Abnormal 0-34 [facility]; [facility] Work Phone: ANTIMITOCHONDRIAL ANTIBODY ( [id number])Ordered By: Strap Buckler on 02-17-2017 Mitochondria M2 IgG Qn (S) <20.0 Normal 0.0-20.0 [facility] Work Phone: Comment on above: Negative 0.0 - 20.0 Equivocal 20.1 - 24.9 Positive >24.9 . Mitochondrial (M2) Antibodies are found in 90-96% of patients with primary biliary cirrhosis. PATIENT NOT FASTINGP ERFORMED BY: [employer] [facility] [id number] ASM (ANTI SMOOTH MUSCLE ANTI BODY) ([id number])Ordered By: Strap Buckler on 02-17-2017 Actin IgG Qn 21 {Units} Abnormal 0-19 Comprehensiv e Internal Medicine Work Phone: Comment on above: Negative 0 - 19 Weak positive 20 - 30 Moderate to strong positive >30 . Actin Antibodies are found in 52-85% of patients with autoimmune hepatitis or chronic active hepatitis and in 22% of patients with primary biliary cirrhosis. PATIENT NOT FASTINGP ERFORMED BY: [facility] [employer] Oytdcv8216 [address] [facility]umBlue [facility] [id number] CERULOPLASMIN ([id number])Ordered By: Strap Buckler on 02-17-2017 Ceruloplasmin mass conc 24.6 mg/dL Normal 16.0-31.[address] [facility] Internal Medicine Work Phone: Comment on above: PATIENT NOT FASTINGP ERFORMED BY: [facility] [employer] Fdpqig6152 [address] ElementumBlue [facility] [id number] CMV IGM ANTBDY ([id number])Ordere d By: Strap Buckler on 02-17-2017 CMV IgM IA Qn <30.0 Normal 0.0-29.9 Comprehensi Internal Medicine Work Phone: Comment on above: Negative <30.0 Equiv ocal 30.0 - 34.9 Positive >34.9 A positive result is generally indicative of acute infection, reactivation or persistent IgM production. PATIENT NOT FASTINGP ERFORMED BY: [employer]6370 AquaMostBlue Ridge Regional Hospital [id number] FERRITIN ([id number])Ordered By: Strap Buckler on 02-17-2017 Ferritin mass conc 163 ng/mL Normal 30-400 [facility] Internal Medicine Work Phone: Comment on above: PATIENT NOT FASTINGP ERFORMED BY: [employer] Ukdyha0168 [address] ElementumBlue Ridge [facility] Hospital [id number] GGT (GAMMA GLUTAMYLTRANSFERA SE) ([id number])Ordered By: Strap Buckler on 02-17-2017 Gamma glutamyl transferase [Catalytic activity/Vol] 38 U/L Normal 0-65 [facility]; [facility] Work Phone: Gamma glutamyl transferase enzyme act/vol 38 [iU]/L Normal 0-[address] [facility] Internal Medicine Work Phone: Comment on above: PATIENT NOT FASTINGP ERFORMED BY: [employer] Dujutt8567 [address] [facility] Hospital[facility] [place] [id number] HEPATIC FUNCTION PANEL ([id number])Ordered By: Strap Buckler on 02-17-2017 Albumin mass conc 4.6 g/dL Normal 3.6-4.8 [facility] Internal Medicine Work Phone: Comment on above: PATIENT NOT FASTINGP ERFORMED BY: [facility] LabCokorina HensleyWkafdz2562 [address] RoadDublin [place] [id number] ALP [Catalytic activity/Vol] 116 U/L Normal 39-117 [facility]; [facility] Internal Medicine Work Phone: ALP enzyme act/vol 116 [iU]/L Normal 39-117 [facility] Internal Medicine Work Phone: Comment on above: PATIENT NOT FASTINGP ERFORMED BY: [facility] LabCokorina HensleyGrmvvu7930 [address] Roadblin [place] [id number] ALT [Catalytic activity/Vol] 40 U/L Normal 0-44 [facility]; [facility] Internal Medicine Work Phone: ALT enzyme act/vol 40 [iU]/L Normal 0-44 [facility] Internal Medicine Work Phone: Comment on above: PATIENT NOT FASTINGP ERFORMED BY: [facility] Bfeuhu7849 Flores RoadCatawba Valley Medical Centerin [place] [id number] AST [Catalytic activity/Vol] 22 U/L Normal 0-40 [facility]; [facility] Internal Medicine Work Phone: AST enzyme act/vol 22 [iU]/L Normal 0-40 [facility] Internal Medicine Work Phone: Comment on above: PATIENT NOT FASTINGP ERFORMED BY: [facility] Ykrxho7365 Flores RoadCatawba Valley Medical Centerin [place] [id number] Bilirubin mass conc 1.8 mg/dL Abnormal 0.0-1.2 [facility] Internal Medicine Work Phone: Comment on above: PATIENT NOT FASTINGP ERFORMED BY: [facility] Zntkwf6523 Flores RoadDublin [place] [id number] Bilirubin.direct mass conc 0.35 mg/dL Normal 0.00-0.[address] [facility] Internal Medicine Work Phone: Comment on above: PATIENT NOT FASTINGP ERFORMED BY: [facility] Zpxkkn8306 [address] [facility] [place] [id number] Protein mass conc 7.0 g/dL Normal 6.0-8.5 Compreh ensive Internal Medicine Work Phone: Comment on above: PATIENT NOT FASTINGP ERFORMED BY: [facility] Mann Qmrydb3722 [facility] [id number] HEPATITIS PANEL ([id number])Order ed By: Strap Buckler on 02-17-2017 HAV IgM IA Ql Negative Normal Comprehensi ve Internal Medicine Work Phone: Comment on above: PATIENT NOT FASTINGP ERFORMED BY: [facility] Tqwcaj1478 [facility] [id number] HAV IgM IA Ql Negative Normal Comprehensi ve Internal Medicine; [facility] Work Phone: HBV core IgM IA Ql Negative Normal Compre hensive Internal Medicine Work Phone: Comment on above: PATIENT NOT FASTINGP ERFORMED BY: [facility] Yyfldg7816 [facility] [id number] HBV core IgM IA Ql Negative Normal Compre hensive Internal Medicine; [facility] Work Phone: HBV surface Ag IA Ql Negative Normal Comp rehensive Internal Medicine Work Phone: Comment on above: PATIENT NOT FASTINGP ERFORMED BY: [facility] Mann Fkhkqt4060 [facility] [id number] HBV surface Ag IA Ql Negative Normal Comp rehensive Internal Medicine; [facility] Work Phone: HCV Ab Signal/Cutoff IA RelACnc 0.1 {s/co_ratio} Normal 0.0-0.9 [facility] Work Phone: Comment on above: Negative: < 0.8 Inde terminate: 0.8 - 0.9 Positive: > 0.9 . The CDC recommends that a positive HCV antibody result be followed up with a HCV Nucleic Acid Amplification test (808105). PATIENT NOT FASTINGP ERFORMED BY: [facility]6370 [facility] [id number] TRANSFERRIN ([id number])Ordered B y: Strap Buckler on 02-17-2017 Transferrin mass conc 232 mg/dL Normal 200-370 Com prehensive Internal Medicine Work Phone: Comment on above: PATIENT NOT FASTINGP ERFORMED BY: [facility] NetworksRandolph Health [id number] CALCIFIDIOL (18013) VIT D 25 Ordered By: Strap Buckler on 02-11-2017 25-Hydroxyvitamin D2+25-Hydroxyvitamin D3 mass conc 54.2 ng/mL Normal 30.0-100.0 [facility] Work Phone: Comment on above: Vitamin D deficiency has been defined by the [place] of[place]icine and an Endocrine Society practice guideline as alevel of serum 25-OH vitamin D less than 20 ng/mL (1,2).The Endocrine Society went on to further define vitamin Dinsufficiency as a level between 21 and 29 ng/mL (2).1. IOM ([place] of Medicine). 2010. Dietary reference intakes for calcium and D. [place]: The National Academies Press.2. Ana Maria MF, Dhaval PUGA, Glendy RAGLAND, et al. Evaluation, treatment, and prevention of vitamin D deficiency: an Endocrine Society clinical practice guideline. JCEM. 2010; 96(7):1911-30. PATIENT WAS FASTINGP ERFORMED BY: [employer]6370 VR1Rand[facility] [id number] CBC W/AUTO DIFF WBC ([id number])O rdered By: Strap Buckler on 02-11-2017 Basophils (Bld) [#/Vol] 0.0 {x10E3/uL} Normal 0.0-0.2 [facility] Work Phone: Comment on above: PATIENT WAS FASTINGP ERFORMED BY: [employer]6370 [address] [facility] [id number] Basophils (Bld) [#/Vol] 0.0 10*3/uL Normal 0.0-0.2 [facility]; [facility] Work Phone: Basophils Auto #/vol (Bld) 0.0 {x10E3/uL} Normal 0.0-0.2 [facility] Work Phone: Basophils/100 WBC (Bld) 0 % Normal [facility] Work Phone: Comment on above: PATIENT WAS FASTINGP ERFORMED BY: [facility]neola District HospitalAlexis Udiwtz1551 [facility] [id number] Basophils/100 WBC Auto (Bld) 0 % Normal [facility] Work Phone: Eosinophils (Bld) [#/Vol] 0.3 {x10E3/uL} Normal 0.0-0.4 [facility] Work Phone: Comment on above: PATIENT WAS FASTINGP ERFORMED BY: [facility] [place] [id number] [facility] [id number] Eosinophils (Bld) [#/Vol] 0.3 10*3/uL Normal 0.0-0.4 [facility]; [facility] Work Phone: Eosinophils Auto #/vol (Bld) 0.3 {x10E3/uL} Normal 0.0-0.4 [facility] Work Phone: Eosinophils/100 WBC (Bld) 3 % Normal [facility] Work Phone: Comment on above: PATIENT WAS FASTINGP ERFORMED BY: [facility] [place] [id number] [facility] [id number] Eosinophils/100 WBC Auto (Bld) 3 % Normal [facility] Work Phone: Erythrocyte distribution width (RBC) [Ratio] 13.4 % Normal 12.3-15.4 [facility] Work Phone: Comment on above: PATIENT WAS FASTINGP ERFORMED BY: [facility] [place] [id number] [facility] [id number] Erythrocyte distribution width Auto Ratio (RBC) 13.4 % Normal 12.3-15.4 [facility] Work Phone: Hematocrit (Bld) [Volume fraction] 44.2 % Normal 37.5-51.0 [facility] Work Phone: Comment on above: PATIENT WAS FASTINGP ERFORMED BY: [facility] [place] [id number] [facility] [id number] Hematocrit Auto Volume Fraction (Bld) 44.2 % Normal 37.5-51.0 [facility] Internal Medicine Work Phone: Hemoglobin mass conc (Bld) 15.1 g/dL Normal 12.6-17.7 [facility] Work Phone: Comment on above: PATIENT WAS FASTINGP ERFORMED BY: [facility] Jqsxdo9885 [address] [facility] [id number] Immature granulocytes #/vol (Bld) 0.0 {x10E3/uL} Normal 0.0-0.1 [facility] Work Phone: Comment on above: PATIENT WAS FASTINGP ERFORMED BY: LabAspirus Ontonagon Hospital6370 [facility] [id number] Immature granulocytes (Bld) [#/Vol] 0.0 10*3/uL Normal 0.0-0.1 [facility]; [facility] Work Phone: Immature granulocytes/100 WBC (Bld) 0 % Normal [facility] Work Phone: Comment on above: PATIENT WAS FASTINGP ERFORMED BY: [facility] Zcjqtb4691 [facility] [id number] Lymphocytes (Bld) [#/Vol] 1.6 {x10E3/uL} Normal 0.7-3.1 [facility] Work Phone: Comment on above: PATIENT WAS FASTINGP ERFORMED BY: LabCoEast Orange VA Medical CenterAhoelo9896 [facility] [id number] Lymphocytes (Bld) [#/Vol] 1.6 10*3/uL Normal 0.7-3.1 [facility]; [facility] Work Phone: Lymphocytes Auto #/vol (Bld) 1.6 {x10E3/uL} Normal 0.7-3.1 [facility] Work Phone: Lymphocytes/100 WBC (Bld) 18 % Normal [facility] Work Phone: Comment on above: PATIENT WAS FASTINGP ERFORMED BY: LabMelinda Ville [id number] [facility] [id number] Lymphocytes/100 WBC Auto (Bld) 18 % Normal [facility] Work Phone: MCH (RBC) [Entitic mass] 31.6 pg Normal 26.6-33.[address] [facility] Internal Medicine Work Phone: Comment on above: PATIENT WAS FASTINGP ERFORMED BY: [place] [id number] [facility] [id number] MCH Auto Entitic mass (RBC) 31.6 pg Normal 26.6-33.[address] [facility] Internal Medicine Work Phone: MCHC (RBC) [Mass/Vol] 34.2 g/dL Normal 31.5-35.7 [facility] Internal Medicine Work Phone: Comment on above: PATIENT WAS FASTINGP ERFORMED BY: [place] [id number] [facility] [id number] MCHC Auto mass conc (RBC) 34.2 g/dL Normal 31.5-35.[address] [facility] Internal Medicine Work Phone: MCV (RBC) [Entitic vol] 93 fL Normal 79-[address] [facility] Internal Medicine Work Phone: Comment on above: PATIENT WAS FASTINGP ERFORMED BY: [place] [id number] [facility] [id number] MCV Auto Entitic volume (RBC) 93 fL Normal 79-[address] [facility] Internal Medicine Work Phone: Monocytes (Bld) [#/Vol] 0.6 {x10E3/uL} Normal 0.1-0.[address] [facility] Internal Medicine Work Phone: Comment on above: PATIENT WAS FASTINGP ERFORMED BY: [place] [id number] [facility] [id number] Monocytes (Bld) [#/Vol] 0.6 10*3/uL Normal 0.1-0.[address] [facility] Internal Medicine; [facility] Work Phone: Monocytes Auto #/vol (Bld) 0.6 {x10E3/uL} Normal 0.1-0.[address] [facility] Internal Medicine Work Phone: Monocytes/100 WBC (Bld) 6 % Normal [facility] Work Phone: Comment on above: PATIENT WAS FASTINGP ERFORMED BY: [facility] AnalyticsL[facility] Zppkrf8321 [facility] [id number] Monocytes/100 WBC Auto (Bld) 6 % Normal [facility] Work Phone: Neutrophils (Bld) [#/Vol] 6.4 {x10E3/uL} Normal 1.4-7.0 [facility] Work Phone: Comment on above: PATIENT WAS FASTINGP ERFORMED BY: [facility] [place] [id number] [facility] [id number] Neutrophils (Bld) [#/Vol] 6.4 10*3/uL Normal 1.4-7.0 [facility]; [facility] Work Phone: Neutrophils Auto #/vol (Bld) 6.4 {x10E3/uL} Normal 1.4-7.0 [facility] Work Phone: Neutrophils/100 WBC (Bld) 73 % Normal [facility] Work Phone: Comment on above: PATIENT WAS FASTINGP ERFORMED BY: [facility] AM AnalyticsMelinda Ville [id number] [facility] [id number] Neutrophils/100 WBC Auto (Bld) 73 % Normal [facility] Work Phone: Platelets (Bld) [#/Vol] 266 {x10E3/uL} Normal 150-379 [facility] Work Phone: Comment on above: PATIENT WAS FASTINGP ERFORMED BY: [facility] WestMedigramEast Orange VA Medical CenterLryfuh7776 [facility] [id number] Platelets (Bld) [#/Vol] 266 10*3/uL Normal 150-379 [facility]; [facility] Work Phone: Platelets Auto #/vol (Bld) 266 {x10E3/uL} Normal 150-379 [facility] Work Phone: RBC (Bld) [#/Vol] 4.78 {x10E6/uL} Normal 4.14-5.80 [facility] Work Phone: Comment on above: PATIENT WAS FASTINGP ERFORMED BY: [facility] LabHiram HensleyYvqkgw5795 [facility] [id number] RBC (Bld) [#/Vol] 4.78 10*6/uL Normal 4.14-5.80 [facility]ensive Internal Medicine; [facility] Work Phone: RBC Auto #/vol (Bld) 4.78 {x10E6/uL} Normal 4.14-5.80 [facility] Work Phone: WBC (Bld) [#/Vol] 9.0 {x10E3/uL} Normal 3.4-10.8 [facility] Internal Medicine Work Phone: Comment on above: PATIENT WAS FASTINGP ERFORMED BY: [facility] LabHiram HensleyOdebmp6143 [facility] [id number] WBC (Bld) [#/Vol] 9.0 10*3/uL Normal 3.4-10.8 [facility] Internal Medicine; [facility] Work Phone: WBC Auto #/vol (Bld) 9.0 {x10E3/uL} Normal 3.4-10.8 [facility] Work Phone: LIPID PANEL ([id number])Ordered B y: Strap Buckler on 02-11-2017 Cholesterol in HDL mass conc 42 mg/dL Normal [facility] Work Phone: Comment on above: PATIENT WAS FASTINGP ERFORMED BY: [facility] LabCokorina Sxmzit0270 [facility] [id number] Cholesterol in LDL mass conc 100 mg/dL Abnormal 0-99 [facility] Work Phone: Comment on above: PATIENT WAS FASTINGP ERFORMED BY: [facility] Wenucn5392 [facility] [id number] Cholesterol in LDL/Cholesterol in HDL mass ratio 2.4 {ratio_units} Normal 0.0-3.6 [facility] Work Phone: Comment on above: LDL/HDL Ratio Men Wo men 1/2 Avg.Risk 1.0 1.5 Avg.Risk 3.6 3.2 2X Avg.Risk 6.2 5.0 3X Avg.Risk 8.0 6.1 PATIENT WAS FASTINGP ERFORMED BY: [facility] Uyttuz2062 [address] ElementumDublin [place] [id number] Cholesterol in VLDL mass conc 33 mg/dL Normal 5-40 [facility] Work Phone: Comment on above: PATIENT WAS FASTINGP ERFORMED BY: [facility] Irzgdx9538 [address] ElementumCatawba Valley Medical Centerin [place] [id number] Cholesterol mass conc 175 mg/dL Normal 100-199 [facility] prehensive Internal Medicine Work Phone: Comment on above: PATIENT WAS FASTINGP ERFORMED BY: [facility] Duzpnw7561 [address] ElementumBlue Ridge Regional Hospital [id number] Triglyceride mass conc 164 mg/dL Abnormal 0-149 [facility] Work Phone: Comment on above: PATIENT WAS FASTINGP ERFORMED BY: [facility] Qwhigu4600 [address] [facility] [place] [id number] METABOLIC PANEL, COMPREHENSI VE ([id number])Ordered By: Strap Buckler on 02-11-2017 Albumin mass conc 4.5 g/dL Normal 3.6-4.8 Compreh ensive Internal Medicine Work Phone: Comment on above: PATIENT WAS FASTINGP ERFORMED BY: [facility] Pvvxxb1875 [address] [facility] [place] [id number] Albumin/Globulin mass ratio 1.9 {ratio} Normal 1.2-2.2 [facility] Work Phone: Comment on above: PATIENT WAS FASTINGP ERFORMED BY: CB [facility] Jzptkr7280 [address] [facility] [place] [id number] ALP [Catalytic activity/Vol] 116 U/L Normal 39-117 [facility]; [facility] Work Phone: ALP enzyme act/vol 116 [iU]/L Normal 39-117 [facility]pre [facility] Internal Medicine Work Phone: Comment on above: PATIENT WAS FASTINGP ERFORMED BY: [facility] Nagpgc4318 [address] RoadDublin [place] [id number] ALT [Catalytic activity/Vol] 72 U/L Abnormal 0-44 [facility]; [facility] Internal Medicine Work Phone: ALT enzyme act/vol 72 [iU]/L Abnormal 0-44 [facility] Internal Medicine Work Phone: Comment on above: PATIENT WAS FASTINGP ERFORMED BY: CB [facility] Edierq9602 [address] RoadDublin [place] [id number] AST [Catalytic activity/Vol] 30 U/L Normal 0-40 [facility]; [facility] Internal Medicine Work Phone: AST enzyme act/vol 30 [iU]/L Normal 0-40 [facility] Internal Medicine Work Phone: Comment on above: PATIENT WAS FASTINGP ERFORMED BY: [facility] Nutgmi6653 [address] RoadDublin [place] [id number] Bilirubin mass conc 1.8 mg/dL Abnormal 0.0-1.2 [facility] Internal Medicine Work Phone: Comment on above: PATIENT WAS FASTINGP ERFORMED BY: [facility] Ykoxmv5076 [address] RoadDublin [place] [id number] Calcium mass conc 9.5 mg/dL Normal 8.6-10.2 Compreh [facility]ive Internal Medicine Work Phone: Comment on above: PATIENT WAS FASTINGP ERFORMED BY: [facility] Qesshw3591 [address] RoadDublin [place] [id number] Chloride molar conc 102 mmol/L Normal 96-106 Compr ensive Internal Medicine Work Phone: Comment on above: PATIENT WAS FASTINGP ERFORMED BY: CB [facility] Bwtccj4279 [address] RoadDublin [place] [id number] CO2 molar conc 24 mmol/L Normal 18-29 Comprehens [facility] Internal Medicine Work Phone: Comment on above: PATIENT WAS FASTINGP ERFORMED BY: [facility] Aqaogh0773 [address] RoadDublin [place] [id number] Creatinine mass conc 1.06 mg/dL Normal 0.76-1.27 Comp rehensive Internal Medicine Work Phone: Comment on above: PATIENT WAS FASTINGP ERFORMED BY: [facility] Gsunsv2884 [address] Roadblin [place] [id number] GFR/1.73 sq M predicted among blacks CKD-EPI vol rate/area (S/P/Bld) 87 mL/min/1.73 Normal Comprehensiv e Internal Medicine Work Phone: Comment on above: PATIENT WAS FASTINGP ERFORMED BY: [facility] Llhrtp7835 [address] Roadblin [place] [id number] GFR/1.73 sq M predicted among non-blacks CKD-EPI vol rate/area (S/P/Bld) 75 mL/min/1.73 Normal [facility] Work Phone: Comment on above: PATIENT WAS FASTINGP ERFORMED BY: [facility] Unwoxr4384 [address] [facility]in [place] [id number] Globulin (S) [Mass/Vol] 2.4 g/dL Normal 1.5-4.5 [facility] Work Phone: Comment on above: PATIENT WAS FASTINGP ERFORMED BY: [facility] Pizxhq0529 [address] [facility] [id number] Globulin Calculated mass conc (S) 2.4 g/dL Normal 1.5-4.5 [facility] Work Phone: Glucose mass conc 94 mg/dL Normal 65-99 Compreh ensive Internal Medicine Work Phone: Comment on above: PATIENT WAS FASTINGP ERFORMED BY: [facility] Hwxdqr5341 [address] [facility]in [place] [id number] Potassium molar conc 4.3 mmol/L Normal 3.5-5.2 Comp rehensive Internal Medicine Work Phone: Comment on above: PATIENT WAS FASTINGP ERFORMED BY: [facility] Ewogyn8719 [address] [facility]in [place] [id number] Protein mass conc 6.9 g/dL Normal 6.0-8.5 Compreh ensive Internal Medicine Work Phone: Comment on above: PATIENT WAS FASTINGP ERFORMED BY: [facility] Grwtfm0837 [address] [facility] [place] [id number] Sodium molar conc 143 mmol/L Normal 134-144 Compreh ensive Internal Medicine Work Phone: Comment on above: PATIENT WAS FASTINGP ERFORMED BY: [facility] LabHiram HensleyIezpso9305 [facility] [id number] Urea nitrogen mass conc 17 mg/dL Normal 8-27 [facility] Work Phone: Comment on above: PATIENT WAS FASTINGP ERFORMED BY: [facility] LabAlexis Hrpmzx0140 [facility] [id number] Urea nitrogen/Creatinine mass ratio 16 mg/mg Normal 10-24 [facility] Work Phone: Comment on above: PATIENT WAS FASTINGP ERFORMED BY: [facility] Mann Dsxbbf1366 [facility] [id number] MICROALBUMINOrdered By: Syst em Truant Officer on 02-11-2017 Albumin DL <= 20 mg/L mass conc (U) 5.4 ug/mL Normal [facility] Work Phone: Comment on above: PATIENT WAS FASTINGP ERFORMED BY: [facility] Mann Koqtlk9491 [facility] [id number] Albumin/Creatinine mass ratio (U) 2.8 {mg/g_creat} Normal 0.0-30.0 [facility] Work Phone: Comment on above: PATIENT WAS FASTINGP ERFORMED BY: [facility] Ofpvgg5820 [facility] [id number] Creatinine mass conc (U) 195.5 mg/dL Normal [facility] Work Phone: Comment on above: PATIENT WAS FASTINGP ERFORMED BY: [facility] LabAlexis Rurrxc2721 [facility] [id number] Microscopic ExaminationOrder ed By: Strap Buckler on 02-11-2017 Bacteria LM.HPF #/area (Urine sed) None seen Normal [facility] Work Phone: Epithelial cells LM.HPF #/area (Urine sed) None seen Normal 0 - 10 [facility] Work Phone: Mucus LM Ql (Urine sed) Present Normal [facility] Work Phone: RBC LM.HPF #/area (Urine sed) 0-2 Normal 0 - 2 [facility] Work Phone: WBC LM.HPF #/area (Urine sed) 0-5 Normal 0 - 5 [facility] Work Phone: TSH ([id number])Ordered By: Syste m Truant Officer on 02-11-2017 Thyrotropin Qn 3.290 {uIU/mL} Normal 0.450-4.50 0 [facility] Work Phone: Comment on above: PATIENT WAS FASTINGP ERFORMED BY: [facility] Rqazgb8676 [address] RoadDublin [place] [id number] URINALYSIS, W/ MICRO ([id number]) Ordered By: Strap Buckler on 02-11-2017 Appearance Nom (U) Clear Normal Compre hensive Internal Medicine Work Phone: Comment on above: PATIENT WAS FASTINGP ERFORMED BY: CB [facility] Gfzved3843 [address] RoadDublin [place] [id number] Bilirubin Ql (U) Negative Normal Comprehe nsive Internal Medicine Work Phone: Comment on above: PATIENT WAS FASTINGP ERFORMED BY: CB [facility] Vppqmk7201 [address] RoadDublin [place] [id number] Bilirubin Ql (U) Negative Normal Comprehe nsive Internal Medicine; [facility] Work Phone: Color Nom (U) Yellow Normal Comprehensi ve Internal Medicine Work Phone: Comment on above: PATIENT WAS FASTINGP ERFORMED BY: CB [facility] Qomisr4370 [address] RoadDublin [place] [id number] Glucose Ql (U) Negative Normal Comprehens [facility] Work Phone: Comment on above: PATIENT WAS FASTINGP ERFORMED BY: CB [facility] Rcsrwg8061 [address] RoadDublin [place] [id number] Glucose Ql (U) Negative Normal Comprehens [facility]; [facility] Work Phone: Hemoglobin Ql (U) Negative Normal Compreh ensive [facility] Medicine Work Phone: Comment on above: PATIENT WAS FASTINGP ERFORMED BY: [facility] LabHiram Boss6[address] RoadDublin [place] [id number] Hemoglobin Ql (U) Negative Normal Compreh ensive [facility]; [facility] Work Phone: Hemoglobin Test strip Ql (U) Negative Normal [facility] Work Phone: Ketones Ql (U) Negative Normal Comprehens [facility] Work Phone: Comment on above: PATIENT WAS FASTINGP ERFORMED BY: [facility] LabHiram HensleyKerclu2982 [address] RoadDublin [place] [id number] Ketones Ql (U) Negative Normal Comprehens [facility]; [facility] Work Phone: Leukocyte esterase Test strip Ql (U) Trace Abnormal [facility] Work Phone: Comment on above: PATIENT WAS FASTINGP ERFORMED BY: [facility] Hensleylin6[address] RoadCatawba Valley Medical Centerin [place] [id number] Microscopic observation LM Nom (Urine sed) See below: Normal [facility] Work Phone: Comment on above: Microscopic was javon cated and was performed. PATIENT WAS FASTINGP ERFORMED BY: [facility] LabHiram HensleyIrcgdl1872 [address] RoadDublin [place] [id number] Nitrite Ql (U) Negative Normal Comprehens [facility] Work Phone: Comment on above: PATIENT WAS FASTINGP ERFORMED BY: [facility] LabHiram HensleyXinbho8[address] RoadDublin [place] [id number] Nitrite Ql (U) Negative Normal Comprehens [facility]; [facility] Work Phone: Nitrite Test strip Ql (U) Negative Normal [facility] Work Phone: pH (U) 5.0 [pH] Normal 5.0-7.5 [facility] Work Phone: Comment on above: PATIENT WAS FASTINGP ERFORMED BY: [facility] LabHiram HensleyKpqrsn1546 [address] RoadDublin [place] [id number] pH Test strip (U) 5.0 [pH] Normal 5.0-7.5 Compreh ensive Internal Medicine Work Phone: Protein Ql (U) Negative Normal Comprehens [facility] Work Phone: Comment on above: PATIENT WAS FASTINGP ERFORMED BY: [facility] Boss6370 [facility] [id number] Protein Ql (U) Negative Normal Comprehens [facility]; [facility] Work Phone: Protein Test strip Ql (U) Negative Normal [facility] Work Phone: Specific gravity Relative Density (U) 1.026 1 Normal 1.005-1.03 0 [facility] Work Phone: Comment on above: PATIENT WAS FASTINGP ERFORMED BY: [facility] Hensleylin6370 [facility] [id number] Urobilinogen (U) [Mass/Vol] 0.2 mg/dL Normal 0.2-1.0 [facility]; [facility] Work Phone: Urobilinogen Test strip mass conc (U) 0.2 mg/dL Normal 0.2-1.0 Comprehensiv e Internal Medicine Work Phone: Comment on above: PATIENT WAS FASTINGP ERFORMED BY: [facility] Boss6370 [facility] [id number] LIPID PANEL ([id number])Ordered B y: Strap Buckler on 08-04-2016 Cholesterol in HDL mass conc 49 mg/dL Normal [facility] Work Phone: Comment on above: PATIENT WAS FASTINGP ERFORMED BY: [facility] AM AnalyticsHiram HensleyCjvrfz3494 [facility] [id number] Cholesterol in LDL mass conc 90 mg/dL Normal 0-99 [facility] Work Phone: Comment on above: PATIENT WAS FASTINGP ERFORMED BY: [facility] LabHiram HensleyQiqqsk8149 [facility] [id number] Cholesterol in LDL/Cholesterol in HDL mass ratio 1.8 {ratio_units} Normal 0.0-3.6 [facility] Work Phone: Comment on above: LDL/HDL Ratio Men Wo men 1/2 Avg.Risk 1.0 1.5 Avg.Risk 3.6 3.2 2X Avg.Risk 6.2 5.0 3X Avg.Risk 8.0 6.1 PATIENT WAS FASTINGP ERFORMED BY: [employer] [employer] [place] [id number] Cholesterol in VLDL mass conc 26 mg/dL Normal 5-40 [facility] Work Phone: Comment on above: PATIENT WAS FASTINGP ERFORMED BY: [employer] [place] [id number] Cholesterol mass conc 165 mg/dL Normal 100-199 [facility] prehensive Internal Medicine Work Phone: Comment on above: PATIENT WAS FASTINGP ERFORMED BY: [facility] [id number] Triglyceride mass conc 129 mg/dL Normal 0-149 [facility] Work Phone: Comment on above: PATIENT WAS FASTINGP ERFORMED BY: [employer] [place] [id number] PSA (PROSTATE SPECIFIC ANTIG EN) (V76.44)Ordered By: Strap Buckler on 08-04-2016 Prostate specific Ag mass conc 3.4 ng/mL Normal 0.0-4.0 [facility] Work Phone: Comment on above: Neema ECLIA methodol ogy. .According to the [place] [employer], Serum PSA shoulddecrease and remain at undetectable levels after radicalprostatectomy. The AUA defines biochemical recurrence as an initialPSA value 0.2 ng/mL or greater followed by a subsequent confirmatoryPSA value 0.2 ng/mL or greater.Values obtained with different assay methods or kits cannot be usedinterchangeably. Results cannot be interpreted as absolute evidenceof the presence or absence of malignant disease. PATIENT WAS FASTINGP ERFORMED BY: [employer] [id number] CALCIFIDIOL ([id number]) VIT D 25 Ordered By: Strap Buckler on 11-27-2015 25-Hydroxyvitamin D2+25-Hydroxyvitamin D3 mass conc 38.9 ng/mL Normal 30.0-100.0 [facility] Work Phone: Comment on above: Vitamin D deficiency has been defined by the [place] of[place]icine and an Endocrine Society practice guideline as alevel of serum 25-OH vitamin D less than 20 ng/mL (1,2).The Endocrine Society went on to further define vitamin Dinsufficiency as a level between 21 and 29 ng/mL (2).1. IOM ([place] of Medicine). 2010. Dietary reference intakes for calcium and D. [place]: The National Academies Press.2. Ana Maria MF, Dhaval PUGA, Glendy RAGLAND, et al. Evaluation, treatment, and prevention of vitamin D deficiency: an Endocrine Society clinical practice guideline. JCEM. 2010; 96(7):1911-30. PATIENT WAS FASTINGP ERFORMED BY: [employer] [place] [id number] LIPID PANEL ([id number])Ordered B y: Strap Buckler on 11-27-2015 Cholesterol in HDL mass conc 50 mg/dL Normal [facility] Work Phone: Comment on above: According to ATP-III Guidelines, HDL-C >59 mg/dL is considered anegative risk factor for CHD. PATIENT WAS FASTINGP ERFORMED BY: [employer]riends70 [employer] [place] [id number] Cholesterol in LDL mass conc 80 mg/dL Normal 0-99 [facility] Work Phone: Comment on above: PATIENT WAS FASTINGP ERFORMED BY: [employer] [employer] [place] [id number] Cholesterol in LDL/Cholesterol in HDL mass ratio 1.6 {ratio_units} Normal 0.0-3.6 [facility] Work Phone: Comment on above: LDL/HDL Ratio Men Wo men 1/2 Avg.Risk 1.0 1.5 Avg.Risk 3.6 3.2 2X Avg.Risk 6.2 5.0 3X Avg.Risk 8.0 6.1 PATIENT WAS FASTINGP ERFORMED BY: [facility] LabCo Oruobf[address] [facility] [place] [id number] Cholesterol in VLDL mass conc 27 mg/dL Normal 5-40 [facility] Work Phone: Comment on above: PATIENT WAS FASTINGP ERFORMED BY: [facility] LabHiram HensleyKdrjhm[address] [facility]in [place] [id number] Cholesterol mass conc 157 mg/dL Normal 100-199 [facility] prehensive Internal Medicine Work Phone: Comment on above: PATIENT WAS FASTINGP ERFORMED BY: L[facility] LabCokorina HensleyVietaw[address] [facility] [id number] Triglyceride mass conc 137 mg/dL Normal 0-149 [facility] Work Phone: Comment on above: PATIENT WAS FASTINGP ERFORMED BY: [facility] Mann Oqrzyc8799 [facility] [id number] METABOLIC PANEL, COMPREHENSI VE ([id number])Ordered By: Strap Buckler on 11-27-2015 Albumin mass conc 4.6 g/dL Normal 3.6-4.8 Compreh ensive [facility] Medicine Work Phone: Comment on above: PATIENT WAS FASTINGP ERFORMED BY: [facility] Xoiahn7897 [facility] [id number] Information: [id number] Albumin/Globulin mass ratio 2.3 {ratio} Normal 1.1-2.5 [facility] Work Phone: Comment on above: PATIENT WAS FASTINGP ERFORMED BY: [facility] LabCoEast Orange VA Medical CenterHtgjqe7474 [facility] [id number] Information: [id number] ALP [Catalytic activity/Vol] 102 U/L Normal 39-117 [facility]; [facility] Work Phone: ALP enzyme act/vol 102 [iU]/L Normal 39-117 [facility]pre [facility] Work Phone: Comment on above: PATIENT WAS FASTINGP ERFORMED BY: [facility] Hospital Ungdrs5968 [facility] [id number] Information: [id number] ALT [Catalytic activity/Vol] 51 U/L Abnormal 0-44 [facility]; [facility] Internal Medicine Work Phone: ALT enzyme act/vol 51 [iU]/L Abnormal 0-44 [facility] Work Phone: Comment on above: PATIENT WAS FASTINGP ERFORMED BY: LabAspirus [facility]ton[facility]6370 [facility] [id number] Information: [id number] AST [Catalytic activity/Vol] 21 U/L Normal 0-[address] [facility] Internal Medicine; [facility] Internal [facility] Work Phone: AST enzyme act/vol 21 [iU]/L Normal 0-40 [facility] Work Phone: Comment on above: PATIENT WAS FASTINGP ERFORMED BY: [facility]6370 [facility] [id number] Information: [id number] Bilirubin mass conc 1.7 mg/dL Abnormal 0.0-1.2 [facility] Internal Medicine Work Phone: Comment on above: PATIENT WAS FASTINGP ERFORMED BY: LabAsp[facility]ton[facility] Hospital6370 [facility] [id number] Information: [id number] Calcium mass conc 9.5 mg/dL Normal 8.6-10.2 [facility] Work Phone: Comment on above: PATIENT WAS FASTINGP ERFORMED BY: LabAsp[facility]ton[facility] Hospital6370 [facility] [id number] Information: [id number] Chloride molar conc 100 mmol/L Normal 97-108 [facility] Internal Medicine Work Phone: Comment on above: PATIENT WAS FASTINGP ERFORMED BY: LabCoEast Orange VA Medical CenterYhflad3085 [facility] [id number] Information: [id number] CO2 molar conc 23 mmol/L Normal 18-29 Comprehens [facility] Work Phone: Comment on above: PATIENT WAS FASTINGP ERFORMED BY: LabAsp[facility]6370 [facility] [id number] Information: [id number] Creatinine mass conc 1.01 mg/dL Normal 0.76-1.27 Comp rehensive Internal Medicine Work Phone: Comment on above: PATIENT WAS FASTINGP ERFORMED BY: [facility]6370 [facility] [id number] Information: [id number] GFR/1.73 sq M predicted among blacks CKD-EPI vol rate/area (S/P/Bld) 92 mL/min/1.73 Normal Comprehensiv e Internal Medicine Work Phone: Comment on above: PATIENT WAS FASTINGP ERFORMED BY: [facility]6370 [facility] [id number] Information: [id number] GFR/1.73 sq M predicted among non-blacks CKD-EPI vol rate/area (S/P/Bld) 80 mL/min/1.73 Normal [facility] Work Phone: Comment on above: PATIENT WAS FASTINGP ERFORMED BY: [facility]6370 [facility] [id number] Information: [id number] Globulin (S) [Mass/Vol] 2.0 g/dL Normal 1.5-4.5 [facility] Work Phone: Comment on above: PATIENT WAS FASTINGP ERFORMED BY: LabAsp[facility]6370 [facility] [id number] Information: [id number] Globulin Calculated mass conc (S) 2.0 g/dL Normal 1.5-4.5 [facility] Work Phone: Glucose mass conc 82 mg/dL Normal 65-99 Compreh ensive [facility] Medicine Work Phone: Comment on above: PATIENT WAS FASTINGP ERFORMED BY: LabAsp[facility]6370 [facility] [id number] Information: [id number] Potassium molar conc 4.0 mmol/L Normal 3.5-5.2 Comp rehensive Internal Medicine Work Phone: Comment on above: PATIENT WAS FASTINGP ERFORMED BY: [facility] Boss[address] [facility] [id number] Information: [id number] Protein mass conc 6.6 g/dL Normal 6.0-8.5 Compreh ensive Internal Medicine Work Phone: Comment on above: PATIENT WAS FASTINGP ERFORMED BY: [facility] Oeopmo2704 [facility] [id number] Information: [id number] Sodium molar conc 144 mmol/L Normal 134-144 Compreh ensive [facility] Medicine Work Phone: Comment on above: PATIENT WAS FASTINGP ERFORMED BY: [facility] Fyugrz3400 [facility] [id number] Information: [id number] Urea nitrogen mass conc 18 mg/dL Normal 8-27 [facility] Work Phone: Comment on above: PATIENT WAS FASTINGP ERFORMED BY: [facility] Mann Cbfdrf3585 [facility] [id number] Information: [id number] Urea nitrogen/Creatinine mass ratio 18 mg/mg Normal 10-22 [facility] Work Phone: Comment on above: PATIENT WAS FASTINGP ERFORMED BY: [facility] Oceyyz4127 [facility] [id number] Information: [id number] CALCIFIDIOL (02872) VIT D 25 Ordered By: Strap Buckler on 08-13-2015 25-Hydroxyvitamin D2+25-Hydroxyvitamin D3 mass conc 32.5 ng/mL Normal 30.0-100.0 [facility] Work Phone: Comment on above: Vitamin D deficiency has been defined by the [place] of[place]icine and an Endocrine Society practice guideline as alevel of serum 25-OH vitamin D less than 20 ng/mL (1,2).The Endocrine Society went on to further define vitamin Dinsufficiency as a level between 21 and 29 ng/mL (2).1. IOM ([place] of Medicine). 2010. Dietary reference intakes for calcium and D. [place]: The National Academies Press.2. Ana Maria MF, Dhaval PUGA, Glendy RAGLAND, et al. Evaluation, treatment, and prevention of vitamin D deficiency: an Endocrine Society clinical practice guideline. JCEM. 2010; 96(7):1911-30. PATIENT WAS FASTINGP ERFORMED BY: [facility] Mbwbxr2778 [facility] [id number] LIPID PANEL ([id number])Ordered B y: Strap Buckler on 08-13-2015 Cholesterol in HDL mass conc 48 mg/dL Normal [facility] Work Phone: Comment on above: According to ATP-III Guidelines, HDL-C >59 mg/dL is considered anegative risk factor for CHD. PATIENT WAS FASTINGP ERFORMED BY: [facility] Blgqpi3804 [facility] [id number] Information: [id number] Cholesterol in LDL mass conc 146 mg/dL Abnormal 0-99 [facility] Work Phone: Comment on above: PATIENT WAS FASTINGP ERFORMED BY: [facility] Dycqff7944 [facility] [id number] Information: [id number] Cholesterol in LDL/Cholesterol in HDL mass ratio 3.0 {ratio_units} Normal 0.0-3.6 [facility] Work Phone: Comment on above: LDL/HDL Ratio Men Wo men 1/2 Avg.Risk 1.0 1.5 Avg.Risk 3.6 3.2 2X Avg.Risk 6.2 5.0 3X Avg.Risk 8.0 6.1 PATIENT WAS FASTINGP ERFORMED BY: [facility] Iwzcos1878 [facility] [id number] Information: [id number] Cholesterol in VLDL mass conc 43 mg/dL Abnormal 5-40 [facility] Work Phone: Comment on above: PATIENT WAS FASTINGP ERFORMED BY: CB [facility] Bglmob2361 [facility] [id number] Information: [id number] Cholesterol mass conc 237 mg/dL Abnormal 100-199 [facility] prehensive Internal Medicine Work Phone: Comment on above: PATIENT WAS FASTINGP ERFORMED BY: CB [facility] Ucfaag2126 [facility] [id number] Information: [id number] Triglyceride mass conc 216 mg/dL Abnormal 0-149 [facility] Work Phone: Comment on above: PATIENT WAS FASTINGP ERFORMED BY: CB [facility] Awctxr3830 [facility] [id number] Information: [id number] Basic Metabolic Profile (BMP )Ordered By: Strap Buckler on 04-01-2015 Basic metabolic 2000 panel 71 mL/min Normal [facility] Work Phone: Comment on above: Non- GFR Calc Basic metabolic 2000 panel 11 mg/dL Normal 7-18 [facility] Work Phone: Basic metabolic 2000 panel 1.12 mg/dL Normal 0.70-1.30 [facility] Work Phone: Comment on above: The validity of the calculated GFR AND GFRAA in patients over70 years has not been determined. Clinical correlation isessential. Basic metabolic 2000 panel 4.5 mmol/L Normal 3.5-5.1 [facility] Work Phone: Comment on above: Moderate Hemolysis, Result may be falsely increased. Basic metabolic 2000 panel 72.42 ml/min Normal [facility] Work Phone: Basic metabolic 2000 panel 26.0 mmol/L Normal 21.0-32.0 [facility] Work Phone: Basic metabolic 2000 panel 9.8 {RATIO} Abnormal 10-20 [facility] Work Phone: Basic metabolic 2000 panel 139 mmol/L Normal 136-145 [facility] Work Phone: Basic metabolic 2000 panel 9.0 mg/dL Normal 8.5-10.1 [facility] Work Phone: Basic metabolic 2000 panel 109 mg/dL Normal 70-110 [facility] Work Phone: Basic metabolic 2000 panel 8 1 Normal 5-15 [facility] Work Phone: Basic metabolic 2000 panel 105 mmol/L Normal 98-107 [facility] Work Phone: Basic metabolic 2000 panel 86 mL/min Normal [facility] Work Phone: Comment on above: GFR Calc CBC W/Diff, AutomatedOrdered By: Strap Buckler on 04-01-2015 Absolute Neut 5.0 {X10_3/uL} Normal 2.0-7.7 Compreh ensive Internal Medicine Work Phone: Basophils/100 WBC Auto (Bld) 0.6 % Normal 0-1 [facility] Work Phone: Eosinophils/100 WBC Auto (Bld) 1.9 % Normal 0-5 [facility] Work Phone: Erythrocyte distribution width Auto Ratio (RBC) 12.2 % Normal 11.6-14.6 [facility] Work Phone: Hematocrit Auto Volume Fraction (Bld) 43.3 % Normal 40-54 Comprehens [facility] Work Phone: Hemoglobin mass conc (Bld) 15.1 g/dL Normal 13.0-16.5 [facility] Work Phone: IM GRAN % 0.400 % Normal 0.0-0.9 [facility] Work Phone: Comment on above: IG% - Immature Granu locytes (promyelocytes, myelocytes andmetamyelocytes) > 1% indicates that a LEFT SHIFT is Present. Lymphocytes Auto #/vol (Bld) 1.30 {X10_3/ul} Normal 0.83-4.51 [facility] Work Phone: Lymphocytes/100 WBC Auto (Bld) 18.6 % Abnormal 19-41 [facility] Work Phone: MCH Auto Entitic mass (RBC) 31.9 pg Normal 27.0-32.0 [facility] Work Phone: MCHC Auto mass conc (RBC) 34.9 {g/gl} Normal 32-[address] [facility] Internal Medicine Work Phone: MCV Auto Entitic volume (RBC) 91.5 fL Normal 80-94 [facility] Work Phone: Monocytes/100 WBC Auto (Bld) 7.0 % Normal 0-[address] [facility] Internal [facility] Work Phone: Monocytes/100 WBC Auto (Bld) 7.0 % Normal 0-[address] [facility] Work Phone: Neutrophils/100 WBC Auto (Bld) 71.5 % Abnormal 47-[address] [facility] Internal [facility] Work Phone: Platelet mean volume Auto Entitic volume (Bld) 10.8 fL Normal 6.2-12.[address] [facility] Internal [facility] Work Phone: Platelets Auto #/vol (Bld) 258 10*3/uL Normal 150-[address] [facility] Internal Medicine Work Phone: RBC Auto #/vol (Bld) 4.73 {M/mm3} Normal 4.6-6.2 [facility] Internal Medicine Work Phone: RDW SD 41.5 fL Normal 35.1-43.[address] [facility] Internal [facility] Work Phone: WBC Auto #/vol (Bld) 7.0 10*3/uL Normal 4.4-11.0 [facility]: CBC W/Diff, Automated 1.30 {X10_3/ul} Normal 0.83-4.[address] [facility] Internal Medicine Work Phone: CBC W/Diff, Automated 41.5 fL Normal 35.1-43.9 [facility] Work [facility]: CBC W/Diff, Automated 0.400 % Normal 0.0-0.9 [facility] Internal Medicine Work Phone: Comment on above: IG% - Immature Granu locytes (promyelocytes, myelocytes andmetamyelocytes) > 1% indicates that a LEFT SHIFT is Present. CBC W/Diff, Automated 5.0 {X10_3/uL} Normal 2.0-7.7 [facility] Work Phone: CK-MB Quantitative and Index Ordered By: Strap Buckler on 04-01-2015 CKRI 0.9 % Normal 0.0-1.4 [facility] Work Phone: Comment on above: RELATIVE INDEX >1.5% IS PRESUMPTIVELY POSITIVE CPK TOTAL 138 U/L Normal 39-308 [facility] Work Phone: Comment on above: Moderate Hemolysis, Result may be falsely increased. CPKMB 1.2 ng/mL Normal 0.0-5.0 [facility] Work Phone: Comment on above: CK-MB and RI Interpr etation MB Relative Index Non-AMI 5 5 > 4 CK-MB Quantitative and Index 0.9 % Normal 0.0-1.4 [facility] Work Phone: Comment on above: RELATIVE INDEX >1.5% IS PRESUMPTIVELY POSITIVE CK-MB Quantitative and Index 138 U/L Normal 39-308 [facility] Work Phone: Comment on above: Moderate Hemolysis, Result may be falsely increased. CK-MB Quantitative and Index 1.2 ng/mL Normal 0.0-5.0 [facility] Work Phone: Comment on above: CK-MB and RI Interpr etation MB Relative Index Non-AMI 5 5 > 4 Troponin-IOrdered By: Strap Buckler on 04-01-2015 Troponin I.cardiac mass conc ng/mL Normal [facility] Work Phone: Comment on above: TROPONIN-I EXPECTED VALUES <0.05 NEGATIVE 0.06 - 0.59 AT RISK OF [place] > OR = 0.60 SUGGEST [place] CBC WITH MANUAL DIFF ([id number]) Ordered By: Strap Buckler on 02-13-2015 Basophils (Bld) [#/Vol] 0.1 {x10E3/uL} Normal 0.0-0.2 [facility] Work Phone: Comment on above: PATIENT WAS FASTINGP ERFORMED BY: [facility] CenterWdkyua3863 [facility] [id number] Information: [id number], [id number] Basophils (Bld) [#/Vol] 0.1 10*3/uL Normal 0.0-0.2 [facility]; [facility] Work Phone: Basophils Auto #/vol (Bld) 0.1 {x10E3/uL} Normal 0.0-0.2 [facility] Work Phone: Basophils/100 WBC (Bld) 1 % Normal [facility] Work Phone: Comment on above: PATIENT WAS FASTINGP ERFORMED BY: mobifriends[address] [facility] [id number] Information: [id number], [id number] Basophils/100 WBC Auto (Bld) 1 % Normal [facility] Work Phone: Eosinophils (Bld) [#/Vol] 0.2 {x10E3/uL} Normal 0.0-0.4 [facility] Work Phone: Comment on above: PATIENT WAS FASTINGP ERFORMED BY: [employer]6370 [facility]Most[facility] [id number] Information: [id number], [id number] Eosinophils (Bld) [#/Vol] 0.2 10*3/uL Normal 0.0-0.4 [facility]; [facility] Work Phone: Eosinophils Auto #/vol (Bld) 0.2 {x10E3/uL} Normal 0.0-0.4 [facility] Work Phone: Eosinophils/100 WBC (Bld) 3 % Normal [facility] Work Phone: Comment on above: PATIENT WAS FASTINGP ERFORMED BY: [employer] Owgfdt16[address] [place] [facility] [id number] Information: [id number], [id number] Eosinophils/100 WBC Auto (Bld) 3 % Normal [facility] Work Phone: Erythrocyte distribution width (RBC) [Ratio] 13.0 % Normal 12.3-15.4 [facility] Work Phone: Comment on above: PATIENT WAS FASTINGP ERFORMED BY: [facility]6370 [facility] [id number] Information: [id number], [id number] Erythrocyte distribution width Auto Ratio (RBC) 13.0 % Normal 12.3-15.4 [facility] Work Phone: Hematocrit (Bld) [Volume fraction] 44.5 % Normal 37.5-51.0 [facility] Work Phone: Comment on above: PATIENT WAS FASTINGP ERFORMED BY: [facility] [id number] Information: [id number], [id number] Hematocrit Auto Volume Fraction (Bld) 44.5 % Normal 37.5-51.0 [facility] Work Phone: Hemoglobin mass conc (Bld) 15.1 g/dL Normal 12.6-17.7 [facility] Work Phone: Comment on above: PATIENT WAS FASTINGP ERFORMED BY: [facility] [id number] Information: [id number], [id number] Immature granulocytes #/vol (Bld) 0.0 {x10E3/uL} Normal 0.0-0.1 [facility] Work Phone: Comment on above: PATIENT WAS FASTINGP ERFORMED BY: [facility] [id number] Information: [id number], [id number] Immature granulocytes (Bld) [#/Vol] 0.0 10*3/uL Normal 0.0-0.1 [facility]; [facility] Work Phone: Immature granulocytes/100 WBC (Bld) 0 % Normal [facility] Work Phone: Comment on above: PATIENT WAS FASTINGP ERFORMED BY: [facility]6370 [facility] [id number] Information: [id number] Lymphocytes (Bld) [#/Vol] 1.2 {x10E3/uL} Normal 0.7-3.1 [facility] Work Phone: Comment on above: PATIENT WAS FASTINGP ERFORMED BY: [facility]6370 [facility] [id number] Information: [id number], [id number] Lymphocytes (Bld) [#/Vol] 1.2 10*3/uL Normal 0.7-3.1 [facility]; [facility] Work Phone: Lymphocytes Auto #/vol (Bld) 1.2 {x10E3/uL} Normal 0.7-3.1 [facility] Work Phone: Lymphocytes/100 WBC (Bld) 20 % Normal [facility] Work Phone: Comment on above: PATIENT WAS FASTINGP ERFORMED BY: [place] [id number] [facility] [id number] Information: [id number], [id number] Lymphocytes/100 WBC Auto (Bld) 20 % Normal [facility] Work Phone: MCH (RBC) [Entitic mass] 31.6 pg Normal 26.6-33.0 [facility] Work Phone: Comment on above: PATIENT WAS FASTINGP ERFORMED BY: [facility] [id number] Information: [id number], [id number] MCH Auto Entitic mass (RBC) 31.6 pg Normal 26.6-33.0 [facility] Work Phone: MCHC (RBC) [Mass/Vol] 33.9 g/dL Normal 31.5-35.7 [facility] prehensive Internal Medicine Work Phone: Comment on above: PATIENT WAS FASTINGP ERFORMED BY: [facility]6370 [facility] [id number] Information: [id number], [id number] MCHC Auto mass conc (RBC) 33.9 g/dL Normal 31.5-35.7 [facility] Work Phone: MCV (RBC) [Entitic vol] 93 fL Normal 79-97 [facility] Work Phone: Comment on above: PATIENT WAS FASTINGP ERFORMED BY: [facility] HospitalHiram HensleyZdxynr4648 [facility] [id number] Information: [id number], [id number] MCV Auto Entitic volume (RBC) 93 fL Normal 79-97 [facility] Work Phone: Monocytes (Bld) [#/Vol] 0.4 {x10E3/uL} Normal 0.1-0.9 [facility] Work Phone: Comment on above: PATIENT WAS FASTINGP ERFORMED BY: [facility] Hensleylin6370 [facility] [id number] Information: [id number], [id number] Monocytes (Bld) [#/Vol] 0.4 10*3/uL Normal 0.1-0.9 [facility]; [facility] Work Phone: Monocytes Auto #/vol (Bld) 0.4 {x10E3/uL} Normal 0.1-0.9 [facility] Work Phone: Monocytes/100 WBC (Bld) 7 % Normal [facility] Work Phone: Comment on above: PATIENT WAS FASTINGP ERFORMED BY: [facility] Hensleylin6370 [facility] [id number] Information: [id number], [id number] Monocytes/100 WBC Auto (Bld) 7 % Normal [facility] Work Phone: Neutrophils (Bld) [#/Vol] 3.9 {x10E3/uL} Normal 1.4-7.0 [facility] Work Phone: Comment on above: PATIENT WAS FASTINGP ERFORMED BY: [facility] Harmarvillekorina Hthuoa3837 [facility] [id number] Information: [id number], [id number] Neutrophils (Bld) [#/Vol] 3.9 10*3/uL Normal 1.4-7.0 [facility]; [facility] Work Phone: Neutrophils Auto #/vol (Bld) 3.9 {x10E3/uL} Normal 1.4-7.0 [facility] Work Phone: Neutrophils/100 WBC (Bld) 69 % Normal [facility] Work Phone: Comment on above: PATIENT WAS FASTINGP ERFORMED BY: [facility]6370 [facility] [id number] Information: [id number], [id number] Neutrophils/100 WBC Auto (Bld) 69 % Normal [facility] Work Phone: Platelets (Bld) [#/Vol] 253 {x10E3/uL} Normal 150-379 [facility] Work Phone: Comment on above: PATIENT WAS FASTINGP ERFORMED BY: [facility]6370 [facility] [id number] Information: [id number], [id number] Platelets (Bld) [#/Vol] 253 10*3/uL Normal 150-379 [facility]; [facility] Work Phone: Platelets Auto #/vol (Bld) 253 {x10E3/uL} Normal 150-379 [facility] Work Phone: RBC (Bld) [#/Vol] 4.78 {x10E6/uL} Normal 4.14-5.80 [facility] Internal Medicine Work Phone: Comment on above: PATIENT WAS FASTINGP ERFORMED BY: [facility] [id number] Information: [id number], [id number] RBC (Bld) [#/Vol] 4.78 10*6/uL Normal 4.14-5.80 [facility]; [facility] Work Phone: RBC Auto #/vol (Bld) 4.78 {x10E6/uL} Normal 4.14-5.80 [facility] Work Phone: WBC (Bld) [#/Vol] 5.8 {x10E3/uL} Normal 3.4-10.8 [facility] prehensive Internal Medicine Work Phone: Comment on above: PATIENT WAS FASTINGP ERFORMED BY: [facility] Hensleylin6370 [facility] [id number] Information: [id number], [id number] WBC (Bld) [#/Vol] 5.8 10*3/uL Normal 3.4-10.8 [facility] Internal [facility]; [facility] Work Phone: WBC Auto #/vol (Bld) 5.8 {x10E3/uL} Normal 3.4-10.8 [facility] Work Phone: Metabolic Panel, Comprehensi ve ([id number])Ordered By: Strap Buckler on 02-13-2015 Albumin mass conc 4.5 g/dL Normal 3.6-4.8 [facility] Internal Medicine Work Phone: Comment on above: PATIENT WAS FASTINGP ERFORMED BY: [facility] Hensleylin6370 [facility] [id number] Albumin/Globulin mass ratio 1.9 {ratio} Normal 1.1-2.[address] [facility] Internal Medicine Work Phone: Comment on above: PATIENT WAS FASTINGP ERFORMED BY: [facility] Hensleylin6370 [facility] [id number] ALP [Catalytic activity/Vol] 93 U/L Normal 39-[address] [facility] Internal Medicine; [facility] Internal Medicine Work Phone: ALP enzyme act/vol 93 [iU]/L Normal 39-117 [facility] Internal Medicine Work Phone: Comment on above: PATIENT WAS FASTINGP ERFORMED BY: [facility] AM AnalyticsAlexis Ybwscd1894 [facility] [id number] ALT [Catalytic activity/Vol] 33 U/L Normal 0-[address] [facility]; [facility] Work Phone: ALT enzyme act/vol 33 [iU]/L Normal 0-44 [facility] Internal Medicine Work Phone: Comment on above: PATIENT WAS FASTINGP ERFORMED BY: [facility] Reyez Irubkq6728 [facility] [id number] AST [Catalytic activity/Vol] 21 U/L Normal 0-40 [facility]; [facility] Work Phone: AST enzyme act/vol 21 [iU]/L Normal 0-40 Compre hensive Internal Medicine Work Phone: Comment on above: PATIENT WAS FASTINGP ERFORMED BY: [facility] Dereje Hensleylin6370 [facility] [id number] Bilirubin mass conc 1.3 mg/dL Abnormal 0.0-1.2 Compr ehensive Internal Medicine Work Phone: Comment on above: PATIENT WAS FASTINGP ERFORMED BY: [facility] Dereje Boss6370 [facility] [id number] Calcium mass conc 9.5 mg/dL Normal 8.6-10.2 Compreh ensive Internal Medicine Work Phone: Comment on above: PATIENT WAS FASTINGP ERFORMED BY: [facility] Dereje Hensleylin6370 [facility] [id number] Chloride molar conc 102 mmol/L Normal 97-108 Compr ensive Internal Medicine Work Phone: Comment on above: PATIENT WAS FASTINGP ERFORMED BY: [facility] Dereje Hensleylin6370 [facility] [id number] CO2 molar conc 24 mmol/L Normal 18-29 [facility] Work Phone: Comment on above: PATIENT WAS FASTINGP ERFORMED BY: [facility] Mackenzie Akyqbj7749 [facility] [id number] Creatinine mass conc 1.01 mg/dL Normal 0.76-1.27 [facility]ensive [facility] Work Phone: Comment on above: PATIENT WAS FASTINGP ERFORMED BY: [facility] Dereje Hensleylin6370 [facility] [id number] GFR/1.73 sq M predicted among blacks CKD-EPI vol rate/area (S/P/Bld) 93 mL/min/1.73 Normal Comprehensiv e Internal Medicine Work Phone: Comment on above: PATIENT WAS FASTINGP ERFORMED BY: [facility] Kzxzqt5[address] Roadblin [place] [id number] GFR/1.73 sq M predicted among non-blacks CKD-EPI vol rate/area (S/P/Bld) 80 mL/min/1.73 Normal [facility] Work Phone: Comment on above: PATIENT WAS FASTINGP ERFORMED BY: [facility] Mvhlzo9803 [address] Roadblin [place] [id number] Globulin (S) [Mass/Vol] 2.4 g/dL Normal 1.5-4.5 [facility] Work Phone: Comment on above: PATIENT WAS FASTINGP ERFORMED BY: [facility] LabCokorina Zpcjbb1465 [address] Roadblin [place] [id number] Globulin Calculated mass conc (S) 2.4 g/dL Normal 1.5-4.5 [facility] Work Phone: Glucose mass conc 98 mg/dL Normal 65-99 Compreh ensive Internal Medicine Work Phone: Comment on above: PATIENT WAS FASTINGP ERFORMED BY: [facility] Qaiknq7509 [address] [facility] [place] [id number] Potassium molar conc 4.1 mmol/L Normal 3.5-5.2 Comp rehensive Internal Medicine Work Phone: Comment on above: PATIENT WAS FASTINGP ERFORMED BY: [facility] Jewrzj24[address] [facility] [place] [id number] Protein mass conc 6.9 g/dL Normal 6.0-8.5 Compreh ensive Internal Medicine Work Phone: Comment on above: PATIENT WAS FASTINGP ERFORMED BY: [facility] Ewpxkj8[address] [facility] [place] [id number] Sodium molar conc 143 mmol/L Normal 134-144 Compreh ensive Internal Medicine Work Phone: Comment on above: PATIENT WAS FASTINGP ERFORMED BY: [facility] Shxnpd4908 Flores RoadDublin [place] [id number] Urea nitrogen mass conc 13 mg/dL Normal 8-27 [facility] Work Phone: Comment on above: PATIENT WAS FASTINGP ERFORMED BY: [employer]6370 AquaMostBlue Ridge Regional Hospital [id number] Urea nitrogen/Creatinine mass ratio 13 mg/mg Normal 10-22 [facility] Work Phone: Comment on above: PATIENT WAS FASTINGP ERFORMED BY: [employer]6370 FloresCeterix OrthopaedicsBlue Ridge Regional Hospital [id number] PSA (PROSTATE SPECIFIC ANTIG EN) ([id number])Ordered By: Strap Buckler on 02-13-2015 Prostate specific Ag mass conc 1.8 ng/mL Normal 0.0-4.0 [facility] Work Phone: Comment on above: Zaggora ECLIA methodol ogy. .According to the [place] [employer], Serum PSA shoulddecrease and remain at undetectable levels after radicalprostatectomy. The AUA defines biochemical recurrence as an initialPSA value 0.2 ng/mL or greater followed by a subsequent confirmatoryPSA value 0.2 ng/mL or greater.Values obtained with different assay methods or kits cannot be usedinterchangeably. Results cannot be interpreted as absolute evidenceof the presence or absence of malignant disease. PATIENT WAS FASTINGP ERFORMED BY: [employer]6370 [facility] [id number] TSH ([id number])Ordered By: [employer] m Truant Officer on 02-13-2015 Thyrotropin Qn 2.460 {uIU/mL} Normal 0.450-4.50 0 [facility] Work Phone: Comment on above: PATIENT WAS FASTINGP ERFORMED BY: [employer]6[address] [facility]um[facility] [id number] CALCIFEDIOL ([id number])Ordered B y: Strap Buckler on 08-09-2014 25-Hydroxyvitamin D2+25-Hydroxyvitamin D3 mass conc 40.0 ng/mL Normal 30.0-100.0 [facility] Work Phone: Comment on above: Vitamin D deficiency has been defined by the [place] of[place]icine and an Endocrine Society practice guideline as alevel of serum 25-OH vitamin D less than 20 ng/mL (1,2).The Endocrine Society went on to further define vitamin Dinsufficiency as a level between 21 and 29 ng/mL (2).1. IOM ([place] of Medicine). 2010. Dietary reference intakes for calcium and D. [place]: The National Academies Press.2. Ana Maria MF, Dhaval PUGA, Glendy RAGLAND, et al. Evaluation, treatment, and prevention of vitamin D deficiency: an Endocrine Society clinical practice guideline. JCEM. 2010; 96(7):1911-30. PATIENT WAS FASTINGP ERFORMED BY: [employer]6370 VR1[facility] [id number] CBC WITH MANUAL DIFF ([id number]) Ordered By: Strap Buckler on 08-09-2014 Basophils (Bld) [#/Vol] 0.0 {x10E3/uL} Normal 0.0-0.2 [facility] Work Phone: Comment on above: PATIENT WAS FASTINGP ERFORMED BY: Kleer70 VR1[facility] [id number] Information: [id number] Basophils (Bld) [#/Vol] 0.0 10*3/uL Normal 0.0-0.2 [facility]; [facility] Work Phone: Basophils Auto #/vol (Bld) 0.0 {x10E3/uL} Normal 0.0-0.2 [facility] Work Phone: Basophils/100 WBC (Bld) 0 % Normal [facility] Work Phone: Comment on above: PATIENT WAS FASTINGP ERFORMED BY: [employer] Mjnaxr2[address] [facility]umBlue [facility] [id number] Information: [id number] Basophils/100 WBC Auto (Bld) 0 % Normal [facility] Work Phone: Eosinophils (Bld) [#/Vol] 0.3 {x10E3/uL} Normal 0.0-0.4 [facility] Work Phone: Comment on above: PATIENT WAS FASTINGP ERFORMED BY: [employer]6370 [facility] [id number] Information: [id number] Eosinophils (Bld) [#/Vol] 0.3 10*3/uL Normal 0.0-0.4 [facility]; [facility] Work Phone: Eosinophils Auto #/vol (Bld) 0.3 {x10E3/uL} Normal 0.0-0.4 [facility] Work Phone: Eosinophils/100 WBC (Bld) 5 % Normal [facility] Work Phone: Comment on above: PATIENT WAS FASTINGP ERFORMED BY: [place] [id number] [facility] [id number] Information: [id number] Eosinophils/100 WBC Auto (Bld) 5 % Normal [facility] Work Phone: Erythrocyte distribution width (RBC) [Ratio] 13.0 % Normal 12.3-15.4 [facility] Work Phone: Comment on above: PATIENT WAS FASTINGP ERFORMED BY: [facility] [id number] Information: [id number] Erythrocyte distribution width Auto Ratio (RBC) 13.0 % Normal 12.3-15.4 [facility] Work Phone: Hematocrit (Bld) [Volume fraction] 43.1 % Normal 37.5-51.0 [facility] Work Phone: Comment on above: PATIENT WAS FASTINGP ERFORMED BY: [facility]6370 [facility] [id number] Information: [id number] Hematocrit Auto Volume Fraction (Bld) 43.1 % Normal 37.5-51.0 [facility] Internal Medicine Work Phone: Hemoglobin mass conc (Bld) 14.6 g/dL Normal 12.6-17.7 [facility] Work Phone: Comment on above: PATIENT WAS FASTINGP ERFORMED BY: [place] [id number] [facility] [id number] Information: [id number] Immature granulocytes #/vol (Bld) 0.0 {x10E3/uL} Normal 0.0-0.1 [facility] Work Phone: Comment on above: PATIENT WAS FASTINGP ERFORMED BY: [place] [id number] [facility] [id number] Information: [id number] Immature granulocytes (Bld) [#/Vol] 0.0 10*3/uL Normal 0.0-0.1 [facility]; [facility] Work Phone: Immature granulocytes/100 WBC (Bld) 0 % Normal [facility] Work Phone: Comment on above: PATIENT WAS FASTINGP ERFORMED BY: [address] [id number] Information: [id number] Lymphocytes (Bld) [#/Vol] 1.5 {x10E3/uL} Normal 0.7-3.1 [facility] Work Phone: Comment on above: PATIENT WAS FASTINGP ERFORMED BY: [place] [id number] [facility] [id number] Information: [id number] Lymphocytes (Bld) [#/Vol] 1.5 10*3/uL Normal 0.7-3.1 [facility]; [facility] Work Phone: Lymphocytes Auto #/vol (Bld) 1.5 {x10E3/uL} Normal 0.7-3.1 [facility] Work Phone: Lymphocytes/100 WBC (Bld) 21 % Normal [facility] Work Phone: Comment on above: PATIENT WAS FASTINGP ERFORMED BY: [place] [id number] [facility] [id number] Information: [id number] Lymphocytes/100 WBC Auto (Bld) 21 % Normal [facility] Work Phone: MCH (RBC) [Entitic mass] 31.3 pg Normal 26.6-33.0 [facility] Work Phone: Comment on above: PATIENT WAS FASTINGP ERFORMED BY: [facility] [address] [id number] Information: [id number] MCH Auto Entitic mass (RBC) 31.3 pg Normal 26.6-33.[address] [facility] Internal Medicine Work Phone: MCHC (RBC) [Mass/Vol] 33.9 g/dL Normal 31.5-35.7 [facility] Work Phone: Comment on above: PATIENT WAS FASTINGP ERFORMED BY: [facility] [address] [id number] Information: [id number] MCHC Auto mass conc (RBC) 33.9 g/dL Normal 31.5-35.7 [facility] Work Phone: MCV (RBC) [Entitic vol] 92 fL Normal 79-97 [facility] Work Phone: Comment on above: PATIENT WAS FASTINGP ERFORMED BY: [facility] [address] [id number] Information: [id number] MCV Auto Entitic volume (RBC) 92 fL Normal 79-97 [facility] Work Phone: Monocytes (Bld) [#/Vol] 0.5 {x10E3/uL} Normal 0.1-0.9 [facility] Work Phone: Comment on above: PATIENT WAS FASTINGP ERFORMED BY: [facility] [id number] Information: [id number] Monocytes (Bld) [#/Vol] 0.5 10*3/uL Normal 0.1-0.9 [facility]; [facility] Work Phone: Monocytes Auto #/vol (Bld) 0.5 {x10E3/uL} Normal 0.1-0.9 [facility] Work Phone: Monocytes/100 WBC (Bld) 7 % Normal [facility] Work Phone: Comment on above: PATIENT WAS FASTINGP ERFORMED BY: [facility] [place] [id number] [facility] [id number] Information: [id number] Monocytes/100 WBC Auto (Bld) 7 % Normal [facility] Work Phone: Neutrophils (Bld) [#/Vol] 4.7 {x10E3/uL} Normal 1.4-7.0 [facility] Work Phone: Comment on above: PATIENT WAS FASTINGP ERFORMED BY: [facility] [address] [id number] Information: [id number] Neutrophils (Bld) [#/Vol] 4.7 10*3/uL Normal 1.4-7.0 [facility]; [facility] Work Phone: Neutrophils Auto #/vol (Bld) 4.7 {x10E3/uL} Normal 1.4-7.0 [facility] Work Phone: Neutrophils/100 WBC (Bld) 67 % Normal [facility] Work Phone: Comment on above: PATIENT WAS FASTINGP ERFORMED BY: [place] [id number] [facility] [id number] Information: [id number] Neutrophils/100 WBC Auto (Bld) 67 % Normal [facility] Work Phone: Platelets (Bld) [#/Vol] 237 {x10E3/uL} Normal 150-379 [facility] Work Phone: Comment on above: PATIENT WAS FASTINGP ERFORMED BY: [place] [id number] [facility] [id number] Information: [id number] Platelets (Bld) [#/Vol] 237 10*3/uL Normal 150-379 [facility]; [facility] Work Phone: Platelets Auto #/vol (Bld) 237 {x10E3/uL} Normal 150-379 [facility] Work Phone: RBC (Bld) [#/Vol] 4.67 {x10E6/uL} Normal 4.14-5.80 [facility] Work Phone: Comment on above: PATIENT WAS FASTINGP ERFORMED BY: [facility] Kleer70 [facility] [id number] Information: [id number] RBC (Bld) [#/Vol] 4.67 10*6/uL Normal 4.14-5.80 [facility] Internal [facility]; [facility] Work Phone: RBC Auto #/vol (Bld) 4.67 {x10E6/uL} Normal 4.14-5.80 [facility] Work Phone: WBC (Bld) [#/Vol] 7.1 {x10E3/uL} Normal 3.4-10.8 [facility] Internal Medicine Work Phone: Comment on above: PATIENT WAS FASTINGP ERFORMED BY: [facility] WorkVoices6370 [facility] [id number] Information: [id number] WBC (Bld) [#/Vol] 7.1 10*3/uL Normal 3.4-10.8 [facility] Internal Medicine; [facility] Work Phone: WBC Auto #/vol (Bld) 7.1 {x10E3/uL} Normal 3.4-10.8 [facility] Work Phone: Lipid Panel ([id number])Ordered B y: Strap Buckler on 08-09-2014 Cholesterol in HDL mass conc 43 mg/dL Normal [facility] Work Phone: Comment on above: According to ATP-III Guidelines, HDL-C >59 mg/dL is considered anegative risk factor for CHD. PATIENT WAS FASTINGP ERFORMED BY: mobifriends70 [facility] [id number] Cholesterol in LDL mass conc 127 mg/dL Abnormal 0-99 [facility] Work Phone: Comment on above: PATIENT WAS FASTINGP ERFORMED BY: [facility] Boss6370 [facility] [id number] Cholesterol in LDL/Cholesterol in HDL mass ratio 3.0 {ratio_units} Normal 0.0-3.6 [facility] Work Phone: Comment on above: LDL/HDL Ratio Men Wo men 1/2 Avg.Risk 1.0 1.5 Avg.Risk 3.6 3.2 2X Avg.Risk 6.2 5.0 3X Avg.Risk 8.0 6.1 PATIENT WAS FASTINGP ERFORMED BY: [facility] Boss6370 [facility] [id number] Cholesterol in VLDL mass conc 45 mg/dL Abnormal 5-40 [facility] Work Phone: Comment on above: PATIENT WAS FASTINGP ERFORMED BY: [facility] Boss6370 [facility] [id number] Cholesterol mass conc 215 mg/dL Abnormal 100-199 Com prehensive Internal Medicine Work Phone: Comment on above: PATIENT WAS FASTINGP ERFORMED BY: [facility] Boss6370 [facility] [id number] Triglyceride mass conc 224 mg/dL Abnormal 0-149 [facility] Work Phone: Comment on above: PATIENT WAS FASTINGP ERFORMED BY: [facility] Boss6370 [facility] [id number] MICROALBUMINOrdered By: Syst em Truant Officer on 08-09-2014 Albumin DL <= 20 mg/L (U) [Mass/Vol] mg/dL Normal 0.0-17.0 [facility]; [facility] Work Phone: Albumin DL <= 20 mg/L mass conc (U) mg/dL Normal 0.0-17.0 [facility] Work Phone: Comment on above: PATIENT WAS FASTINGP ERFORMED BY: [facility] Boss6370 [facility] [id number] Albumin/Creatinine mass ratio (U) <3.4 Normal 0.0-30.0 [facility] Work Phone: Comment on above: PATIENT WAS FASTINGP ERFORMED BY: [facility] Mann Houmav9094 [address] [facility] [id number] Creatinine mass conc (U) 89.5 mg/dL Normal 22.0-328.0 [facility] Work Phone: Comment on above: PATIENT WAS FASTINGP ERFORMED BY: [facility] Ccvthz9850 [facility] [id number] Metabolic Panel, Comprehensi ve ([id number])Ordered By: Strap Buckler on 08-09-2014 Albumin mass conc 4.6 g/dL Normal 3.5-5.5 Compre[facility] Internal [facility] Work Phone: Comment on above: PATIENT WAS FASTINGP ERFORMED BY: Mackenzie Fasgxt9463 [facility] [id number] Albumin/Globulin mass ratio 2.3 {ratio} Normal 1.1-2.5 [facility] Work Phone: Comment on above: PATIENT WAS FASTINGP ERFORMED BY: Mackenzie Lzpjab9302 [facility] [id number] ALP [Catalytic activity/Vol] 88 U/L Normal 39-117 [facility]; [facility] Work Phone: ALP enzyme act/vol 88 [iU]/L Normal 39-117 [facility] Internal Medicine Work Phone: Comment on above: PATIENT WAS FASTINGP ERFORMED BY: [facility] Jligyk5156 [address] [facility] [id number] ALT [Catalytic activity/Vol] 27 U/L Normal 0-44 [facility]; [facility] Work Phone: ALT enzyme act/vol 27 [iU]/L Normal 0-44 [facility] Internal Medicine Work Phone: Comment on above: PATIENT WAS FASTINGP ERFORMED BY: [facility] Gwqzra8573 [facility] [id number] AST [Catalytic activity/Vol] 17 U/L Normal 0-40 [facility]; [facility] Work Phone: AST enzyme act/vol 17 [iU]/L Normal 0-40 Compre [facility] Work Phone: Comment on above: PATIENT WAS FASTINGP ERFORMED BY: [facility] Boss6370 [address] [facility] [id number] Bilirubin mass conc 1.4 mg/dL Abnormal 0.0-1.2 Compr ensive Internal Medicine Work Phone: Comment on above: PATIENT WAS FASTINGP ERFORMED BY: [facility] Boss6370 [facility] [id number] Calcium mass conc 9.7 mg/dL Normal 8.7-10.2 Compreh ensive Internal Medicine Work Phone: Comment on above: PATIENT WAS FASTINGP ERFORMED BY: [facility] Boss6370 [facility] [id number] Chloride molar conc 100 mmol/L Normal 97-108 Compr [facility] Internal Medicine Work Phone: Comment on above: PATIENT WAS FASTINGP ERFORMED BY: [facility] Boss6370 [facility] [id number] CO2 molar conc 25 mmol/L Normal 18-29 Comprehens [facility] Internal [facility] Work Phone: Comment on above: PATIENT WAS FASTINGP ERFORMED BY: [facility] Boss6370 [facility] [id number] Creatinine mass conc 1.02 mg/dL Normal 0.76-1.27 Comp [facility] Work Phone: Comment on above: PATIENT WAS FASTINGP ERFORMED BY: [facility] Boss6370 [facility] [id number] GFR/1.73 sq M predicted among blacks CKD-EPI vol rate/area (S/P/Bld) 93 mL/min/1.73 Normal Comprehensiv e Internal Medicine Work Phone: Comment on above: PATIENT WAS FASTINGP ERFORMED BY: [facility] JiangCo Dtnhds6994 [address] [facility] [place] [id number] GFR/1.73 sq M predicted among non-blacks CKD-EPI vol rate/area (S/P/Bld) 80 mL/min/1.73 Normal [facility] Work Phone: Comment on above: PATIENT WAS FASTINGP ERFORMED BY: [facility] Rkhxef1605 [address] RoadCatawba Valley Medical Centerin [place] [id number] Globulin (S) [Mass/Vol] 2.0 g/dL Normal 1.5-4.5 [facility] Work Phone: Comment on above: PATIENT WAS FASTINGP ERFORMED BY: [facility] Kupjso5230 [address] [facility] [id number] Globulin Calculated mass conc (S) 2.0 g/dL Normal 1.5-4.5 [facility] Work Phone: Glucose mass conc 87 mg/dL Normal 65-99 Compreh ensive Internal Medicine Work Phone: Comment on above: PATIENT WAS FASTINGP ERFORMED BY: [facility] Idpngi3575 [facility] [id number] Potassium molar conc 4.1 mmol/L Normal 3.5-5.2 Comp rehensive Internal Medicine Work Phone: Comment on above: PATIENT WAS FASTINGP ERFORMED BY: [facility] Lcbqvl6482 [facility] [id number] Protein mass conc 6.6 g/dL Normal 6.0-8.5 Compreh ensive Internal Medicine Work Phone: Comment on above: PATIENT WAS FASTINGP ERFORMED BY: [facility] Kmdzuf0880 [address] [facility] [id number] Sodium molar conc 141 mmol/L Normal 134-144 Compreh ensive Internal Medicine Work Phone: Comment on above: PATIENT WAS FASTINGP ERFORMED BY: [facility] Unpggi3217 [address] [facility] [place] [id number] Urea nitrogen mass conc 15 mg/dL Normal 6-24 [facility] Work Phone: Comment on above: PATIENT WAS FASTINGP ERFORMED BY: [facility] Xpqhtx6549 Flores RoadDublin [place] [id number] Urea nitrogen/Creatinine mass ratio 15 mg/mg Normal 9-20 [facility] Work Phone: Comment on above: PATIENT WAS FASTINGP ERFORMED BY: [facility] Hhjyda4192 [address] RoadDublin [place] [id number] TSH ([id number])Ordered By: Syste m Truant Officer on 08-09-2014 Thyrotropin Qn 2.420 {uIU/mL} Normal 0.450-4.50 0 [facility] Work Phone: Comment on above: PATIENT WAS FASTINGP ERFORMED BY: [facility] Smtmde5065 [address] RoadDublin [place] [id number] URINALYSIS ([id number])Ordered By : Strap Buckler on 08-09-2014 Appearance Nom (U) Clear Normal Compre hensive Internal Medicine Work Phone: Comment on above: PATIENT WAS FASTINGP ERFORMED BY: [facility] Lcqkhf1419 [address] RoadDublin [place] [id number] Bilirubin Ql (U) Negative Normal Comprehe nsive Internal Medicine Work Phone: Comment on above: PATIENT WAS FASTINGP ERFORMED BY: [facility] Htujea8176 [address] RoadDublin [place] [id number] Bilirubin Ql (U) Negative Normal Comprehe nsive Internal Medicine; [facility] Work Phone: Color Nom (U) Yellow Normal Comprehensi ve Internal Medicine Work Phone: Comment on above: PATIENT WAS FASTINGP ERFORMED BY: CB [facility] Jnfhwr3068 [address] RoadDublin [place] [id number] Glucose Ql (U) Negative Normal Comprehens [facility] Work Phone: Comment on above: PATIENT WAS FASTINGP ERFORMED BY: CB [facility] Iphzzt6439 [address] RoadDublin [place] [id number] Glucose Ql (U) Negative Normal Comprehens [facility]; [facility] Work Phone: Hemoglobin Ql (U) Negative Normal Compreh ensive Internal Medicine Work Phone: Comment on above: PATIENT WAS FASTINGP ERFORMED BY: [facility] LabAlexiskorina HensleyZwevvc5575 [address] RoadDublin [place] [id number] Hemoglobin Ql (U) Negative Normal Compreh ensive Internal Medicine; [facility] Work Phone: Hemoglobin Test strip Ql (U) Negative Normal [facility] Work Phone: Ketones Ql (U) Negative Normal Comprehens [facility] Work Phone: Comment on above: PATIENT WAS FASTINGP ERFORMED BY: [facility] Lab[facility] Uudhdb0352 [address] RoadDublin [place] [id number] Ketones Ql (U) Negative Normal Comprehens [facility]; [facility] Work Phone: Leukocyte esterase Test strip Ql (U) Negative Normal [facility] Work Phone: Comment on above: PATIENT WAS FASTINGP ERFORMED BY: [facility] Gfnqkx9484 [address] RoadDublin [place] [id number] Leukocyte esterase Test strip Ql (U) Negative Normal [facility]; [facility] Work Phone: Microscopic observation LM Nom (Urine sed) MICNIP Normal [facility] Work Phone: Comment on above: Microscopic not javon cated and not performed. PATIENT WAS FASTINGP ERFORMED BY: [facility] Odomol3176 [address] RoadDuin [place] [id number] Nitrite Ql (U) Negative Normal Comprehens [facility] Work Phone: Comment on above: PATIENT WAS FASTINGP ERFORMED BY: [facility] LabCo Qvvkvd5095 [address] RoadDublin [place] [id number] Nitrite Ql (U) Negative Normal Comprehens [facility]; [facility] Work Phone: Nitrite Test strip Ql (U) Negative Normal [facility] Work Phone: pH (U) 6.5 [pH] Normal 5.0-7.5 [facility] Work Phone: Comment on above: PATIENT WAS FASTINGP ERFORMED BY: [facility] LabHiram HensleyZbbtje5221 [address] ElementumCatawba Valley Medical Centerin [place] [id number] pH Test strip (U) 6.5 [pH] Normal 5.0-7.5 Compreh ensive Internal Medicine Work Phone: Protein Ql (U) Negative Normal Comprehens [facility] Work Phone: Comment on above: PATIENT WAS FASTINGP ERFORMED BY: [facility] LabHiram HensleyLkeemd7444 [address] Elementum[facility] [id number] Protein Ql (U) Negative Normal Comprehens [facility]; [facility] Work Phone: Protein Test strip Ql (U) Negative Normal [facility] Work Phone: Specific gravity Relative Density (U) 1.021 1 Normal 1.005-1.03 0 [facility] Work Phone: Comment on above: PATIENT WAS FASTINGP ERFORMED BY: [facility] Hensleylin6370 [address] ElementumBlue [facility] Hospital [id number] Urobilinogen (U) [Mass/Vol] 0.2 mg/dL Normal 0.0-1.9 [facility]; [facility] Work Phone: Urobilinogen Test strip mass conc (U) 0.2 mg/dL Normal 0.0-1.9 Comprehensiv e Internal Medicine Work Phone: Comment on above: PATIENT WAS FASTINGP ERFORMED BY: [facility] LabHiram HensleyXvdfob8671 [address] ElementumBlue [facility] [id number] TESTOSTERONE TOTAL ([id number])Or dered By: Strap Buckler on 01-19-2014 Testosterone [Mass/Vol] TESTM Normal [facility] Work Phone: Comment on above: Adult male reference interval is based on a population of lean malesup to 40 years old. PATIENT NOT FASTINGP ERFORMED BY: [facility] LabCokorina Qduawh1246 [address] Innohatin [place] [id number] Information: [id number] Testosterone mass conc 378 ng/dL Normal 348-1197 [facility] Work Phone: Comment on above: PATIENT NOT FASTINGP ERFORMED BY: [facility]6370 [facility] [id number] Information: [id number] TESTOSTERONE TOTAL (45269) TESTM Normal [facility] Work Phone: Comment on above: Adult male reference interval is based on a population of lean malesup to 40 years old. CBC WITH MANUAL DIFF (50555) Ordered By: Strap Buckler on 01-11-2014 Basophils (Bld) [#/Vol] 0.0 {x10E3/uL} Normal 0.0-0.2 [facility] Work Phone: Comment on above: PATIENT WAS FASTINGP ERFORMED BY: [address] [id number] Information: [id number] Basophils (Bld) [#/Vol] 0.0 10*3/uL Normal 0.0-0.2 [facility]; [facility] Work Phone: Basophils Auto #/vol (Bld) 0.0 {x10E3/uL} Normal 0.0-0.2 [facility] Work Phone: Basophils/100 WBC (Bld) 0 % Normal [facility] Work Phone: Comment on above: PATIENT WAS FASTINGP ERFORMED BY: [place] [id number] [facility] [id number] Information: [id number] Basophils/100 WBC Auto (Bld) 0 % Normal [facility] Work Phone: Eosinophils (Bld) [#/Vol] 0.2 {x10E3/uL} Normal 0.0-0.4 [facility] Work Phone: Comment on above: PATIENT WAS FASTINGP ERFORMED BY: [facility] [id number] Information: [id number] Eosinophils (Bld) [#/Vol] 0.2 10*3/uL Normal 0.0-0.4 [facility]; [facility] Work Phone: Eosinophils Auto #/vol (Bld) 0.2 {x10E3/uL} Normal 0.0-0.4 [facility] Work Phone: Eosinophils/100 WBC (Bld) 3 % Normal [facility] Work Phone: Comment on above: PATIENT WAS FASTINGP ERFORMED BY: [address] [id number] Information: [id number] Eosinophils/100 WBC Auto (Bld) 3 % Normal [facility] Work Phone: Erythrocyte distribution width (RBC) [Ratio] 13.1 % Normal 12.3-15.4 [facility] Work Phone: Comment on above: PATIENT WAS FASTINGP ERFORMED BY: [address] [id number] Information: [id number] Erythrocyte distribution width Auto Ratio (RBC) 13.1 % Normal 12.3-15.4 [facility] Work Phone: Hematocrit (Bld) [Volume fraction] 41.7 % Normal 37.5-51.0 [facility] Work Phone: Comment on above: PATIENT WAS FASTINGP ERFORMED BY: [address] [id number] Information: [id number] Hematocrit Auto Volume Fraction (Bld) 41.7 % Normal 37.5-51.0 [facility] Internal Medicine Work Phone: Hemoglobin mass conc (Bld) 14.4 g/dL Normal 12.6-17.7 [facility] Work Phone: Comment on above: PATIENT WAS FASTINGP ERFORMED BY: [address] [id number] Information: [id number] Immature granulocytes #/vol (Bld) 0.0 {x10E3/uL} Normal 0.0-0.1 [facility] Work Phone: Comment on above: PATIENT WAS FASTINGP ERFORMED BY: [facility] HospitalHiram HensleyDahizm3856 [facility] [id number] Information: [id number] Immature granulocytes (Bld) [#/Vol] 0.0 10*3/uL Normal 0.0-0.1 [facility]; [facility] Work Phone: Immature granulocytes/100 WBC (Bld) 0 % Normal [facility] Work Phone: Comment on above: PATIENT WAS FASTINGP ERFORMED BY: [facility] [address] [id number] Information: [id number] Lymphocytes (Bld) [#/Vol] 1.6 {x10E3/uL} Normal 0.7-3.1 [facility] Work Phone: Comment on above: PATIENT WAS FASTINGP ERFORMED BY: [facility] Hensleylin6370 [facility] [id number] Information: [id number] Lymphocytes (Bld) [#/Vol] 1.6 10*3/uL Normal 0.7-3.1 [facility]; [facility] Work Phone: Lymphocytes Auto #/vol (Bld) 1.6 {x10E3/uL} Normal 0.7-3.1 [facility] Work Phone: Lymphocytes/100 WBC (Bld) 23 % Normal [facility] Work Phone: Comment on above: PATIENT WAS FASTINGP ERFORMED BY: [facility] [place] [id number] [facility] [id number] Information: [id number] Lymphocytes/100 WBC Auto (Bld) 23 % Normal [facility] Work Phone: MCH (RBC) [Entitic mass] 31.5 pg Normal 26.6-33.0 [facility] Work Phone: Comment on above: PATIENT WAS FASTINGP ERFORMED BY: [facility]6370 [facility] [id number] Information: [id number] MCH Auto Entitic mass (RBC) 31.5 pg Normal 26.6-33.0 [facility] Work Phone: MCHC (RBC) [Mass/Vol] 34.5 g/dL Normal 31.5-35.7 [facility] prehensive Internal Medicine Work Phone: Comment on above: PATIENT WAS FASTINGP ERFORMED BY: [place] [id number] [facility] [id number] Information: [id number] MCHC Auto mass conc (RBC) 34.5 g/dL Normal 31.5-35.[address] [facility] Internal Medicine Work Phone: MCV (RBC) [Entitic vol] 91 fL Normal 79-97 [facility] Work Phone: Comment on above: PATIENT WAS FASTINGP ERFORMED BY: [place] [id number] [facility] [id number] Information: [id number] MCV Auto Entitic volume (RBC) 91 fL Normal 79-97 [facility] Work Phone: Monocytes (Bld) [#/Vol] 0.5 {x10E3/uL} Normal 0.1-0.9 [facility] Work Phone: Comment on above: PATIENT WAS FASTINGP ERFORMED BY: [facility] [id number] Information: [id number] Monocytes (Bld) [#/Vol] 0.5 10*3/uL Normal 0.1-0.9 [facility]; [facility] Work Phone: Monocytes Auto #/vol (Bld) 0.5 {x10E3/uL} Normal 0.1-0.9 [facility] Work Phone: Monocytes/100 WBC (Bld) 7 % Normal [facility] Work Phone: Comment on above: PATIENT WAS FASTINGP ERFORMED BY: [facility]6370 [facility] [id number] Information: [id number] Monocytes/100 WBC Auto (Bld) 7 % Normal [facility] Work Phone: Neutrophils (Bld) [#/Vol] 4.6 {x10E3/uL} Normal 1.4-7.0 [facility] Work Phone: Comment on above: PATIENT WAS FASTINGP ERFORMED BY: [place] [id number] [facility] [id number] Information: [id number] Neutrophils (Bld) [#/Vol] 4.6 10*3/uL Normal 1.4-7.0 [facility]; [facility] Work Phone: Neutrophils Auto #/vol (Bld) 4.6 {x10E3/uL} Normal 1.4-7.0 [facility] Work Phone: Neutrophils/100 WBC (Bld) 67 % Normal [facility] Work Phone: Comment on above: PATIENT WAS FASTINGP ERFORMED BY: [place] [id number] [facility] [id number] Information: [id number] Neutrophils/100 WBC Auto (Bld) 67 % Normal [facility] Work Phone: Platelets (Bld) [#/Vol] 265 {x10E3/uL} Normal 150-379 [facility] Work Phone: Comment on above: PATIENT WAS FASTINGP ERFORMED BY: [facility]6370 [facility] [id number] Information: [id number] Platelets (Bld) [#/Vol] 265 10*3/uL Normal 150-379 [facility]; [facility] Work Phone: Platelets Auto #/vol (Bld) 265 {x10E3/uL} Normal 150-379 [facility] Work Phone: RBC (Bld) [#/Vol] 4.57 {x10E6/uL} Normal 4.14-5.80 [facility] Internal Medicine Work Phone: Comment on above: PATIENT WAS FASTINGP ERFORMED BY: [facility] Boss6370 [facility] [id number] Information: [id number] RBC (Bld) [#/Vol] 4.57 10*6/uL Normal 4.14-5.80 [facility] Internal Medicine; [facility] Work Phone: RBC Auto #/vol (Bld) 4.57 {x10E6/uL} Normal 4.14-5.80 [facility] Work Phone: WBC (Bld) [#/Vol] 6.9 {x10E3/uL} Normal 3.4-10.8 [facility] Internal Medicine Work Phone: Comment on above: PATIENT WAS FASTINGP ERFORMED BY: [facility] Hensleylin6370 [facility] [id number] Information: [id number] WBC (Bld) [#/Vol] 6.9 10*3/uL Normal 3.4-10.8 [facility] Internal Medicine; [facility] Work Phone: WBC Auto #/vol (Bld) 6.9 {x10E3/uL} Normal 3.4-10.8 [facility] Work Phone: LIPID PANEL ([id number])Ordered B y: Strap Buckler on 01-11-2014 Cholesterol in HDL mass conc 48 mg/dL Normal [facility] Work Phone: Comment on above: According to ATP-III Guidelines, HDL-C >59 mg/dL is considered anegative risk factor for CHD. PATIENT WAS FASTINGP ERFORMED BY: [facility] Reyez Ejvrpy8985 [facility] [id number] Cholesterol in LDL mass conc 105 mg/dL Abnormal 0-99 [facility] Work Phone: Comment on above: PATIENT WAS FASTINGP ERFORMED BY: [facility] Reyez Jypmpq1380 [facility] [id number] Cholesterol in LDL/Cholesterol in HDL mass ratio 2.2 {ratio_units} Normal 0.0-3.6 [facility] Work Phone: Comment on above: LDL/HDL Ratio Men Wo men 1/2 Avg.Risk 1.0 1.5 Avg.Risk 3.6 3.2 2X Avg.Risk 6.2 5.0 3X Avg.Risk 8.0 6.1 PATIENT WAS FASTINGP ERFORMED BY: [facility] Mackenzie Ndlqme3924 [facility] [id number] Cholesterol in VLDL mass conc 27 mg/dL Normal 5-40 [facility] Work Phone: Comment on above: PATIENT WAS FASTINGP ERFORMED BY: [facility] Mackenziekorina HensleyPtegmm3651 [facility] [id number] Cholesterol mass conc 180 mg/dL Normal 100-199 [facility] prehensive Internal Medicine Work Phone: Comment on above: PATIENT WAS FASTINGP ERFORMED BY: [facility] Mackenzie Yrbotc4874 [facility] [id number] Triglyceride mass conc 137 mg/dL Normal 0-149 [facility] Work Phone: Comment on above: PATIENT WAS FASTINGP ERFORMED BY: [facility] Mackenziekorina Qsxwyt5103 [facility] [id number] MICROALBUMINOrdered By: Syst em Truant Officer on 01-11-2014 Albumin DL <= 20 mg/L mass conc (U) 1.8 ug/mL Normal 0.0-17.0 [facility] Work Phone: Comment on above: PATIENT WAS FASTINGP ERFORMED BY: [facility]Asp[facility]6370 [facility] [id number] Albumin/Creatinine mass ratio (U) 2.2 {mg/g_creat} Normal 0.0-30.0 [facility] Work Phone: Comment on above: PATIENT WAS FASTINGP ERFORMED BY: [facility] Nnflij6093 [facility] [id number] Creatinine mass conc (U) 81.8 mg/dL Normal 22.0-328.0 [facility] Work Phone: Comment on above: PATIENT WAS FASTINGP ERFORMED BY: [facility] Bcayas7176 [address] RoadCatawba Valley Medical Centerin [place] [id number] Metabolic Panel, Basic (8004 [id number])Ordered By: Strap Buckler on 01-11-2014 Calcium mass conc 9.6 mg/dL Normal 8.7-10.2 Compreh ensive Internal Medicine Work Phone: Comment on above: PATIENT WAS FASTINGP ERFORMED BY: [facility] Sppnap2081 [address] [facility] [id number] Chloride molar conc 102 mmol/L Normal 97-108 Compr ehensive Internal Medicine Work Phone: Comment on above: PATIENT WAS FASTINGP ERFORMED BY: [facility]okor[facility] Pnpyki7467 [address] [facility] [id number] CO2 molar conc 25 mmol/L Normal 18-29 Comprehens [facility] Work Phone: Comment on above: PATIENT WAS FASTINGP ERFORMED BY: [facility] Qmtvgt8927 [address] [facility] [id number] Creatinine mass conc 0.97 mg/dL Normal 0.76-1.27 Comp rehensive Internal Medicine Work Phone: Comment on above: PATIENT WAS FASTINGP ERFORMED BY: [facility] Rjifmj6707 [address] [facility] [id number] GFR/1.73 sq M predicted among blacks CKD-EPI vol rate/area (S/P/Bld) 98 mL/min/1.73 Normal Comprehensiv e Internal Medicine Work Phone: Comment on above: PATIENT WAS FASTINGP ERFORMED BY: [facility] Mjaesy4518 [address] RoadCatawba Valley Medical Centerin [place] [id number] GFR/1.73 sq M predicted among non-blacks CKD-EPI vol rate/area (S/P/Bld) 85 mL/min/1.73 Normal [facility] Work Phone: Comment on above: PATIENT WAS FASTINGP ERFORMED BY: [facility] Ojbkoj1893 [address] RoadDublin [place] [id number] Glucose mass conc 88 mg/dL Normal 65-99 Compreh ensive Internal Medicine Work Phone: Comment on above: PATIENT WAS FASTINGP ERFORMED BY: [facility]6370 [facility] [id number] Potassium molar conc 4.4 mmol/L Normal 3.5-5.2 Comp rehensive Internal Medicine Work Phone: Comment on above: PATIENT WAS FASTINGP ERFORMED BY: [place] [id number] [facility] [id number] Sodium molar conc 142 mmol/L Normal 134-144 Compreh ensive Internal Medicine Work Phone: Comment on above: PATIENT WAS FASTINGP ERFORMED BY: [facility]6370 [facility] [id number] Urea nitrogen mass conc 12 mg/dL Normal 6-24 [facility] Work Phone: Comment on above: PATIENT WAS FASTINGP ERFORMED BY: [place] [id number] [facility] [id number] Urea nitrogen/Creatinine mass ratio 12 mg/mg Normal 9-20 [facility] Work Phone: Comment on above: PATIENT WAS FASTINGP ERFORMED BY: [place] [id number] [facility] [id number] Microscopic ExaminationOrder ed By: Strap Buckler on 01-11-2014 Bacteria LM.HPF #/area (Urine sed) Few Normal [facility] Work Phone: Epithelial cells LM.HPF #/area (Urine sed) None seen Normal 0 - 10 [facility] Work Phone: Mucus LM Ql (Urine sed) Present Normal [facility] Work Phone: RBC LM.HPF #/area (Urine sed) None seen Normal 0 - 2 [facility] Work Phone: WBC LM.HPF #/area (Urine sed) None seen Normal 0 - 5 [facility] Work Phone: PSA (PROSTATE SPECIFIC ANTIG EN) (V76.44)Ordered By: Strap Buckler on 01-11-2014 Prostate specific Ag mass conc 1.8 ng/mL Normal 0.0-4.0 [facility] Work Phone: Comment on above: Neema ECLIA methodol ogy. .According to the [place] [employer], Serum PSA shoulddecrease and remain at undetectable levels after radicalprostatectomy. The AUA defines biochemical recurrence as an initialPSA value 0.2 ng/mL or greater followed by a subsequent confirmatoryPSA value 0.2 ng/mL or greater.Values obtained with different assay methods or kits cannot be usedinterchangeably. Results cannot be interpreted as absolute evidenceof the presence or absence of malignant disease. PATIENT WAS FASTINGP ERFORMED BY: CB [facility] Dyeaej8676 Flores RoadDublin [place] [id number] TSH ([id number])Ordered By: [employer] Truant Officer on 01-11-2014 Thyrotropin Qn 2.300 {uIU/mL} Normal 0.450-4.50 0 [facility] Work Phone: Comment on above: PATIENT WAS FASTINGP ERFORMED BY: [facility] Tjyfop4398 [address] RoadDublin [place] [id number] URINALYSIS, W/ MICRO ([id number]) Ordered By: Strap Buckler on 01-11-2014 Appearance Nom (U) Clear Normal Compre hensive Internal Medicine Work Phone: Comment on above: PATIENT WAS FASTINGP ERFORMED BY: [facility] Clemwc3341 [address] RoadDublin [place] [id number] Bilirubin Ql (U) Negative Normal Comprehe nsive Internal Medicine Work Phone: Comment on above: PATIENT WAS FASTINGP ERFORMED BY: [facility] Ddsgap2722 [address] RoadDublin [place] [id number] Bilirubin Ql (U) Negative Normal Comprehe nsive Internal Medicine; [facility] Work Phone: Color Nom (U) Yellow Normal Comprehensi ve Internal Medicine Work Phone: Comment on above: PATIENT WAS FASTINGP ERFORMED BY: [facility] Cxfvzp7853 [address] RoadDublin [place] [id number] Glucose Ql (U) Negative Normal Comprehens [facility] Work Phone: Comment on above: PATIENT WAS FASTINGP ERFORMED BY: [facility] Dereje Boss6[address] RoadDublin [place] [id number] Glucose Ql (U) Negative Normal Comprehens [facility]; [facility] Work Phone: Hemoglobin Ql (U) Negative Normal Compreh ensive Internal Medicine Work Phone: Comment on above: PATIENT WAS FASTINGP ERFORMED BY: [facility] ApolinarHiram HensleyIhfhgd2197 [address] RoadBlue Ridge Regional Hospital [id number] Hemoglobin Ql (U) Negative Normal Compreh ensive Internal Medicine; [facility] Work Phone: Hemoglobin Test strip Ql (U) Negative Normal [facility] Work Phone: Ketones Ql (U) Negative Normal Comprehens [facility] Work Phone: Comment on above: PATIENT WAS FASTINGP ERFORMED BY: [facility] ApolinarHiram HensleyKpejar5233 [address] [facility] [id number] Ketones Ql (U) Negative Normal Comprehens [facility]; [facility] Work Phone: Leukocyte esterase Test strip Ql (U) Negative Normal [facility] Work Phone: Comment on above: PATIENT WAS FASTINGP ERFORMED BY: [facility] ApolinarHiram HensleyIitste0231 [address] [facility] [id number] Leukocyte esterase Test strip Ql (U) Negative Normal [facility]; [facility] Work Phone: Microscopic observation LM Nom (Urine sed) See below: Normal [facility] Work Phone: Comment on above: Microscopic was javon cated and was performed. PATIENT WAS FASTINGP ERFORMED BY: [facility] Umabpw7425 [address] [facility] [id number] Microscopic observation LM Nom (Urine sed) MICRON Normal [facility] Work Phone: Comment on above: Microscopic follows if indicated. PATIENT WAS FASTINGP ERFORMED BY: [facility] Tmytqz2988 [address] RoadDublin [place] [id number] Nitrite Ql (U) Negative Normal Comprehens [facility] Work Phone: Comment on above: PATIENT WAS FASTINGP ERFORMED BY: [facility] Boss6[address] RoadDublin [place] [id number] Nitrite Ql (U) Negative Normal Comprehens [facility]; [facility] Work Phone: Nitrite Test strip Ql (U) Negative Normal [facility] Work Phone: pH (U) 6.5 [pH] Normal 5.0-7.5 [facility] Work Phone: Comment on above: PATIENT WAS FASTINGP ERFORMED BY: [facility] Boss6[address] RoadDublin [place] [id number] pH Test strip (U) 6.5 [pH] Normal 5.0-7.5 Compreh ensive Internal Medicine Work Phone: Protein Ql (U) Negative Normal Comprehens [facility] Work Phone: Comment on above: PATIENT WAS FASTINGP ERFORMED BY: [facility] Boss6370 [address] RoadDublin [place] [id number] Protein Ql (U) Negative Normal Comprehens [facility]; [facility] Work Phone: Protein Test strip Ql (U) Negative Normal [facility] Work Phone: Specific gravity Relative Density (U) 1.018 1 Normal 1.005-1.03 0 [facility] Work Phone: Comment on above: PATIENT WAS FASTINGP ERFORMED BY: [facility] Boss6370 [address] RoadDublin [place] [id number] Urobilinogen (U) [Mass/Vol] 0.2 mg/dL Normal 0.0-1.9 [facility]; [facility] Work Phone: Urobilinogen Test strip mass conc (U) 0.2 mg/dL Normal 0.0-1.9 Comprehensiv e Internal Medicine Work Phone: Comment on above: PATIENT WAS FASTINGP ERFORMED BY: [facility] Hensleylin6370 [facility] [id number] Vitamin D Hydroxy (06052)Ord ered By: Strap Buckler on 01-11-2014 25-Hydroxyvitamin D2+25-Hydroxyvitamin D3 mass conc 36.9 ng/mL Normal 30.0-100.0 [facility] Work Phone: Comment on above: Vitamin D deficiency has been defined by the [place] of[place]icine and an Endocrine Society practice guideline as alevel of serum 25-OH vitamin D less than 20 ng/mL (1,2).The Endocrine Society went on to further define vitamin Dinsufficiency as a level between 21 and 29 ng/mL (2).1. IOM ([place] of Medicine). 2010. Dietary reference intakes for calcium and D. [place]: The National Academies Press.2. Ana Maria MF, Dhaval PUGA, Glendy RAGLAND, et al. Evaluation, treatment, and prevention of vitamin D deficiency: an Endocrine Society clinical practice guideline. JCEM. 2010; 96(7):1911-30. PATIENT WAS FASTINGP ERFORMED BY: EndoInSightNew Mexico Behavioral Health Institute at Las VegasSvfbyh5014 [facility] [id number] Lipid Panel With LDL/HDL Rat ioOrdered By: Strap Buckler on 06-09-2013 Cholesterol in HDL mass conc 45 mg/dL Normal [facility] Work Phone: Comment on above: According to ATP-III Guidelines, HDL-C >59 mg/dL is considered anegative risk factor for CHD. Cholesterol in LDL mass conc 123 mg/dL Abnormal 0-99 [facility] Work Phone: Cholesterol in LDL/Cholesterol in HDL mass ratio 2.7 {ratio_units} Normal 0.0-3.6 [facility] Work Phone: Cholesterol in VLDL mass conc 42 mg/dL Abnormal 5-40 [facility] Work Phone: Cholesterol mass conc 210 mg/dL Abnormal 100-199 Com prehensive Internal Medicine Work Phone: Triglyceride mass conc 209 mg/dL Abnormal 0-149 [facility] Work Phone: LCKMBOrdered By: Rosa cardona on 01-13-2013 LCKMB 74 U/L Normal 39-308 [facility] Work Phone: LCKMB 0.8 ng/mL Normal 0.0-5.0 [facility] Work Phone: Comment on above: CK-MB and RI Interpr etation MB Relative IndexNon-AMI 5 5 > 4 LTROPOrdered By: System Marybeth cardona on 01-13-2013 LTROP < 0.02 Normal [facility] Work Phone: Comment on above: TROPONIN-I EXPECTED VALUES <0.05 NEGATIVE0.06 - 0.59 AT RISK OF [place]> OR = 0.60 SUGGEST [place] CBC WITH MANUAL DIFF ([id number]) Ordered By: Strap Buckler on 11-25-2012 Basophils (Bld) [#/Vol] 0.0 {x10E3/uL} Normal 0.0-0.2 [facility] Work Phone: Comment on above: PATIENT WAS FASTINGP ERFORMED BY: [employer]6370 AquaMostBlue [facility] Regional Hospital [id number] Information: [id number] Basophils (Bld) [#/Vol] 0.0 10*3/uL Normal 0.0-0.2 [facility]; [facility] Work Phone: Basophils Auto #/vol (Bld) 0.0 {x10E3/uL} Normal 0.0-0.2 [facility] Work Phone: Basophils/100 WBC (Bld) 1 % Normal 0-3 [facility] Work Phone: Comment on above: PATIENT WAS FASTINGP ERFORMED BY: [employer] Jtwqdy9966 [address] ElementumBlue Ridge Regional Hospital [id number] Information: [id number] Basophils/100 WBC Auto (Bld) 1 % Normal 0-3 [facility] Work Phone: Eosinophils (Bld) [#/Vol] 0.3 {x10E3/uL} Normal 0.0-0.4 [facility] Work Phone: Comment on above: PATIENT WAS FASTINGP ERFORMED BY: [facility]6370 [facility] [id number] Information: [id number] Eosinophils (Bld) [#/Vol] 0.3 10*3/uL Normal 0.0-0.4 [facility]; [facility] Work Phone: Eosinophils Auto #/vol (Bld) 0.3 {x10E3/uL} Normal 0.0-0.4 [facility] Work Phone: Eosinophils/100 WBC (Bld) 4 % Normal 0-7 [facility] Work Phone: Comment on above: PATIENT WAS FASTINGP ERFORMED BY: [place] [id number] [facility] [id number] Information: [id number] Eosinophils/100 WBC Auto (Bld) 4 % Normal 0-7 [facility] Work Phone: Erythrocyte distribution width (RBC) [Ratio] 12.9 % Normal 12.3-15.4 [facility] Work Phone: Comment on above: PATIENT WAS FASTINGP ERFORMED BY: [facility]6370 [facility] [id number] Information: [id number] Erythrocyte distribution width Auto Ratio (RBC) 12.9 % Normal 12.3-15.4 [facility] Work Phone: Hematocrit (Bld) [Volume fraction] 42.6 % Normal 37.5-51.0 [facility] Work Phone: Comment on above: PATIENT WAS FASTINGP ERFORMED BY: [facility]6370 [facility] [id number] Information: [id number] Hematocrit Auto Volume Fraction (Bld) 42.6 % Normal 37.5-51.0 [facility] Internal Medicine Work Phone: Hemoglobin mass conc (Bld) 14.9 g/dL Normal 12.6-17.7 [facility] Work Phone: Comment on above: PATIENT WAS FASTINGP ERFORMED BY: [facility]6370 [facility] [id number] Information: [id number] Immature granulocytes #/vol (Bld) 0.0 {x10E3/uL} Normal 0.0-0.1 [facility] Work Phone: Comment on above: PATIENT WAS FASTINGP ERFORMED BY: [place] [id number] [facility] [id number] Information: [id number] Immature granulocytes (Bld) [#/Vol] 0.0 10*3/uL Normal 0.0-0.1 [facility]; [facility] Work Phone: Immature granulocytes/100 WBC (Bld) 0 % Normal 0-2 [facility] Work Phone: Comment on above: PATIENT WAS FASTINGP ERFORMED BY: [place] [id number] [facility] [id number] Information: [id number] Lymphocytes (Bld) [#/Vol] 1.2 {x10E3/uL} Normal 0.7-4.5 [facility] Work Phone: Comment on above: PATIENT WAS FASTINGP ERFORMED BY: [place] [id number] [facility] [id number] Information: [id number] Lymphocytes (Bld) [#/Vol] 1.2 10*3/uL Normal 0.7-4.5 [facility]; [facility] Work Phone: Lymphocytes Auto #/vol (Bld) 1.2 {x10E3/uL} Normal 0.7-4.5 [facility] Work Phone: Lymphocytes/100 WBC (Bld) 19 % Normal 14-46 [facility] Work Phone: Comment on above: PATIENT WAS FASTINGP ERFORMED BY: [place] [id number] [facility] [id number] Information: [id number] Lymphocytes/100 WBC Auto (Bld) 19 % Normal 14-46 [facility] Work Phone: MCH (RBC) [Entitic mass] 32.5 pg Normal 26.6-33.[address] [facility] Internal Medicine Work Phone: Comment on above: PATIENT WAS FASTINGP ERFORMED BY: [address] [id number] Information: [id number] MCH Auto Entitic mass (RBC) 32.5 pg Normal 26.6-33.[address] [facility] Internal Medicine Work Phone: MCHC (RBC) [Mass/Vol] 35.0 g/dL Normal 31.5-35.7 [facility] Internal Medicine Work Phone: Comment on above: PATIENT WAS FASTINGP ERFORMED BY: [facility] [address] [id number] Information: [id number] MCHC Auto mass conc (RBC) 35.0 g/dL Normal 31.5-35.[address] [facility] Internal Medicine Work Phone: MCV (RBC) [Entitic vol] 93 fL Normal 79-[address] [facility] Internal Medicine Work Phone: Comment on above: PATIENT WAS FASTINGP ERFORMED BY: [address] [id number] Information: [id number] MCV Auto Entitic volume (RBC) 93 fL Normal 79-[address] [facility] Internal Medicine Work Phone: Monocytes (Bld) [#/Vol] 0.6 {x10E3/uL} Normal 0.1-1.[address] [facility] Internal Medicine Work Phone: Comment on above: PATIENT WAS FASTINGP ERFORMED BY: [address] [id number] Information: [id number] Monocytes (Bld) [#/Vol] 0.6 10*3/uL Normal 0.1-1.[address] [facility] Internal Medicine; [facility] Work Phone: Monocytes Auto #/vol (Bld) 0.6 {x10E3/uL} Normal 0.1-1.0 [facility] Work Phone: Monocytes/100 WBC (Bld) 10 % Normal 4-13 [facility] Work Phone: Comment on above: PATIENT WAS FASTINGP ERFORMED BY: [facility] Rsdhne5279 [facility] [id number] Information: [id number] Monocytes/100 WBC Auto (Bld) 10 % Normal 4-13 [facility] Work Phone: Neutrophils (Bld) [#/Vol] 4.2 {x10E3/uL} Normal 1.8-7.8 [facility] Work Phone: Comment on above: PATIENT WAS FASTINGP ERFORMED BY: [facility] Hhheif[address] [id number] Information: [id number] Neutrophils (Bld) [#/Vol] 4.2 10*3/uL Normal 1.8-7.8 [facility]; [facility] Work Phone: Neutrophils Auto #/vol (Bld) 4.2 {x10E3/uL} Normal 1.8-7.8 [facility] Work Phone: Neutrophils/100 WBC (Bld) 66 % Normal 40-74 [facility] Work Phone: Comment on above: PATIENT WAS FASTINGP ERFORMED BY: [facility]6370 [facility] [id number] Information: [id number] Neutrophils/100 WBC Auto (Bld) 66 % Normal 40-74 [facility] Work Phone: Platelets (Bld) [#/Vol] 235 {x10E3/uL} Normal 140-415 [facility] Work Phone: Comment on above: PATIENT WAS FASTINGP ERFORMED BY: [facility] [place] [id number] [facility] [id number] Information: [id number] Platelets (Bld) [#/Vol] 235 10*3/uL Normal 140-415 [facility]; [facility] Work Phone: Platelets Auto #/vol (Bld) 235 {x10E3/uL} Normal 140-415 [facility] Work Phone: RBC (Bld) [#/Vol] 4.59 {x10E6/uL} Normal 4.14-5.80 [facility] Internal Medicine Work Phone: Comment on above: PATIENT WAS FASTINGP ERFORMED BY: [employer] Yqccbj0253 [facility] [id number] Information: [id number] RBC (Bld) [#/Vol] 4.59 10*6/uL Normal 4.14-5.80 [facility] Internal Medicine; [facility] Work Phone: RBC Auto #/vol (Bld) 4.59 {x10E6/uL} Normal 4.14-5.80 [facility] Work Phone: WBC (Bld) [#/Vol] 6.4 {x10E3/uL} Normal 4.0-10.5 [facility] Internal Medicine Work Phone: Comment on above: PATIENT WAS FASTINGP ERFORMED BY: [employer] Wgalxu8870 [facility] [id number] Information: [id number] WBC (Bld) [#/Vol] 6.4 10*3/uL Normal 4.0-10.5 [facility] Internal Medicine; [facility] Work Phone: WBC Auto #/vol (Bld) 6.4 {x10E3/uL} Normal 4.0-10.5 [facility] Work Phone: LIPID PANEL ([id number])Ordered B y: Strap Buckler on 11-25-2012 Cholesterol in HDL mass conc 46 mg/dL Normal [facility] Work Phone: Comment on above: According to ATP-III Guidelines, HDL-C >59 mg/dL is considered anegative risk factor for CHD. PATIENT WAS FASTINGP ERFORMED BY: [facility] Boss[address] [facility]in [place] [id number] Cholesterol in LDL mass conc 97 mg/dL Normal 0-99 [facility] Work Phone: Comment on above: PATIENT WAS FASTINGP ERFORMED BY: [facility] Hensleylin6370 [address] RoadCatawba Valley Medical Centerin [place] [id number] Cholesterol in LDL/Cholesterol in HDL mass ratio 2.1 {ratio_units} Normal 0.0-3.6 [facility] Work Phone: Comment on above: PATIENT WAS FASTINGP ERFORMED BY: [facility] Boss[address] [facility] [id number] Cholesterol in VLDL mass conc 42 mg/dL Abnormal 5-40 [facility] Work Phone: Comment on above: PATIENT WAS FASTINGP ERFORMED BY: [facility] Boss6370 [facility] [id number] Cholesterol mass conc 185 mg/dL Normal 100-199 [facility] prehensive Internal Medicine Work Phone: Comment on above: PATIENT WAS FASTINGP ERFORMED BY: [facility] Boss6370 [facility] [id number] Triglyceride mass conc 211 mg/dL Abnormal 0-149 [facility] Work Phone: Comment on above: PATIENT WAS FASTINGP ERFORMED BY: [facility] Boss6370 [facility] [id number] METABOLIC PANEL, COMPREHENSI VE ([id number])Ordered By: Strap Buckler on 11-25-2012 Albumin mass conc 4.3 g/dL Normal 3.5-5.5 Compreh ensive Internal Medicine Work Phone: Comment on above: PATIENT WAS FASTINGP ERFORMED BY: [facility] Hensleylin6370 [facility] [id number] Albumin/Globulin mass ratio 1.7 {ratio} Normal 1.1-2.5 [facility] Work Phone: Comment on above: PATIENT WAS FASTINGP ERFORMED BY: [facility] Mannrp Hlhjqq2082 [address] RoadDublin [place] [id number] ALP [Catalytic activity/Vol] 100 U/L Normal 44-102 [facility]; [facility] Internal Medicine Work Phone: ALP enzyme act/vol 100 [iU]/L Normal 44-102 [facility] Internal Medicine Work Phone: Comment on above: PATIENT WAS FASTINGP ERFORMED BY: [facility]6[address] RoadDublin [place] [id number] ALT [Catalytic activity/Vol] 43 U/L Normal 0-44 [facility]; [facility] Internal Medicine Work Phone: ALT enzyme act/vol 43 [iU]/L Normal 0-44 [facility] Internal Medicine Work Phone: Comment on above: PATIENT WAS FASTINGP ERFORMED BY: [facility] Texnez3443 [address] RoadCatawba Valley Medical Centerin [place] [id number] AST [Catalytic activity/Vol] 25 U/L Normal 0-[address] [facility] Internal Medicine; [facility] Internal Medicine Work Phone: AST enzyme act/vol 25 [iU]/L Normal 0-40 [facility] Internal Medicine Work Phone: Comment on above: PATIENT WAS FASTINGP ERFORMED BY: [facility] Dcocuy7347 [address] Roadblin [place] [id number] Bilirubin mass conc 1.2 mg/dL Normal 0.0-1.2 [facility] Internal Medicine Work Phone: Comment on above: PATIENT WAS FASTINGP ERFORMED BY: [facility]6[address] Roadblin [place] [id number] Calcium mass conc 9.3 mg/dL Normal 8.7-10.2 [facility] Internal Medicine Work Phone: Comment on above: PATIENT WAS FASTINGP ERFORMED BY: [facility] Kwsoaq2581 [address] Roadblin [place] [id number] Chloride molar conc 102 mmol/L Normal 97-108 [facility] Internal Medicine Work Phone: Comment on above: PATIENT WAS FASTINGP ERFORMED BY: [facility]Asp[facility]ton[facility] [facility]in [place] [id number] CO2 molar conc 24 mmol/L Normal 19-28 Comprehens [facility] Internal Medicine Work Phone: Comment on above: PATIENT WAS FASTINGP ERFORMED BY: [facility] [facility] [id number] Creatinine mass conc 1.01 mg/dL Normal 0.76-1.27 Comp rehensive Internal Medicine Work Phone: Comment on above: PATIENT WAS FASTINGP ERFORMED BY: [facility]Asp[facility]6[address] [facility] [id number] GFR/1.73 sq M predicted among blacks CKD-EPI vol rate/area (S/P/Bld) 94 mL/min/1.73 Normal Comprehensiv e Internal Medicine Work Phone: Comment on above: PATIENT WAS FASTINGP ERFORMED BY: [facility]6370 [facility] [id number] GFR/1.73 sq M predicted among non-blacks CKD-EPI vol rate/area (S/P/Bld) 82 mL/min/1.73 Normal [facility] Work Phone: Comment on above: PATIENT WAS FASTINGP ERFORMED BY: [facility]6370 [facility] [id number] Globulin (S) [Mass/Vol] 2.5 g/dL Normal 1.5-4.5 [facility] Work Phone: Comment on above: PATIENT WAS FASTINGP ERFORMED BY: [facility]6370 [facility] [id number] Globulin Calculated mass conc (S) 2.5 g/dL Normal 1.5-4.5 [facility] Work Phone: Glucose mass conc 93 mg/dL Normal 65-99 Compreh ensive Internal Medicine Work Phone: Comment on above: PATIENT WAS FASTINGP ERFORMED BY: [facility] [facility] [id number] Potassium molar conc 3.7 mmol/L Normal 3.5-5.2 Comp rehensive Internal Medicine Work Phone: Comment on above: PATIENT WAS FASTINGP ERFORMED BY: [facility] Dereje Boss6370 [facility] [id number] Protein mass conc 6.8 g/dL Normal 6.0-8.5 Compreh ensive [facility] Medicine Work Phone: Comment on above: PATIENT WAS FASTINGP ERFORMED BY: [facility] Dereje Hszais6154 [facility] [id number] Sodium molar conc 140 mmol/L Normal 134-144 Compreh ensive [facility] Medicine Work Phone: Comment on above: PATIENT WAS FASTINGP ERFORMED BY: [facility] Mackenziekorina HensleyAfftzu8294 [facility] [id number] Urea nitrogen mass conc 13 mg/dL Normal 6-24 [facility] Work Phone: Comment on above: PATIENT WAS FASTINGP ERFORMED BY: [facility] ApolinarHiram HensleyWwdiag5353 [facility] [id number] Urea nitrogen/Creatinine mass ratio 13 mg/mg Normal 9-20 [facility] Work Phone: Comment on above: PATIENT WAS FASTINGP ERFORMED BY: [facility] Hensleylin6370 [facility] [id number] MICROALBUMINOrdered By: Syst em Truant Officer on 11-25-2012 Albumin DL <= 20 mg/L mass conc (U) 2.2 ug/mL Normal 0.0-17.0 [facility] Work Phone: Comment on above: PATIENT WAS FASTINGP ERFORMED BY: [facility] ApolinarAlexis Jozkka4241 [facility] [id number] Albumin/Creatinine mass ratio (U) 1.9 {mg/g_creat} Normal 0.0-30.0 [facility] Work Phone: Comment on above: PATIENT WAS FASTINGP ERFORMED BY: [facility] ApolinarAlexis Wkzcmt0538 [facility] [id number] Creatinine mass conc (U) 117.2 mg/dL Normal 22.0-328.0 [facility] Work Phone: Comment on above: PATIENT WAS FASTINGP ERFORMED BY: [facility] [place] [id number] Microscopic ExaminationOrder ed By: Strap Buckler on 11-25-2012 Bacteria LM.HPF #/area (Urine sed) Few Normal [facility] Work Phone: Epithelial cells LM.HPF #/area (Urine sed) 0-10 Normal 0 - 10 [facility] Work Phone: Mucus LM Ql (Urine sed) Present Normal [facility] Work Phone: RBC LM.HPF #/area (Urine sed) 0-3 Normal 0 - 3 [facility] Work Phone: WBC LM.HPF #/area (Urine sed) 0-5 Normal 0 - 5 [facility] Work Phone: PSA (PROSTATE SPECIFIC ANTIG EN) (V76.44)Ordered By: Strap Buckler on 11-25-2012 Prostate specific Ag mass conc 1.9 ng/mL Normal 0.0-4.0 [facility] Work Phone: Comment on above: Neema ECLIA methodol ogy. .According to the [place] [employer], Serum PSA shoulddecrease and remain at undetectable levels after radicalprostatectomy. The AUA defines biochemical recurrence as an initialPSA value 0.2 ng/mL or greater followed by a subsequent confirmatoryPSA value 0.2 ng/mL or greater.Values obtained with different assay methods or kits cannot be usedinterchangeably. Results cannot be interpreted as absolute evidenceof the presence or absence of malignant disease. screening; PATIENT W FASTINGPERFORMED BY: [facility]6370 [facility] [id number] TSH ([id number])Ordered By: Grzegorz m Truant Officer on 11-25-2012 Thyrotropin Qn 2.430 {uIU/mL} Normal 0.450-4.50 0 [facility] Work Phone: Comment on above: PATIENT WAS FASTINGP ERFORMED BY: mobifriends70 [facility] [id number] URINALYSIS, W/ MICRO ([id number]) Ordered By: Strap Buckler on 11-25-2012 Appearance Nom (U) Clear Normal Compre hensive Internal Medicine Work Phone: Comment on above: PATIENT WAS FASTINGP ERFORMED BY: [facility] Hyyhgp5[address] RoadDublin [place] [id number] Bilirubin Ql (U) Negative Normal Comprehe nsive Internal Medicine Work Phone: Comment on above: PATIENT WAS FASTINGP ERFORMED BY: [facility] Mlrhcj2267 [address] RoadDublin [place] [id number] Bilirubin Ql (U) Negative Normal Comprehe nsive Internal Medicine; [facility] Work Phone: Color Nom (U) Yellow Normal Comprehensi ve Internal Medicine Work Phone: Comment on above: PATIENT WAS FASTINGP ERFORMED BY: [facility] LabCokorina HensleyRcrnhc24[address] RoadDublin [place] [id number] Glucose Ql (U) Negative Normal Comprehens [facility] Work Phone: Comment on above: PATIENT WAS FASTINGP ERFORMED BY: [facility] Miataq9[address] RoadDublin [place] [id number] Glucose Ql (U) Negative Normal Comprehens [facility]; [facility] Work Phone: Hemoglobin Ql (U) Negative Normal Compreh ensive Internal Medicine Work Phone: Comment on above: PATIENT WAS FASTINGP ERFORMED BY: [facility] Wxabgr9[address] RoadDublin [place] [id number] Hemoglobin Ql (U) Negative Normal Compreh ensive Internal Medicine; [facility] Work Phone: Hemoglobin Test strip Ql (U) Negative Normal [facility] Work Phone: Ketones Ql (U) Negative Normal Comprehens [facility] Work Phone: Comment on above: PATIENT WAS FASTINGP ERFORMED BY: [facility] Nvfaol[address] RoadDublin [place] [id number] Ketones Ql (U) Negative Normal Comprehens bradfodr [facility] Medicine; [facility] Work Phone: Leukocyte esterase Test strip Ql (U) Negative Normal [facility] Work Phone: Comment on above: PATIENT WAS FASTINGP ERFORMED BY: [facility] Hvuscd[address] RoadDublin [place] [id number] Leukocyte esterase Test strip Ql (U) Negative Normal [facility]; [facility] Work Phone: Microscopic observation LM Nom (Urine sed) MICRON Normal [facility] Work Phone: Comment on above: Microscopic follows if indicated. PATIENT WAS FASTINGP ERFORMED BY: [facility] Eqwghk05[address] RoadDublin [place] [id number] Microscopic observation LM Nom (Urine sed) See below: Normal [facility] Work Phone: Comment on above: PATIENT WAS FASTINGP ERFORMED BY: [facility] Rxanei4[address] RoadDublin [place] [id number] Nitrite Ql (U) Negative Normal Comprehens [facility] Work Phone: Comment on above: PATIENT WAS FASTINGP ERFORMED BY: [facility] Mymsro[address] RoadDublin [place] [id number] Nitrite Ql (U) Negative Normal Comprehens [facility]; [facility] Work Phone: Nitrite Test strip Ql (U) Negative Normal [facility] Work Phone: pH (U) 6.0 [pH] Normal 5.0-7.5 [facility] Work Phone: Comment on above: PATIENT WAS FASTINGP ERFORMED BY: [facility] Fpgims4[address] RoadDublin [place] [id number] pH Test strip (U) 6.0 [pH] Normal 5.0-7.5 Compreh ensive [facility] Medicine Work Phone: Protein Ql (U) Negative Normal Comprehens [facility] Work Phone: Comment on above: PATIENT WAS FASTINGP ERFORMED BY: [facility] Zxioid44[address] RoadDublin [place] [id number] Protein Ql (U) Negative Normal Comprehens [facility]; [facility] Work Phone: Protein Test strip Ql (U) Negative Normal [facility] Work Phone: Specific gravity Relative Density (U) 1.018 1 Normal 1.005-1.03 0 [facility] Work Phone: Comment on above: PATIENT WAS FASTINGP ERFORMED BY: [employer] Sciencesin [place] [id number] Urobilinogen (U) [Mass/Vol] 0.2 mg/dL Normal 0.0-1.9 [facility]; [facility] Work Phone: Urobilinogen Test strip mass conc (U) 0.2 mg/dL Normal 0.0-1.9 Comprehensiv e Internal Medicine Work Phone: Comment on above: PATIENT WAS FASTINGP ERFORMED BY: [employer] Sciencesin [place] [id number] Vitamin D Hydroxy (10187)Ord ered By: Strap Buckler on 11-25-2012 25-Hydroxyvitamin D2+25-Hydroxyvitamin D3 mass conc 39.8 ng/mL Normal 30.0-100.0 [facility] Work Phone: Comment on above: Vitamin D deficiency has been defined by the [place] of[place]icine and an Endocrine Society practice guideline as alevel of serum 25-OH vitamin D less than 20 ng/mL (1,2).The Endocrine Society went on to further define vitamin Dinsufficiency as a level between 21 and 29 ng/mL (2).1. IOM ([place] of Medicine). 2010. Dietary reference intakes for calcium and D. [place]: The National Academies Press.2. Ana Maria MF, Dhaval NC, Glendy RAGLAND, et al. Evaluation, treatment, and prevention of vitamin D deficiency: an Endocrine Society clinical practice guideline. JCEM. 2010; 96(7):1911-30. PATIENT WAS FASTINGP ERFORMED BY: [employer] [place] [id number] CALCIFIDIOL (85436) VIT D 25 Ordered By: Strap Buckler on 05-26-2012 25-Hydroxyvitamin D2+25-Hydroxyvitamin D3 mass conc 34.1 ng/mL Normal 30.0-100.0 [facility] Work Phone: Comment on above: Vitamin D deficiency has been defined by the [place] of[place]icine and an Endocrine Society practice guideline as alevel of serum 25-OH vitamin D less than 20 ng/mL (1,2).The Endocrine Society went on to further define vitamin Dinsufficiency as a level between 21 and 29 ng/mL (2).1. IOM ([place] of Medicine). 2010. Dietary reference intakes for calcium and D. [place]: The National Academies Press.2. Ana Maria MF, Dhavla PUGA, Glendy RAGLAND, et al. Evaluation, treatment, and prevention of vitamin D deficiency: an Endocrine Society clinical practice guideline. JCEM. 2010; 96(7):1911-30. PATIENT WAS FASTINGP ERFORMED BY: [employer] Ezatoi[address] ElementumCatawba Valley Medical Centerin [place] [id number] LIPID PANEL (69464)Ordered B y: Strap Buckler on 05-26-2012 Cholesterol in HDL mass conc 44 mg/dL Normal [facility] Work Phone: Comment on above: According to ATP-III Guidelines, HDL-C >59 mg/dL is considered anegative risk factor for CHD. PATIENT WAS FASTINGP ERFORMED BY: [facility] Gnxbsi[address] ElementumDublin [place] [id number] Information: [id number] Cholesterol in LDL mass conc 124 mg/dL Abnormal 0-99 [facility] Work Phone: Comment on above: PATIENT WAS FASTINGP ERFORMED BY: CB [facility] Xtyels[address] ElementumDublin [place] [id number] Information: [id number] Cholesterol in LDL/Cholesterol in HDL mass ratio 2.8 {ratio_units} Normal 0.0-3.6 [facility] Work Phone: Comment on above: PATIENT WAS FASTINGP ERFORMED BY: [facility] Opoyud07[address] RoadDublin [place] [id number] Information: [id number] Cholesterol in VLDL mass conc 44 mg/dL Abnormal 5-40 [facility] Work Phone: Comment on above: PATIENT WAS FASTINGP ERFORMED BY: CB [facility] Exvhys[address] RoadDublin [place] [id number] Information: [id number] Cholesterol mass conc 212 mg/dL Abnormal 100-199 [facility] prehensive Internal Medicine Work Phone: Comment on above: PATIENT WAS FASTINGP ERFORMED BY: CB [facility] Dqqmcn[address] RoadDublin [place] [id number] Information: [id number] Triglyceride mass conc 222 mg/dL Abnormal 0-149 [facility] Work Phone: Comment on above: PATIENT WAS FASTINGP ERFORMED BY: CB [facility] Sbvntw1164 Flores RoadCatawba Valley Medical Centerin [place] [id number] Information: [id number] CALCIFEDIOL (33509)Ordered B y: Strap Buckler on 12-08-2011 25-Hydroxyvitamin D2+25-Hydroxyvitamin D3 mass conc 26.5 ng/mL Abnormal 30.0-100.0 [facility] Work Phone: Comment on above: Vitamin D deficiency has been defined by the [place] of[place]icine and an Endocrine Society practice guideline as alevel of serum 25-OH vitamin D less than 20 ng/mL (1,2).The Endocrine Society went on to further define vitamin Dinsufficiency as a level between 21 and 29 ng/mL (2).1. IOM ([place] of Medicine). 2010. Dietary reference intakes for calcium and D. [place]: The National Academies Press.2. Ana Maria MF, Dhaval NC, Glendy RAGLAND, et al. Evaluation, treatment, and prevention of vitamin D deficiency: an Endocrine Society clinical practice guideline. JCEM. 2010; 96(7):1911-30. PATIENT WAS FASTINGP ERFORMED BY: CB [facility] Xzjeur022[address] RoadDublin [place] [id number] CBC with manual diff (43648) Ordered By: Strap Buckler on 12-08-2011 Basophils (Bld) [#/Vol] 0.0 {x10E3/uL} Normal 0.0-0.2 [facility] Work Phone: Comment on above: PATIENT WAS FASTINGP ERFORMED BY: [facility] Harmarvillekorina Sbyzzs9393 [facility] [id number] Information: [id number] Basophils (Bld) [#/Vol] 0.0 10*3/uL Normal 0.0-0.2 [facility]; [facility] Work Phone: Basophils Auto #/vol (Bld) 0.0 {x10E3/uL} Normal 0.0-0.2 [facility] Work Phone: Basophils/100 WBC (Bld) 0 % Normal 0-3 [facility] Work Phone: Comment on above: PATIENT WAS FASTINGP ERFORMED BY: [facility] [place] [id number] [facility] [id number] Information: [id number] Basophils/100 WBC Auto (Bld) 0 % Normal 0-3 [facility] Work Phone: Eosinophils (Bld) [#/Vol] 0.3 {x10E3/uL} Normal 0.0-0.4 [facility] Work Phone: Comment on above: PATIENT WAS FASTINGP ERFORMED BY: [facility]6370 [facility] [id number] Information: [id number] Eosinophils (Bld) [#/Vol] 0.3 10*3/uL Normal 0.0-0.4 [facility]; [facility] Work Phone: Eosinophils Auto #/vol (Bld) 0.3 {x10E3/uL} Normal 0.0-0.4 [facility] Work Phone: Eosinophils/100 WBC (Bld) 4 % Normal 0-7 [facility] Work Phone: Comment on above: PATIENT WAS FASTINGP ERFORMED BY: [place] [id number] [facility] [id number] Information: [id number] Eosinophils/100 WBC Auto (Bld) 4 % Normal 0-7 [facility] Work Phone: Erythrocyte distribution width (RBC) [Ratio] 13.3 % Normal 12.3-15.[address] [facility] Work Phone: Comment on above: PATIENT WAS FASTINGP ERFORMED BY: [facility] Harmarvillekorina Jblggi3541 [facility] [id number] Information: [id number] Erythrocyte distribution width Auto Ratio (RBC) 13.3 % Normal 12.3-15.4 [facility] Work Phone: Hematocrit (Bld) [Volume fraction] 42.4 % Normal 37.5-51.[address] [facility] Work Phone: Comment on above: PATIENT WAS FASTINGP ERFORMED BY: [facility] AM AnalyticsNjkorina HensleyEwftgs5965 [facility] [id number] Information: [id number] Hematocrit Auto Volume Fraction (Bld) 42.4 % Normal 37.5-51.0 [facility] Internal Medicine Work Phone: Hemoglobin mass conc (Bld) 15.0 g/dL Normal 12.6-17.[address] [facility] Work Phone: Comment on above: PATIENT WAS FASTINGP ERFORMED BY: [facility]6370 [facility] [id number] Information: [id number] Immature granulocytes #/vol (Bld) 0.0 {x10E3/uL} Normal 0.0-0.1 [facility] Work Phone: Comment on above: PATIENT WAS FASTINGP ERFORMED BY: [facility]6370 [facility] [id number] Information: [id number] Immature granulocytes (Bld) [#/Vol] 0.0 10*3/uL Normal 0.0-0.1 [facility]; [facility] Work Phone: Immature granulocytes/100 WBC (Bld) 0 % Normal 0-2 [facility] Work Phone: Comment on above: PATIENT WAS FASTINGP ERFORMED BY: [facility] [place] [id number] [facility] [id number] Information: [id number] Lymphocytes (Bld) [#/Vol] 1.5 {x10E3/uL} Normal 0.7-4.5 [facility] Work Phone: Comment on above: PATIENT WAS FASTINGP ERFORMED BY: [address] [id number] Information: [id number] Lymphocytes (Bld) [#/Vol] 1.5 10*3/uL Normal 0.7-4.5 [facility]; [facility] Work Phone: Lymphocytes Auto #/vol (Bld) 1.5 {x10E3/uL} Normal 0.7-4.5 [facility] Work Phone: Lymphocytes/100 WBC (Bld) 21 % Normal 14-46 [facility] Work Phone: Comment on above: PATIENT WAS FASTINGP ERFORMED BY: [place] [id number] [facility] [id number] Information: [id number] Lymphocytes/100 WBC Auto (Bld) 21 % Normal 14-46 [facility] Work Phone: MCH (RBC) [Entitic mass] 32.1 pg Normal 26.6-33.0 [facility] Work Phone: Comment on above: PATIENT WAS FASTINGP ERFORMED BY: [place] [id number] [facility] [id number] Information: [id number] MCH Auto Entitic mass (RBC) 32.1 pg Normal 26.6-33.[address] [facility] Internal Medicine Work Phone: MCHC (RBC) [Mass/Vol] 35.4 g/dL Normal 31.5-35.7 [facility] prehensive Internal Medicine Work Phone: Comment on above: PATIENT WAS FASTINGP ERFORMED BY: AM AnalyticsAsp[facility]ton[facility]6370 [facility] [id number] Information: [id number] MCHC Auto mass conc (RBC) 35.4 g/dL Normal 31.5-35.7 [facility] Work Phone: MCV (RBC) [Entitic vol] 91 fL Normal 79-97 [facility] Work Phone: Comment on above: PATIENT WAS FASTINGP ERFORMED BY: EndoInSightEast Orange VA Medical CenterLbsdwe3932 [facility] [id number] Information: [id number] MCV Auto Entitic volume (RBC) 91 fL Normal 79-97 [facility] Work Phone: Monocytes (Bld) [#/Vol] 0.5 {x10E3/uL} Normal 0.1-1.[address] [facility] Internal Medicine Work Phone: Comment on above: PATIENT WAS FASTINGP ERFORMED BY: EndoInSightEast Orange VA Medical CenterGcimgp8720 [facility] [id number] Information: [id number] Monocytes (Bld) [#/Vol] 0.5 10*3/uL Normal 0.1-1.0 [facility]; [facility] Internal Medicine Work Phone: Monocytes Auto #/vol (Bld) 0.5 {x10E3/uL} Normal 0.1-1.0 [facility] Work Phone: Monocytes/100 WBC (Bld) 7 % Normal 4-13 [facility] Work Phone: Comment on above: PATIENT WAS FASTINGP ERFORMED BY: [facility]6370 [facility] [id number] Information: [id number] Monocytes/100 WBC Auto (Bld) 7 % Normal 4-13 [facility] Work Phone: Neutrophils (Bld) [#/Vol] 4.6 {x10E3/uL} Normal 1.8-7.8 [facility] Work Phone: Comment on above: PATIENT WAS FASTINGP ERFORMED BY: [facility] [place] [id number] [facility] [id number] Information: [id number] Neutrophils (Bld) [#/Vol] 4.6 10*3/uL Normal 1.8-7.8 [facility]; [facility] Work Phone: Neutrophils Auto #/vol (Bld) 4.6 {x10E3/uL} Normal 1.8-7.8 [facility] Work Phone: Neutrophils/100 WBC (Bld) 68 % Normal 40-74 [facility] Work Phone: Comment on above: PATIENT WAS FASTINGP ERFORMED BY: [facility] Harmarvillekorina HensleyPdselr9702 [facility] [id number] Information: [id number] Neutrophils/100 WBC Auto (Bld) 68 % Normal 40-74 [facility] Work Phone: Platelets (Bld) [#/Vol] 231 {x10E3/uL} Normal 140-[address] [facility] Internal Medicine Work Phone: Comment on above: PATIENT WAS FASTINGP ERFORMED BY: [facility] Hensleylin6370 [facility] [id number] Information: [id number] Platelets (Bld) [#/Vol] 231 10*3/uL Normal 140-415 [facility]; [facility] Internal Medicine Work Phone: Platelets Auto #/vol (Bld) 231 {x10E3/uL} Normal 140-[address] [facility] Internal Medicine Work Phone: RBC (Bld) [#/Vol] 4.67 {x10E6/uL} Normal 4.14-5.80 [facility] Internal Medicine Work Phone: Comment on above: PATIENT WAS FASTINGP ERFORMED BY: [facility] [place] [id number] [facility] [id number] Information: [id number] RBC (Bld) [#/Vol] 4.67 10*6/uL Normal 4.14-5.80 [facility] Internal Medicine; [facility] Work Phone: RBC Auto #/vol (Bld) 4.67 {x10E6/uL} Normal 4.14-5.80 [facility] Work Phone: WBC (Bld) [#/Vol] 6.8 {x10E3/uL} Normal 4.0-10.5 [facility] Internal Medicine Work Phone: Comment on above: PATIENT WAS FASTINGP ERFORMED BY: [facility] MePIN / Meontrust IncRandolph Health [id number] Information: [id number] WBC (Bld) [#/Vol] 6.8 10*3/uL Normal 4.0-10.5 [facility] Internal Medicine; [facility] Work Phone: WBC Auto #/vol (Bld) 6.8 {x10E3/uL} Normal 4.0-10.5 [facility] Work Phone: Lipid Panel (13036)Ordered B y: Strap Buckler on 12-08-2011 Cholesterol in HDL mass conc 48 mg/dL Normal [facility] Work Phone: Comment on above: According to ATP-III Guidelines, HDL-C >59 mg/dL is considered anegative risk factor for CHD. PATIENT WAS FASTINGP ERFORMED BY: [facility] Kleer70 VR1[facility] [id number] Cholesterol in LDL mass conc 116 mg/dL Abnormal 0-99 [facility] Work Phone: Comment on above: Effective 2011, the reference interval for LDL Cholesterol Calc will be changing to: 0 - 19 years 0 - 109 20 - 24 years 0 - 119 > 24 years 0 - 99 PATIENT WAS FASTINGP ERFORMED BY: [facility] [employer]6370 [facility] [id number] Cholesterol in LDL/Cholesterol in HDL mass ratio 2.4 {ratio_units} Normal 0.0-3.6 [facility] Work Phone: Comment on above: PATIENT WAS FASTINGP ERFORMED BY: [facility] Hensleylin[address] [facility] [place] [id number] Cholesterol in VLDL mass conc 49 mg/dL Abnormal 5-40 [facility] Work Phone: Comment on above: PATIENT WAS FASTINGP ERFORMED BY: [facility] Hensleylin[address] [facility] [place] [id number] Cholesterol mass conc 213 mg/dL Abnormal 100-199 [facility] prehensive Internal Medicine Work Phone: Comment on above: Effective Septembe r 2011, the reference interval for Cholesterol, Total will be changing to: 0 - 19 years 100 - 169 20 - 24 years 100 - 189 > 24 years 100 - 199 PATIENT WAS FASTINGP ERFORMED BY: [facility] Hensleylin[address] [facility] [id number] Triglyceride mass conc 246 mg/dL Abnormal 0-149 [facility] Work Phone: Comment on above: Effective Boraccie r 2011, the reference interval for Triglycerides will be changing to: 0 - 9 years 0 - 74 10 - 19 years 0 - 89 20 - 24 years 0 - 114 > 24 years 0 - 149 PATIENT WAS FASTINGP ERFORMED BY: [facility] Hensleylin6370 [facility] [id number] MICROALBUMINOrdered By: Syst em Truant Officer on 12-08-2011 Albumin DL <= 20 mg/L mass conc (U) 4.6 ug/mL Normal 0.0-17.0 [facility] Work Phone: Comment on above: PATIENT WAS FASTINGP ERFORMED BY: [facility] LabCokorina Fwtaqb[address] [facility] [place] [id number] Albumin/Creatinine mass ratio (U) 3.8 {mg/g_creat} Normal 0.0-30.0 [facility] Work Phone: Comment on above: PATIENT WAS FASTINGP ERFORMED BY: [facility] LabHiram Xhwcgf6518 [address] [facility] [id number] Creatinine mass conc (U) 119.8 mg/dL Normal 22.0-328.0 [facility] Work Phone: Comment on above: PATIENT WAS FASTINGP ERFORMED BY: [facility] LabHiram HensleyIdtbxj1293 [address] [facility] [id number] Metabolic Panel, Comprehensi ve ([id number])Ordered By: Strap Buckler on 12-08-2011 Albumin mass conc 4.4 g/dL Normal 3.5-5.5 [facility] Work Phone: Comment on above: PATIENT WAS FASTINGP ERFORMED BY: [facility] LabAlexis Pkaart1697 [facility] [id number] Albumin/Globulin mass ratio 1.9 {ratio} Normal 1.1-2.[address] [facility] Internal Medicine Work Phone: Comment on above: PATIENT WAS FASTINGP ERFORMED BY: [facility] Mann Zfheqp5965 [facility] [id number] ALP [Catalytic activity/Vol] 101 U/L Normal 25-150 [facility]; [facility] Internal Medicine Work Phone: ALP enzyme act/vol 101 [iU]/L Normal 25-150 [facility] Internal Medicine Work Phone: Comment on above: PATIENT WAS FASTINGP ERFORMED BY: [facility] Hensleylin6370 [facility] [id number] ALT [Catalytic activity/Vol] 37 U/L Normal 0-55 [facility]; [facility] Internal Medicine Work Phone: ALT enzyme act/vol 37 [iU]/L Normal 0-55 [facility] Internal Medicine Work Phone: Comment on above: PATIENT WAS FASTINGP ERFORMED BY: [facility] Gvitrk0401 [facility] [id number] AST [Catalytic activity/Vol] 20 U/L Normal 0-40 [facility]; [facility] Internal Medicine Work Phone: AST enzyme act/vol 20 [iU]/L Normal 0-40 [facility] Internal Medicine Work Phone: Comment on above: PATIENT WAS FASTINGP ERFORMED BY: CB [facility] Cpvlwc4960 [address] RoadDublin [place] [id number] Bilirubin mass conc 1.4 mg/dL Abnormal 0.0-1.2 Compr ehensive Internal Medicine Work Phone: Comment on above: PATIENT WAS FASTINGP ERFORMED BY: [facility] Romvlr6855 [address] RoadDublin [place] [id number] Calcium mass conc 9.5 mg/dL Normal 8.7-10.2 Compreh ensive Internal Medicine Work Phone: Comment on above: PATIENT WAS FASTINGP ERFORMED BY: [facility] Okmeoh2633 [address] RoadCatawba Valley Medical Centerin [place] [id number] Chloride molar conc 101 mmol/L Normal 97-108 Compr ensive Internal Medicine Work Phone: Comment on above: PATIENT WAS FASTINGP ERFORMED BY: [facility] LabCo Feuyon7[address] RoadCatawba Valley Medical Centerin [place] [id number] CO2 molar conc 23 mmol/L Normal 20-32 Comprehens [facility] Internal Medicine Work Phone: Comment on above: PATIENT WAS FASTINGP ERFORMED BY: [facility] Yllscf7877 [address] RoadDuin [place] [id number] Creatinine mass conc 1.04 mg/dL Normal 0.76-1.27 Comp [facility] hospitalensive Internal Medicine Work Phone: Comment on above: PATIENT WAS FASTINGP ERFORMED BY: [facility] JiangCo Cgoiyi5321 [address] RoadCatawba Valley Medical Centerin [place] [id number] GFR/1.73 sq M predicted among blacks CKD-EPI vol rate/area (S/P/Bld) 92 mL/min/1.73 Normal Comprehensiv e Internal Medicine Work Phone: Comment on above: PATIENT WAS FASTINGP ERFORMED BY: [facility] Qtazyx2501 [address] Roadblin [place] [id number] GFR/1.73 sq M predicted among non-blacks CKD-EPI vol rate/area (S/P/Bld) 79 mL/min/1.73 Normal [facility] Work Phone: Comment on above: PATIENT WAS FASTINGP ERFORMED BY: CB [facility]Asp[facility]6370 [facility] [id number] Globulin (S) [Mass/Vol] 2.3 g/dL Normal 1.5-4.5 [facility] Work Phone: Comment on above: PATIENT WAS FASTINGP ERFORMED BY: [facility] Mackenzie Eajuux4192 [facility] [id number] Globulin Calculated mass conc (S) 2.3 g/dL Normal 1.5-4.5 [facility] Work Phone: Glucose mass conc 92 mg/dL Normal 65-99 Compreh ensive Internal Medicine Work Phone: Comment on above: PATIENT WAS FASTINGP ERFORMED BY: [facility] Tryjpl3994 [facility] [id number] Potassium molar conc 3.8 mmol/L Normal 3.5-5.2 Comp rehensive Internal Medicine Work Phone: Comment on above: PATIENT WAS FASTINGP ERFORMED BY: [facility] Mdubob5087 [facility] [id number] Protein mass conc 6.7 g/dL Normal 6.0-8.5 Compreh ensive Internal Medicine Work Phone: Comment on above: PATIENT WAS FASTINGP ERFORMED BY: [facility] HospitalAlexisEast Orange VA Medical CenterPkhsqo8918 [facility] [id number] Sodium molar conc 141 mmol/L Normal 134-144 Compreh ensive Internal Medicine Work Phone: Comment on above: PATIENT WAS FASTINGP ERFORMED BY: [facility]6370 [facility] [id number] Urea nitrogen mass conc 15 mg/dL Normal 6-24 [facility] Work Phone: Comment on above: PATIENT WAS FASTINGP ERFORMED BY: [facility]Asp[facility]6370 [facility] [id number] Urea nitrogen/Creatinine mass ratio 14 mg/mg Normal 9-20 [facility] Work Phone: Comment on above: PATIENT WAS FASTINGP ERFORMED BY: [facility]6370 [facility] [id number] TSH ([id number])Ordered By: Syste m Truant Officer on 12-08-2011 Thyrotropin Qn 3.200 {uIU/mL} Normal 0.450-4.50 0 [facility] Work Phone: Comment on above: PATIENT WAS FASTINGP ERFORMED BY: [employer]6[address] [facility] [id number] PSA (PROSTATE SPECIFIC ANTIG EN) (V76.44)Ordered By: Strap Buckler on 06-11-2011 Prostate specific Ag mass conc 1.7 ng/mL Normal 0.0-4.0 [facility] Work Phone: Comment on above: [employer] ECLIA methodol ogy. .According to the [place] [employer], Serum PSA shoulddecrease and remain at undetectable levels after radicalprostatectomy. The AUA defines biochemical recurrence as an initialPSA value 0.2 ng/mL or greater followed by a subsequent confirmatoryPSA value 0.2 ng/mL or greater.Values obtained with different assay methods or kits cannot be usedinterchangeably. Results cannot be interpreted as absolute evidenceof the presence or absence of malignant disease. PATIENT NOT FASTINGP ERFORMED BY: [employer]6370 [facility] [id number] Information: [id number] CBC with manual diff ([id number]) Ordered By: Strap Buckler on 06-05-2011 Basophils (Bld) [#/Vol] 0.0 {x10E3/uL} Normal 0.0-0.2 [facility] Work Phone: Comment on above: PATIENT WAS FASTINGP ERFORMED BY: EndoInSightEast Orange VA Medical CenterDbvecw1231 [facility] [id number] Information: [id number] Basophils (Bld) [#/Vol] 0.0 10*3/uL Normal 0.0-0.2 [facility]; [facility] Work Phone: Basophils Auto #/vol (Bld) 0.0 {x10E3/uL} Normal 0.0-0.2 [facility] Work Phone: Basophils/100 WBC (Bld) 1 % Normal 0-3 [facility] Work Phone: Comment on above: PATIENT WAS FASTINGP ERFORMED BY: [facility] [place] [id number] [facility] [id number] Information: [id number] Basophils/100 WBC Auto (Bld) 1 % Normal 0-3 [facility] Work Phone: Eosinophils (Bld) [#/Vol] 0.2 {x10E3/uL} Normal 0.0-0.4 [facility] Work Phone: Comment on above: PATIENT WAS FASTINGP ERFORMED BY: [facility] [place] [id number] [facility] [id number] Information: [id number] Eosinophils (Bld) [#/Vol] 0.2 10*3/uL Normal 0.0-0.4 [facility]; [facility] Work Phone: Eosinophils Auto #/vol (Bld) 0.2 {x10E3/uL} Normal 0.0-0.4 [facility] Work Phone: Eosinophils/100 WBC (Bld) 4 % Normal 0-7 [facility] Work Phone: Comment on above: PATIENT WAS FASTINGP ERFORMED BY: [facility] [place] [id number] [facility] [id number] Information: [id number] Eosinophils/100 WBC Auto (Bld) 4 % Normal 0-7 [facility] Work Phone: Erythrocyte distribution width (RBC) [Ratio] 13.1 % Normal 11.7-15.0 [facility] Work Phone: Comment on above: PATIENT WAS FASTINGP ERFORMED BY: [facility] [place] [id number] [facility] [id number] Information: [id number] Erythrocyte distribution width Auto Ratio (RBC) 13.1 % Normal 11.7-15.0 [facility] Work Phone: Hematocrit (Bld) [Volume fraction] 42.3 % Normal 36.0-50.0 [facility] Work Phone: Comment on above: PATIENT WAS FASTINGP ERFORMED BY: [facility] Dsadnm2679 [facility] [id number] Information: [id number] Hematocrit Auto Volume Fraction (Bld) 42.3 % Normal 36.0-50.0 [facility] Internal Medicine Work Phone: Hemoglobin mass conc (Bld) 14.9 g/dL Normal 12.5-17.0 [facility] Work Phone: Comment on above: PATIENT WAS FASTINGP ERFORMED BY: [facility] [place] [id number] [facility] [id number] Information: [id number] Immature granulocytes #/vol (Bld) 0.0 {x10E3/uL} Normal 0.0-0.1 [facility] Work Phone: Comment on above: PATIENT WAS FASTINGP ERFORMED BY: [facility] [place] [id number] [facility] [id number] Information: [id number] Immature granulocytes (Bld) [#/Vol] 0.0 10*3/uL Normal 0.0-0.1 [facility]; [facility] Work Phone: Immature granulocytes/100 WBC (Bld) 0 % Normal 0-2 [facility] Work Phone: Comment on above: PATIENT WAS FASTINGP ERFORMED BY: [facility]6370 [facility] [id number] Information: [id number] Lymphocytes (Bld) [#/Vol] 1.3 {x10E3/uL} Normal 0.7-4.5 [facility] Work Phone: Comment on above: PATIENT WAS FASTINGP ERFORMED BY: [place] [id number] [facility] [id number] Information: [id number] Lymphocytes (Bld) [#/Vol] 1.3 10*3/uL Normal 0.7-4.5 [facility]; [facility] Work Phone: Lymphocytes Auto #/vol (Bld) 1.3 {x10E3/uL} Normal 0.7-4.5 [facility] Work Phone: Lymphocytes/100 WBC (Bld) 23 % Normal 14-46 [facility] Work Phone: Comment on above: PATIENT WAS FASTINGP ERFORMED BY: [facility] [address] [id number] Information: [id number] Lymphocytes/100 WBC Auto (Bld) 23 % Normal 14-46 [facility] Work Phone: MCH (RBC) [Entitic mass] 32.0 pg Normal 27.0-34.0 [facility] Work Phone: Comment on above: PATIENT WAS FASTINGP ERFORMED BY: [facility] [address] [id number] Information: [id number] MCH Auto Entitic mass (RBC) 32.0 pg Normal 27.0-34.[address] [facility] Internal Medicine Work Phone: MCHC (RBC) [Mass/Vol] 35.2 g/dL Normal 32.0-36.0 [facility] Internal [facility] Work Phone: Comment on above: PATIENT WAS FASTINGP ERFORMED BY: [place] [id number] [facility] [id number] Information: [id number] MCHC Auto mass conc (RBC) 35.2 g/dL Normal 32.0-36.[address] [facility] Internal Medicine Work Phone: MCV (RBC) [Entitic vol] 91 fL Normal 80-98 [facility] Work Phone: Comment on above: PATIENT WAS FASTINGP ERFORMED BY: [place] [id number] [facility] [id number] Information: [id number] MCV Auto Entitic volume (RBC) 91 fL Normal 80-98 [facility] Work Phone: Monocytes (Bld) [#/Vol] 0.5 {x10E3/uL} Normal 0.1-1.0 [facility] Work Phone: Comment on above: PATIENT WAS FASTINGP ERFORMED BY: [facility]6370 [facility] [id number] Information: [id number] Monocytes (Bld) [#/Vol] 0.5 10*3/uL Normal 0.1-1.0 [facility]; [facility] Work Phone: Monocytes Auto #/vol (Bld) 0.5 {x10E3/uL} Normal 0.1-1.0 [facility] Work Phone: Monocytes/100 WBC (Bld) 8 % Normal - [facility] Work Phone: Comment on above: PATIENT WAS FASTINGP ERFORMED BY: [facility]6370 [facility] [id number] Information: [id number] Monocytes/100 WBC Auto (Bld) 8 % Normal 4- [facility] Work Phone: Neutrophils (Bld) [#/Vol] 3.6 {x10E3/uL} Normal 1.8-7.8 [facility] Work Phone: Comment on above: PATIENT WAS FASTINGP ERFORMED BY: [facility]6370 [facility] [id number] Information: [id number] Neutrophils (Bld) [#/Vol] 3.6 10*3/uL Normal 1.8-7.8 [facility]; [facility] Work Phone: Neutrophils Auto #/vol (Bld) 3.6 {x10E3/uL} Normal 1.8-7.8 [facility] Work Phone: Neutrophils/100 WBC (Bld) 64 % Normal 40-74 [facility] Work Phone: Comment on above: PATIENT WAS FASTINGP ERFORMED BY: [facility]olinarAspirus Ontonagon Hospital6370 [facility] [id number] Information: [id number] Neutrophils/100 WBC Auto (Bld) 64 % Normal 40-74 [facility] Work Phone: Platelets (Bld) [#/Vol] 244 {x10E3/uL} Normal 140-415 [facility] Work Phone: Comment on above: PATIENT WAS FASTINGP ERFORMED BY: [facility]6370 [facility] [id number] Information: [id number] Platelets (Bld) [#/Vol] 244 10*3/uL Normal 140-[address] [facility] Internal Medicine; [facility] Internal Medicine Work Phone: Platelets Auto #/vol (Bld) 244 {x10E3/uL} Normal 140-415 [facility] Work Phone: RBC (Bld) [#/Vol] 4.66 {x10E6/uL} Normal 4.10-5.60 [facility] Internal Medicine Work Phone: Comment on above: PATIENT WAS FASTINGP ERFORMED BY: [facility] [place] [id number] [facility] [id number] Information: [id number] RBC (Bld) [#/Vol] 4.66 10*6/uL Normal 4.10-5.60 [facility] Internal Medicine; [facility] Work Phone: RBC Auto #/vol (Bld) 4.66 {x10E6/uL} Normal 4.10-5.[address] [facility] Internal Medicine Work Phone: WBC (Bld) [#/Vol] 5.6 {x10E3/uL} Normal 4.0-10.5 [facility] Internal Medicine Work Phone: Comment on above: PATIENT WAS FASTINGP ERFORMED BY: [facility]6370 [facility] [id number] Information: [id number] WBC (Bld) [#/Vol] 5.6 10*3/uL Normal 4.0-10.5 [facility] Internal Medicine; [facility] Work Phone: WBC Auto #/vol (Bld) 5.6 {x10E3/uL} Normal 4.0-10.5 [facility] Work Phone: Lipid Panel ([id number])Ordered B y: Strap Buckler on 06-05-2011 Cholesterol in HDL mass conc 53 mg/dL Normal [facility] Work Phone: Comment on above: According to ATP-III Guidelines, HDL-C >59 mg/dL is considered anegative risk factor for CHD. PATIENT WAS FASTINGP ERFORMED BY: [facility] LabCokorina Qnajxt9[address] ElementumCatawba Valley Medical Centerin [place] [id number] Cholesterol in LDL mass conc 128 mg/dL Abnormal 0-99 [facility] Work Phone: Comment on above: PATIENT WAS FASTINGP ERFORMED BY: [facility] Bvlkac2770 [address] RoadCatawba Valley Medical Centerin [place] [id number] Cholesterol in LDL/Cholesterol in HDL mass ratio 2.4 {ratio_units} Normal 0.0-3.6 [facility] Work Phone: Comment on above: PATIENT WAS FASTINGP ERFORMED BY: [facility] Lgmedy38[address] [facility] [place] [id number] Cholesterol in VLDL mass conc 28 mg/dL Normal 5-40 [facility] Work Phone: Comment on above: PATIENT WAS FASTINGP ERFORMED BY: [facility] Cpogrp4519 [address] [facility]in [place] [id number] Cholesterol mass conc 209 mg/dL Abnormal 100-199 [facility] prehensive Internal Medicine Work Phone: Comment on above: PATIENT WAS FASTINGP ERFORMED BY: [facility] Hnhgzb85[address] [facility] HospitalDublin [place] [id number] Triglyceride mass conc 142 mg/dL Normal 0-149 [facility] Work Phone: Comment on above: PATIENT WAS FASTINGP ERFORMED BY: [facility] Obuwia8[address] [facility] [id number] MICROALBUMINOrdered By: Syst em Truant Officer on 06-05-2011 Albumin DL <= 20 mg/L mass conc (U) 2.8 ug/mL Normal 0.0-17.0 [facility] Work Phone: Comment on above: PATIENT WAS FASTINGP ERFORMED BY: [facility] LabHiram HensleyNtkpvm3753 [facility] [id number] Albumin/Creatinine mass ratio (U) 1.9 {mg/g_creat} Normal 0.0-30.0 [facility] Work Phone: Comment on above: PATIENT WAS FASTINGP ERFORMED BY: [facility] LabHiram HensleyXphbiy6528 [facility] [id number] Creatinine mass conc (U) 143.7 mg/dL Normal 22.0-328.0 [facility] Work Phone: Comment on above: PATIENT WAS FASTINGP ERFORMED BY: [facility] Hensleylin6370 [facility] [id number] Metabolic Panel, Comprehensi ve ([id number])Ordered By: Strap Buckler on 06-05-2011 Albumin mass conc 4.4 g/dL Normal 3.5-5.5 Compreh ensive Internal Medicine Work Phone: Comment on above: PATIENT WAS FASTINGP ERFORMED BY: [facility] Hensleylin6370 [facility] [id number] Albumin/Globulin mass ratio 1.8 {ratio} Normal 1.1-2.5 [facility] Work Phone: Comment on above: PATIENT WAS FASTINGP ERFORMED BY: [facility] LabCo Rvrptc1288 [facility] [id number] ALP [Catalytic activity/Vol] 110 U/L Normal 25-150 [facility]; [facility] Work Phone: ALP enzyme act/vol 110 [iU]/L Normal 25-150 [facility]pre [facility] Work Phone: Comment on above: PATIENT WAS FASTINGP ERFORMED BY: [facility] LabCokorina HensleyLiskno4465 [facility] [id number] ALT [Catalytic activity/Vol] 42 U/L Normal 0-[address] [facility] Internal Medicine; [facility] Internal Medicine Work Phone: ALT enzyme act/vol 42 [iU]/L Normal 0-55 [facility] Internal Medicine Work Phone: Comment on above: PATIENT WAS FASTINGP ERFORMED BY: CB [facility] Grsswr5040 [address] RoadDublin [place] [id number] AST [Catalytic activity/Vol] 23 U/L Normal 0-[address] [facility] Internal Medicine; [facility] Internal Medicine Work Phone: AST enzyme act/vol 23 [iU]/L Normal 0-40 [facility] Internal Medicine Work Phone: Comment on above: PATIENT WAS FASTINGP ERFORMED BY: CB [facility] Wkpqqa5949 [address] RoadDublin [place] [id number] Bilirubin mass conc 1.4 mg/dL Abnormal 0.0-1.2 [facility] Internal Medicine Work Phone: Comment on above: PATIENT WAS FASTINGP ERFORMED BY: [facility] Hjnebj3429 [address] RoadDublin [place] [id number] Calcium mass conc 9.1 mg/dL Normal 8.7-10.2 Compreh [facility] valleyive Internal Medicine Work Phone: Comment on above: PATIENT WAS FASTINGP ERFORMED BY: CB [facility] Usfcdd1976 [address] RoadDublin [place] [id number] Chloride molar conc 101 mmol/L Normal 97-108 [facility] Internal Medicine Work Phone: Comment on above: PATIENT WAS FASTINGP ERFORMED BY: [facility] Vcbsvj1774 [address] RoadDublin [place] [id number] CO2 molar conc 25 mmol/L Normal 20-32 Comprehens [facility] Internal Medicine Work Phone: Comment on above: PATIENT WAS FASTINGP ERFORMED BY: CB [facility] Qtkbwd6149 [address] RoadDublin [place] [id number] Creatinine mass conc 1.02 mg/dL Normal 0.76-1.27 Comp [facility] hospitalensive Internal Medicine Work Phone: Comment on above: PATIENT WAS FASTINGP ERFORMED BY: CB [facility] Yppqmj6400 [address] RoadDublin [place] [id number] GFR/1.73 sq M predicted among blacks MDRD vol rate/area (S/P/Bld) 95 mL/min/{1.73_m2} Normal Comprehe nsive Internal Medicine Work Phone: Comment on above: Note: A persistent e GFR <60 mL/min/1.73 m2 (3 months or more) mayindicate chronic kidney disease. An eGFR >59 mL/min/1.73 m2 with anelevated urine protein also may indicate chronic kidney disease.Calculated using CKD-EPI formula. PATIENT WAS FASTINGP ERFORMED BY: CB [facility] Ssjqxl8295 [address] RoadDublin [place] [id number] GFR/1.73 sq M predicted among non-blacks CKD-EPI vol rate/area (S/P/Bld) 82 mL/min/1.73 Normal [facility] Work Phone: Comment on above: PATIENT WAS FASTINGP ERFORMED BY: CB [facility] Znyizy3548 [address] RoadDublin [place] [id number] Globulin (S) [Mass/Vol] 2.4 g/dL Normal 1.5-4.5 [facility] Work Phone: Comment on above: PATIENT WAS FASTINGP ERFORMED BY: CB [facility] Njpjpa0393 [address] ElementumCatawba Valley Medical Centerin [place] [id number] Globulin Calculated mass conc (S) 2.4 g/dL Normal 1.5-4.5 [facility] Work Phone: Glucose mass conc 88 mg/dL Normal 65-99 Compreh ensive Internal Medicine Work Phone: Comment on above: PATIENT WAS FASTINGP ERFORMED BY: CB [facility] Gbzxfj1951 [address]blin [place] [id number] Potassium molar conc 4.1 mmol/L Normal 3.5-5.2 Comp rehensive Internal Medicine Work Phone: Comment on above: PATIENT WAS FASTINGP ERFORMED BY: CB [facility] Wsvrqt17[address] [facility]in [place] [id number] Protein mass conc 6.8 g/dL Normal 6.0-8.5 Compreh ensive Internal Medicine Work Phone: Comment on above: PATIENT WAS FASTINGP ERFORMED BY: [facility] Mackenziekorina HensleyOfmqmz9850 [facility] [id number] Sodium molar conc 139 mmol/L Normal 134-144 Compreh ensive Internal Medicine Work Phone: Comment on above: PATIENT WAS FASTINGP ERFORMED BY: [facility] Hensleylin6370 [facility] [id number] Urea nitrogen mass conc 14 mg/dL Normal 6-24 [facility] Work Phone: Comment on above: PATIENT WAS FASTINGP ERFORMED BY: [facility] ApolinarHiram HensleyWpttrc8179 [facility] [id number] Urea nitrogen/Creatinine mass ratio 14 mg/mg Normal 9-20 [facility] Work Phone: Comment on above: PATIENT WAS FASTINGP ERFORMED BY: [facility] Hensleylin6370 [facility] [id number] TSH ([id number])Ordered By: Syste m Truant Officer on 06-05-2011 Thyrotropin Qn 2.220 {uIU/mL} Normal 0.450-4.50 0 [facility] Work Phone: Comment on above: PATIENT WAS FASTINGP ERFORMED BY: [facility] ApolinarHiram Basvem0523 [facility] [id number] LIPID PANEL ([id number])Ordered B y: Strap Buckler on 12-19-2010 Cholesterol in HDL mass conc 46 mg/dL Normal [facility] Work Phone: Comment on above: According to ATP-III Guidelines, HDL-C >59 mg/dL is considered anegative risk factor for CHD. PATIENT WAS FASTINGP ERFORMED BY: [facility] Mackenziekorina Aawtay1387 [facility] [id number] Cholesterol in LDL mass conc 114 mg/dL Abnormal 0-99 [facility] Work Phone: Comment on above: PATIENT WAS FASTINGP ERFORMED BY: [facility] ApolinarHiram HensleyPhymju2228 [facility] [id number] Cholesterol in LDL/Cholesterol in HDL mass ratio 2.5 {ratio_units} Normal 0.0-3.6 [facility] Work Phone: Comment on above: PATIENT WAS FASTINGP ERFORMED BY: [facility] Dereje Hensleylin6370 [facility] [id number] Cholesterol in VLDL mass conc 46 mg/dL Abnormal 5-40 [facility] Work Phone: Comment on above: PATIENT WAS FASTINGP ERFORMED BY: [facility] LabCoNew Mexico Behavioral [facility] Institute at Las VegasBvksxq3587 [facility] [id number] Cholesterol mass conc 206 mg/dL Abnormal 100-199 Com prehensive Internal Medicine Work Phone: Comment on above: PATIENT WAS FASTINGP ERFORMED BY: [facility] Mackenzie Hnqvzv0577 [facility] [id number] Triglyceride mass conc 230 mg/dL Abnormal 0-149 [facility] Work Phone: Comment on above: PATIENT WAS FASTINGP ERFORMED BY: [facility] Hgalbd8090 [facility] [id number] Metabolic Panel, Basic (8004 8)Ordered By: Strap Buckler on 12-19-2010 Calcium mass conc 9.3 mg/dL Normal 8.7-10.2 Compreh ensive Internal Medicine Work Phone: Comment on above: PATIENT WAS FASTINGP ERFORMED BY: [facility] Xljqep9995 [facility] [id number] Information: [id number] Chloride molar conc 103 mmol/L Normal 97-108 Compr ehensive Internal Medicine Work Phone: Comment on above: PATIENT WAS FASTINGP ERFORMED BY: [facility] Pakijb5038 [facility] [id number] Information: [id number] CO2 molar conc 25 mmol/L Normal 20-32 Comprehens [facility] Internal Medicine Work Phone: Comment on above: PATIENT WAS FASTINGP ERFORMED BY: LabCo Frhijf2053 [facility] [id number] Information: [id number] Creatinine mass conc 1.05 mg/dL Normal 0.76-1.27 Comp rehensive Internal Medicine Work Phone: Comment on above: PATIENT WAS FASTINGP ERFORMED BY: [facility]6370 [facility] [id number] Information: [id number] GFR/1.73 sq M predicted among blacks MDRD vol rate/area (S/P/Bld) 91 mL/min/{1.73_m2} Normal Comprehe nsive Internal Medicine Work Phone: Comment on above: Note: A persistent e GFR <60 mL/min/1.73 m2 (3 months or more) mayindicate chronic kidney disease. An eGFR >59 mL/min/1.73 m2 with anelevated urine protein also may indicate chronic kidney disease.Calculated using CKD-EPI formula. PATIENT WAS FASTINGP ERFORMED BY: [facility]6370 [facility] [id number] Information: 514774,[id number] GFR/1.73 sq M predicted among non-blacks CKD-EPI vol rate/area (S/P/Bld) 79 mL/min/1.73 Normal [facility] Work Phone: Comment on above: PATIENT WAS FASTINGP ERFORMED BY: [facility]6370 [facility] [id number] Information: 117745,[id number] Glucose mass conc 90 mg/dL Normal 65-99 Compreh ensive Internal Medicine Work Phone: Comment on above: PATIENT WAS FASTINGP ERFORMED BY: LabAsp[facility]6370 [facility] [id number] Information: [id number] Potassium molar conc 3.9 mmol/L Normal 3.5-5.2 Comp rehensive Internal Medicine Work Phone: Comment on above: PATIENT WAS FASTINGP ERFORMED BY: LabAsp[facility]6370 [facility] [id number] Information: 263696,R65484 Sodium molar conc 141 mmol/L Normal 135-145 Compreh ensive Internal Medicine Work Phone: Comment on above: PATIENT WAS FASTINGP ERFORMED BY: [facility]6370 [facility] [id number] Information: [id number] Urea nitrogen mass conc 14 mg/dL Normal 6-24 [facility] Work Phone: Comment on above: PATIENT WAS FASTINGP ERFORMED BY: [place] [id number] [facility] [id number] Information: [id number],[id number] Urea nitrogen/Creatinine mass ratio 13 mg/mg Normal 9-20 [facility] Work Phone: Comment on above: PATIENT WAS FASTINGP ERFORMED BY: [place] [id number] [facility] [id number] Information: 388180,[id number] MYOCARD PERF STRESS/REST MUL TOrdered By: Strap Buckler on 04-10-2010 MYOCARD PERF STRESS/REST MULT See Note Normal [facility] Work Phone: Comment on above: MYOCARDIAL PERFUSION SCAN 10.5 mCi of Sestamibi was injected at rest. The patient exercisedaccording to the regular Peterson protocol for a total duration of 8 minutesattaining 102% of maximum predicted heart rate with a work load of 10.1METs. At peak exercise 31.8 mCi of Sestamibi was injected. Stressimages were then obtained. Stress and rest images were reconstructed andcompared in the short axis, vertical long and horizontal long axes.Gated images were also obtained. Review of the stress images demonstrate normal cardiac silhouette size.There is uniform uptake of tracer noted in all areas of the myocardium.No reversibility is noted to suggest ischemia. The gated ejectionfraction is noted to be 64%. CONCLUSION1. Normal exercise myocardial perfusion scan at a moderate work load.2. Preserved ejection fraction. Dictated on 04/10/10 0937 by Ammy RoperlTranscribed on 04/10/10 1140 by aFbi FRANKELgn by hBarat Roper on 04/11/10 1258 Sign by: JacqeulinBharat METABOLIC PANEL, BASIC (8004 8)Ordered By: Strap Buckler on 04-08-2010 Calcium mass conc 9.6 mg/dL Normal 8.7-10.2 Compreh ensive Internal Medicine Work Phone: Comment on above: PATIENT NOT FASTINGP ERFORMED BY: [facility] Izjbtw58[address] RoadCatawba Valley Medical Centerin [place] [id number] Information: 486137,[id number] Chloride molar conc 100 mmol/L Normal 97-108 Compr ehensive Internal Medicine Work Phone: Comment on above: PATIENT NOT FASTINGP ERFORMED BY: [facility] Suably5[address] Flores RoadDublin [place] [id number] Information: [id number],[id number] CO2 molar conc 24 mmol/L Normal 20-32 Comprehens [facility] Work Phone: Comment on above: PATIENT NOT FASTINGP ERFORMED BY: [facility] Rvubvu1914 Flores RoadDublin [place] [id number] Information: 296379,[id number] Creatinine mass conc 1.07 mg/dL Normal 0.76-1.27 Comp rehensive Internal Medicine Work Phone: Comment on above: PATIENT NOT FASTINGP ERFORMED BY: [facility] Egckai9[address] Flores RoadCatawba Valley Medical Centerin [place] [id number] Information: [id number],[id number] GFR/1.73 sq M predicted among blacks MDRD vol rate/area (S/P/Bld) mL/min/{1.73_m2} Normal Comprehensi ve Internal Medicine Work Phone: Comment on above: Note: Persistent red uction for 3 months or more in an eGFR<60 mL/min/1.73 m2 defines CKD. Patients with eGFR values>/=60 mL/min/1.73 m2 may also have CKD if evidence of persistentproteinuria is present. Additional information may be found [email or web address]. PATIENT NOT FASTINGP ERFORMED BY: [facility] Ltvpxr3497 [facility] [id number] Information: 348244,D65062 GFR/1.73 sq M.predicted MDRD (S/P/Bld) [Vol rate/Area] mL/min/{1.73_m2} Normal [facility] Work Phone: Comment on above: PATIENT NOT FASTINGP ERFORMED BY: [place] [id number] [facility] [id number] Information: 225213,[id number] GFR/1.73 sq M.predicted MDRD vol rate/area mL/min/{1.73_m2} Normal [facility] Work Phone: Glucose mass conc 86 mg/dL Normal 65-99 Compreh ensive Internal Medicine Work Phone: Comment on above: PATIENT NOT FASTINGP ERFORMED BY: [place] [id number] [facility] [id number] Information: [id number] Potassium molar conc 3.8 mmol/L Normal 3.5-5.2 Comp rehensive Internal Medicine Work Phone: Comment on above: PATIENT NOT FASTINGP ERFORMED BY: [place] [id number] [facility] [id number] Information: 043348,[id number] Sodium molar conc 138 mmol/L Normal 135-145 Compreh ensive Internal Medicine Work Phone: Comment on above: PATIENT NOT FASTINGP ERFORMED BY: [place] [id number] [facility] [id number] Information: [id number] Urea nitrogen mass conc 12 mg/dL Normal 5-26 [facility] Work Phone: Comment on above: Effective April 21, 2010, BUN reference interval will be changing to: 0 - 12 months 3 - 18 mg/dL 1 - 17 years 5 - 18 mg/dL 18 - 39 years 6 - 20 mg/dL 40 - 59 years 6 - 24 mg/dL 60 - 89 years 8 - 27 mg/dL > 89 years 10 - 36 mg/dL PATIENT NOT FASTINGP ERFORMED BY: LabAsp[facility]6370 [facility] [id number] Information: 049687,V13508 Urea nitrogen/Creatinine mass ratio 11 mg/mg Normal 12-06 [facility] Work Phone: Comment on above: Effective April 21, 2010, Bun/Creatinine Ratio reference interval will be changing to: Age Male Female <18 years 18 - 39 years 40 - 59 years 60 years and older PATIENT NOT FASTINGP ERFORMED BY: LabMelinda Ville [id number] [facility] [id number] Information: [id number],N16395 Magnesium (62828)Ordered By: Strap Buckler on 03-14-2010 Magnesium mass conc 2.0 mg/dL Normal 1.6-2.6 [facility]ensive Internal Medicine Work Phone: Comment on above: PATIENT NOT FASTINGP ERFORMED BY: LabAsp[facility]6370 [facility] [id number] Potassium Serum (45133)Order ed By: Strap Buckler on 03-14-2010 Potassium molar conc 3.6 mmol/L Normal 3.5-5.2 [facility] Internal Medicine Work Phone: Comment on above: PATIENT NOT FASTINGP ERFORMED BY: LabAsp[facility]6370 [facility] [id number] Information: [id number] CBC WITH MANUAL DIFF (90008) Ordered By: Strap Buckler on 03-04-2010 Basophils (Bld) [#/Vol] 0.1 {x10E3/uL} Normal 0.0-0.[address] [facility] Internal Medicine Work Phone: Comment on above: PATIENT WAS FASTINGP ERFORMED BY: LabAsp[facility]6370 [facility] [id number] Information: ADD [id number] AND DRAW FEE 99 4860 Basophils (Bld) [#/Vol] 0.1 10*3/uL Normal 0.0-0.2 [facility]; [facility] Work Phone: Basophils Auto #/vol (Bld) 0.1 {x10E3/uL} Normal 0.0-0.2 [facility] Work Phone: Basophils/100 WBC (Bld) 1 % Normal 0-3 [facility] Work Phone: Comment on above: PATIENT WAS FASTINGP ERFORMED BY: Ascender SoftwareBlue Ridge Regional Hospital [id number] Information: ADD [id number] AND DRAW FEE 99 6660 Basophils/100 WBC Auto (Bld) 1 % Normal 0-3 [facility] Work Phone: Eosinophils (Bld) [#/Vol] 0.2 {x10E3/uL} Normal 0.0-0.4 [facility] Work Phone: Comment on above: PATIENT WAS FASTINGP ERFORMED BY: Kleer[address] ElementumBlue Ridge Regional Hospital [id number] Information: ADD [id number] AND DRAW FEE 99 6660 Eosinophils (Bld) [#/Vol] 0.2 10*3/uL Normal 0.0-0.4 [facility]; [facility] Work Phone: Eosinophils Auto #/vol (Bld) 0.2 {x10E3/uL} Normal 0.0-0.4 [facility] Work Phone: Eosinophils/100 WBC (Bld) 3 % Normal 0-7 [facility] Work Phone: Comment on above: PATIENT WAS FASTINGP ERFORMED BY: [facility] Bcnuxg9965 [address] ElementumBlue Ridge Regional Hospital [id number] Information: ADD [id number] AND DRAW FEE 99 6660 Eosinophils/100 WBC Auto (Bld) 3 % Normal 0-7 [facility] Work Phone: Erythrocyte distribution width (RBC) [Ratio] 12.5 % Normal 11.7-15.0 [facility] Work Phone: Comment on above: PATIENT WAS FASTINGP ERFORMED BY: [facility] [id number] Information: ADD [id number] AND DRAW FEE 99 6660 Erythrocyte distribution width Auto Ratio (RBC) 12.5 % Normal 11.7-15.0 [facility] Work Phone: Hematocrit (Bld) [Volume fraction] 46.2 % Normal 36.0-50.0 [facility] Work Phone: Comment on above: PATIENT WAS FASTINGP ERFORMED BY: [place] [id number] [facility] [id number] Information: ADD [id number] AND DRAW FEE 99 6660 Hematocrit Auto Volume Fraction (Bld) 46.2 % Normal 36.0-50.0 [facility] Internal Medicine Work Phone: Hemoglobin mass conc (Bld) 15.9 g/dL Normal 12.5-17.0 [facility] Work Phone: Comment on above: PATIENT WAS FASTINGP ERFORMED BY: [place] [id number] [facility] [id number] Information: ADD [id number] AND DRAW FEE 99 6660 Immature granulocytes #/vol (Bld) 0.0 {x10E3/uL} Normal 0.0-0.1 [facility] Work Phone: Comment on above: PATIENT WAS FASTINGP ERFORMED BY: [place] [id number] [facility] [id number] Information: ADD [id number] AND DRAW FEE 99 6660 Immature granulocytes (Bld) [#/Vol] 0.0 10*3/uL Normal 0.0-0.1 [facility]; [facility] Work Phone: Immature granulocytes/100 WBC (Bld) 0 % Normal 0-1 [facility] Work Phone: Comment on above: PATIENT WAS FASTINGP ERFORMED BY: [place] [id number] [facility] [id number] Information: ADD [id number] AND DRAW FEE 99 6660 Lymphocytes (Bld) [#/Vol] 1.5 {x10E3/uL} Normal 0.7-4.5 [facility] Work Phone: Comment on above: PATIENT WAS FASTINGP ERFORMED BY: [facility]ola [facility] HospitalHiram Ujsrfu8534 [facility] [id number] Information: ADD [id number] AND DRAW FEE 99 6660 Lymphocytes (Bld) [#/Vol] 1.5 10*3/uL Normal 0.7-4.[address] [facility] Internal Medicine; [facility] Work Phone: Lymphocytes Auto #/vol (Bld) 1.5 {x10E3/uL} Normal 0.7-4.[address] [facility] Internal Medicine Work Phone: Lymphocytes/100 WBC (Bld) 22 % Normal 14-[address] [facility] Internal Medicine Work Phone: Comment on above: PATIENT WAS FASTINGP ERFORMED BY: [facility] of Harmarvillekorina HensleyAprart9166 [facility] [id number] Information: ADD [id number] AND DRAW FEE 99 6660 Lymphocytes/100 WBC Auto (Bld) 22 % Normal 14-[address] [facility] Internal Medicine Work Phone: MCH (RBC) [Entitic mass] 31.3 pg Normal 27.0-34.[address] [facility] Internal Medicine Work Phone: Comment on above: PATIENT WAS FASTINGP ERFORMED BY: [facility] [place] [id number] [facility] [id number] Information: ADD [id number] AND DRAW FEE 99 6660 MCH Auto Entitic mass (RBC) 31.3 pg Normal 27.0-34.[address] [facility] Internal Medicine Work Phone: MCHC (RBC) [Mass/Vol] 34.4 g/dL Normal 32.0-36.0 [facility] Internal Medicine Work Phone: Comment on above: PATIENT WAS FASTINGP ERFORMED BY: [facility] [place] [id number] [facility] [id number] Information: ADD [id number] AND DRAW FEE 99 6660 MCHC Auto mass conc (RBC) 34.4 g/dL Normal 32.0-36.0 [facility] Work Phone: MCV (RBC) [Entitic vol] 91 fL Normal 80-98 [facility] Work Phone: Comment on above: PATIENT WAS FASTINGP ERFORMED BY: [facility] Dggebh9966 [facility] [id number] Information: ADD [id number] AND DRAW FEE 99 6660 MCV Auto Entitic volume (RBC) 91 fL Normal 80-98 [facility] Work Phone: Monocytes (Bld) [#/Vol] 0.6 {x10E3/uL} Normal 0.1-1.0 [facility] Work Phone: Comment on above: PATIENT WAS FASTINGP ERFORMED BY: [facility] Q[address] [place] [address] [id number] Information: ADD [id number] AND DRAW FEE 99 6660 Monocytes (Bld) [#/Vol] 0.6 10*3/uL Normal 0.1-1.0 [facility]; [facility] Work Phone: Monocytes Auto #/vol (Bld) 0.6 {x10E3/uL} Normal 0.1-1.0 [facility] Work Phone: Monocytes/100 WBC (Bld) 9 % Normal 4-13 [facility] Work Phone: Comment on above: PATIENT WAS FASTINGP ERFORMED BY: EndoInSightAngela Ville [id number] [facility] [id number] Information: ADD [id number] AND DRAW FEE 99 6660 Monocytes/100 WBC Auto (Bld) 9 % Normal 4-13 [facility] Work Phone: Neutrophils (Bld) [#/Vol] 4.3 {x10E3/uL} Normal 1.8-7.8 [facility] Work Phone: Comment on above: PATIENT WAS FASTINGP ERFORMED BY: [facility] EndoInSightAngela Ville [id number] [facility] [id number] Information: ADD [id number] AND DRAW FEE 99 6660 Neutrophils (Bld) [#/Vol] 4.3 10*3/uL Normal 1.8-7.[address] [facility] Internal Medicine; [facility] Work Phone: Neutrophils Auto #/vol (Bld) 4.3 {x10E3/uL} Normal 1.8-7.8 [facility] Work Phone: Neutrophils/100 WBC (Bld) 65 % Normal 40-74 [facility] Work Phone: Comment on above: PATIENT WAS FASTINGP ERFORMED BY: [facility] FlatClub Bszian7248PitziBlue Ridge Regional Hospital [id number] Information: ADD [id number] AND DRAW FEE 99 6660 Neutrophils/100 WBC Auto (Bld) 65 % Normal 40-[address] [facility] Internal Medicine Work Phone: Platelets (Bld) [#/Vol] 257 {x10E3/uL} Normal 140-[address] [facility] Internal Medicine Work Phone: Comment on above: PATIENT WAS FASTINGP ERFORMED BY: [facility] EndoInSightkorina HensleyZujeaf4486 AquaMostBlue Ridge Regional Hospital [id number] Information: ADD [id number] AND DRAW FEE 99 6660 Platelets (Bld) [#/Vol] 257 10*3/uL Normal 140-415 [facility]; [facility] Work Phone: Platelets Auto #/vol (Bld) 257 {x10E3/uL} Normal 140-[address] [facility] Internal Medicine Work Phone: RBC (Bld) [#/Vol] 5.08 {x10E6/uL} Normal 4.10-5.60 [facility] Internal [facility] Work Phone: Comment on above: PATIENT WAS FASTINGP ERFORMED BY: [facility] End[facility]In[facility] Nzuuny3883 [facility] [id number] Information: ADD S35662 AND DRAW FEE 99 6660 RBC (Bld) [#/Vol] 5.08 10*6/uL Normal 4.10-5.60 [facility] Internal Medicine; [facility] Internal Medicine Work Phone: RBC Auto #/vol (Bld) 5.08 {x10E6/uL} Normal 4.10-5.60 [facility] Work Phone: WBC (Bld) [#/Vol] 6.7 {x10E3/uL} Normal 4.0-10.5 [facility] prehensive Internal Medicine Work Phone: Comment on above: PATIENT WAS FASTINGP ERFORMED BY: [facility] EndoInSight Ouivms4002 [address] ElementumBlue Ridge Regional Hospital [id number] Information: ADD [id number] AND DRAW FEE 99 6660 WBC (Bld) [#/Vol] 6.7 10*3/uL Normal 4.0-10.5 Compre [facility]un[facility]; [facility] Work Phone: WBC Auto #/vol (Bld) 6.7 {x10E3/uL} Normal 4.0-10.5 [facility] Work Phone: LIPID PANEL (78945)Ordered B y: Strap Buckler on 03-04-2010 Cholesterol in HDL mass conc 44 mg/dL Normal [facility] Work Phone: Comment on above: According to ATP-III Guidelines, HDL-C >59 mg/dL is considered anegative risk factor for CHD. PATIENT WAS FASTINGP ERFORMED BY: [facility] Dtcgmu5669 [address] InnohatRandolph Health [id number] Cholesterol in LDL mass conc 133 mg/dL Abnormal 0-99 [facility] Work Phone: Comment on above: PATIENT WAS FASTINGP ERFORMED BY: [facility] Qezfde7949 [address] InnohatRandolph Health [id number] Cholesterol in LDL/Cholesterol in HDL mass ratio 3.0 {ratio_units} Normal 0.0-3.6 [facility] Work Phone: Comment on above: PATIENT WAS FASTINGP ERFORMED BY: Kleer[address] InnohatRandolph Health [id number] Cholesterol in VLDL mass conc 40 mg/dL Normal 5-40 [facility] Work Phone: Comment on above: PATIENT WAS FASTINGP ERFORMED BY: [facility] Nfnkjv6181 [address] Roadblin [place] [id number] Cholesterol mass conc 217 mg/dL Abnormal 100-199 Com prehensive Internal Medicine Work Phone: Comment on above: PATIENT WAS FASTINGP ERFORMED BY: [facility] Jmexxv3162 [address] RoadDublin [place] [id number] Triglyceride mass conc 202 mg/dL Abnormal 0-149 [facility] Work Phone: Comment on above: PATIENT WAS FASTINGP ERFORMED BY: [facility] Pxcvxk6411 [address] Roadblin [place] [id number] METABOLIC PANEL, COMPREHENSI VE (67634)Ordered By: Strap Buckler on 03-04-2010 Albumin mass conc 4.5 g/dL Normal 3.5-5.5 Compreh ensive Internal Medicine Work Phone: Comment on above: PATIENT WAS FASTINGP ERFORMED BY: [facility] Jjtlrt28[address] [facility]in [place] [id number] Albumin/Globulin mass ratio 1.7 {ratio} Normal 1.1-2.5 [facility] Work Phone: Comment on above: PATIENT WAS FASTINGP ERFORMED BY: [facility] Bznzju5236 [address] [facility] [place] [id number] ALP [Catalytic activity/Vol] 118 U/L Normal 25-150 [facility]; [facility] Work Phone: ALP enzyme act/vol 118 [iU]/L Normal 25-150 [facility] Internal Medicine Work Phone: Comment on above: PATIENT WAS FASTINGP ERFORMED BY: [facility] Hxaasr1793 [address] [facility] Hospitalblin [place] [id number] ALT [Catalytic activity/Vol] 51 U/L Normal 0-55 [facility]; [facility] Work Phone: ALT enzyme act/vol 51 [iU]/L Normal 0-55 [facility] Internal Medicine Work Phone: Comment on above: PATIENT WAS FASTINGP ERFORMED BY: [facility] Ietanw1855 [facility] [id number] AST [Catalytic activity/Vol] 18 U/L Normal 0-40 [facility]; [facility] Work Phone: AST enzyme act/vol 18 [iU]/L Normal 0-40 Compre hensive Internal Medicine Work Phone: Comment on above: PATIENT WAS FASTINGP ERFORMED BY: L[facility] LabHiram HensleyJbazyg6105 [facility] [id number] Bilirubin mass conc 1.6 mg/dL Abnormal 0.0-1.2 Compr ehensive Internal Medicine Work Phone: Comment on above: PATIENT WAS FASTINGP ERFORMED BY: [facility] Hensleylin6370 [facility] [id number] Calcium mass conc 9.7 mg/dL Normal 8.7-10.2 Compreh ensive Internal Medicine Work Phone: Comment on above: PATIENT WAS FASTINGP ERFORMED BY: [facility] Hensleylin6370 [facility] [id number] Chloride molar conc 101 mmol/L Normal 97-108 Compr ensive Internal Medicine Work Phone: Comment on above: PATIENT WAS FASTINGP ERFORMED BY: [facility] Hensleylin6370 [facility] [id number] CO2 molar conc 25 mmol/L Normal 20-32 Comprehens [facility] Internal Medicine Work Phone: Comment on above: PATIENT WAS FASTINGP ERFORMED BY: L[facility] LabHiram HensleyZgbmih5331 [facility] [id number] Creatinine mass conc 1.11 mg/dL Normal 0.76-1.27 Comp [facility]ensive Internal Medicine Work Phone: Comment on above: PATIENT WAS FASTINGP ERFORMED BY: L[facility] LabHiram HensleyJpnbyf5129 [facility] [id number] GFR/1.73 sq M predicted among blacks MDRD vol rate/area (S/P/Bld) mL/min/{1.73_m2} Normal Comprehensi ve Internal Medicine Work Phone: Comment on above: Note: Persistent red uction for 3 months or more in an eGFR<60 mL/min/1.73 m2 defines CKD. Patients with eGFR values>/=60 mL/min/1.73 m2 may also have CKD if evidence of persistentproteinuria is present. Additional information may be found [email or web address]. PATIENT WAS FASTINGP ERFORMED BY: [facility] Mirqkb5313 AquaMostBlue Ridge Regional Hospital [id number] GFR/1.73 sq M.predicted MDRD (S/P/Bld) [Vol rate/Area] mL/min/{1.73_m2} Normal [facility] Work Phone: Comment on above: PATIENT WAS FASTINGP ERFORMED BY: EndoInSightNew Mexico Behavioral Health Institute at Las VegasUyhtpk5961 [address] ElementumBlue Ridge Regional Hospital [id number] GFR/1.73 sq M.predicted MDRD vol rate/area mL/min/{1.73_m2} Normal [facility] Work Phone: Globulin (S) [Mass/Vol] 2.6 g/dL Normal 1.5-4.5 [facility] Work Phone: Comment on above: PATIENT WAS FASTINGP ERFORMED BY: EndoInSightNew Mexico Behavioral Health Institute at Las VegasRdpbzf6531 [address] ElementumBlue Ridge Regional [facility] [id number] Globulin Calculated mass conc (S) 2.6 g/dL Normal 1.5-4.5 [facility] Work Phone: Glucose mass conc 98 mg/dL Normal 65-99 Compreh ensive [facility] Work Phone: Comment on above: PATIENT WAS FASTINGP ERFORMED BY: [facility] [id number] [facility] [id number] Potassium molar conc 3.4 mmol/L Abnormal 3.5-5.2 Comp rehensive [facility] Medicine Work Phone: Comment on above: Client Requested [place] g PATIENT WAS FASTINGP ERFORMED BY: [employer] [id number] [address] [facility] [id number] Protein mass conc 7.1 g/dL Normal 6.0-8.5 Compreh ensive [facility] Medicine Work Phone: Comment on above: PATIENT WAS FASTINGP ERFORMED BY: [facility] [id number] Sodium molar conc 139 mmol/L Normal 135-145 Compreh ensive [facility] Work Phone: Comment on above: PATIENT WAS FASTINGP ERFORMED BY: [facility] [id number] [facility] [id number] Urea nitrogen mass conc 16 mg/dL Normal 5-26 [facility] Work Phone: Comment on above: PATIENT WAS FASTINGP ERFORMED BY: [facility]6370 [facility] [id number] Urea nitrogen/Creatinine mass ratio 14 mg/mg Normal 8-27 [facility] Work Phone: Comment on above: PATIENT WAS FASTINGP ERFORMED BY: [facility]6370 [facility] [id number] MICROALBUMINOrdered By: Syst em Truant Officer on 03-04-2010 Albumin DL <= 20 mg/L mass conc (U) 3.1 ug/mL Normal 0.0-17.0 [facility] Work Phone: Comment on above: PATIENT WAS FASTINGP ERFORMED BY: [facility]6370 [facility] [id number] Albumin/Creatinine mass ratio (U) 7.4 {mg/g_creat} Normal 0.0-30.0 [facility] Work Phone: Comment on above: PATIENT WAS FASTINGP ERFORMED BY: [facility]6370 [facility] [id number] Creatinine mass conc (U) 41.8 mg/dL Normal 22.0-328.0 [facility] Work Phone: Comment on above: PATIENT WAS FASTINGP ERFORMED BY: [facility]6370 [facility] [id number] Microscopic ExaminationOrder ed By: Strap Buckler on 03-04-2010 Bacteria LM.HPF #/area (Urine sed) None seen Normal [facility] Work Phone: Epithelial cells LM.HPF #/area (Urine sed) None seen Normal 0 - 10 [facility] Work Phone: RBC LM.HPF #/area (Urine sed) None seen Normal 0 - 3 [facility] Work Phone: WBC LM.HPF #/area (Urine sed) 0-5 Normal 0 - 5 [facility] Work Phone: PSA (PROSTATE SPECIFIC ANTIG EN) (V76.44)Ordered By: Strap Buckler on 03-04-2010 Prostate specific Ag mass conc 1.5 ng/mL Normal 0.0-4.0 [facility] Work Phone: Comment on above: [employer] ECLIA methodol ogy. .According to the [place] [employer], Serum PSA shoulddecrease and remain at undetectable levels after radicalprostatectomy. The AUA defines biochemical recurrence as an initialPSA value 0.2 ng/mL or greater followed by a subsequent confirmatoryPSA value 0.2 ng/mL or greater.Values obtained with different assay methods or kits cannot be usedinterchangeably. Results cannot be interpreted as absolute evidenceof the presence or absence of malignant disease. PATIENT WAS FASTINGP ERFORMED BY: [employer]6370 [employer] [id number] TSH ([id number])Ordered By: Grzegorz m Truant Officer on 03-04-2010 Thyrotropin Qn 2.820 {uIU/mL} Normal 0.450-4.50 0 [facility] Work Phone: Comment on above: PATIENT WAS FASTINGP ERFORMED BY: [facility] [facility] [id number] [facility] [id number] URINALYSIS, W/ MICRO ([id number]) Ordered By: Strap Buckler on 03-04-2010 Appearance Nom (U) Clear Normal Compre hensive [facility] Medicine Work Phone: Comment on above: PATIENT WAS FASTINGP ERFORMED BY: [employer] [id number] VR1in [place] [id number] Bilirubin Ql (U) Negative Normal Comprehe nsive [facility] Medicine Work Phone: Comment on above: PATIENT WAS FASTINGP ERFORMED BY: [employer]70 [address] RoadDuin [place] [id number] Bilirubin Ql (U) Negative Normal Comprehe nsive [facility]; [facility] Work Phone: Color Nom (U) Yellow Normal Comprehensi ve Internal Medicine Work Phone: Comment on above: PATIENT WAS FASTINGP ERFORMED BY: [facility] LabHiram HensleyFzmmzf9831 Flores RoadDuin [place] [id number] Glucose Ql (U) Negative Normal Comprehens [facility] Work Phone: Comment on above: PATIENT WAS FASTINGP ERFORMED BY: [facility] LabCokorina HensleyEkbpgy0970 [address] RoadDuin [place] [id number] Glucose Ql (U) Negative Normal Comprehens [facility]; [facility] Work Phone: Hemoglobin Ql (U) Negative Normal Compreh ensive [facility] Work Phone: Comment on above: PATIENT WAS FASTINGP ERFORMED BY: [facility] Hensleylin6370 [address] RoadBlue [facility] [id number] Hemoglobin Ql (U) Negative Normal Compreh ensive Internal [facility]; [facility] Work Phone: Hemoglobin Test strip Ql (U) Negative Normal [facility] Work Phone: Ketones Ql (U) Negative Normal Comprehens [facility] Work Phone: Comment on above: PATIENT WAS FASTINGP ERFORMED BY: [facility] Hensleylin6370 [address] RoadBlue [facility] [id number] Ketones Ql (U) Negative Normal Comprehens [facility]; [facility] Work Phone: Leukocyte esterase Test strip Ql (U) Negative Normal [facility] Work Phone: Comment on above: PATIENT WAS FASTINGP ERFORMED BY: [facility] LabHiram HensleyLiwlyh16[address] [facility]in [place] [id number] Leukocyte esterase Test strip Ql (U) Negative Normal [facility]; [facility] Work Phone: Microscopic observation LM Nom (Urine sed) MICRON Normal [facility] Work Phone: Comment on above: Microscopic follows if indicated. PATIENT WAS FASTINGP ERFORMED BY: [facility] [id number] Flores RoadDublin [place] [id number] Microscopic observation LM Nom (Urine sed) See below: Normal [facility] Work Phone: Comment on above: PATIENT WAS FASTINGP ERFORMED BY: [facility] [id number] [address] RoadDublin [place] [id number] Nitrite Ql (U) Negative Normal Comprehens [facility] Work Phone: Comment on above: PATIENT WAS FASTINGP ERFORMED BY: [facility] Pifdhe8390 [address] RoadDublin [place] [id number] Nitrite Ql (U) Negative Normal Comprehens [facility]; [facility] Work Phone: Nitrite Test strip Ql (U) Negative Normal [facility] Work Phone: pH (U) 6.5 [pH] Normal 5.0-7.5 [facility] Work Phone: Comment on above: PATIENT WAS FASTINGP ERFORMED BY: [facility] Husbvx0849 [address] RoadDublin [place] [id number] pH Test strip (U) 6.5 [pH] Normal 5.0-7.5 Compreh ensive [facility] Work Phone: Protein Ql (U) Negative Normal Comprehens [facility] Work Phone: Comment on above: PATIENT WAS FASTINGP ERFORMED BY: [facility] [id number] [address] RoadDublin [place] [id number] Protein Ql (U) Negative Normal Comprehens [facility]; [facility] Work Phone: Protein Test strip Ql (U) Negative Normal [facility] Work Phone: Specific gravity Relative Density (U) 1.012 1 Normal 1.005-1.03 0 [facility] Work Phone: Comment on above: PATIENT WAS FASTINGP ERFORMED BY: [facility] [id number] [address] RoadDublin [place] [id number] Urobilinogen (U) [Mass/Vol] 0.2 mg/dL Normal 0.0-1.9 [facility]; [facility] Work Phone: Urobilinogen Test strip mass conc (U) 0.2 mg/dL Normal 0.0-1.9 Comprehensiv e Internal Medicine Work Phone: Comment on above: PATIENT WAS FASTINGP ERFORMED BY: [facility]6370 [facility] [id number] Vital Signs Date Time Vital Sign Value Performing Clinician Facility 06-19-2024 09:22-0400 Body height 177.[address] Hermila Kumar DO Work Phone: [facility] 06-19-2024 09:22-0400 Body mass index (BMI) [Ratio] 33 kg/m2 Dr. Hermila Kumar DO Work Phone: [facility] 06-19-2024 09:22-0400 Body temperature 98.7 [degF] Dr. Hermila Kumar DO Work Phone: [facility] 06-19-2024 09:22-0400 Body weight 104.[address] Hermila Kumar DO Work Phone: [facility] 06-19-2024 09:22-0400 Diastolic blood pressure 76 mm[Hg] Dr. Hermila Kumar DO Work Phone: [facility] 06-19-2024 09:22-0400 Heart rate 63 /min Dr. Hermila Kumar DO Work Phone: [facility] 06-19-2024 09:22-0400 Respiratory rate 16 /min Dr. Hermila Kumar DO Work Phone: [facility] 06-19-2024 09:22-0400 SaO2% (BldA) [Mass fraction] 96 % Dr. Hermila Kumar DO Work Phone: [facility] 06-19-2024 09:22-0400 Systolic blood pressure 126 mm[Hg] Dr. Hermila Kumar DO Work Phone: [facility] 05-11-2024 08:26-0500 Body mass index (BMI) [Ratio] 33.4 kg/m2 Dr. Hermila Kumar DO Work Phone: [facility] 05-11-2024 08:26-0500 Body temperature 98.6 [degF] Dr. Hermila Kumar DO Work Phone: [facility] 05-11-2024 08:26-0500 Body weight 105.[address] Hermila Kumar DO Work Phone: [facility] 05-11-2024 08:26-0500 Diastolic blood pressure 84 mm[Hg] Dr. Hermila Kumar DO Work Phone: [facility] 05-11-2024 08:26-0500 Heart rate 67 /min Dr. Hermila Kumar DO Work Phone: [facility] 05-11-2024 08:26-0500 Respiratory rate 16 /min Dr. Hermila Kumar DO Work Phone: [facility] 05-11-2024 08:26-0500 SaO2% (BldA) [Mass fraction] 96 % Dr. Hermila Kumar DO Work Phone: [facility] 05-11-2024 08:26-0500 Systolic blood pressure 146 mm[Hg] Dr. Hermila Kumar DO Work Phone: [facility] 04-08-2024 12:32-0500 Body temperature 98.6 [degF] Dr. Hermila Kumar DO Work Phone: [facility] 04-08-2024 12:32-0500 Diastolic blood pressure 69 mm[Hg] Dr. Hermila Kumar DO Work Phone: [facility] 04-08-2024 12:32-0500 Heart rate 54 /min Dr. Hermila Kumar DO Work Phone: [facility] 04-08-2024 12:32-0500 Respiratory rate 16 /min Dr. Hermila Kumar DO Work Phone: [facility] 04-08-2024 12:32-0500 SaO2% (BldA) [Mass fraction] 100 % Dr. Hermila Kumar DO Work Phone: [facility] 04-08-2024 12:32-0500 Systolic blood pressure 127 mm[Hg] Dr. Hermila Kumar DO Work Phone: [facility] 04-08-2024 09:41-0500 Body mass index (BMI) [Ratio] 33.4 kg/m2 Dr. Hermila Kumar DO Work Phone: [facility] 04-08-2024 09:41-0500 Body weight 105.[address] Hermila Kumar DO Work Phone: [facility] 09-09-2022 14:34-0400 Body height 175.26 cm [facility]; [facility] Work Phone: 09-09-2022 14:34-0400 Body mass index (BMI) [Ratio] 35.79 kg/m2 [facility]; [facility] Work Phone: 09-09-2022 14:34-0400 Body surface area Derived from formula 2.24 m2 [facility]; [facility] Work Phone: 09-09-2022 14:34-0400 Body temperature 97.8 [degF] [facility]; [facility] Work Phone: 09-09-2022 14:34-0400 Body weight 109.94 kg [facility]; [facility] Work Phone: 09-09-2022 14:34-0400 Diastolic blood pressure 80 mm[Hg] [facility]; [facility] Work Phone: 09-09-2022 14:34-0400 Heart rate 72 /min [facility]; [facility] Work Phone: 09-09-2022 14:34-0400 Respiratory rate 18 /min [facility]; [facility] Work Phone: 09-09-2022 14:34-0400 SaO2% (BldA) [Mass fraction] 94 % [facility]; [facility] Work Phone: 09-09-2022 14:34-0400 Systolic blood pressure 134 mm[Hg] [facility]; [facility] Work Phone: 01-30-2022 07:44-0400 Body height 175.26 cm Juan Luis Miranda LPN [facility]; [facility] Work Phone: 01-30-2022 07:44-0400 Body mass index (BMI) [Ratio] 35 kg/m2 Juan Luis Miranda LPN [facility]; [facility] Work Phone: 01-30-2022 07:44-0400 Body surface area Derived from formula 2.22 m2 Juan Luis Miranda LPN [facility]; [facility] Work Phone: 01-30-2022 07:44-0400 Body temperature 97.7 [degF] Juan Luis Miranda LPN [facility]; [facility] Work Phone: 01-30-2022 07:44-0400 Body weight 107.5 kg Juan Luis Miranda LPN [facility]; [facility] Work Phone: 01-30-2022 07:44-0400 Diastolic blood pressure 82 mm[Hg] Juan Luis Miranda LPN [facility]; [facility] Work Phone: 01-30-2022 07:44-0400 Heart rate 81 /min Juan Luis Miranda LPN [facility]; [facility] Work Phone: 01-30-2022 07:44-0400 Respiratory rate 16 /min Juan Luis Miranda LPN [facility]; [facility] Work Phone: 01-30-2022 07:44-0400 SaO2% (BldA) [Mass fraction] 96 % Juan Luis Miranda ETYMOLOGY TEACHER [facility]; [facility] Work Phone: 01-30-2022 07:44-0400 Systolic blood pressure 128 mm[Hg] Juan Luis Miranda ETYMOLOGY TEACH[employer] [facility]; [facility] Work Phone: 07-31-2021 06:51-0400 Body height 175.26 cm Hermila José DO Work Phone: [facility]; [facility] Work Phone: 07-31-2021 06:51-0400 Body mass index (BMI) [Ratio] 34.7 kg/m2 Hermila José DO Work Phone: [facility]; [facility] Work Phone: 07-31-2021 06:51-0400 Body surface area Derived from formula 2.21 m2 Hermila José DO Work Phone: [facility]; [facility] Work Phone: 07-31-2021 06:51-0400 Body temperature 97.1 [degF] Hermila José DO Work Phone: [facility]; [facility] Work Phone: 07-31-2021 06:51-0400 Body weight 106.6 kg Hermila José DO Work Phone: [facility]; [facility] Work Phone: 07-31-2021 06:51-0400 Diastolic blood pressure 92 mm[Hg] Hermila José DO Work Phone: [facility]; [facility] Work Phone: 07-31-2021 06:51-0400 Heart rate 71 /min Hermila José DO Work Phone: [facility]; [facility] Work Phone: 07-31-2021 06:51-0400 Respiratory rate 16 /min Hermila José DO Work Phone: [facility]; [facility] Work Phone: 07-31-2021 06:51-0400 SaO2% (BldA) [Mass fraction] 96 % Hermila Kumar DO Work Phone: [facility]; [facility] Work Phone: 07-31-2021 06:51-0400 Systolic blood pressure 132 mm[Hg] Hermila Kumar DO Work Phone: [facility]; [facility] Work Phone: 06-16-2021 10:06-0500 Body height 175.26 cm Ana Lilia Slarb ETYMOLOGY TEACHER [facility]; [facility] Work Phone: 06-16-2021 10:06-0500 Body mass index (BMI) [Ratio] 34.26 kg/m2 Ana Lilia Slarb ETYMOLOGY TEACHER [facility]; [facility] Work Phone: 06-16-2021 10:06-0500 Body surface area Derived from formula 2.2 m2 Ana Lilia Slarb ETYMOLOGY TEACHER [facility]; [facility] Work Phone: 06-16-2021 10:06-0500 Body temperature 97.1 [degF] Ana Lilia Slarb ETYMOLOGY TEACHER [facility]; [facility] Work Phone: 06-16-2021 10:06-0500 Body weight 105.24 kg Ana Lilia Slarb ETYMOLOGY TEACHER [facility]; [facility] Work Phone: 06-16-2021 10:06-0500 Diastolic blood pressure 90 mm[Hg] Ana Lilia Slarb ETYMOLOGY TEACHER [facility]; [facility] Work Phone: 06-16-2021 10:06-0500 Heart rate 71 /min Ana Lilia Slarb ETYMOLOGY TEACHER [facility]; [facility] Work Phone: 06-16-2021 10:06-0500 Respiratory rate 16 /min Ana Lilia Slarb ETYMOLOGY TEACHER [facility]; [facility] Work Phone: 06-16-2021 10:06-0500 SaO2% (BldA) [Mass fraction] 98 % Ana Lilia Alvarez LPN [facility]; [facility] Work Phone: 06-16-2021 10:06-0500 Systolic blood pressure 128 mm[Hg] Ana Lilia Antonio DANIEL [facility]; [facility] Work Phone: 01-23-2021 06:51-0400 Body height 175.26 cm Renee Layton LPN [facility]; [facility] Work Phone: 01-23-2021 06:51-0400 Body mass index (BMI) [Ratio] 32.93 kg/m2 Renee Layton LPN [facility]; [facility] Work Phone: 01-23-2021 06:51-0400 Body surface area Derived from formula 2.16 m2 Renee Layton LPN [facility]; [facility] Work Phone: 01-23-2021 06:51-0400 Body temperature 97.3 [degF] Renee Layton LPN [facility]; [facility] Work Phone: 01-23-2021 06:51-0400 Body weight 101.15 kg Renee Layton LPN [facility]; [facility] Work Phone: 01-23-2021 06:51-0400 Diastolic blood pressure 90 mm[Hg] Renee Layton LPN [facility]; [facility] Work Phone: 01-23-2021 06:51-0400 Heart rate 64 /min Renee Layton LPN [facility]; [facility] Work Phone: 01-23-2021 06:51-0400 Respiratory rate 16 /min Renee Layton LPN [facility]; [facility] Work Phone: 01-23-2021 06:51-0400 SaO2% (BldA) [Mass fraction] 98 % Renee Layton LPN [facility]; [facility] Work Phone: 01-23-2021 06:51-0400 Systolic blood pressure 140 mm[Hg] Renee Layton [facility]; [facility] Work Phone: 07-05-2020 06:50-0400 BMI (Body Mass Index) 32.86 kg/m2 [facility]; [facility] Work Phone: 07-05-2020 06:50-0400 Body Temperature 97.1 [degF] [facility]; [facility] Work Phone: Comment on above: Method: Thermal Scan 07-05-2020 06:50-0400 Body weight 100.93 kg [facility]; [facility] Work Phone: 07-05-2020 06:50-0400 BP Diastolic 68 mm[Hg] [facility]; [facility] Work Phone: Comment on above: Patient Position: Sitting; Cuff Location : Left Arm; Cuff Size: Standard 07-05-2020 06:50-0400 BP Systolic 126 mm[Hg] [facility]; [facility] Work Phone: Comment on above: Patient Position: Sitting; Cuff Location : Left Arm; Cuff Size: Standard 07-05-2020 06:50-0400 BSA (Body Surface Area) 2.16 m2 [facility]; [facility] Work Phone: 07-05-2020 06:50-0400 Height 175.26 cm [facility]; [facility] Work Phone: 07-05-2020 06:50-0400 Pulse (Heart Rate) 80 /min [facility] Comprehensiv e Internal Medicine; [facility] Work Phone: Comment on above: Pattern: Regular 07-05-2020 06:50-0400 Pulse Oximetry 95 % Hermila Kumar [facility]; [facility] Work Phone: Comment on above: Room air 07-05-2020 06:50-0400 Respiratory Rate 16 /min Josselin Cross ETYMOLOGY TEACHER [facility]; [facility] Work Phone: Comment on above: Pattern: Unlabored 07-05-2020 06:50-0400 SaO2% (BldA) [Mass fraction] 95 % Josselin Alvarado LPN [facility]; [facility] Work Phone: 02-14-2020 09:24-0500 BMI (Body Mass Index) 34.63 kg/m2 Dipika Rueda [facility] Work Phone: 02-14-2020 09:24-0500 Body weight 106.37 kg Dipika Rueda [facility] Work Phone: 02-14-2020 09:24-0500 BSA (Body Surface Area) 2.21 m2 Dipika Rueda [facility] Work Phone: 02-14-2020 09:24-0500 Height 175.26 cm Dipika Rueda [facility] Work Phone: 11-02-2019 07:07-0400 BMI (Body Mass Index) 34.63 kg/m2 Renee Layton [facility] Work Phone: 11-02-2019 07:07-0400 Body Temperature 98.2 [degF] Renee Layton [facility] Work Phone: Comment on above: Method: Temporal 11-02-2019 07:07-0400 Body weight 106.37 kg Renee Layton [facility] Work Phone: 11-02-2019 07:07-0400 BP Diastolic 80 mm[Hg] Renee Layton [facility] Work Phone: Comment on above: Patient Position: Sitting; Cuff Location : Left Arm; Cuff Size: Standard 11-02-2019 07:07-0400 BP Systolic 140 mm[Hg] Renee Layton [facility] Work Phone: Comment on above: Patient Position: Sitting; Cuff Location : Left Arm; Cuff Size: Standard 11-02-2019 07:07-0400 BSA (Body Surface Area) 2.21 m2 Renee Layton [facility] Work Phone: 11-02-2019 07:07-0400 Height 175.26 cm Renee Layton LPN [facility] Work Phone: 11-02-2019 07:07-0400 Pulse (Heart Rate) 56 /min Renee Layton LPN Comprehensi ve Internal Medicine Work Phone: Comment on above: Pattern: Regular 11-02-2019 07:07-0400 Pulse Oximetry 98 % Hermila Kumar [facility] Work Phone: Comment on above: Room air 11-02-2019 07:07-0400 Respiratory Rate 16 /min Renee Layton LPN [facility] Work Phone: Comment on above: Pattern: Unlabored 11-02-2019 07:07-0400 SaO2% (BldA) [Mass fraction] 98 % Renee Layton LPN [facility]; [facility] Work Phone: 04-27-2019 07:11-0500 BMI (Body Mass Index) 34.04 kg/m2 Dipika Rueda [facility] Work Phone: 04-27-2019 07:11-0500 Body Temperature 96 [degF] Dipika Rueda [facility] Comprehensiv e Internal Medicine Work Phone: Comment on above: Method: Temporal 04-27-2019 07:11-0500 Body weight 104.55 kg Dipika Rudea [facility] Work Phone: 04-27-2019 07:11-0500 BP Diastolic 90 mm[Hg] Dipika Rueda [facility] Internal Medicine Work Phone: Comment on above: Patient Position: Sitting; Cuff Location : Left Arm; Cuff Size: Standard 04-27-2019 07:11-0500 BP Systolic 130 mm[Hg] Dipika Rueda [facility] Internal Medicine Work Phone: Comment on above: Patient Position: Sitting; Cuff Location : Left Arm; Cuff Size: Standard 04-27-2019 07:11-0500 BSA (Body Surface Area) 2.19 m2 Dipika Garciaius [facility] Work Phone: 04-27-2019 07:11-0500 Height 175.26 cm Dipika Rueda [facility] Work Phone: 04-27-2019 07:11-0500 Pulse (Heart Rate) 71 /min Dipika Rueda CMA [facility] Work Phone: Comment on above: Pattern: Regular 04-27-2019 07:11-0500 Pulse Oximetry 97 % Hermila Kumar [facility] Internal Medicine Work Phone: Comment on above: Room air 04-27-2019 07:11-0500 Respiratory Rate 16 /min Dipika Rueda CMA [facility] Work Phone: Comment on above: Pattern: Unlabored 04-27-2019 07:11-0500 SaO2% (BldA) [Mass fraction] 97 % Dipika Rueda [facility]; [facility] Work Phone: 04-27-2019 07:02-0500 BMI (Body Mass Index) 32.86 kg/m2 Dipika Rueda [facility] Work Phone: 04-27-2019 07:02-0500 Body weight 100.93 kg Dipika Rueda [facility] Work Phone: 04-27-2019 07:02-0500 BSA (Body Surface Area) 2.16 m2 Dipika Rueda [facility] Work Phone: 04-27-2019 07:02-0500 Height 175.26 cm Dipika Rueda [facility] Work Phone: 10-20-2018 07:19-0400 BMI (Body Mass Index) 32.86 kg/m2 Nola Cordova RN [facility] Work Phone: 10-20-2018 07:19-0400 Body weight 100.93 kg Nola Cordova RN [facility] Work Phone: 10-20-2018 07:19-0400 BP Diastolic 80 mm[Hg] Nola Cordova RN [facility] Work Phone: Comment on above: Patient Position: Sitting; Cuff Location : Left Arm; Cuff Size: Large 10-20-2018 07:19-0400 BP Systolic 124 mm[Hg] Nola Cordova RN [facility] Work Phone: Comment on above: Patient Position: Sitting; Cuff Location : Left Arm; Cuff Size: Large 10-20-2018 07:19-0400 BSA (Body Surface Area) 2.16 m2 Nola Cordova RN [facility] Work Phone: 10-20-2018 07:19-0400 Height 175.26 cm Nola Cordova RN [facility] Work Phone: 10-20-2018 07:19-0400 Pulse (Heart Rate) 62 /min Nola Cordova RN [facility] Work Phone: Comment on above: Pattern: Regular 10-20-2018 07:19-0400 Pulse Oximetry 94 % Hermila Kumar [facility] Work Phone: Comment on above: Room air 10-20-2018 07:19-0400 Respiratory Rate 18 /min Nola Cordova RN [facility] Work Phone: Comment on above: Pattern: Unlabored 10-20-2018 07:19-0400 SaO2% (BldA) [Mass fraction] 94 % Nola Cordova RN [facility]; [facility] Work Phone: 04-21-2018 10:08-0500 BMI (Body Mass Index) 33.69 kg/m2 Nola Cordova RN [facility] Work Phone: 04-21-2018 10:08-0500 Body weight 103.48 kg Nola Cordova RN [facility] Work Phone: 04-21-2018 10:08-0500 BP Diastolic 88 mm[Hg] Nola Cordova RN [facility] Work Phone: Comment on above: Patient Position: Sitting; Cuff Location : Left Arm; Cuff Size: Large 04-21-2018 10:08-0500 BP Systolic 142 mm[Hg] Nola Cordova RN [facility] Work Phone: Comment on above: Patient Position: Sitting; Cuff Location : Left Arm; Cuff Size: Large 04-21-2018 10:08-0500 BSA (Body Surface Area) 2.18 m2 Nola Cordova RN [facility] Work Phone: 04-21-2018 10:08-0500 Height 175.26 cm Nola Cordova RN [facility] Work Phone: 04-21-2018 10:08-0500 Pulse (Heart Rate) 59 /min Nola Cordova RN [facility] Work Phone: Comment on above: Pattern: Regular 04-21-2018 10:08-0500 Pulse Oximetry 97 % Hermila Kumar [facility] Work Phone: Comment on above: Room air 04-21-2018 10:08-0500 Respiratory Rate 18 /min Nola Cordova RN [facility] Work Phone: Comment on above: Pattern: Unlabored 04-21-2018 10:08-0500 SaO2% (BldA) [Mass fraction] 97 % Nola Cordova RN [facility]; [facility] Work Phone: 04-21-2018 10:08-0500 Weight 103.48 kg Hermila Kumar [facility] Work Phone: 12-06-2017 13:35-0400 BMI (Body Mass Index) 33.08 kg/m2 Nola Cordova RN [facility] Work Phone: 12-06-2017 13:35-0400 Body Temperature 98.6 [degF] Nola Cordova RN [facility] Work Phone: Comment on above: Method: Temporal 12-06-2017 13:35-0400 Body weight 101.61 kg Nola Cordova RN [facility] Work Phone: 12-06-2017 13:35-0400 BP Diastolic 82 mm[Hg] Nola Cordova RN [facility] Work Phone: Comment on above: Patient Position: Sitting; Cuff Location : Left Arm; Cuff Size: Large 12-06-2017 13:35-0400 BP Systolic 130 mm[Hg] Nola Cordova RN [facility] Work Phone: Comment on above: Patient Position: Sitting; Cuff Location : Left Arm; Cuff Size: Large 12-06-2017 13:35-0400 BSA (Body Surface Area) 2.17 m2 Nola Cordova RN [facility] Work Phone: 12-06-2017 13:35-0400 Height 175.26 cm Nola Cordova RN [facility] Work Phone: 12-06-2017 13:35-0400 Pulse (Heart Rate) 71 /min Nola Cordova RN [facility] Work Phone: Comment on above: Pattern: Regular 12-06-2017 13:35-0400 Pulse Oximetry 96 % Hermila Kumar [facility] Internal Medicine Work Phone: Comment on above: Room air 12-06-2017 13:35-0400 Respiratory Rate 18 /min Nola Cordova RN [facility] Work Phone: Comment on above: Pattern: Unlabored 12-06-2017 13:35-0400 SaO2% (BldA) [Mass fraction] 96 % Nola Cordova RN [facility]; [facility] Work Phone: 12-06-2017 13:35-0400 Weight 101.61 kg Hermila Kumar [facility] Internal Medicine Work Phone: 08-18-2017 08:06-0400 BMI (Body Mass Index) 34.56 kg/m2 Barbara Miranda [facility] Internal Medicine Work Phone: 08-18-2017 08:06-0400 Body weight 106.14 kg Barbara Miranda [facility] Internal Medicine Work Phone: 08-18-2017 08:06-0400 BP Diastolic 82 mm[Hg] [facility] Internal Medicine Work Phone: Comment on above: Patient Position: Sitting; Cuff Location : Left Arm; Cuff Size: Standard 08-18-2017 08:06-0400 BP Systolic 132 mm[Hg] Barbara [facility] Internal Medicine Work Phone: Comment on above: Patient Position: Sitting; Cuff Location : Left Arm; Cuff Size: Standard 08-18-2017 08:06-0400 BSA (Body Surface Area) 2.21 m2 Barbara Miranda [facility] Internal Medicine Work Phone: 08-18-2017 08:06-0400 Height 175.26 cm Barbara Miranda [facility] Internal Medicine Work Phone: 08-18-2017 08:06-0400 Pulse (Heart Rate) 64 /min Barbara Miranda [facility] Internal Medicine Work Phone: Comment on above: Pattern: Regular 08-18-2017 08:06-0400 Pulse Oximetry 95 % Hermila Kumar [facility] Internal Medicine Work Phone: Comment on above: Room air 08-18-2017 08:06-0400 Respiratory Rate 18 /min Barbara Miranda [facility] Internal Medicine Work Phone: Comment on above: Pattern: Unlabored 08-18-2017 08:06-0400 SaO2% (BldA) [Mass fraction] 95 % Barbara Miranda [facility] Internal Medicine; [facility] Work Phone: 08-18-2017 08:06-0400 Weight 106.14 kg Hermila Vaughnon [facility] Work Phone: 03-17-2017 10:45-0500 BMI (Body Mass Index) 34.17 kg/m2 Nola Cordova RN [facility] Work Phone: 03-17-2017 10:45-0500 Body weight 104.95 kg Nola Cordova RN [facility] Work Phone: 03-17-2017 10:45-0500 BP Diastolic 82 mm[Hg] Nola Cordova RN [facility] Work Phone: Comment on above: Patient Position: Sitting; Cuff Location : Left Arm; Cuff Size: Large 03-17-2017 10:45-0500 BP Systolic 120 mm[Hg] Nola Cordova RN [facility] Work Phone: Comment on above: Patient Position: Sitting; Cuff Location : Left Arm; Cuff Size: Large 03-17-2017 10:45-0500 BSA (Body Surface Area) 2.2 m2 Nola Cordova RN [facility] Work Phone: 03-17-2017 10:45-0500 Height 175.26 cm Nola Cordova RN [facility] Work Phone: 03-17-2017 10:45-0500 Pulse (Heart Rate) 60 /min Nola Cordova RN [facility] Work Phone: Comment on above: Pattern: Regular 03-17-2017 10:45-0500 Pulse Oximetry 97 % Hermila Kumar [facility] Internal Medicine Work Phone: Comment on above: Room air 03-17-2017 10:45-0500 Respiratory Rate 18 /min Nola Cordova RN [facility] Work Phone: Comment on above: Pattern: Unlabored 03-17-2017 10:45-0500 SaO2% (BldA) [Mass fraction] 97 % Nola Cordova RN [facility]; [facility] Work Phone: 03-17-2017 10:45-0500 Weight 104.95 kg Hermila Kumar [facility] Work Phone: 02-17-2017 09:42-0500 BMI (Body Mass Index) 34.3 kg/m2 Nola Cordova RN [facility] Work Phone: 02-17-2017 09:42-0500 Body weight 105.35 kg Nola Cordova RN [facility] Work Phone: 02-17-2017 09:42-0500 BP Diastolic 72 mm[Hg] Nola Cordova RN [facility] Work Phone: Comment on above: Patient Position: Sitting; Cuff Location : Left Arm; Cuff Size: Large 02-17-2017 09:42-0500 BP Systolic 130 mm[Hg] Nola Cordova RN [facility] Work Phone: Comment on above: Patient Position: Sitting; Cuff Location : Left Arm; Cuff Size: Large 02-17-2017 09:42-0500 BSA (Body Surface Area) 2.2 m2 Nola Cordova RN [facility] Work Phone: 02-17-2017 09:42-0500 Height 175.26 cm Nola Cordova RN [facility] Work Phone: 02-17-2017 09:42-0500 Pulse (Heart Rate) 69 /min Nola Cordova RN [facility] Work Phone: Comment on above: Pattern: Regular 02-17-2017 09:42-0500 Pulse Oximetry 94 % Hermila Kumar [facility] Work Phone: Comment on above: Room air 02-17-2017 09:42-0500 Respiratory Rate 18 /min Nola Cordova RN [facility] Work Phone: Comment on above: Pattern: Unlabored 02-17-2017 09:42-0500 SaO2% (BldA) [Mass fraction] 94 % Nola Cordova RN [facility]; [facility] Work Phone: 02-17-2017 09:42-0500 Weight 105.35 kg Hermila Kumar [facility] Work Phone: 08-20-2016 07:05-0400 BMI (Body Mass Index) 34.19 kg/m2 Nola Cordova RN [facility] Work Phone: 08-20-2016 07:05-0400 Body weight 105.01 kg Nola Cordova RN [facility] Work Phone: 08-20-2016 07:05-0400 BP Diastolic 82 mm[Hg] Nola Cordova RN [facility] Work Phone: Comment on above: Patient Position: Sitting; Cuff Location : Left Arm; Cuff Size: Large 08-20-2016 07:05-0400 BP Systolic 128 mm[Hg] Nola Cordova RN [facility] Work Phone: Comment on above: Patient Position: Sitting; Cuff Location : Left Arm; Cuff Size: Large 08-20-2016 07:05-0400 BSA (Body Surface Area) 2.2 m2 Nola Cordova RN [facility] Work Phone: 08-20-2016 07:05-0400 Height 175.26 cm Nola Cordova RN [facility] Work Phone: 08-20-2016 07:05-0400 Pulse (Heart Rate) 67 /min Nola Cordova RN [facility] Work Phone: Comment on above: Pattern: Regular 08-20-2016 07:05-0400 Pulse Oximetry 93 % Hermilaroman Kumar [facility] Work Phone: Comment on above: Room air 08-20-2016 07:05-0400 Respiratory Rate 18 /min Nola Cordova RN [facility] Work Phone: Comment on above: Pattern: Unlabored 08-20-2016 07:05-0400 SaO2% (BldA) [Mass fraction] 93 % Nola Cordova RN [facility]; [facility] Work Phone: 08-20-2016 07:05-0400 Weight 105.01 kg Hermila Kumar [facility] Work Phone: 12-06-2015 14:13-0400 BMI (Body Mass Index) 33.24 kg/m2 Nola Cordova RN [facility] Work Phone: 12-06-2015 14:13-0400 Body Temperature 98 [degF] Nola Cordova RN [facility] Work Phone: Comment on above: Method: Temporal 12-06-2015 14:13-0400 Body weight 102.12 kg Nola Cordova RN [facility] Work Phone: 12-06-2015 14:13-0400 BP Diastolic 82 mm[Hg] Nola Cordova RN [facility] Work Phone: Comment on above: Patient Position: Sitting; Cuff Location : Left Arm; Cuff Size: Large 12-06-2015 14:13-0400 BP Systolic 122 mm[Hg] Nola Cordova RN [facility] Work Phone: Comment on above: Patient Position: Sitting; Cuff Location : Left Arm; Cuff Size: Large 12-06-2015 14:13-0400 BSA (Body Surface Area) 2.17 m2 Nola Cordova RN [facility] Work Phone: 12-06-2015 14:13-0400 Height 175.26 cm Nola Cordova RN [facility] Work Phone: 12-06-2015 14:13-0400 Pulse (Heart Rate) 88 /min Nola Cordova RN [facility] Work Phone: Comment on above: Pattern: Regular 12-06-2015 14:13-0400 Pulse Oximetry 97 % Hermila Vaughnon [facility] Work Phone: Comment on above: Room air 12-06-2015 14:13-0400 Respiratory Rate 18 /min Nola Cordova RN [facility] Work Phone: Comment on above: Pattern: Unlabored 12-06-2015 14:13-0400 SaO2% (BldA) [Mass fraction] 97 % Nola Cordova RN [facility]; [facility] Work Phone: 12-06-2015 14:13-0400 Weight 102.12 kg Hermila Kumar [facility] Internal Medicine Work Phone: 08-22-2015 11:08-0400 BMI (Body Mass Index) 31.97 kg/m2 [facility] Internal Medicine Work Phone: 08-22-2015 11:08-0400 Body Temperature 96.8 [degF] [facility] Internal Medicine Work Phone: 08-22-2015 11:08-0400 Body weight 98.2 kg [facility] Internal Medicine Work Phone: 08-22-2015 11:08-0400 BP Diastolic 74 mm[Hg] [facility] Internal [facility] Work Phone: Comment on above: Patient Position: Sitting; Cuff Location : Left Arm; Cuff Size: Standard 08-22-2015 11:08-0400 BP Systolic 124 mm[Hg] [facility] Internal Medicine Work Phone: Comment on above: Patient Position: Sitting; Cuff Location : Left Arm; Cuff Size: Standard 08-22-2015 11:08-0400 BSA (Body Surface Area) 2.14 m2 [facility] Internal [facility] Work Phone: 08-22-2015 11:08-0400 Height 175.26 cm [facility] Internal [facility] Work Phone: 08-22-2015 11:08-0400 Pulse (Heart Rate) 68 /min [facility] Work Phone: Comment on above: Pattern: Regular 08-22-2015 11:08-0400 Pulse Oximetry 96 % Hermila Kumar [facility] Work Phone: Comment on above: Room air 08-22-2015 11:08-0400 Respiratory Rate 16 /min Frank Mccloud [facility] Work Phone: Comment on above: Pattern: Unlabored 08-22-2015 11:08-0400 SaO2% (BldA) [Mass fraction] 96 % Frank Mccloud [facility]; [facility] Work Phone: 08-22-2015 11:08-0400 Weight 98.2 kg Hermila Kumar [facility] Work Phone: 02-22-2015 11:36-0500 BP Diastolic 78 mm[Hg] Yisel Flowers [facility] Work Phone: Comment on above: Patient Position: Sitting; Cuff Location : Left Arm; Cuff Size: Standard 02-22-2015 11:36-0500 BP Systolic 138 mm[Hg] Yisel Flowers [facility] Work Phone: Comment on above: Patient Position: Sitting; Cuff Location : Left Arm; Cuff Size: Standard 02-22-2015 10:30-0500 BMI (Body Mass Index) 32.86 kg/m2 Hermila Kumar DO Work Phone: [facility] Work Phone: 02-22-2015 10:30-0500 Body weight 100.93 kg Hermila Kumar DO Work Phone: [facility] Work Phone: 02-22-2015 10:30-0500 BP Diastolic 88 mm[Hg] Hermila Kumar DO Work Phone: [facility] Work Phone: Comment on above: Patient Position: Sitting; Cuff Location : Left Arm; Cuff Size: Large 02-22-2015 10:30-0500 BP Systolic 142 mm[Hg] Hermila Kumar DO Work Phone: [facility] Work Phone: Comment on above: Patient Position: Sitting; Cuff Location : Left Arm; Cuff Size: Large 02-22-2015 10:30-0500 BSA (Body Surface Area) 2.16 m2 Hermila Kumar DO Work Phone: [facility] Work Phone: 02-22-2015 10:30-0500 Height 175.26 cm Hermila Kumar DO Work Phone: [facility] Work Phone: 02-22-2015 10:30-0500 Pulse (Heart Rate) 67 /min Hermila Kumar DO Work Phone: [facility] Work Phone: Comment on above: Pattern: Regular 02-22-2015 10:30-0500 Pulse Oximetry 98 % Hermila Kumar [facility] Work Phone: Comment on above: Room air 02-22-2015 10:30-0500 Respiratory Rate 18 /min Hermila Kumar DO Work Phone: [facility] Work Phone: Comment on above: Pattern: Unlabored 02-22-2015 10:30-0500 SaO2% (BldA) [Mass fraction] 98 % Hermila Kumar DO Work Phone: [facility]; [facility] Work Phone: 02-22-2015 10:30-0500 Weight 100.93 kg Hermila Kumar [facility] Work Phone: 08-17-2014 07:34-0400 BMI (Body Mass Index) 32.65 kg/m2 Nola Cordova RN [facility] Work Phone: 08-17-2014 07:34-0400 Body weight 100.3 kg Nola Cordova RN [facility] Work Phone: 08-17-2014 07:34-0400 BP Diastolic 78 mm[Hg] Nola Cordova RN [facility] Work Phone: Comment on above: Patient Position: Sitting; Cuff Location : Left Arm; Cuff Size: Large 08-17-2014 07:34-0400 BP Systolic 122 mm[Hg] Nola Cordova RN [facility] Work Phone: Comment on above: Patient Position: Sitting; Cuff Location : Left Arm; Cuff Size: Large 08-17-2014 07:34-0400 BSA (Body Surface Area) 2.16 m2 Nola Cordova RN [facility] Work Phone: 08-17-2014 07:34-0400 Height 175.26 cm Nola Cordova RN [facility] Work Phone: 08-17-2014 07:34-0400 Pulse (Heart Rate) 61 /min Nola Cordova RN [facility] Work Phone: Comment on above: Pattern: Regular 08-17-2014 07:34-0400 Pulse Oximetry 98 % Hermila Kumar [facility] Work Phone: Comment on above: Room air 08-17-2014 07:34-0400 Respiratory Rate 18 /min Nola Cordova RN [facility] Work Phone: Comment on above: Pattern: Unlabored 08-17-2014 07:34-0400 SaO2% (BldA) [Mass fraction] 98 % Nola Cordova RN [facility]; [facility] Work Phone: 08-17-2014 07:34-0400 Weight 100.3 kg Hermila José [facility] Work Phone: 01-19-2014 07:01-0400 BMI (Body Mass Index) 32.84 kg/m2 Shanell Conrad RN [facility] Work Phone: 01-19-2014 07:01-0400 Body Temperature 97.2 [degF] Shanell Conrad RN [facility] Work Phone: Comment on above: Method: Temporal 01-19-2014 07:01-0400 Body weight 100.87 kg Shanell Conrad RN [facility] Work Phone: 01-19-2014 07:01-0400 BP Diastolic 72 mm[Hg] Shanell Cornad RN [facility] Work Phone: Comment on above: Patient Position: Sitting; Cuff Location : Left Arm; Cuff Size: Standard 01-19-2014 07:01-0400 BP Systolic 126 mm[Hg] Shanell Conrad RN [facility] Work Phone: Comment on above: Patient Position: Sitting; Cuff Location : Left Arm; Cuff Size: Standard 01-19-2014 07:01-0400 BSA (Body Surface Area) 2.16 m2 Shanell Conrad RN [facility] Work Phone: 01-19-2014 07:01-0400 Height 175.26 cm Shanell Conrad RN [facility] Internal Medicine Work Phone: 01-19-2014 07:01-0400 Pulse (Heart Rate) 16 /min Shanell Conrad RN [facility] Internal Medicine Work Phone: Comment on above: Pattern: Regular 01-19-2014 07:01-0400 Pulse Oximetry 98 % Hermila Vaughnon [facility] Internal Medicine Work Phone: Comment on above: Room air 01-19-2014 07:01-0400 Respiratory Rate 16 /min Shanell Conrad RN [facility] Internal Medicine Work Phone: Comment on above: Pattern: Unlabored 01-19-2014 07:01-0400 SaO2% (BldA) [Mass fraction] 98 % Shanell Conrad RN [facility]; [facility] Work Phone: 01-19-2014 07:01-0400 Weight 100.87 kg Hermila Kumar [facility] Internal Medicine Work Phone: 06-15-2013 13:21-0500 BMI (Body Mass Index) 32.84 kg/m2 Kerry Daniels [facility] Internal Medicine Work Phone: 06-15-2013 13:21-0500 Body Temperature 98.4 [degF] Kerry Daniels [facility] Internal Medicine Work Phone: Comment on above: Method: Oral 06-15-2013 13:21-0500 Body weight 100.87 kg Kerry Daniels [facility] Internal Medicine Work Phone: 06-15-2013 13:21-0500 BP Diastolic 84 mm[Hg] Kerry Daniels [facility] Internal Medicine Work Phone: Comment on above: Patient Position: Sitting; Cuff Location : Left Arm; Cuff Size: Standard 06-15-2013 13:21-0500 BP Systolic 122 mm[Hg] Kerry Daniels [facility] Internal Medicine Work Phone: Comment on above: Patient Position: Sitting; Cuff Location : Left Arm; Cuff Size: Standard 06-15-2013 13:21-0500 BSA (Body Surface Area) 2.16 m2 Kerry Daniels [facility] Internal Medicine Work Phone: 06-15-2013 13:21-0500 Height 175.26 cm Kerry Daniels [facility] Internal Medicine Work Phone: 06-15-2013 13:21-0500 Pulse (Heart Rate) 72 /min Kerry Daniels [facility] Internal Medicine Work Phone: Comment on above: Pattern: Regular 06-15-2013 13:21-0500 Respiratory Rate 16 /min Kerry Daniels [facility] Internal Medicine Work Phone: Comment on above: Pattern: Unlabored 06-15-2013 13:21-0500 Weight 100.87 kg Hermila Kumar [facility] Internal Medicine Work Phone: 02-01-2013 08:32-0400 BMI (Body Mass Index) 31.81 kg/m2 [facility] Work Phone: 02-01-2013 08:32-0400 Body Temperature 96.7 [degF] [facility] Work Phone: Comment on above: Method: Oral 02-01-2013 08:32-0400 Body weight 97.69 kg Yisel [facility] Internal Medicine Work Phone: 02-01-2013 08:32-0400 BP Diastolic 88 mm[Hg] Yisel [facility] Internal Medicine Work Phone: Comment on above: Patient Position: Sitting; Cuff Location : Left Arm; Cuff Size: Standard 02-01-2013 08:32-0400 BP Systolic 118 mm[Hg] [facility] Work Phone: Comment on above: Patient Position: Sitting; Cuff Location : Left Arm; Cuff Size: Standard 02-01-2013 08:32-0400 BSA (Body Surface Area) 2.13 m2 Yisel Flowers [facility] Internal Medicine Work Phone: 02-01-2013 08:32-0400 Height 175.26 cm Yisel Flowers [facility] Internal Medicine Work Phone: 02-01-2013 08:32-0400 Pulse (Heart Rate) 60 /min Yisel Flowers [facility] Internal Medicine Work Phone: Comment on above: Pattern: Regular 02-01-2013 08:32-0400 Pulse Oximetry 97 % [facility] [facility] Internal Medicine Work Phone: Comment on above: Room air 02-01-2013 08:32-0400 Respiratory Rate 18 /min Yisel Flowers [facility] Internal Medicine Work Phone: Comment on above: Pattern: Unlabored 02-01-2013 08:32-0400 SaO2% (BldA) [Mass fraction] 97 % Yisel Flowers [facility] Internal Medicine; [facility] Internal Medicine Work Phone: 02-01-2013 08:32-0400 Weight 97.69 kg Hermila Kumar [facility] Internal Medicine Work Phone: 01-13-2013 14:24-0400 BMI (Body Mass Index) 31.95 kg/m2 Kerry Daniels [facility] Internal Medicine Work Phone: 01-13-2013 14:24-0400 Body weight 98.15 kg Kerry Daniels [facility] Internal Medicine Work Phone: 01-13-2013 14:24-0400 BP Diastolic 104 mm[Hg] Kerry Daniels [facility] Internal Medicine Work Phone: Comment on above: Patient Position: Sitting; Cuff Location : Left Arm; Cuff Size: Standard 01-13-2013 14:24-0400 BP Systolic 160 mm[Hg] Kerry Daniels [facility] Internal Medicine Work Phone: Comment on above: Patient Position: Sitting; Cuff Location : Left Arm; Cuff Size: Standard 01-13-2013 14:24-0400 BSA (Body Surface Area) 2.14 m2 Kerry Daniels [facility] Internal Medicine Work Phone: 01-13-2013 14:24-0400 Height 175.26 cm Kerry Daniels [facility] Work Phone: 01-13-2013 14:24-0400 Pulse (Heart Rate) 74 /min Kerry Daniels [facility] Work Phone: Comment on above: Pattern: Regular 01-13-2013 14:24-0400 Respiratory Rate 16 /min Kerry Daniels [facility] Internal Medicine Work Phone: Comment on above: Pattern: Unlabored 01-13-2013 14:24-0400 Weight 98.15 kg Hermila Kumar [facility] Internal Medicine Work Phone: 12-02-2012 07:58-0400 BMI (Body Mass Index) 31.95 kg/m2 Nola Cordova RN [facility] Work Phone: 12-02-2012 07:58-0400 Body Temperature 97.9 [degF] Nola Cordova RN [facility] Work Phone: Comment on above: Method: Oral 12-02-2012 07:58-0400 Body weight 98.15 kg Nloa Cordova RN [facility] Work Phone: 12-02-2012 07:58-0400 BP Diastolic 82 mm[Hg] Nola Cordova RN [facility] Work Phone: Comment on above: Patient Position: Sitting; Cuff Location : Left Arm; Cuff Size: Large 12-02-2012 07:58-0400 BP Systolic 122 mm[Hg] Nola Cordova RN [facility] Work Phone: Comment on above: Patient Position: Sitting; Cuff Location : Left Arm; Cuff Size: Large 12-02-2012 07:58-0400 BSA (Body Surface Area) 2.14 m2 Nola Cordova RN [facility] Work Phone: 12-02-2012 07:58-0400 Height 175.26 cm Nola Cordova RN [facility] Work Phone: 12-02-2012 07:58-0400 Pulse (Heart Rate) 64 /min Nola Cordova RN [facility] Work Phone: Comment on above: Pattern: Regular 12-02-2012 07:58-0400 Respiratory Rate 20 /min Nola Cordova RN [facility] Work Phone: Comment on above: Pattern: Unlabored 12-02-2012 07:58-0400 Weight 98.15 kg Hermila Kumar [facility] Work Phone: 06-03-2012 14:52-0500 BMI (Body Mass Index) 32.07 kg/m2 Nola Cordova RN [facility] Work Phone: 06-03-2012 14:52-0500 Body Temperature 98.4 [degF] Nola Cordova RN [facility] Work Phone: Comment on above: Method: Oral 06-03-2012 14:52-0500 Body weight 98.52 kg Nola Cordova RN [facility] Work Phone: 06-03-2012 14:52-0500 BP Diastolic 68 mm[Hg] Nola Cordova RN [facility] Work Phone: Comment on above: Patient Position: Sitting; Cuff Location : Left Arm; Cuff Size: Large 06-03-2012 14:52-0500 BP Systolic 124 mm[Hg] Nola Cordova RN [facility] Work Phone: Comment on above: Patient Position: Sitting; Cuff Location : Left Arm; Cuff Size: Large 06-03-2012 14:52-0500 BSA (Body Surface Area) 2.14 m2 Nola Cordova RN [facility] Work Phone: 06-03-2012 14:52-0500 Height 175.26 cm Nola Cordova RN [facility] Work Phone: 06-03-2012 14:52-0500 Pulse (Heart Rate) 64 /min Nola Cordova RN [facility] Work Phone: Comment on above: Pattern: Regular 06-03-2012 14:52-0500 Respiratory Rate 18 /min Nola Cordova RN [facility] Work Phone: Comment on above: Pattern: Unlabored 06-03-2012 14:52-0500 Weight 98.52 kg Hermila Kumar [facility] Work Phone: 12-11-2011 13:10-0400 BMI (Body Mass Index) 32.39 kg/m2 Nola Cordova RN [facility] Work Phone: 12-11-2011 13:10-0400 Body weight 99.48 kg Nola Cordova RN [facility] Work Phone: 12-11-2011 13:10-0400 BP Diastolic 78 mm[Hg] Nola Cordova RN [facility] Work Phone: Comment on above: Patient Position: Sitting; Cuff Location : Left Arm; Cuff Size: Large 12-11-2011 13:10-0400 BP Systolic 128 mm[Hg] Nola Cordova RN [facility] Work Phone: Comment on above: Patient Position: Sitting; Cuff Location : Left Arm; Cuff Size: Large 12-11-2011 13:10-0400 BSA (Body Surface Area) 2.15 m2 Nola Cordova RN [facility] Work Phone: 12-11-2011 13:10-0400 Height 175.26 cm Nola Cordova RN [facility] Work Phone: 12-11-2011 13:10-0400 Pulse (Heart Rate) 72 /min Nola Cordova RN [facility] Work Phone: Comment on above: Pattern: Regular 12-11-2011 13:10-0400 Respiratory Rate 20 /min Nola Cordova RN [facility] Work Phone: Comment on above: Pattern: Unlabored 12-11-2011 13:10-0400 Weight 99.48 kg Hermila Kumar [facility] Work Phone: 06-11-2011 07:18-0500 BMI (Body Mass Index) 31.35 kg/m2 Nola Cordova RN [facility] Work Phone: 06-11-2011 07:18-0500 Body Temperature 97.2 [degF] Nola Cordova RN [facility] Work Phone: Comment on above: Method: Oral 06-11-2011 07:18-0500 Body weight 96.3 kg Nola Cordova RN [facility] Work Phone: 06-11-2011 07:18-0500 BP Diastolic 82 mm[Hg] Nola Cordova RN [facility] Work Phone: Comment on above: Patient Position: Sitting; Cuff Location : Left Arm; Cuff Size: Large 06-11-2011 07:18-0500 BP Systolic 138 mm[Hg] Nola Cordova RN [facility] Work Phone: Comment on above: Patient Position: Sitting; Cuff Location : Left Arm; Cuff Size: Large 06-11-2011 07:18-0500 BSA (Body Surface Area) 2.12 m2 Nola Cordova RN [facility] Work Phone: 06-11-2011 07:18-0500 Height 175.26 cm Nola Cordova RN [facility] Work Phone: 06-11-2011 07:18-0500 Pulse (Heart Rate) 60 /min Nola Cordova RN [facility] Work Phone: Comment on above: Pattern: Regular 06-11-2011 07:18-0500 Respiratory Rate 16 /min Nola Cordova RN [facility] Work Phone: Comment on above: Pattern: Unlabored 06-11-2011 07:18-0500 Weight 96.3 kg Hermila José [facility] Work Phone: 02-09-2011 12:50-0400 BMI (Body Mass Index) 30.17 kg/m2 Nola Cordova RN [facility] Work Phone: 02-09-2011 12:50-0400 Body weight 92.68 kg Nola Cordova RN [facility] Work Phone: 02-09-2011 12:50-0400 BP Diastolic 80 mm[Hg] Nola Cordova RN [facility] Work Phone: Comment on above: Patient Position: Sitting; Cuff Location : Left Arm; Cuff Size: Standard 02-09-2011 12:50-0400 BP Systolic 128 mm[Hg] Nola Cordova RN [facility] Work Phone: Comment on above: Patient Position: Sitting; Cuff Location : Left Arm; Cuff Size: Standard 02-09-2011 12:50-0400 BSA (Body Surface Area) 2.08 m2 Nola Cordova RN [facility] Work Phone: 02-09-2011 12:50-0400 Height 175.26 cm Nola Cordova RN [facility] Work Phone: 02-09-2011 12:50-0400 Pulse (Heart Rate) 60 /min Nola Cordova RN [facility] Work Phone: Comment on above: Pattern: Regular 02-09-2011 12:50-0400 Respiratory Rate 18 /min Nola Cordova RN [facility] Work Phone: Comment on above: Pattern: Unlabored 02-09-2011 12:50-0400 Weight 92.68 kg Hermila Kumar [facility] Work Phone: 06-13-2010 14:45-0500 BMI (Body Mass Index) 31.53 kg/m2 Nola Cordova RN [facility] Work Phone: 06-13-2010 14:45-0500 Body Temperature 97.8 [degF] Nola Cordova RN [facility] Work Phone: Comment on above: Method: Oral 06-13-2010 14:45-0500 Body weight 96.84 kg Nola Cordova RN [facility] Work Phone: 06-13-2010 14:45-0500 BP Diastolic 80 mm[Hg] Nola Cordova RN [facility] Work Phone: Comment on above: Patient Position: Sitting; Cuff Location : Left Arm; Cuff Size: Large 06-13-2010 14:45-0500 BP Systolic 120 mm[Hg] Nola Cordova RN [facility] Work Phone: Comment on above: Patient Position: Sitting; Cuff Location : Left Arm; Cuff Size: Large 06-13-2010 14:45-0500 BSA (Body Surface Area) 2.12 m2 Nola Cordova RN [facility] Work Phone: 06-13-2010 14:45-0500 Height 175.26 cm Nola Cordova RN [facility] Work Phone: 06-13-2010 14:45-0500 Pulse (Heart Rate) 60 /min Nola Cordova RN [facility] Work Phone: Comment on above: Pattern: Regular 06-13-2010 14:45-0500 Respiratory Rate 20 /min Nola Cordova RN [facility] Work Phone: Comment on above: Pattern: Unlabored 06-13-2010 14:45-0500 Weight 96.84 kg Hermila Kumar [facility] Internal Medicine Work Phone: 04-08-2010 14:42-0500 Body Temperature 96.7 [degF] Allison Crowley [facility] Internal Medicine Work Phone: 04-08-2010 14:42-0500 Body weight 97.07 kg Allison Crowley [facility] Work Phone: 04-08-2010 14:42-0500 BP Diastolic 96 mm[Hg] Allison Flnikki [facility] Internal Medicine Work Phone: Comment on above: Patient Position: Sitting; Cuff Location : Left Arm; Cuff Size: Standard 04-08-2010 14:42-0500 BP Systolic 132 mm[Hg] Allison Flnikki [facility] Medicine Work Phone: Comment on above: Patient Position: Sitting; Cuff Location : Left Arm; Cuff Size: Standard 04-08-2010 14:42-0500 Pulse (Heart Rate) 76 /min Allison Crowley [facility] Work Phone: Comment on above: Pattern: Regular 04-08-2010 14:42-0500 Respiratory Rate 18 /min Allison Crowley [facility] Medicine Work Phone: Comment on above: Pattern: Unlabored 04-08-2010 14:42-0500 Weight 97.07 kg Hermila Kumar [facility] Work Phone: 03-14-2010 07:33-0500 BMI (Body Mass Index) 31.39 kg/m2 Nola Cordova RN [facility] Work Phone: 03-14-2010 07:33-0500 Body weight 96.42 kg Nola Cordova RN [facility] Work Phone: 03-14-2010 07:33-0500 BP Diastolic 90 mm[Hg] Nola Cordova RN [facility] Work Phone: Comment on above: Patient Position: Sitting; Cuff Location : Left Arm; Cuff Size: Large 03-14-2010 07:33-0500 BP Systolic 122 mm[Hg] Nola Cordova RN [facility] Work Phone: Comment on above: Patient Position: Sitting; Cuff Location : Left Arm; Cuff Size: Large 03-14-2010 07:33-0500 BSA (Body Surface Area) 2.12 m2 Nola Cordova RN [facility] Work Phone: 03-14-2010 07:33-0500 Height 175.26 cm Nola Cordova RN [facility] Work Phone: 03-14-2010 07:33-0500 Pulse (Heart Rate) 60 /min Nola Cordova RN [facility] Work Phone: Comment on above: Pattern: Regular 03-14-2010 07:33-0500 Respiratory Rate 20 /min Nola Cordova RN [facility] Work Phone: Comment on above: Pattern: Unlabored 03-14-2010 07:33-0500 Weight 96.42 kg Hermila Kumar [facility] Work Phone: 02-27-2010 09:43-0500 BMI (Body Mass Index) 31.49 kg/m2 Nola Cordova RN [facility] Work Phone: 02-27-2010 09:43-0500 Body weight 96.73 kg Nola Cordova RN [facility] Work Phone: 02-27-2010 09:43-0500 BP Diastolic 102 mm[Hg] Nola Cordova RN [facility] Work Phone: Comment on above: Patient Position: Sitting; Cuff Location : Left Arm; Cuff Size: Standard 02-27-2010 09:43-0500 BP Systolic 172 mm[Hg] Nola Cordova RN [facility] Work Phone: Comment on above: Patient Position: Sitting; Cuff Location : Left Arm; Cuff Size: Standard 02-27-2010 09:43-0500 BSA (Body Surface Area) 2.12 m2 Nola Cordova RN [facility] Work Phone: 02-27-2010 09:43-0500 Height 175.26 cm Nola Cordova RN [facility] Work Phone: 02-27-2010 09:43-0500 Pulse (Heart Rate) 60 /min Nola Cordova RN [facility] Work Phone: Comment on above: Pattern: Regular 02-27-2010 09:43-0500 Respiratory Rate 20 /min Nola Cordova RN [facility] Work Phone: Comment on above: Pattern: Unlabored 02-27-2010 09:43-0500 Weight 96.73 kg Hermila Kumar [facility] Work Phone: Encounters Encounter Date Encounter Type Care Provider Facility Start: 09-22-2024 ambulatory Bharat Roper Facility:[facility] Start: 06-19-2024 End: 06-19-2024 Patient encounter procedure Migdalia [facility] Work Phone: Start: 06-19-2024 End: 06-19-2024 ambulatory Hermila Kumar Facility:[facility] [place] Start: 06-08-2024 End: 06-08-[address] Hermila Kumar DO Work Phone: [facility] Work Phone: Start: 06-08-2024 End: 06-08-2024 Patient encounter procedure Migdalia [facility] Work Phone: Start: 06-08-2024 End: 06-08-2024 ambulatory Hermila Kumar Facility:[facility] Start: 05-11-2024 End: 05-11-2024 Patient encounter procedure Migdalia [facility] Work Phone: Start: 05-11-2024 End: 05-11-[address] Simone Chacko MD -[facility] Work Phone: Start: 05-11-2024 End: 05-11-2024 ambulatory Simone Chacko Facility:[facility] [place] Start: 05-11-2024 End: 05-11-2024 ambulatory Migdalia Glass Facility:[facility] Start: 04-08-2024 End: 04-08-2024 Emergency department patient visit Dr. Morteza Franz DO -Emergency Department Work Phone: Start: 03-16-2024 End: 03-16-[address] Hermila Kumar DO -Ultrasound, [facility] Work Phone: Start: 03-16-2024 End: 03-16-2024 ambulatory Hermila Kumar Facility:[facility] Start: 12-11-2023 ambulatory Ed Physician Provider Facility:[facility] Start: 12-11-2023 End: 12-11-2023 Emergency department patient visit Adrian Duarte Facility:[facility] Start: 09-09-2022 End: 09-09-2022 Office outpatient visit 15 minutes Hermila José DO Work Phone: [facility] Start: 09-02-2022 End: 09-02-2022 Hermila José DO Work Phone: [facility] Start: 08-19-2022 ambulatory Hermila Kumar DO [facility] Start: 04-21-2022 End: 04-27-2022 Hermila José DO Work Phone: [facility] Start: 02-02-2022 End: 02-02-2022 Hermila José DO Work Phone: [facility] Start: 01-30-2022 Hermila Fearo n DO Work Phone: [facility] Start: 01-30-2022 End: 01-30-2022 Office outpatient visit 15 minutes Hermila José DO Work Phone: [facility] Start: 01-22-2022 End: 01-22-2022 Hermila José DO Work Phone: [facility] Start: 07-31-2021 End: 07-31-2021 Office outpatient visit 25 minutes Hermila José DO Work Phone: [facility] Start: 06-16-2021 End: 06-16-2021 Office outpatient visit 15 minutes Hermila José DO Work Phone: [facility] Start: 06-16-2021 End: 06-16-2021 Preprocedural examination done Hermila Kumar DO Work Phone: [facility] Start: 01-23-2021 End: 01-23-2021 Office outpatient visit 25 minutes Hermila José DO Work Phone: [facility] Start: 01-20-2021 End: 01-20-2021 Hermila José DO Work Phone: [facility] Start: 07-05-2020 End: 07-05-2020 Office outpatient visit 25 minutes Hremila José [facility] Start: 02-14-2020 End: 02-14-2020 Office outpatient visit 15 minutes Hermila José [facility] Start: 02-14-2020 Review Hermila Kumar [facility] Start: 01-31-2020 End: 01-31-2020 Office outpatient visit 5 minutes Hermila Kumar [facility] Start: 11-02-2019 End: 11-02-2019 Office outpatient visit 25 minutes Hermila Kumar [facility] Start: 10-24-2019 End: 10-24-2019 Lab Order Hermila Kumar [facility] Start: 10-24-2019 End: 10-24-2019 Hermila José DO Work Phone: [facility] Start: 04-27-2019 End: 04-27-2019 Office outpatient visit 25 minutes Hermila Kumar [facility] Start: 10-20-2018 End: 10-20-2018 Office outpatient visit 15 minutes Hermila Kumar [facility] Start: 04-21-2018 End: 04-21-2018 Office outpatient visit 25 minutes Hermila Kumar [facility] Start: 04-21-2018 Review Hermila Kumar [facility] Start: 04-06-2018 End: 04-06-2018 Lab Order Hermila Kumar [facility] Start: 04-06-2018 End: 04-06-2018 Hermila Kumar DO Work Phone: [facility] Start: 12-06-2017 End: 12-06-2017 Office outpatient visit 15 minutes Hermila José [facility] Start: 11-08-2017 End: 11-08-2017 Phone Encounter Hermila Kumar [facility] Start: 11-08-2017 End: 11-08-2017 Hermila Kumar DO Work Phone: [facility] Start: 08-18-2017 End: 08-18-2017 Office outpatient visit 15 minutes Hermila José [facility] Start: 08-11-2017 End: 08-11-2017 Phone Encounter Hermila Kumar [facility] Start: 08-11-2017 End: 08-11-2017 Hermila Kumar DO Work Phone: [facility] Start: 03-18-2017 End: 03-18-2017 Phone Encounter Hermila Kumar [facility] Start: 03-18-2017 End: 03-18-2017 Hermila Kumar DO Work Phone: [facility] Start: 03-17-2017 End: 03-17-2017 Office outpatient visit 15 minutes Hermila José [facility] Start: 03-01-2017 End: 03-01-2017 Lab Order Hermila Kumar [facility] Start: 03-01-2017 End: 03-01-2017 Hremila Kumar DO Work Phone: [facility] Start: 02-17-2017 End: 02-17-2017 Office outpatient visit 25 minutes Hermila José [facility] Start: 08-20-2016 End: 08-20-2016 Office outpatient visit 15 minutes Hermila José [facility] Start: 12-06-2015 End: 12-06-2015 Office outpatient visit 25 minutes Hermila José [facility] Start: 08-22-2015 End: 08-22-2015 Office outpatient visit 25 minutes Hermila José [facility] Start: 02-22-2015 End: 02-22-2015 Office outpatient visit 25 minutes Hermila Kumar [facility] Start: 02-13-2015 End: 02-13-2015 Lab Order Hermila Kumar [facility] Start: 02-13-2015 End: 02-13-2015 Hermila Kumar DO Work Phone: [facility] Start: 08-17-2014 End: 08-17-2014 Office outpatient visit 15 minutes Hermila Kumar [facility] Start: 08-09-2014 End: 08-09-2014 Phone Encounter Hermila Kumar [facility] Start: 08-09-2014 End: 08-09-2014 Hermila Kumar DO Work Phone: [facility] Start: 01-19-2014 End: 01-19-2014 Office outpatient visit 15 minutes Hermila Kumar [facility] Start: 06-15-2013 End: 06-15-2013 Patient encounter procedure Hermila Kumar [facility] Start: 06-15-2013 End: 06-15-2013 Hermila Kumar DO Work Phone: [facility] Start: 02-01-2013 End: 02-01-2013 Patient encounter procedure Hermila Kumar [facility] Start: 02-01-2013 End: 02-01-2013 Hermila Kumar DO Work Phone: [facility] Start: 01-16-2013 End: 01-16-2013 Phone Encounter Hermila Kumar [facility] Start: 01-16-2013 End: 01-16-2013 Hermila Kumar DO Work Phone: [facility] Start: 01-13-2013 End: 01-13-2013 Patient encounter procedure Hermila Kumar [facility] Start: 01-13-2013 End: 01-13-2013 Hermila Kumar DO Work Phone: [facility] Start: 12-02-2012 End: 12-02-2012 Patient encounter procedure Hermila Kumar [facility] Start: 12-02-2012 End: 12-02-2012 Hermilaroman Kumar DO Work Phone: [facility] Start: 06-03-2012 End: 06-03-2012 Patient encounter procedure Hermila Kumar [facility] Start: 06-03-2012 End: 06-03-2012 Hermila Kumar DO Work Phone: [facility] Start: 12-11-2011 End: 12-11-2011 Patient encounter procedure Hermila Kumar [facility] Start: 12-11-2011 End: 12-11-2011 Hermila Kumar DO Work Phone: [facility] Start: 12-07-2011 End: 12-07-2011 Phone Encounter Hermila Kumar [facility] Start: 12-07-2011 End: 12-07-2011 Hermila Kumar DO Work Phone: [facility] Start: 06-11-2011 End: 06-11-2011 Patient encounter procedure Hermila Kumar [facility] Start: 06-11-2011 End: 06-11-2011 Hermila Kumar DO Work Phone: [facility] Start: 06-01-2011 End: 06-01-2011 Annotation/Addendum Hermila Kumar [facility] Start: 06-01-2011 End: 06-01-2011 Hermila Kumar DO Work Phone: [facility] Start: 02-09-2011 End: 02-09-2011 Patient encounter procedure Hermila Kumar [facility] Start: 02-09-2011 End: 02-09-2011 Hermila Kumar DO Work Phone: [facility] Start: 06-13-2010 End: 06-13-2010 Patient encounter procedure Hermila Kumar [facility] Start: 06-13-2010 End: 06-13-2010 Hermila Kumar DO Work Phone: [facility] Start: 04-08-2010 End: 04-09-2010 Patient encounter procedure Hermila Kumar [facility] Start: 04-08-2010 End: 04-09-2010 Hermila Kumar DO Work Phone: [facility] Start: 03-17-2010 End: 03-17-2010 Patient encounter procedure Hermila Kumar [facility] Start: 03-17-2010 End: 03-17-2010 Hermila Kumar DO Work Phone: [facility] Start: 03-14-2010 End: 03-14-2010 Patient encounter procedure Hermila Kumar [facility] Start: 03-14-2010 End: 03-14-2010 Hermila Kumar DO Work Phone: [facility] Start: 03-05-2010 End: 03-05-2010 Annotation/Addendum Hermila Kumar [facility] Start: 03-05-2010 End: 03-05-2010 Hermila Kumar DO Work Phone: [facility] Start: 02-27-2010 End: 02-27-2010 Patient encounter procedure Hermila Kumar [facility] Internal Medicine Start: 02-27-2010 End: 02-27-2010 Hermila Kumar DO Work Phone: [facility] Preprocedural examination done Serena Suarez [facility] Work Phone: [facility]; [facility] Work Phone: Preprocedural examination done Dipika Rueda [facility]; [facility] Work Phone: Preprocedural examination done Juan Luis Miranda [facility]; [facility] Work Phone: Preprocedural examination done Cornelio Palmer [facility]; [facility] Work Phone: Procedures Date Procedure Procedure Detail Performing Clinician Start: 06-08-2024 MRI of brain with contrast Dr. Hermila Kumar DO Work Phone: Start: 04-08-2024 CT angiography of head and neck Dr. Hermila Kumar DO Work Phone: Start: 03-16-2024 Ultrasound elastography of liver Dr. Hermila Kumar DO Work Phone: Start: 03-11-2017 End: 03-11-2017 Abdomen WITH and W/O Contrast Comments: See Note; NOTES: [facility] Imaging Services [address] [place] [address] Abdomen WITH and W/O Contrast MR#: [id number] Acct: [id number] Name: LONA PERKINS Rep #: [id number] : 1955 M 61 From: Kenton Mckeon MD PCP: Hermila Kumar DO Status: REG CLI Study: Abdomen WITH and W/O Contrast Date of Exam: 03/11/17 Exam# [id number] Ordering Dr: Hermila Kumar DO STUDY: MRI ABDOMEN WITH AND WITHOUT CONTRAST REASON FOR EXAM: Male, 61 years old. Liver lesion on ultrasound TECHNIQUE: Standardized fat and water weighted pulse sequences were obtained in all 3 orthogonal planes post contrast administration. 10 ml of Gadavist contrast material was administered intravenously for the contrast portion of the examination. COMPARISON: Ultrasound dated 02/23/2017 FINDINGS: The liver is normal in contour. There is a 3.2 x 3.2 cm T2 hyperintense rounded lesion in the right lobe of the liver which corresponds to the findings on the recent ultrasound. This demonstrates progressive enhancement following contrast administration on dynamic postcontrast images. This is consistent with a hemangioma. There are no additional hepatic lesions. The spleen, pancreas, adrenal glands and kidneys are normal in contour and signal intensity. There is no bowel obstruction. The aorta is normal in caliber. MRI/Abdomen WITH and W/O Contrast IMPRESSION: 3 cm hemangioma in the right lobe of the liver. Otherwise, unremarkable contrast enhanced MRI of the abdomen. Electronically Signed: Kenton Mckeon, at 14:08 EST Tel , Service support , CC: Hermila Kumar DO [place]: Signed Hermila Kumar Work Phone: Start: 02-23-2017 End: 02-24-2017 Liver Comments: See Note; NOTES: [facility] Imaging Services [address] [place] [address] Liver MR#: [id number] Acct: [id number] Name: LONA PERKINS Rep #: [id number] : 1955 M 61 From: Marlen Awad MD PCP: Hermila Kumar DO Status: REG CLI Study: Liver Date of Exam: 02/23/17 Exam# [id number] Ordering Dr: Hermila Kumar DO STUDY: ABDOMINAL ULTRASOUND - RIGHT UPPER QUADRANT REASON FOR VISIT: Male, 61 years old. Elevated liver enzymes. TECHNIQUE: Ultrasound evaluation of the right upper quadrant was performed with real-time and static chu-scale imaging. TECHNICAL QUALITY: Adequate. Limitations due to bowel gas and ribs. COMPARISON: None. FINDINGS: Liver: The liver measures 18 cm. There is increased echogenicity consistent with fatty infiltration. The bile ducts are within normal limits. There is hepatic color flow. The direction of portal flow is hepatopetal. The right hepatic lobe contains a hypoechoic heterogeneous echotexture of their is peripheral vascularity. 3.3 x 3.3 x 2.8 cm with decreased central vascularity. Gallbladder: Normal distended gallbladder. The gallbladder wall measures 2.7 mm. There is a negative sonographic Contreras's sign. There is no pericholecystic fluid. There are no gallstones. Common Bile Duct (C.B.D.): The common bile duct measures 2.8 mm. Pancreas: Normal size of the head, body and tail of the pancreas. There is increased echogenicity of the pancreas. Right Kidney: Normal size of the right kidney. The right kidney measures 11 x 5 x 5 cm. Normal renal cortex. The right cortex measures 1.5 cm. There is no demonstrated renal mass or cyst. There is no right hydronephrosis. US/Liver IMPRESSION: Abnormal liver with component of hepatic steatosis and mild hepatomegaly. The right hepatic lobe demonstrate focal indistinct heterogeneous echotexture without central vascularity. This cannot be further defined. Consider dynamic CT or MRI for further detail. Echogenic pancreas frequently seen with fat deposition. Electronically Signed: Marlen Awad MD at 2:48 EST , Service support , CC: Hermila Kumar DO [place]: Signed Hermila Kumar Work Phone: Start: 12-06-2015 End: 12-09-2015 Foot min 3 Views Comments: See Note; NOTES: [facility] Imaging Services [address] [place] [address] Verdana 4d Foot min 3 Views MR#: [id number] Acct: [id number] Name: LONA PERKINS Rep #: [id number] : 1955 M 60 From: Librado Ball DO PCP: Hermila Kumar DO Status: REG CLI Study: Foot min 3 Views Date of Exam: 12/06/15 Exam# [id number] Ordering Dr: Hermila Kumar DO STUDY: X-RAY - LEFT FOOT CLINICAL: Male, 60 years old. Intensity heel pain TECHNIQUE: 3 view(s) of the foot. COMPARISON: None. FINDINGS: Normal talus, calcaneus, and tarsal bones. Normal visualized subtalar, talonavicular, calcaneocuboid, tarsal and tarsometatarsal articulations. Normal metatarsi. Normal metatarsophalangeal joint of the great toe. Normal tibial and fibular sesamoid bones. Normal interphalangeal joint of the great toe. Normal phalanges of the great toe. Normal second through fifth metatarsophalangeal joints. Normal interphalangeal joints and phalanges of the lesser toes. The soft tissue structures are unremarkable. RAD/Foot min 3 Views IMPRESSION: Normal x-ray examination of the foot. Electronically Signed: Librado Ball DO at 11:22 EDT Tel , Service support [phone], CC: Hermila Kumar DO [place]: Signed Hermila Kumar Work Phone: Start: 04-02-2015 End: 04-02-2015 12 lead ECG Comments: See Note; NOTES: [facility] Cardiovascular Services [address] [place] [address] 12 Lead EKG 04/01/15 1353 MR#: [id number] Acct: [id number] Name: LONA PERKINS Rep #: [id number] : 1955 59 From: Bharat Roper MD Attending Dr: Status: DEP ER Ordering Dr: Jose Faith MD Date: 04/01/15 Location: ED Sex: M C Admitted: Test Reason : CP Blood Pressure : / mmHG Vent. Rate : 060 BPM Atrial Rate : 060 BPM P-R Int : 172 ms QRS Dur : 102 ms QT Int : 404 ms P-R-T Axes : 023 -28 028 degrees QTc Int : 404 ms Normal sinus rhythm Normal ECG Confirmed by JACQUELIN ENGLAND, BHARAT ([id number]), editorial project manager ZENON DELACRUZ ([id number]) on 04/02/2015 1:17:13 PM Referred By: VICTOR HUGO Confirmed By:BHARAT ROPER MD 04/02/15 1317 Date Bharat Roper MD CC: Hermila Kumar DO Date Dictated: 04/01/15 135 Date Transcribed: 04/01/15 135 [place]: Signed Hermila Kumar Start: 04-02-2015 End: 04-02-2015 Emergency Department Summary Comments: See Note; NOTES: [facility] Medical Records Department [address] [place] [address] Emergency Department Summary MR#: [id number] Acct: [id number] Name: LONA PERKINS Rep #: [id number] : 1955 59 From: Jose Faith MD PCP: Hermila Kumar DO Status: DEP ER DATE OF SERVICE: 04/01/2015 METHOD OF ARRIVAL: Private car. CHIEF COMPLAINT: Chest pain. PRIMARY CARE PHYSICIAN: Hermila José DO [place] HISTORY: A 59-year-old male with history of hypertension, comes in with chest pain that is going on for the last 3 days intermittently. He states the longest it has been has been 5 minutes. He describes tightness in his chest, does not radiate. Currently, it is less than 1. He states that nothing he does makes it worse including exertion, movement, deep breathing, etc., nothing he does makes it better. He denies nausea or vomiting, but has a little bit of sweating in his palms as well as felt little bit short of breath. Denies any cough or fever symptoms. He denies any other complaints other than feeling weak. REVIEW OF SYSTEMS: Other than noted above is unremarkable other than the fact that he states that last year, he has had a weird sensation over his chest, in the same area that he complains of discomfort. He has had a stress test, the last one was in 2012 in January. This was a nuclear stress test that was unremarkable. He has had one prior to that. He has never had a heart catheterization. There is no known family history of heart disease in his family such as mom, dad, brothers or sisters. PHYSICAL EXAMINATION: VITAL SIGNS: Stable. Afebrile. HEENT: Unremarkable. NECK: Supple. LUNGS: Clear. HEART: Regular. I do not appreciate any murmur, rub or gallop. ABDOMEN: Soft and nontender. EXTREMITIES: Legs show no swelling or edema. No calf tenderness or Homans sign. NEUROLOGIC: Intact. No focal findings. TESTS: Chest x-ray, single view, is unremarkable. EKG is sinus at 60. No acute ischemic or injury pattern. CBC is unremarkable other than 71% neutrophils and 18% lymphocytes. Chemistry panel is unremarkable. Troponin is negative. EMERGENCY DEPARTMENT COURSE: The patient was started on IV fluids and monitor. He was given aspirin. Again, he was pretty much pain free when I saw him. His RAUL risk score is 1 for the fact that he takes aspirin, but his pain is somewhat atypical. He has never had any exertional symptoms. Prior to these 3 days, he has not really had any chest pain or discomfort, looking back at least over the last several months. His risk factors for heart disease will be blood pressure and his age, but again his pain is only lasted 5 minutes and nonexertional. At this point, the patient has had 2 prior stress tests, I do not believe the patient requires admission for another stress test. I spoke with Dr. Roper and agreed, but with given his story, it is not quite classic angina where he would definitively need a heart catheterization. Dr. Roper believe he can be worked up as an outpatient. He will see him in the office. The patient has been advised of this and is agreeable with this plan and discharge. He is advised to return with any problems or worsening. CLINICAL IMPRESSION: Atypical chest pain. DISPOSITION: Home. MD Fabiana Howell C: Bharat Kumar DO T: [facility] JOB: [id number] 04/02/15 0832 <Electronically signed by Jose Faith MD> Date Jose Faith MD Cosigner Signature (If Indicated): Date CC: Hermila Kumar DO Date Dictated: 04/01/151528 Date Transcribed: 04/01/151528 [place]: Signed Hermila Kumar Start: 04-01-2015 End: 04-02-2015 Discharge Instruction Comments: See Note; NOTES: [facility] Medical Records Department [address] [place] [address] Discharge Instruction 04/01/15 1524 MR#: [id number] Acct: [id number] Name: LONA PERKINS Rep #: [id number] : 1955 59 From: Jose Faith MD PCP: Hermila Kumar DO Status: REG ER ED Disposition - Plan for ED Patient: Disposition: Home or Assisted Living Chief Complaint: Chest Pain Instructions: ED Chest Pain, Uncertain Cause Referrals: Hermila Kumar DO [Primary Care Provider] - Bharat Roper MD [STAFF PHYSICIAN] - Keep Darvin appointment Additional Instructions: follow up with Dr Roper. return with problems/worsening. What to do if you have Problems For any increased pain, shortness of breath, bleeding, nausea or vomiting, chest pain, or any unexpected problems, contact your doctor. Call [facility] ([phone]) or report to the closest Emergency Room. Call 911 if necessary. 04/01/15 1525 <Electronically signed by Jose Faith MD> Date Jose Faith MD Cosigner Signature (If Indicated): Date CC: Hermila Brooks Start: 04-01-2015 End: 04-01-2015 Chest 1 View (Portable) Comments: See Note; NOTES: [facility] Imaging Services [address] [place] [address] Verda 4d Chest 1 View (Portable) MR#: [id number] Acct: [id number] Name: NOEMI PEKRINS Rep #: [id number] : 1955 M 59 From: Romeo Burgos MD PCP: Hermila Kumar DO Status: REG ER Study: Chest 1 View (Portable) Date of Exam: 04/01/15 Exam# [id number] Ordering Dr: Jose Faith MD STUDY: X-RAY CHEST REASON FOR EXAM: Male, 59 years old. 2 day history of chest pain. TECHNIQUE: Single AP portable view of the chest. COMPARISON: Comparison is made with prior study dated January 14, 2013. FINDINGS: EKG electrodes are seen. There is elevation of the right hemidiaphragm. There is no demonstrated pleural abnormality. Normal size heart. Normal mediastinum and moriah. Normal visualized pulmonary arteries. There is atherosclerotic tortuosity of the aortic arch and descending thoracic aorta. Normal visualized thoracic spine. Normal visualized ribs, clavicles, and shoulders. There is no demonstrated abnormality of the visualized soft tissue structures of the upper abdomen. IMPRESSION: No acute abnormality is seen. Electronically Signed: Romeo Burgos MD at 14:56 EST Tel [phone], Service support [phone], RAD/Chest 1 View (Portable) IMPRESSION: No acute abnormality is seen. Electronically Signed: Romeo Burgos MD at 14:56 EST Tel [phone], Service support [phone], CC: Hermila Kumar DO; Jose Faith MD [place]: Signed Hermila Kumar Start: 02-22-2015 End: 02-22-2015 Ecg routine ecg w/least 12 lds w/i&r [MEASUREMENTS ANALYSIS] Date of Test: 02/22/2015 11:31:33; Heart Rate: 53; [place] Interval: 152; QRS: 104; QT Interval: 414; Corrected QT Interval (QTc): 402; P Wave [place]: 27; QRS Wave [place]: -12; T Wave [place]: -1; Blood Pressure: 142/88 [ECG DIAGNOSTIC STATEMENTS] Date of Test: 02/22/2015 11:31:33; Summary: Sinus Bradycardia WITHIN NORMAL LIMITS Hermila Kumar Work Phone: Comment on above: sinus janeth - on BB - no acute chg Start: 01-19-2013 End: 01-20-2013 Nuclear Stress Test - Treadmil Comments: See Note; NOTES: [facility] Imaging Services [address] [place] [address] Nuclear Medicine Report MR#: [id number] Acct: [id number] Name: NOEMI PERKINS Rep #: [id number] : 1955 M 57 From: Bj Salguero MD PCP: Hermila Kumar DO Status: REG CLI Study: Nuclear Stress Test - Treadmil Date of Exam: 01/19/13 Exam# [id number] Ordering Dr: José, Hermila DO EXERCISE TOLERANCE TEST: The patient exercised on a Peterson protocol for 10 minutes 30 seconds completing stage III and 1 minute and 30 seconds of stage IV achieving a peak heart rate of 169 beats per minute (104% predicted maximum heart rate) and a peak blood pressure of 152/80 mmHg and a peak MET capacity of approximately 12 METs. The baseline ECG demonstrated normal sinus rhythm. The peak exercise ECG demonstrated keub-fm-rpvt nonspecific ST segment variability with resolution towards baseline beginning less than 1 minute into recovery. There was a rare PVC during exercise and recovery and an isolated ventricular couplet during exercise. The functional capacity was considered good. The patient had no complaint of chest discomfort during exercise or recovery. The examination was discontinued secondary to dyspnea. IMPRESSION: 1. Technically adequate (percent predicted maximum heart rate greater than 85%) exercise tolerance test. 2. Peak exercise ECG with ehbf-pl-gaaw nonspecific ST segment variability with resolution towards baseline beginning less than 1 minute into recovery. 3. Rare PVC during exercise and recovery and an isolated ventricular couplet during exercise. 4. Nuclear images pending. MYOCARDIAL PERFUSION IMAGING STUDY: TECHNIQUE: The patient was injected with 11.4 mCi of Tc99m Cardiolite and subsequently rest SPECT Cardiolite nuclear imaging was obtained in the horizontal long, vertical long, and short axes views. The patient exercised on a Peterson protocol for 10 minutes 30 seconds achieving a peak heart rate of 169 beats per minute (104% predicted maximum heart rate) and a peak blood pressure of 152/80 mmHg and a peak MET capacity of 12 METs. The patient was injected with 34.7 mCi of Tc99m Cardiolite and subsequently stress SPECT Cardiolite nuclear imaging was obtained in the horizontal long, vertical long, and short axes views. A gated Cardiolite study at peak stress was obtained. INTERPRETATION: Rest SPECT Cardiolite nuclear imaging demonstrates an area of diminished tracer uptake in portions of the distal anterior/anteroapical segments, which appears to improve and/or normalize following stress. Following stress there appears to be relative uniform tracer uptake. There is end systolic thickening and brightening. The gated Cardiolite study demonstrates myocardial thickening and inward wall motion. The reported LVEF is 62%. The aforementioned findings appear compatible with shifting soft tissue attenuation/artifact at rest with no myocardial perfusion changes considered diagnostic for stress induced myocardial ischemia or previous myocardial injury/infarction. IMPRESSION: 1. Rest and stress SPECT Cardiolite nuclear imaging demonstrate myocardial perfusion changes at rest, which appear to improve and/or normalize following stress, which appear compatible with resting soft tissue attenuation/artifact with no myocardial perfusion changes considered diagnostic for stress induced myocardial ischemia or previous myocardial injury/infarction. 2. The gated Cardiolite study reports an LVEF of 62%. CC: [place]: ELLYN Kumar Work Phone: colonoscopy 2004 Nola Messe nger colonoscopy 2004 Nola Messe nger colonoscopy 2004 Nola Messe nger colonoscopy 2005 Dipika Grav ius colonoscopy 2004 Renee Coffm an colonoscopy 2005 Dipika Grav ius colonoscopy 2004 Josselin Carrasco s Renee Kinjal L PN Renee Kinjal L PN Dipika Gravius MAP COLORER Juan Luis Miranda LP N Cornelio Spencer LP N Plan of Treatment Date Care Activity Detail Author Start: 09-09-2022 Procedure Education [facility]; [facility] Work Phone: Start: 09-09-2022 Provider Instructions for Treatment [facility]; [facility] Work Phone: Start: 01-30-2022 Procedure Education [facility]; [facility] Work Phone: Start: 01-30-2022 Provider Instructions for Treatment [facility]; [facility] Work Phone: Start: 07-31-2021 Procedure Education [facility]; [facility] Work Phone: Start: 07-31-2021 Provider Instructions for Treatment [facility]; [facility] Work Phone: Start: 06-16-2021 Procedure Education [facility]; [facility] Work Phone: Start: 06-16-2021 Provider Instructions for Treatment [facility]; [facility] Work Phone: Start: 06-16-2021 Prothrombin time [facility]; [facility] Work Phone: Start: 06-16-2021 Blood count complete automated [facility]; [facility] Work Phone: Start: 06-16-2021 Renal function panel [facility]; [facility] Work Phone: Start: 01-23-2021 Procedure Education [facility]; [facility] Work Phone: Start: 01-23-2021 Provider Instructions for Treatment [facility]; [facility] Work Phone: Start: 01-23-2021 Assay of prostate specific antigen total [facility]; [facility] Work Phone: Start: 01-23-2021 Assay of thyroid stimulating hormone tsh [facility]; [facility] Work Phone: Start: 01-23-2021 Urnls dip stick/tablet reagent auto microscopy [facility]; [facility] Work Phone: Start: 01-23-2021 Urine albumin quantitative [facility]; [facility] Work Phone: Start: 01-23-2021 Comprehensive metabolic panel [facility]; [facility] Work Phone: Start: 01-23-2021 Blood count complete auto&auto difrntl wbc [facility]; [facility] Work Phone: Start: 01-23-2021 Lipid panel [facility]; [facility] Work Phone: Start: 01-23-2021 25 hydroxy includes fractions if performed [facility]; [facility] Work Phone: Start: 07-05-2020 Procedure Education [facility]; [facility] Work Phone: Start: 07-05-2020 Provider Instructions for Treatment [facility]; [facility] Work Phone: Start: 02-14-2020 Procedure Education [facility] Work Phone: Start: 02-14-2020 Provider Instructions for Treatment [facility] Work Phone: Start: 02-14-2020 Lipoprotein blood thania numbers & subclasses NMR Profile (00941) [facility] Work Phone: Start: 02-14-2020 TSH Qn TSH (08937) [facility] Work Phone: Start: 02-14-2020 Urnls dip stick/tablet reagent auto microscopy URINALYSIS, W/ MICRO (91279) [facility] Work Phone: Start: 02-14-2020 Urine albumin quantitative MICROALBUMIN: CREATININE RATIO (63881) AND (26974) [facility] Work Phone: Start: 02-14-2020 Comprehensive metabolic panel METABOLIC PANEL, COMPREHENSIVE (26572) [facility] Work Phone: Start: 02-14-2020 Blood count complete auto&auto difrntl wbc CBC W/AUTO DIFF WBC (79889) [facility] Work Phone: Start: 11-02-2019 Procedure Education [facility] Work Phone: Start: 11-02-2019 Provider Instructions for Treatment [facility] Work Phone: Start: 11-02-2019 Hepatitis c antibody HEPATITIS C ANTIBODY (16194) [facility] Work Phone: Start: 11-02-2019 Assay of prostate specific antigen total PSA (PROSTATE SPECIFIC ANTIGEN) (V76.44) [facility] Work Phone: Start: 11-02-2019 Hepatic function panel HEPATIC FUNCTION PANEL (17405) [facility] Work Phone: Start: 11-02-2019 Lipoprotein blood thania numbers & subclasses NMR Profile (66966) [facility] Work Phone: Start: 10-24-2019 Urine albumin quantitative MICROALBUMIN: CREATININE RATIO (51949) AND (01579) [facility] Work Phone: Start: 10-24-2019 Urinalysis qual/semiquant except immunoassays URINALYSIS (64896) [facility] Work Phone: Start: 10-24-2019 Comprehensive metabolic panel METABOLIC PANEL, COMPREHENSIVE (52429) [facility] Work Phone: Start: 10-24-2019 CBC, PLATELETS & MANUAL DIFF (39335) CBC, PLATELETS & MANUAL DIFF (76996) [facility] Work Phone: Start: 10-24-2019 Lipoprotein blood thania numbers & subclasses NMR Profile (81059) [facility] Work Phone: Start: 10-24-2019 25 hydroxy includes fractions if performed CALCIFEDIOL (28049) [facility] Work Phone: Start: 04-27-2019 Procedure Education [facility] Work Phone: Start: 04-27-2019 Provider Instructions for Treatment [facility] Work Phone: Start: 10-20-2018 Provider Instructions for Treatment [facility] Work Phone: Start: 04-21-2018 Provider Instructions for Treatment [facility] Work Phone: Start: 04-21-2018 25 hydroxy includes fractions if performed CALCIFIDIOL (19588) VIT D 25 [facility] Work Phone: Start: 04-21-2018 Urnls dip stick/tablet reagent auto microscopy URINALYSIS, W/ MICRO (71665) [facility] Work Phone: Start: 04-21-2018 Urine albumin quantitative MICROALBUMIN: CREATININE RATIO (54195) AND (46479) [facility] Work Phone: Start: 04-21-2018 Comprehensive metabolic panel METABOLIC PANEL, COMPREHENSIVE (04413) [facility] Work Phone: Start: 04-21-2018 Blood count complete auto&auto difrntl wbc CBC W/AUTO DIFF WBC (44763) [facility] Work Phone: Start: 04-21-2018 Protein mass conc LIPOPROTEIN, BLD, BY NMR (98372) [facility] Work Phone: Start: 04-06-2018 Comprehensive metabolic panel METABOLIC PANEL, COMPREHENSIVE (67454) [facility] Work Phone: Start: 04-06-2018 Blood count complete automated CBC & PLATELETS (AUTO) (24473) [facility] Work Phone: Start: 04-06-2018 Urinalysis qual/semiquant except immunoassays URINALYSIS (95166) [facility] Work Phone: Start: 04-06-2018 Urine albumin quantitative MICROALBUMIN: CREATININE RATIO (13595) AND (85904) [facility] Work Phone: Start: 04-06-2018 Thyrotropin Qn TSH (THYROID STIMULATING HORMONE) (27097) [facility] Work Phone: Start: 04-06-2018 25 hydroxy includes fractions if performed CALCIFEDIOL (72054) [facility] Work Phone: Start: 04-06-2018 Lipid panel LIPID PANEL (33758) [facility] Work Phone: Start: 12-06-2017 Provider Instructions for Treatment [facility] Work Phone: Start: 11-08-2017 Comprehensive metabolic panel [facility] Work Phone: Start: 08-18-2017 Procedure Education [facility] Work Phone: Start: 08-18-2017 Provider Instructions for Treatment [facility] Work Phone: Start: 08-18-2017 Urnls dip stick/tablet reagent auto microscopy URINALYSIS, W/ MICRO (00242) [facility] Work Phone: Start: 08-18-2017 Urine albumin quantitative MICROALBUMIN: CREATININE RATIO (18224) AND (62790) [facility] Work Phone: Start: 08-18-2017 Comprehensive metabolic panel METABOLIC PANEL, COMPREHENSIVE (57267) [facility] Work Phone: Start: 08-18-2017 Blood count complete auto&auto difrntl wbc CBC W/AUTO DIFF WBC (20682) [facility] Work Phone: Start: 08-18-2017 Lipid panel LIPID PANEL (19463) [facility] Work Phone: Start: 03-17-2017 Provider Instructions for Treatment [facility] Work Phone: Start: 02-17-2017 Provider Instructions for Treatment [facility] Work Phone: Start: 08-20-2016 Provider Instructions for Treatment [facility] Work Phone: Start: 12-06-2015 Provider Instructions for Treatment [facility] Work Phone: Start: 08-22-2015 Procedure Education [facility] Work Phone: Start: 08-22-2015 Provider Instructions for Treatment [facility] Work Phone: Start: 02-22-2015 Patient Education [facility] Work Phone: Start: 02-22-2015 Provider Instructions for Treatment [facility] Work Phone: Start: 08-17-2014 Provider Instructions for Treatment [facility] Work Phone: Start: 01-19-2014 Procedure Education [facility] Work Phone: Start: 01-19-2014 Provider Instructions for Treatment [facility] Work Phone: Start: 06-15-2013 Patient Education [facility] Work Phone: Start: 06-15-2013 Provider Instructions for Treatment [facility] Work Phone: Start: 02-01-2013 Provider Instructions for Treatment [facility] Work Phone: Start: 01-13-2013 Assay of troponin quantitative [facility]; [facility] Work Phone: Start: 01-13-2013 Troponin I.cardiac mass conc Troponin I (87825) [facility] Work Phone: Start: 01-13-2013 Creatine kinase mb fraction only [facility] Work Phone: Start: 01-13-2013 Creatine kinase total [facility] Work Phone: Start: 01-13-2013 Provider Instructions for Treatment [facility] Work Phone: Start: 12-02-2012 Patient Education [facility] Work Phone: Start: 12-02-2012 Provider Instructions for Treatment [facility] Work Phone: Start: 06-03-2012 Blood occult fecal hgb deter ia qual feces 1-3 [facility] Work Phone: Start: 06-03-2012 Provider Instructions for Treatment [facility] Work Phone: Start: 12-11-2011 Patient Education [facility] Work Phone: Start: 12-11-2011 Provider Instructions for Treatment [facility] Work Phone: Start: 06-11-2011 Provider Instructions for Treatment [facility] Work Phone: Start: 02-09-2011 Provider Instructions for Treatment [facility] Work Phone: Start: 03-14-2010 Provider Instructions for Treatment [facility] Work Phone: Start: 02-27-2010 Provider Instructions for Treatment [facility] Work Phone: Patient referral [facility] Work Phone: [facility] Work Phone: [facility] Work Phone: [facility] Work Phone: [facility] Work Phone: [facility] Work [facility] Work Phone: [facility] Work Phone[facility] Work Phone: [facility] Work Phone: [facility] Work Phone: [facility] Work Phone: [facility] Work Phone: [facility] Work Phone: [facility] Work Phone: [facility] Work Phone: [facility] Work Phone: [facility] Work Phone: [facility] Work Phone[facility] Work Phone: [facility]; [facility] Work Phone: [facility]; [facility] Work Phone: [facility]; [facility] Work Phone: [facility]; [facility] Work Phone: Immunizations Immunization Date Immunization Notes Care Provider Dorie zbigniew 01-30-2022 zoster vaccine, live Conrad Vaughnon DO Work Phone: [facility]; [facility] Work Phone: 07-12-2020 COVID-Moderna (100 MCG/0.5 ML) Hermila José DO Work Phone: [facility]; [facility] Work Phone: 06-21-2020 COVID-19 (Moderna) Hermila Kumar [facility]; [facility] Work Phone: 01-10-2019 influenza, seasonal, injectable Hermila José [facility] Work Phone: 04-12-2016 influenza, seasonal, injectable Hermila Joés [facility] Work Phone: Comment on above: pts work 04-12-2013 influenza, seasonal, injectable Hermila José [facility] Work Phone: Comment on above: at work Payers Date Payer Category Payer Unknown 2024 Unknown [id number] Self-pay 2023 Unknown [id number] 2012 Unknown [id number] 1955 Unknown [id number] Medicare MEDICARE A ONLY [id number] Private Health Insurance [id number] Unknown [id number] Unknown [id number] Unknown [id number] Unknown [id number] Unknown [id number] Unknown [id number] Unknown [id number] Unknown [id number] Unknown [id number] Unknown [id number] Social History Date Type Detail Facility Alcohol Use: Never smoker [facility] Work Phone: Caffeine Use [facility] Work Phone: Comment on above: occ none Exercise History: Does not exercise. [facility] Work Phone: Living Situation: Lives with spouse. [facility] Work Phone: Tobacco use: Never smoker. [facility] Work Phone: Comment on above: 06/11/11 Moderate alcohol use. [facility]; [facility] Work Phone: Does not exercise. [facility]; [facility] Work Phone: Lives with spouse. [facility]; [facility] Work Phone: Never smoker. [facility]; [facility] Work Phone: Start: 05-11-2024 Tobacco smoking status NHIS Never smoked tobacco (finding) [facility] Start: 06-20-2024 Sex Male (finding) [facility] Start: 1955 Sex Assigned At Male W [facility] Functional Status Date Assessment Result Facility 06-26-2020 LP-IR Score 53 [facility]; [facility] Work Phone: Comment on above: INSULIN RESISTANCE Tyrone REYES <--Insulin Sensitive Insulin Resistant--> Percentile in Reference PopulationInsulin Resistance ScoreLP-IR Score Low 25th 50th 75th High <27 27 45 63 >63LP-IR Score is inaccurate if patient is non-fasting. .The LP-IR score is a laboratory developed index that has beenassociated with insulin resistance and diabetes risk and should beused as one component of a physician's clinical assessment. Test(s) 515350-UXC-P ; 839627-LSC-O; 829582-Hudqtxtlcqkbi; 289363-Ocmdzjiozyk, Total; 810661-KXP-X (Total); 932121-Kywsf LDL-P; 954802-NTE Size; 496595-NR-UO Scorewas developed and its performance characteristics determinedby [employer]. It has not been cleared or approved by the Foodand Drug Administration.PATIENT WAS FASTINGPERFORMED BY: [facility] [address] [id number] BY: [facility] [address] [id number] 01-31-2020 LP-IR Score 82 [facility] Work Phone: Comment on above: INSULIN RESISTANCE Tyrone REYES <--Insulin Sensitive Insulin Resistant--> Percentile in Reference PopulationInsulin Resistance ScoreLP-IR Score Low 25th 50th 75th High <27 27 45 63 >63LP-IR Score is inaccurate if patient is non-fasting. .The LP-IR score is a laboratory developed index that has beenassociated with insulin resistance and diabetes risk and should beused as one component of a physician's clinical assessment. Test(s) 747444-WBZ-Y ; 606537-STA-J; 424419-Wivxfpvvvjhjh; 301859-Ahzfghkhihx, Total; 585222-LII-G (Total); 321195-Iluop LDL-P; 334633-HRG Size; 800308-ON-RD Scorewas developed and its performance characteristics determinedby [employer]. It has not been cleared or approved by the Foodand Drug Administration.PATIENT WAS FASTINGPERFORMED BY: [employer] [address] [id number] BY: [employer] [id number] [facility] [id number] 10-24-2019 LP-IR Score 83 [facility] Work Phone: Comment on above: INSULIN RESISTANCE M ARKER <--Insulin Sensitive Insulin Resistant--> Percentile in Reference PopulationInsulin Resistance ScoreLP-IR Score Low 25th 50th 75th High <27 27 45 63 >63LP-IR Score is inaccurate if patient is non-fasting. .The LP-IR score is a laboratory developed index that has beenassociated with insulin resistance and diabetes risk and should beused as one component of a physician's clinical assessment. Test(s) 236227-ZIP-I ; 389379-HMS-E; 034976-MWL-I; 255460-Gnziwqcxfgqki; 605581-Dnuvokrtdum, Total; 200677-KZU-E (Total);326151-Ypxea LDL-P; 484565-ZZN Size; 367309-YP-XF Scorewas developed and its performance characteristics determinedby [employer]. It has not been cleared or approved by the Foodand Drug Administration.PATIENT WAS FASTINGPERFORMED BY: [employer] [address] [id number] BY: [employer] [id number] [facility] [id number] 10-11-2018 LP-IR Score 75 [facility] Work Phone: Comment on above: INSULIN RESISTANCE M ARKER <--Insulin Sensitive Insulin Resistant--> Percentile in Reference PopulationInsulin Resistance ScoreLP-IR Score Low 25th 50th 75th High <27 27 45 63 >63LP-IR Score is inaccurate if patient is non-fasting. .The LP-IR score is a laboratory developed index that has beenassociated with insulin resistance and diabetes risk and should beused as one component of a physician's clinical assessment. TheLP-IR score listed above has not been cleared by the [place] Food andDrug Administration. PATIENT WAS FASTINGP ERFORMED BY: [facility] [id number] 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, unspecified acute May 112024 8:20am Tremor chronic May 11, 2024 8:20am Hutchinson's palsy acute June 19, 2024 9:18am Trigeminal nerve disorder, unspecified acute June 9:18am Tremor chronic June 19 9:18am [facility] Work Phone: Instructions* Name Dates Details Patient Instructions Indication:Benign essential HTN Start:23-Jan-2021 Instruction Type:Provider Instructions for Treatment How to Access Health Informa tion Online using Patient Portal and [employer] Apps Indication:Benign essential HTN Start:23-Jan-2021 Instruction Type:Patient Education How to Access Health Informa tion Online using Patient Portal and [employer] Apps Indication:Non-smoker Start:05-Jul-2020 Instruction Type:Patient Education Patient Instructions Indication:Non-smoker Start:05-Jul-2020 Instruction Type:Provider Instructions for Treatment How to access health informa tion online Indication:Non-smoker Start:14-Feb-2020 Instruction Type:Patient Education How to access health informa tion online - Detail Indication:Non-smoker Start:14-Feb-2020 Instruction Type:Patient Education Patient Instructions Indication:Non-smoker Start:14-Feb-2020 Instruction Type:Provider Instructions for Treatment How to access health informa tion online Indication:BMI 33.0-33.9,adult Start:02-Nov-2019 Instruction Type:Patient Education How to access health informa tion online - Detail Indication:BMI 33.0-33.9,adult Start:02-Nov-2019 Instruction Type:Patient Education Patient Instructions Indication:BMI 33.0-33.9,adult Start:02-Nov-2019 Instruction Type:Provider Instructions for Treatment How to access health informa tion online Indication:BMI 34.0-34.9,adult Start:27-Apr-2019 Instruction Type:Patient Education How to access health informa tion online - Detail Indication:BMI 34.0-34.9,adult Start:27-Apr-2019 Instruction Type:Patient Education Patient Instructions Indication:BMI 34.0-34.9,adult Start:27-Apr-2019 Instruction Type:Provider Instructions for Treatment How to access health informa tion online Indication:Current non-smoker Start:20-Oct-2018 Instruction Type:Patient Education How to access health informa tion online - Detail Indication:Current non-smoker Start:20-Oct-2018 Instruction Type:Patient Education Patient Instructions Indication:Current non-smoker Start:20-Oct-2018 Instruction Type:Provider Instructions for Treatment How to access health informa tion online Indication:Current non-smoker Start:21-Apr-2018 Instruction Type:Patient Education How to access health informa tion online - Detail Indication:Current non-smoker Start:21-Apr-2018 Instruction Type:Patient Education Patient Instructions Indication:Current non-smoker Start:21-Apr-2018 Instruction Type:Provider Instructions for Treatment How to access health informa tion online Indication:BMI 33.0-33.9,adult Start:06-Dec-2017 Instruction Type:Patient Education How to access health informa tion online - Detail Indication:BMI 33.0-33.9,adult Start:06-Dec-2017 Instruction Type:Patient Education Patient Instructions Indication:BMI 33.0-33.9,adult Start:06-Dec-2017 Instruction Type:Provider Instructions for Treatment How to access health informa tion online Indication:Current non-smoker Start:18-Aug-2017 Instruction Type:Patient Education How to access health informa tion online - Detail Indication:Current non-smoker Start:18-Aug-2017 Instruction Type:Patient Education Patient Instructions Indication:Current non-smoker Start:18-Aug-2017 Instruction Type:Provider Instructions for Treatment How to access health informa tion online Indication:Current non-smoker Start:17-Mar-2017 Instruction Type:Patient Education How to access health informa tion online - Detail Indication:Current non-smoker Start:17-Mar-2017 Instruction Type:Patient Education Patient Instructions Indication:Current non-smoker Start:17-Mar-2017 Instruction Type:Provider Instructions for Treatment How to access health informa tion online Indication:Current non-smoker Start:17-Feb-2017 Instruction Type:Patient Education How to access health informa tion online - Detail Indication:Current non-smoker Start:17-Feb-2017 Instruction Type:Patient Education Patient Instructions Indication:Current non-smoker Start:17-Feb-2017 Instruction Type:Provider Instructions for Treatment How to access health informa tion online Indication:Current non-smoker Start:20-Aug-2016 Instruction Type:Patient Education How to access health informa tion online - Detail Indication:Current non-smoker Start:20-Aug-2016 Instruction Type:Patient Education Patient Instructions Indication:Current non-smoker Start:20-Aug-2016 Instruction Type:Provider Instructions for Treatment Patient Instructions Indication:Benign essential HTN Start:06-Dec-2015 Instruction Type:Provider Instructions for Treatment How to access health informa tion online Indication:Hypercholesteremia Start:22-Aug-2015 Instruction Type:Patient Education How to access health informa tion online - Detail Indication:Hypercholesteremia Start:22-Aug-2015 Instruction Type:Patient Education Patient Instructions Indication:Hypercholesteremia Start:22-Aug-2015 Instruction Type:Provider Instructions for Treatment How to access health informa tion online Indication:Hypercholesteremia Start:22-Feb-2015 Instruction Type:Patient Education How to access health informa tion online - Detail Indication:Hypercholesteremia Start:22-Feb-2015 Instruction Type:Patient Education Patient Instructions Indication:Hypercholesteremia Start:22-Feb-2015 Instruction Type:Provider Instructions for Treatment Patient Instructions Indication:Vitamin D deficiency, unspecified Start:17-Aug-2014 Instruction Type:Provider Instructions for Treatment How to access health informa tion online Indication:Hypercholesteremia Start:19-Jan-2014 Instruction Type:Patient Education How to access health informa tion online - Detail Indication:Hypercholesteremia Start:19-Jan-2014 Instruction Type:Patient Education Patient Instructions Indication:Hypercholesteremia Start:19-Jan-2014 Instruction Type:Provider Instructions for Treatment Patient Instructions Indication:Hypercholesteremia Start:15-Jun-2013 Instruction Type:Provider Instructions for Treatment Patient Instructions Indication:Chest pain Start:13-Jan-2013 Instruction Type:Provider Instructions for Treatment Patient Instructions Indication:Benign essential HTN Start:02-Dec-2012 Instruction Type:Provider Instructions for Treatment Patient Instructions Indication:Hypercholesteremia Start:03-Jun-2012 Instruction Type:Provider Instructions for Treatment Patient InstructionsVITAMIN D3 4,000 UNITS A DAY , [facility] IN 4 MONTHS Indication:Benign essential HTN Start:11-Dec-2011 Instruction Type:Provider Instructions for Treatment [facility]; [facility] Work Phone: Instructions* Name Dates Details Patient Instructions Indication:BMI 34.0-34.9,adult Start:16-Jun-2021 Instruction Type:Provider Instructions for Treatment How to Access Health Informa tion Online using Patient Portal and [employer] Apps Indication:BMI 34.0-34.9,adult Start:16-Jun-2021 Instruction Type:Patient Education Patient Instructions Indication:Benign essential HTN Start:23-Jan-2021 Instruction Type:Provider Instructions for Treatment How to Access Health Informa tion Online using Patient Portal and [employer] Apps Indication:Benign essential HTN Start:23-Jan-2021 Instruction Type:Patient Education How to Access Health Informa tion Online using Patient Portal and [employer] Apps Indication:Non-smoker Start:05-Jul-2020 Instruction Type:Patient Education Patient Instructions Indication:Non-smoker Start:05-Jul-2020 Instruction Type:Provider Instructions for Treatment How to access health informa tion online Indication:Non-smoker Start:14-Feb-2020 Instruction Type:Patient Education How to access health informa tion online - Detail Indication:Non-smoker Start:14-Feb-2020 Instruction Type:Patient Education Patient Instructions Indication:Non-smoker Start:14-Feb-2020 Instruction Type:Provider Instructions for Treatment How to access health informa tion online Indication:BMI 33.0-33.9,adult Start:02-Nov-2019 Instruction Type:Patient Education How to access health informa tion online - Detail Indication:BMI 33.0-33.9,adult Start:02-Nov-2019 Instruction Type:Patient Education Patient Instructions Indication:BMI 33.0-33.9,adult Start:02-Nov-2019 Instruction Type:Provider Instructions for Treatment How to access health informa tion online Indication:BMI 34.0-34.9,adult Start:27-Apr-2019 Instruction Type:Patient Education How to access health informa tion online - Detail Indication:BMI 34.0-34.9,adult Start:27-Apr-2019 Instruction Type:Patient Education Patient Instructions Indication:BMI 34.0-34.9,adult Start:27-Apr-2019 Instruction Type:Provider Instructions for Treatment How to access health informa tion online Indication:Current non-smoker Start:20-Oct-2018 Instruction Type:Patient Education How to access health informa tion online - Detail Indication:Current non-smoker Start:20-Oct-2018 Instruction Type:Patient Education Patient Instructions Indication:Current non-smoker Start:20-Oct-2018 Instruction Type:Provider Instructions for Treatment How to access health informa tion online Indication:Current non-smoker Start:21-Apr-2018 Instruction Type:Patient Education How to access health informa tion online - Detail Indication:Current non-smoker Start:21-Apr-2018 Instruction Type:Patient Education Patient Instructions Indication:Current non-smoker Start:21-Apr-2018 Instruction Type:Provider Instructions for Treatment How to access health informa tion online Indication:BMI 33.0-33.9,adult Start:06-Dec-2017 Instruction Type:Patient Education How to access health informa tion online - Detail Indication:BMI 33.0-33.9,adult Start:06-Dec-2017 Instruction Type:Patient Education Patient Instructions Indication:BMI 33.0-33.9,adult Start:06-Dec-2017 Instruction Type:Provider Instructions for Treatment How to access health informa tion online Indication:Current non-smoker Start:18-Aug-2017 Instruction Type:Patient Education How to access health informa tion online - Detail Indication:Current non-smoker Start:18-Aug-2017 Instruction Type:Patient Education Patient Instructions Indication:Current non-smoker Start:18-Aug-2017 Instruction Type:Provider Instructions for Treatment How to access health informa tion online Indication:Current non-smoker Start:17-Mar-2017 Instruction Type:Patient Education How to access health informa tion online - Detail Indication:Current non-smoker Start:17-Mar-2017 Instruction Type:Patient Education Patient Instructions Indication:Current non-smoker Start:17-Mar-2017 Instruction Type:Provider Instructions for Treatment How to access health informa tion online Indication:Current non-smoker Start:17-Feb-2017 Instruction Type:Patient Education How to access health informa tion online - Detail Indication:Current non-smoker Start:17-Feb-2017 Instruction Type:Patient Education Patient Instructions Indication:Current non-smoker Start:17-Feb-2017 Instruction Type:Provider Instructions for Treatment How to access health informa tion online Indication:Current non-smoker Start:20-Aug-2016 Instruction Type:Patient Education How to access health informa tion online - Detail Indication:Current non-smoker Start:20-Aug-2016 Instruction Type:Patient Education Patient Instructions Indication:Current non-smoker Start:20-Aug-2016 Instruction Type:Provider Instructions for Treatment Patient Instructions Indication:Benign essential HTN Start:06-Dec-2015 Instruction Type:Provider Instructions for Treatment How to access health informa tion online Indication:Hypercholesteremia Start:22-Aug-2015 Instruction Type:Patient Education How to access health informa tion online - Detail Indication:Hypercholesteremia Start:22-Aug-2015 Instruction Type:Patient Education Patient Instructions Indication:Hypercholesteremia Start:22-Aug-2015 Instruction Type:Provider Instructions for Treatment How to access health informa [employer] online Indication:Hypercholesteremia Start:22-Feb-2015 Instruction Type:Patient Education How to access health informa tion online - Detail Indication:Hypercholesteremia Start:22-Feb-2015 Instruction Type:Patient Education Patient Instructions Indication:Hypercholesteremia Start:22-Feb-2015 Instruction Type:Provider Instructions for Treatment Patient Instructions Indication:Vitamin D deficiency, unspecified Start:17-Aug-2014 Instruction Type:Provider Instructions for Treatment How to access health informa General [employer] online Indication:Hypercholesteremia Start:19-Jan-2014 Instruction Type:Patient Education How to access health informa tion online - Detail Indication:Hypercholesteremia Start:19-Jan-2014 Instruction Type:Patient Education Patient Instructions Indication:Hypercholesteremia Start:19-Jan-2014 Instruction Type:Provider Instructions for Treatment Patient Instructions Indication:Hypercholesteremia Start:15-Jun-2013 Instruction Type:Provider Instructions for Treatment Patient Instructions Indication:Chest pain Start:13-Jan-2013 Instruction Type:Provider Instructions for Treatment Patient Instructions Indication:Benign essential HTN Start:02-Dec-2012 Instruction Type:Provider Instructions for Treatment Patient Instructions Indication:Hypercholesteremia Start:03-Jun-2012 Instruction Type:Provider Instructions for Treatment Patient InstructionsVITAMIN D3 4,000 UNITS A DAY , [facility] IN 4 MONTHS Indication:Benign essential HTN Start:11-Dec-2011 Instruction Type:Provider Instructions for Treatment [facility]; [facility] Work Phone: Instructions* Name Dates Details Patient Instructions Indication:BMI 34.0-34.9,adult Start:16-Jun-2021 Instruction Type:Provider Instructions for Treatment How to Access Health Informa tion Online using Patient Portal and [employer]rd [employer] Apps Indication:BMI 34.0-34.9,adult Start:16-Jun-2021 Instruction Type:Patient Education Patient Instructions Indication:Benign essential HTN Start:23-Jan-2021 Instruction Type:Provider Instructions for Treatment How to Access Health Informa tion Online using Patient Portal and [employer]rd [employer] Apps Indication:Benign essential HTN Start:23-Jan-2021 Instruction Type:Patient Education How to Access Health Informa tion Online using Patient Portal and [employer]rd [employer] Apps Indication:Non-smoker Start:05-Jul-2020 Instruction Type:Patient Education Patient Instructions Indication:Non-smoker Start:05-Jul-2020 Instruction Type:Provider Instructions for Treatment How to access health informa tion online Indication:Non-smoker Start:14-Feb-2020 Instruction Type:Patient Education How to access health informa tion online - Detail Indication:Non-smoker Start:14-Feb-2020 Instruction Type:Patient Education Patient Instructions Indication:Non-smoker Start:14-Feb-2020 Instruction Type:Provider Instructions for Treatment How to access health informa tion online Indication:BMI 33.0-33.9,adult Start:02-Nov-2019 Instruction Type:Patient Education How to access health informa tion online - Detail Indication:BMI 33.0-33.9,adult Start:02-Nov-2019 Instruction Type:Patient Education Patient Instructions Indication:BMI 33.0-33.9,adult Start:02-Nov-2019 Instruction Type:Provider Instructions for Treatment How to access health informa tion online Indication:BMI 34.0-34.9,adult Start:27-Apr-2019 Instruction Type:Patient Education How to access health informa tion online - Detail Indication:BMI 34.0-34.9,adult Start:27-Apr-2019 Instruction Type:Patient Education Patient Instructions Indication:BMI 34.0-34.9,adult Start:27-Apr-2019 Instruction Type:Provider Instructions for Treatment How to access health informa tion online Indication:Current non-smoker Start:20-Oct-2018 Instruction Type:Patient Education How to access health informa tion online - Detail Indication:Current non-smoker Start:20-Oct-2018 Instruction Type:Patient Education Patient Instructions Indication:Current non-smoker Start:20-Oct-2018 Instruction Type:Provider Instructions for Treatment How to access health informa tion online Indication:Current non-smoker Start:21-Apr-2018 Instruction Type:Patient Education How to access health informa tion online - Detail Indication:Current non-smoker Start:21-Apr-2018 Instruction Type:Patient Education Patient Instructions Indication:Current non-smoker Start:21-Apr-2018 Instruction Type:Provider Instructions for Treatment How to access health informa tion online Indication:BMI 33.0-33.9,adult Start:06-Dec-2017 Instruction Type:Patient Education How to access health informa tion online - Detail Indication:BMI 33.0-33.9,adult Start:06-Dec-2017 Instruction Type:Patient Education Patient Instructions Indication:BMI 33.0-33.9,adult Start:06-Dec-2017 Instruction Type:Provider Instructions for Treatment How to access health informa tion online Indication:Current non-smoker Start:18-Aug-2017 Instruction Type:Patient Education How to access health informa tion online - Detail Indication:Current non-smoker Start:18-Aug-2017 Instruction Type:Patient Education Patient Instructions Indication:Current non-smoker Start:18-Aug-2017 Instruction Type:Provider Instructions for Treatment How to access health informa tion online Indication:Current non-smoker Start:17-Mar-2017 Instruction Type:Patient Education How to access health informa tion online - Detail Indication:Current non-smoker Start:17-Mar-2017 Instruction Type:Patient Education Patient Instructions Indication:Current non-smoker Start:17-Mar-2017 Instruction Type:Provider Instructions for Treatment How to access health informa tion online Indication:Current non-smoker Start:17-Feb-2017 Instruction Type:Patient Education How to access health informa tion online - Detail Indication:Current non-smoker Start:17-Feb-2017 Instruction Type:Patient Education Patient Instructions Indication:Current non-smoker Start:17-Feb-2017 Instruction Type:Provider Instructions for Treatment How to access health informa tion online Indication:Current non-smoker Start:20-Aug-2016 Instruction Type:Patient Education How to access health informa tion online - Detail Indication:Current non-smoker Start:20-Aug-2016 Instruction Type:Patient Education Patient Instructions Indication:Current non-smoker Start:20-Aug-2016 Instruction Type:Provider Instructions for Treatment Patient Instructions Indication:Benign essential HTN Start:06-Dec-2015 Instruction Type:Provider Instructions for Treatment How to access health informa General [employer] online Indication:Hypercholesteremia Start:22-Aug-2015 Instruction Type:Patient Education How to access health informa tion online - Detail Indication:Hypercholesteremia Start:22-Aug-2015 Instruction Type:Patient Education Patient Instructions Indication:Hypercholesteremia Start:22-Aug-2015 Instruction Type:Provider Instructions for Treatment How to access health informa tion online Indication:Hypercholesteremia Start:22-Feb-2015 Instruction Type:Patient Education How to access health informa tion online - Detail Indication:Hypercholesteremia Start:22-Feb-2015 Instruction Type:Patient Education Patient Instructions Indication:Hypercholesteremia Start:22-Feb-2015 Instruction Type:Provider Instructions for Treatment Patient Instructions Indication:Vitamin D deficiency, unspecified Start:17-Aug-2014 Instruction Type:Provider Instructions for Treatment How to access health informa General [employer] online Indication:Hypercholesteremia Start:19-Jan-2014 Instruction Type:Patient Education How to access health informa tion [employer] - Detail Indication:Hypercholesteremia Start:19-Jan-2014 Instruction Type:Patient Education Patient Instructions Indication:Hypercholesteremia Start:19-Jan-2014 Instruction Type:Provider Instructions for Treatment Patient Instructions Indication:Hypercholesteremia Start:15-Jun-2013 Instruction Type:Provider Instructions for Treatment Patient Instructions Indication:Chest pain Start:13-Jan-2013 Instruction Type:Provider Instructions for Treatment Patient Instructions Indication:Benign essential HTN Start:02-Dec-2012 Instruction Type:Provider Instructions for Treatment Patient Instructions Indication:Hypercholesteremia Start:03-Jun-2012 Instruction Type:Provider Instructions for Treatment Patient InstructionsVITAMIN D3 4,000 UNITS A DAY , [facility] IN 4 MONTHS Indication:Benign essential HTN Start:11-Dec-2011 Instruction Type:Provider Instructions for Treatment [facility]; [facility] Work Phone: Instructions* Name Dates Details Patient Instructions Indication:Non-smoker Start:31-Jul-2021 Instruction Type:Provider Instructions for Treatment How to Access Health Informa tion Online using Patient Portal and [employer]rd [employer] Apps Indication:Non-smoker Start:31-Jul-2021 Instruction Type:Patient Education Patient Instructions Indication:BMI 34.0-34.9,adult Start:16-Jun-2021 Instruction Type:Provider Instructions for Treatment How to Access Health Informa tion Online using Patient Portal and [employer]rd [employer] Apps Indication:BMI 34.0-34.9,adult Start:16-Jun-2021 Instruction Type:Patient Education Patient Instructions Indication:Benign essential HTN Start:23-Jan-2021 Instruction Type:Provider Instructions for Treatment How to Access Health Informa tion Online using Patient Portal and [employer]rd [employer] Apps Indication:Benign essential HTN Start:23-Jan-2021 Instruction Type:Patient Education How to Access Health Informa tion Online using Patient Portal and [employer]rd [employer] Apps Indication:Non-smoker Start:05-Jul-2020 Instruction Type:Patient Education Patient Instructions Indication:Non-smoker Start:05-Jul-2020 Instruction Type:Provider Instructions for Treatment How to access health informa tion online Indication:Non-smoker Start:14-Feb-2020 Instruction Type:Patient Education How to access health informa tion online - Detail Indication:Non-smoker Start:14-Feb-2020 Instruction Type:Patient Education Patient Instructions Indication:Non-smoker Start:14-Feb-2020 Instruction Type:Provider Instructions for Treatment How to access health informa tion online Indication:BMI 33.0-33.9,adult Start:02-Nov-2019 Instruction Type:Patient Education How to access health informa tion online - Detail Indication:BMI 33.0-33.9,adult Start:02-Nov-2019 Instruction Type:Patient Education Patient Instructions Indication:BMI 33.0-33.9,adult Start:02-Nov-2019 Instruction Type:Provider Instructions for Treatment How to access health informa tion online Indication:BMI 34.0-34.9,adult Start:27-Apr-2019 Instruction Type:Patient Education How to access health informa tion online - Detail Indication:BMI 34.0-34.9,adult Start:27-Apr-2019 Instruction Type:Patient Education Patient Instructions Indication:BMI 34.0-34.9,adult Start:27-Apr-2019 Instruction Type:Provider Instructions for Treatment How to access health informa tion online Indication:Current non-smoker Start:20-Oct-2018 Instruction Type:Patient Education How to access health informa tion online - Detail Indication:Current non-smoker Start:20-Oct-2018 Instruction Type:Patient Education Patient Instructions Indication:Current non-smoker Start:20-Oct-2018 Instruction Type:Provider Instructions for Treatment How to access health informa tion online Indication:Current non-smoker Start:21-Apr-2018 Instruction Type:Patient Education How to access health informa tion online - Detail Indication:Current non-smoker Start:21-Apr-2018 Instruction Type:Patient Education Patient Instructions Indication:Current non-smoker Start:21-Apr-2018 Instruction Type:Provider Instructions for Treatment How to access health informa tion online Indication:BMI 33.0-33.9,adult Start:06-Dec-2017 Instruction Type:Patient Education How to access health informa tion online - Detail Indication:BMI 33.0-33.9,adult Start:06-Dec-2017 Instruction Type:Patient Education Patient Instructions Indication:BMI 33.0-33.9,adult Start:06-Dec-2017 Instruction Type:Provider Instructions for Treatment How to access health informa tion online Indication:Current non-smoker Start:18-Aug-2017 Instruction Type:Patient Education How to access health informa tion online - Detail Indication:Current non-smoker Start:18-Aug-2017 Instruction Type:Patient Education Patient Instructions Indication:Current non-smoker Start:18-Aug-2017 Instruction Type:Provider Instructions for Treatment How to access health informa tion online Indication:Current non-smoker Start:17-Mar-2017 Instruction Type:Patient Education How to access health informa tion online - Detail Indication:Current non-smoker Start:17-Mar-2017 Instruction Type:Patient Education Patient Instructions Indication:Current non-smoker Start:17-Mar-2017 Instruction Type:Provider Instructions for Treatment How to access health informa tion online Indication:Current non-smoker Start:17-Feb-2017 Instruction Type:Patient Education How to access health informa tion online - Detail Indication:Current non-smoker Start:17-Feb-2017 Instruction Type:Patient Education Patient Instructions Indication:Current non-smoker Start:17-Feb-2017 Instruction Type:Provider Instructions for Treatment How to access health informa tion online Indication:Current non-smoker Start:20-Aug-2016 Instruction Type:Patient Education How to access health informa tion online - Detail Indication:Current non-smoker Start:20-Aug-2016 Instruction Type:Patient Education Patient Instructions Indication:Current non-smoker Start:20-Aug-2016 Instruction Type:Provider Instructions for Treatment Patient Instructions Indication:Benign essential HTN Start:06-Dec-2015 Instruction Type:Provider Instructions for Treatment How to access health informa tion online Indication:Hypercholesteremia Start:22-Aug-2015 Instruction Type:Patient Education How to access health informa tion online - Detail Indication:Hypercholesteremia Start:22-Aug-2015 Instruction Type:Patient Education Patient Instructions Indication:Hypercholesteremia Start:22-Aug-2015 Instruction Type:Provider Instructions for Treatment How to access health informa tion online Indication:Hypercholesteremia Start:22-Feb-2015 Instruction Type:Patient Education How to access health informa tion online - Detail Indication:Hypercholesteremia Start:22-Feb-2015 Instruction Type:Patient Education Patient Instructions Indication:Hypercholesteremia Start:22-Feb-2015 Instruction Type:Provider Instructions for Treatment Patient Instructions Indication:Vitamin D deficiency, unspecified Start:17-Aug-2014 Instruction Type:Provider Instructions for Treatment How to access health informa tion online Indication:Hypercholesteremia Start:19-Jan-2014 Instruction Type:Patient Education How to access health informa tion online - Detail Indication:Hypercholesteremia Start:19-Jan-2014 Instruction Type:Patient Education Patient Instructions Indication:Hypercholesteremia Start:19-Jan-2014 Instruction Type:Provider Instructions for Treatment Patient Instructions Indication:Hypercholesteremia Start:15-Jun-2013 Instruction Type:Provider Instructions for Treatment Patient Instructions Indication:Chest pain Start:13-Jan-2013 Instruction Type:Provider Instructions for Treatment Patient Instructions Indication:Benign essential HTN Start:02-Dec-2012 Instruction Type:Provider Instructions for Treatment Patient Instructions Indication:Hypercholesteremia Start:03-Jun-2012 Instruction Type:Provider Instructions for Treatment Patient InstructionsVITAMIN D3 4,000 UNITS A DAY , [facility] IN 4 MONTHS Indication:Benign essential HTN Start:11-Dec-2011 Instruction Type:Provider Instructions for Treatment [facility]; [facility] Work Phone: Instructions* Name Dates Details Patient Instructions Indication:Non-smoker Start:31-Jul-2021 Instruction Type:Provider Instructions for Treatment How to Access Health Informa tion Online using Patient Portal and [employer]rd [employer] Apps Indication:Non-smoker Start:31-Jul-2021 Instruction Type:Patient Education Patient Instructions Indication:BMI 34.0-34.9,adult Start:16-Jun-2021 Instruction Type:Provider Instructions for Treatment How to Access Health Informa tion Online using Patient Portal and [employer]rd [employer] Apps Indication:BMI 34.0-34.9,adult Start:16-Jun-2021 Instruction Type:Patient Education Patient Instructions Indication:Benign essential HTN Start:23-Jan-2021 Instruction Type:Provider Instructions for Treatment How to Access Health Informa tion Online using Patient Portal and [employer]rd [employer] Apps Indication:Benign essential HTN Start:23-Jan-2021 Instruction Type:Patient Education How to Access Health Informa tion Online using Patient Portal and [employer]rd [employer] Apps Indication:Non-smoker Start:05-Jul-2020 Instruction Type:Patient Education Patient Instructions Indication:Non-smoker Start:05-Jul-2020 Instruction Type:Provider Instructions for Treatment How to access health informa tion online Indication:Non-smoker Start:14-Feb-2020 Instruction Type:Patient Education How to access health informa tion online - Detail Indication:Non-smoker Start:14-Feb-2020 Instruction Type:Patient Education Patient Instructions Indication:Non-smoker Start:14-Feb-2020 Instruction Type:Provider Instructions for Treatment How to access health informa tion online Indication:BMI 33.0-33.9,adult Start:02-Nov-2019 Instruction Type:Patient Education How to access health informa tion online - Detail Indication:BMI 33.0-33.9,adult Start:02-Nov-2019 Instruction Type:Patient Education Patient Instructions Indication:BMI 33.0-33.9,adult Start:02-Nov-2019 Instruction Type:Provider Instructions for Treatment How to access health informa tion online Indication:BMI 34.0-34.9,adult Start:27-Apr-2019 Instruction Type:Patient Education How to access health informa tion online - Detail Indication:BMI 34.0-34.9,adult Start:27-Apr-2019 Instruction Type:Patient Education Patient Instructions Indication:BMI 34.0-34.9,adult Start:27-Apr-2019 Instruction Type:Provider Instructions for Treatment How to access health informa tion online Indication:Current non-smoker Start:20-Oct-2018 Instruction Type:Patient Education How to access health informa tion online - Detail Indication:Current non-smoker Start:20-Oct-2018 Instruction Type:Patient Education Patient Instructions Indication:Current non-smoker Start:20-Oct-2018 Instruction Type:Provider Instructions for Treatment How to access health informa tion online Indication:Current non-smoker Start:21-Apr-2018 Instruction Type:Patient Education How to access health informa tion online - Detail Indication:Current non-smoker Start:21-Apr-2018 Instruction Type:Patient Education Patient Instructions Indication:Current non-smoker Start:21-Apr-2018 Instruction Type:Provider Instructions for Treatment How to access health informa tion online Indication:BMI 33.0-33.9,adult Start:06-Dec-2017 Instruction Type:Patient Education How to access health informa tion online - Detail Indication:BMI 33.0-33.9,adult Start:06-Dec-2017 Instruction Type:Patient Education Patient Instructions Indication:BMI 33.0-33.9,adult Start:06-Dec-2017 Instruction Type:Provider Instructions for Treatment How to access health informa tion online Indication:Current non-smoker Start:18-Aug-2017 Instruction Type:Patient Education How to access health informa tion online - Detail Indication:Current non-smoker Start:18-Aug-2017 Instruction Type:Patient Education Patient Instructions Indication:Current non-smoker Start:18-Aug-2017 Instruction Type:Provider Instructions for Treatment How to access health informa tion online Indication:Current non-smoker Start:17-Mar-2017 Instruction Type:Patient Education How to access health informa tion online - Detail Indication:Current non-smoker Start:17-Mar-2017 Instruction Type:Patient Education Patient Instructions Indication:Current non-smoker Start:17-Mar-2017 Instruction Type:Provider Instructions for Treatment How to access health informa tion online Indication:Current non-smoker Start:17-Feb-2017 Instruction Type:Patient Education How to access health informa tion online - Detail Indication:Current non-smoker Start:17-Feb-2017 Instruction Type:Patient Education Patient Instructions Indication:Current non-smoker Start:17-Feb-2017 Instruction Type:Provider Instructions for Treatment How to access health informa tion online Indication:Current non-smoker Start:20-Aug-2016 Instruction Type:Patient Education How to access health informa tion online - Detail Indication:Current non-smoker Start:20-Aug-2016 Instruction Type:Patient Education Patient Instructions Indication:Current non-smoker Start:20-Aug-2016 Instruction Type:Provider Instructions for Treatment Patient Instructions Indication:Benign essential HTN Start:06-Dec-2015 Instruction Type:Provider Instructions for Treatment How to access health informa tion online Indication:Hypercholesteremia Start:22-Aug-2015 Instruction Type:Patient Education How to access health informa tion online - Detail Indication:Hypercholesteremia Start:22-Aug-2015 Instruction Type:Patient Education Patient Instructions Indication:Hypercholesteremia Start:22-Aug-2015 Instruction Type:Provider Instructions for Treatment How to access health informa tion online Indication:Hypercholesteremia Start:22-Feb-2015 Instruction Type:Patient Education How to access health informa tion online - Detail Indication:Hypercholesteremia Start:22-Feb-2015 Instruction Type:Patient Education Patient Instructions Indication:Hypercholesteremia Start:22-Feb-2015 Instruction Type:Provider Instructions for Treatment Patient Instructions Indication:Vitamin D deficiency, unspecified Start:17-Aug-2014 Instruction Type:Provider Instructions for Treatment How to access health informa tion online Indication:Hypercholesteremia Start:19-Jan-2014 Instruction Type:Patient Education How to access health informa tion online - Detail Indication:Hypercholesteremia Start:19-Jan-2014 Instruction Type:Patient Education Patient Instructions Indication:Hypercholesteremia Start:19-Jan-2014 Instruction Type:Provider Instructions for Treatment Patient Instructions Indication:Hypercholesteremia Start:15-Jun-2013 Instruction Type:Provider Instructions for Treatment Patient Instructions Indication:Chest pain Start:13-Jan-2013 Instruction Type:Provider Instructions for Treatment Patient Instructions Indication:Benign essential HTN Start:02-Dec-2012 Instruction Type:Provider Instructions for Treatment Patient Instructions Indication:Hypercholesteremia Start:03-Jun-2012 Instruction Type:Provider Instructions for Treatment Patient InstructionsVITAMIN D3 4,000 UNITS A DAY , [facility] IN 4 MONTHS Indication:Benign essential HTN Start:11-Dec-2011 Instruction Type:Provider Instructions for Treatment [facility] Work Phone: Instructions* Name Dates Details Patient Instructions Indication:BMI 35.0-35.9,adult Start:30-Jan-2022 Instruction Type:Provider Instructions for Treatment How to Access Health Informa tion Online using Patient Portal and 3rd [employer] Apps Indication:BMI 35.0-35.9,adult Start:30-Jan-2022 Instruction Type:Patient Education Patient Instructions Indication:Non-smoker Start:31-Jul-2021 Instruction Type:Provider Instructions for Treatment How to Access Health Informa tion Online using Patient Portal and [employer]rd [employer] Apps Indication:Non-smoker Start:31-Jul-2021 Instruction Type:Patient Education Patient Instructions Indication:BMI 34.0-34.9,adult Start:16-Jun-2021 Instruction Type:Provider Instructions for Treatment How to Access Health Informa tion Online using Patient Portal and 3rd [employer] Apps Indication:BMI 34.0-34.9,adult Start:16-Jun-2021 Instruction Type:Patient Education Patient Instructions Indication:Benign essential HTN Start:23-Jan-2021 Instruction Type:Provider Instructions for Treatment How to Access Health Informa tion Online using Patient Portal and [employer]rd [employer] Apps Indication:Benign essential HTN Start:23-Jan-2021 Instruction Type:Patient Education How to Access Health Informa tion Online using Patient Portal and [employer]rd [employer] Apps Indication:Non-smoker Start:05-Jul-2020 Instruction Type:Patient Education Patient Instructions Indication:Non-smoker Start:05-Jul-2020 Instruction Type:Provider Instructions for Treatment How to access health informa tion online Indication:Non-smoker Start:14-Feb-2020 Instruction Type:Patient Education How to access health informa tion online - Detail Indication:Non-smoker Start:14-Feb-2020 Instruction Type:Patient Education Patient Instructions Indication:Non-smoker Start:14-Feb-2020 Instruction Type:Provider Instructions for Treatment How to access health informa tion online Indication:BMI 33.0-33.9,adult Start:02-Nov-2019 Instruction Type:Patient Education How to access health informa tion online - Detail Indication:BMI 33.0-33.9,adult Start:02-Nov-2019 Instruction Type:Patient Education Patient Instructions Indication:BMI 33.0-33.9,adult Start:02-Nov-2019 Instruction Type:Provider Instructions for Treatment How to access health informa tion online Indication:BMI 34.0-34.9,adult Start:27-Apr-2019 Instruction Type:Patient Education How to access health informa tion online - Detail Indication:BMI 34.0-34.9,adult Start:27-Apr-2019 Instruction Type:Patient Education Patient Instructions Indication:BMI 34.0-34.9,adult Start:27-Apr-2019 Instruction Type:Provider Instructions for Treatment How to access health informa tion online Indication:Current non-smoker Start:20-Oct-2018 Instruction Type:Patient Education How to access health informa tion online - Detail Indication:Current non-smoker Start:20-Oct-2018 Instruction Type:Patient Education Patient Instructions Indication:Current non-smoker Start:20-Oct-2018 Instruction Type:Provider Instructions for Treatment How to access health informa tion online Indication:Current non-smoker Start:21-Apr-2018 Instruction Type:Patient Education How to access health informa tion online - Detail Indication:Current non-smoker Start:21-Apr-2018 Instruction Type:Patient Education Patient Instructions Indication:Current non-smoker Start:21-Apr-2018 Instruction Type:Provider Instructions for Treatment How to access health informa tion online Indication:BMI 33.0-33.9,adult Start:06-Dec-2017 Instruction Type:Patient Education How to access health informa tion online - Detail Indication:BMI 33.0-33.9,adult Start:06-Dec-2017 Instruction Type:Patient Education Patient Instructions Indication:BMI 33.0-33.9,adult Start:06-Dec-2017 Instruction Type:Provider Instructions for Treatment How to access health informa tion online Indication:Current non-smoker Start:18-Aug-2017 Instruction Type:Patient Education How to access health informa tion online - Detail Indication:Current non-smoker Start:18-Aug-2017 Instruction Type:Patient Education Patient Instructions Indication:Current non-smoker Start:18-Aug-2017 Instruction Type:Provider Instructions for Treatment How to access health informa tion online Indication:Current non-smoker Start:17-Mar-2017 Instruction Type:Patient Education How to access health informa tion online - Detail Indication:Current non-smoker Start:17-Mar-2017 Instruction Type:Patient Education Patient Instructions Indication:Current non-smoker Start:17-Mar-2017 Instruction Type:Provider Instructions for Treatment How to access health informa tion online Indication:Current non-smoker Start:17-Feb-2017 Instruction Type:Patient Education How to access health informa tion online - Detail Indication:Current non-smoker Start:17-Feb-2017 Instruction Type:Patient Education Patient Instructions Indication:Current non-smoker Start:17-Feb-2017 Instruction Type:Provider Instructions for Treatment How to access health informa tion online Indication:Current non-smoker Start:20-Aug-2016 Instruction Type:Patient Education How to access health informa tion online - Detail Indication:Current non-smoker Start:20-Aug-2016 Instruction Type:Patient Education Patient Instructions Indication:Current non-smoker Start:20-Aug-2016 Instruction Type:Provider Instructions for Treatment Patient Instructions Indication:Benign essential HTN Start:06-Dec-2015 Instruction Type:Provider Instructions for Treatment How to access health informa tion online Indication:Hypercholesteremia Start:22-Aug-2015 Instruction Type:Patient Education How to access health informa tion online - Detail Indication:Hypercholesteremia Start:22-Aug-2015 Instruction Type:Patient Education Patient Instructions Indication:Hypercholesteremia Start:22-Aug-2015 Instruction Type:Provider Instructions for Treatment How to access health informa General Compressionon online Indication:Hypercholesteremia Start:22-Feb-2015 Instruction Type:Patient Education How to access health informa tion online - Detail Indication:Hypercholesteremia Start:22-Feb-2015 Instruction Type:Patient Education Patient Instructions Indication:Hypercholesteremia Start:22-Feb-2015 Instruction Type:Provider Instructions for Treatment Patient Instructions Indication:Vitamin D deficiency, unspecified Start:17-Aug-2014 Instruction Type:Provider Instructions for Treatment How to access health informa tion online Indication:Hypercholesteremia Start:19-Jan-2014 Instruction Type:Patient Education How to access health informa tion online - Detail Indication:Hypercholesteremia Start:19-Jan-2014 Instruction Type:Patient Education Patient Instructions Indication:Hypercholesteremia Start:19-Jan-2014 Instruction Type:Provider Instructions for Treatment Patient Instructions Indication:Hypercholesteremia Start:15-Jun-2013 Instruction Type:Provider Instructions for Treatment Patient Instructions Indication:Chest pain Start:13-Jan-2013 Instruction Type:Provider Instructions for Treatment Patient Instructions Indication:Benign essential HTN Start:02-Dec-2012 Instruction Type:Provider Instructions for Treatment Patient Instructions Indication:Hypercholesteremia Start:03-Jun-2012 Instruction Type:Provider Instructions for Treatment Patient InstructionsVITAMIN D3 4,000 UNITS A DAY , [facility] IN 4 MONTHS Indication:Benign essential HTN Start:11-Dec-2011 Instruction Type:Provider Instructions for Treatment [facility]; [facility] Work Phone: Instructions* Name Dates Details Patient Instructions Indication:BMI 35.0-35.9,adult Start:30-Jan-2022 Instruction Type:Provider Instructions for Treatment How to Access Health Informa tion Online using Patient Portal and [employer]rd [employer] Apps Indication:BMI 35.0-35.9,adult Start:30-Jan-2022 Instruction Type:Patient Education Patient Instructions Indication:Non-smoker Start:31-Jul-2021 Instruction Type:Provider Instructions for Treatment How to Access Health Informa tion Online using Patient Portal and [employer]rd [employer] Apps Indication:Non-smoker Start:31-Jul-2021 Instruction Type:Patient Education Patient Instructions Indication:BMI 34.0-34.9,adult Start:16-Jun-2021 Instruction Type:Provider Instructions for Treatment How to Access Health Informa tion Online using Patient Portal and [employer]rd [employer] Apps Indication:BMI 34.0-34.9,adult Start:16-Jun-2021 Instruction Type:Patient Education Patient Instructions Indication:Benign essential HTN Start:23-Jan-2021 Instruction Type:Provider Instructions for Treatment How to Access Health Informa tion Online using Patient Portal and [employer]rd [employer] Apps Indication:Benign essential HTN Start:23-Jan-2021 Instruction Type:Patient Education How to Access Health Informa tion Online using Patient Portal and [employer]rd [employer] Apps Indication:Non-smoker Start:05-Jul-2020 Instruction Type:Patient Education Patient Instructions Indication:Non-smoker Start:05-Jul-2020 Instruction Type:Provider Instructions for Treatment How to access health informa tion online Indication:Non-smoker Start:14-Feb-2020 Instruction Type:Patient Education How to access health informa tion online - Detail Indication:Non-smoker Start:14-Feb-2020 Instruction Type:Patient Education Patient Instructions Indication:Non-smoker Start:14-Feb-2020 Instruction Type:Provider Instructions for Treatment How to access health informa tion online Indication:BMI 33.0-33.9,adult Start:02-Nov-2019 Instruction Type:Patient Education How to access health informa tion online - Detail Indication:BMI 33.0-33.9,adult Start:02-Nov-2019 Instruction Type:Patient Education Patient Instructions Indication:BMI 33.0-33.9,adult Start:02-Nov-2019 Instruction Type:Provider Instructions for Treatment How to access health informa tion online Indication:BMI 34.0-34.9,adult Start:27-Apr-2019 Instruction Type:Patient Education How to access health informa tion online - Detail Indication:BMI 34.0-34.9,adult Start:27-Apr-2019 Instruction Type:Patient Education Patient Instructions Indication:BMI 34.0-34.9,adult Start:27-Apr-2019 Instruction Type:Provider Instructions for Treatment How to access health informa tion online Indication:Current non-smoker Start:20-Oct-2018 Instruction Type:Patient Education How to access health informa tion online - Detail Indication:Current non-smoker Start:20-Oct-2018 Instruction Type:Patient Education Patient Instructions Indication:Current non-smoker Start:20-Oct-2018 Instruction Type:Provider Instructions for Treatment How to access health informa tion online Indication:Current non-smoker Start:21-Apr-2018 Instruction Type:Patient Education How to access health informa tion online - Detail Indication:Current non-smoker Start:21-Apr-2018 Instruction Type:Patient Education Patient Instructions Indication:Current non-smoker Start:21-Apr-2018 Instruction Type:Provider Instructions for Treatment How to access health informa tion online Indication:BMI 33.0-33.9,adult Start:06-Dec-2017 Instruction Type:Patient Education How to access health informa tion online - Detail Indication:BMI 33.0-33.9,adult Start:06-Dec-2017 Instruction Type:Patient Education Patient Instructions Indication:BMI 33.0-33.9,adult Start:06-Dec-2017 Instruction Type:Provider Instructions for Treatment How to access health informa tion online Indication:Current non-smoker Start:18-Aug-2017 Instruction Type:Patient Education How to access health informa tion online - Detail Indication:Current non-smoker Start:18-Aug-2017 Instruction Type:Patient Education Patient Instructions Indication:Current non-smoker Start:18-Aug-2017 Instruction Type:Provider Instructions for Treatment How to access health informa tion online Indication:Current non-smoker Start:17-Mar-2017 Instruction Type:Patient Education How to access health informa tion online - Detail Indication:Current non-smoker Start:17-Mar-2017 Instruction Type:Patient Education Patient Instructions Indication:Current non-smoker Start:17-Mar-2017 Instruction Type:Provider Instructions for Treatment How to access health informa tion online Indication:Current non-smoker Start:17-Feb-2017 Instruction Type:Patient Education How to access health informa tion online - Detail Indication:Current non-smoker Start:17-Feb-2017 Instruction Type:Patient Education Patient Instructions Indication:Current non-smoker Start:17-Feb-2017 Instruction Type:Provider Instructions for Treatment How to access health informa tion online Indication:Current non-smoker Start:20-Aug-2016 Instruction Type:Patient Education How to access health informa tion online - Detail Indication:Current non-smoker Start:20-Aug-2016 Instruction Type:Patient Education Patient Instructions Indication:Current non-smoker Start:20-Aug-2016 Instruction Type:Provider Instructions for Treatment Patient Instructions Indication:Benign essential HTN Start:06-Dec-2015 Instruction Type:Provider Instructions for Treatment How to access health informa tion online Indication:Hypercholesteremia Start:22-Aug-2015 Instruction Type:Patient Education How to access health informa tion online - Detail Indication:Hypercholesteremia Start:22-Aug-2015 Instruction Type:Patient Education Patient Instructions Indication:Hypercholesteremia Start:22-Aug-2015 Instruction Type:Provider Instructions for Treatment How to access health informa tion online Indication:Hypercholesteremia Start:22-Feb-2015 Instruction Type:Patient Education How to access health informa tion online - Detail Indication:Hypercholesteremia Start:22-Feb-2015 Instruction Type:Patient Education Patient Instructions Indication:Hypercholesteremia Start:22-Feb-2015 Instruction Type:Provider Instructions for Treatment Patient Instructions Indication:Vitamin D deficiency, unspecified Start:17-Aug-2014 Instruction Type:Provider Instructions for Treatment How to access health informa tion online Indication:Hypercholesteremia Start:19-Jan-2014 Instruction Type:Patient Education How to access health informa tion online - Detail Indication:Hypercholesteremia Start:19-Jan-2014 Instruction Type:Patient Education Patient Instructions Indication:Hypercholesteremia Start:19-Jan-2014 Instruction Type:Provider Instructions for Treatment Patient Instructions Indication:Hypercholesteremia Start:15-Jun-2013 Instruction Type:Provider Instructions for Treatment Patient Instructions Indication:Chest pain Start:13-Jan-2013 Instruction Type:Provider Instructions for Treatment Patient Instructions Indication:Benign essential HTN Start:02-Dec-2012 Instruction Type:Provider Instructions for Treatment Patient Instructions Indication:Hypercholesteremia Start:03-Jun-2012 Instruction Type:Provider Instructions for Treatment Patient InstructionsVITAMIN D3 4,000 UNITS A DAY , [facility] IN 4 MONTHS Indication:Benign essential HTN Start:11-Dec-2011 Instruction Type:Provider Instructions for Treatment [facility]; [facility] Work Phone: Instructions* Name Dates Details Patient Instructions Indication:BMI 35.0-35.9,adult Start:30-Jan-2022 Instruction Type:Provider Instructions for Treatment How to Access Health Informa tion Online using Patient Portal and [employer]rd [employer] Apps Indication:BMI 35.0-35.9,adult Start:30-Jan-2022 Instruction Type:Patient Education Patient Instructions Indication:Non-smoker Start:31-Jul-2021 Instruction Type:Provider Instructions for Treatment How to Access Health Informa tion Online using Patient Portal and [employer]rd [employer] Apps Indication:Non-smoker Start:31-Jul-2021 Instruction Type:Patient Education Patient Instructions Indication:BMI 34.0-34.9,adult Start:16-Jun-2021 Instruction Type:Provider Instructions for Treatment How to Access Health Informa tion Online using Patient Portal and [employer]rd [employer] Apps Indication:BMI 34.0-34.9,adult Start:16-Jun-2021 Instruction Type:Patient Education Patient Instructions Indication:Benign essential HTN Start:23-Jan-2021 Instruction Type:Provider Instructions for Treatment How to Access Health Informa tion Online using Patient Portal and [employer]rd [employer] Apps Indication:Benign essential HTN Start:23-Jan-2021 Instruction Type:Patient Education How to Access Health Informa tion Online using Patient Portal and [employer]rd [employer] Apps Indication:Non-smoker Start:05-Jul-2020 Instruction Type:Patient Education Patient Instructions Indication:Non-smoker Start:05-Jul-2020 Instruction Type:Provider Instructions for Treatment How to access health informa tion online Indication:Non-smoker Start:14-Feb-2020 Instruction Type:Patient Education How to access health informa tion online - Detail Indication:Non-smoker Start:14-Feb-2020 Instruction Type:Patient Education Patient Instructions Indication:Non-smoker Start:14-Feb-2020 Instruction Type:Provider Instructions for Treatment How to access health informa tion online Indication:BMI 33.0-33.9,adult Start:02-Nov-2019 Instruction Type:Patient Education How to access health informa tion online - Detail Indication:BMI 33.0-33.9,adult Start:02-Nov-2019 Instruction Type:Patient Education Patient Instructions Indication:BMI 33.0-33.9,adult Start:02-Nov-2019 Instruction Type:Provider Instructions for Treatment How to access health informa tion online Indication:BMI 34.0-34.9,adult Start:27-Apr-2019 Instruction Type:Patient Education How to access health informa tion online - Detail Indication:BMI 34.0-34.9,adult Start:27-Apr-2019 Instruction Type:Patient Education Patient Instructions Indication:BMI 34.0-34.9,adult Start:27-Apr-2019 Instruction Type:Provider Instructions for Treatment How to access health informa tion online Indication:Current non-smoker Start:20-Oct-2018 Instruction Type:Patient Education How to access health informa tion online - Detail Indication:Current non-smoker Start:20-Oct-2018 Instruction Type:Patient Education Patient Instructions Indication:Current non-smoker Start:20-Oct-2018 Instruction Type:Provider Instructions for Treatment How to access health informa tion online Indication:Current non-smoker Start:21-Apr-2018 Instruction Type:Patient Education How to access health informa tion online - Detail Indication:Current non-smoker Start:21-Apr-2018 Instruction Type:Patient Education Patient Instructions Indication:Current non-smoker Start:21-Apr-2018 Instruction Type:Provider Instructions for Treatment How to access health informa tion online Indication:BMI 33.0-33.9,adult Start:06-Dec-2017 Instruction Type:Patient Education How to access health informa tion online - Detail Indication:BMI 33.0-33.9,adult Start:06-Dec-2017 Instruction Type:Patient Education Patient Instructions Indication:BMI 33.0-33.9,adult Start:06-Dec-2017 Instruction Type:Provider Instructions for Treatment How to access health informa tion online Indication:Current non-smoker Start:18-Aug-2017 Instruction Type:Patient Education How to access health informa tion online - Detail Indication:Current non-smoker Start:18-Aug-2017 Instruction Type:Patient Education Patient Instructions Indication:Current non-smoker Start:18-Aug-2017 Instruction Type:Provider Instructions for Treatment How to access health informa tion online Indication:Current non-smoker Start:17-Mar-2017 Instruction Type:Patient Education How to access health informa tion online - Detail Indication:Current non-smoker Start:17-Mar-2017 Instruction Type:Patient Education Patient Instructions Indication:Current non-smoker Start:17-Mar-2017 Instruction Type:Provider Instructions for Treatment How to access health informa tion online Indication:Current non-smoker Start:17-Feb-2017 Instruction Type:Patient Education How to access health informa tion online - Detail Indication:Current non-smoker Start:17-Feb-2017 Instruction Type:Patient Education Patient Instructions Indication:Current non-smoker Start:17-Feb-2017 Instruction Type:Provider Instructions for Treatment How to access health informa tion online Indication:Current non-smoker Start:20-Aug-2016 Instruction Type:Patient Education How to access health informa tion online - Detail Indication:Current non-smoker Start:20-Aug-2016 Instruction Type:Patient Education Patient Instructions Indication:Current non-smoker Start:20-Aug-2016 Instruction Type:Provider Instructions for Treatment Patient Instructions Indication:Benign essential HTN Start:06-Dec-2015 Instruction Type:Provider Instructions for Treatment How to access health informa tion online Indication:Hypercholesteremia Start:22-Aug-2015 Instruction Type:Patient Education How to access health informa tion online - Detail Indication:Hypercholesteremia Start:22-Aug-2015 Instruction Type:Patient Education Patient Instructions Indication:Hypercholesteremia Start:22-Aug-2015 Instruction Type:Provider Instructions for Treatment How to access health informa tion online Indication:Hypercholesteremia Start:22-Feb-2015 Instruction Type:Patient Education How to access health informa tion online - Detail Indication:Hypercholesteremia Start:22-Feb-2015 Instruction Type:Patient Education Patient Instructions Indication:Hypercholesteremia Start:22-Feb-2015 Instruction Type:Provider Instructions for Treatment Patient Instructions Indication:Vitamin D deficiency, unspecified Start:17-Aug-2014 Instruction Type:Provider Instructions for Treatment How to access health informa tion online Indication:Hypercholesteremia Start:19-Jan-2014 Instruction Type:Patient Education How to access health informa tion online - Detail Indication:Hypercholesteremia Start:19-Jan-2014 Instruction Type:Patient Education Patient Instructions Indication:Hypercholesteremia Start:19-Jan-2014 Instruction Type:Provider Instructions for Treatment Patient Instructions Indication:Hypercholesteremia Start:15-Jun-2013 Instruction Type:Provider Instructions for Treatment Patient Instructions Indication:Chest pain Start:13-Jan-2013 Instruction Type:Provider Instructions for Treatment Patient Instructions Indication:Benign essential HTN Start:02-Dec-2012 Instruction Type:Provider Instructions for Treatment Patient Instructions Indication:Hypercholesteremia Start:03-Jun-2012 Instruction Type:Provider Instructions for Treatment Patient InstructionsVITAMIN D3 4,000 UNITS A DAY , [facility] IN 4 MONTHS Indication:Benign essential HTN Start:11-Dec-2011 Instruction Type:Provider Instructions for Treatment [facility]; [facility] Work Phone: Instructions* Name Dates Details Patient Instructions Indication:BMI 35.0-35.9,adult Start:30-Jan-2022 Instruction Type:Provider Instructions for Treatment How to Access Health Informa tion Online using Patient Portal and [employer]rd [employer] Apps Indication:BMI 35.0-35.9,adult Start:30-Jan-2022 Instruction Type:Patient Education Patient Instructions Indication:Non-smoker Start:31-Jul-2021 Instruction Type:Provider Instructions for Treatment How to Access Health Informa tion Online using Patient Portal and [employer]rd [employer] Apps Indication:Non-smoker Start:31-Jul-2021 Instruction Type:Patient Education Patient Instructions Indication:BMI 34.0-34.9,adult Start:16-Jun-2021 Instruction Type:Provider Instructions for Treatment How to Access Health Informa tion Online using Patient Portal and [employer]rd [employer] Apps Indication:BMI 34.0-34.9,adult Start:16-Jun-2021 Instruction Type:Patient Education Patient Instructions Indication:Benign essential HTN Start:23-Jan-2021 Instruction Type:Provider Instructions for Treatment How to Access Health Informa tion Online using Patient Portal and [employer]rd [employer] Apps Indication:Benign essential HTN Start:23-Jan-2021 Instruction Type:Patient Education How to Access Health Informa tion Online using Patient Portal and [employer]rd [employer] Apps Indication:Non-smoker Start:05-Jul-2020 Instruction Type:Patient Education Patient Instructions Indication:Non-smoker Start:05-Jul-2020 Instruction Type:Provider Instructions for Treatment How to access health informa tion online Indication:Non-smoker Start:14-Feb-2020 Instruction Type:Patient Education How to access health informa tion online - Detail Indication:Non-smoker Start:14-Feb-2020 Instruction Type:Patient Education Patient Instructions Indication:Non-smoker Start:14-Feb-2020 Instruction Type:Provider Instructions for Treatment How to access health informa tion online Indication:BMI 33.0-33.9,adult Start:02-Nov-2019 Instruction Type:Patient Education How to access health informa tion online - Detail Indication:BMI 33.0-33.9,adult Start:02-Nov-2019 Instruction Type:Patient Education Patient Instructions Indication:BMI 33.0-33.9,adult Start:02-Nov-2019 Instruction Type:Provider Instructions for Treatment How to access health informa tion online Indication:BMI 34.0-34.9,adult Start:27-Apr-2019 Instruction Type:Patient Education How to access health informa tion online - Detail Indication:BMI 34.0-34.9,adult Start:27-Apr-2019 Instruction Type:Patient Education Patient Instructions Indication:BMI 34.0-34.9,adult Start:27-Apr-2019 Instruction Type:Provider Instructions for Treatment How to access health informa tion online Indication:Current non-smoker Start:20-Oct-2018 Instruction Type:Patient Education How to access health informa tion online - Detail Indication:Current non-smoker Start:20-Oct-2018 Instruction Type:Patient Education Patient Instructions Indication:Current non-smoker Start:20-Oct-2018 Instruction Type:Provider Instructions for Treatment How to access health informa tion online Indication:Current non-smoker Start:21-Apr-2018 Instruction Type:Patient Education How to access health informa tion online - Detail Indication:Current non-smoker Start:21-Apr-2018 Instruction Type:Patient Education Patient Instructions Indication:Current non-smoker Start:21-Apr-2018 Instruction Type:Provider Instructions for Treatment How to access health informa tion online Indication:BMI 33.0-33.9,adult Start:06-Dec-2017 Instruction Type:Patient Education How to access health informa tion online - Detail Indication:BMI 33.0-33.9,adult Start:06-Dec-2017 Instruction Type:Patient Education Patient Instructions Indication:BMI 33.0-33.9,adult Start:06-Dec-2017 Instruction Type:Provider Instructions for Treatment How to access health informa tion online Indication:Current non-smoker Start:18-Aug-2017 Instruction Type:Patient Education How to access health informa tion online - Detail Indication:Current non-smoker Start:18-Aug-2017 Instruction Type:Patient Education Patient Instructions Indication:Current non-smoker Start:18-Aug-2017 Instruction Type:Provider Instructions for Treatment How to access health informa tion online Indication:Current non-smoker Start:17-Mar-2017 Instruction Type:Patient Education How to access health informa tion online - Detail Indication:Current non-smoker Start:17-Mar-2017 Instruction Type:Patient Education Patient Instructions Indication:Current non-smoker Start:17-Mar-2017 Instruction Type:Provider Instructions for Treatment How to access health informa tion online Indication:Current non-smoker Start:17-Feb-2017 Instruction Type:Patient Education How to access health informa tion online - Detail Indication:Current non-smoker Start:17-Feb-2017 Instruction Type:Patient Education Patient Instructions Indication:Current non-smoker Start:17-Feb-2017 Instruction Type:Provider Instructions for Treatment How to access health informa tion online Indication:Current non-smoker Start:20-Aug-2016 Instruction Type:Patient Education How to access health informa tion online - Detail Indication:Current non-smoker Start:20-Aug-2016 Instruction Type:Patient Education Patient Instructions Indication:Current non-smoker Start:20-Aug-2016 Instruction Type:Provider Instructions for Treatment Patient Instructions Indication:Benign essential HTN Start:06-Dec-2015 Instruction Type:Provider Instructions for Treatment How to access health informa tion online Indication:Hypercholesteremia Start:22-Aug-2015 Instruction Type:Patient Education How to access health informa tion online - Detail Indication:Hypercholesteremia Start:22-Aug-2015 Instruction Type:Patient Education Patient Instructions Indication:Hypercholesteremia Start:22-Aug-2015 Instruction Type:Provider Instructions for Treatment How to access health informa tion online Indication:Hypercholesteremia Start:22-Feb-2015 Instruction Type:Patient Education How to access health informa tion online - Detail Indication:Hypercholesteremia Start:22-Feb-2015 Instruction Type:Patient Education Patient Instructions Indication:Hypercholesteremia Start:22-Feb-2015 Instruction Type:Provider Instructions for Treatment Patient Instructions Indication:Vitamin D deficiency, unspecified Start:17-Aug-2014 Instruction Type:Provider Instructions for Treatment How to access health informa tion online Indication:Hypercholesteremia Start:19-Jan-2014 Instruction Type:Patient Education How to access health informa tion online - Detail Indication:Hypercholesteremia Start:19-Jan-2014 Instruction Type:Patient Education Patient Instructions Indication:Hypercholesteremia Start:19-Jan-2014 Instruction Type:Provider Instructions for Treatment Patient Instructions Indication:Hypercholesteremia Start:15-Jun-2013 Instruction Type:Provider Instructions for Treatment Patient Instructions Indication:Chest pain Start:13-Jan-2013 Instruction Type:Provider Instructions for Treatment Patient Instructions Indication:Benign essential HTN Start:02-Dec-2012 Instruction Type:Provider Instructions for Treatment Patient Instructions Indication:Hypercholesteremia Start:03-Jun-2012 Instruction Type:Provider Instructions for Treatment Patient InstructionsVITAMIN D3 4,000 UNITS A DAY , [facility] IN 4 MONTHS Indication:Benign essential HTN Start:11-Dec-2011 Instruction Type:Provider Instructions for Treatment [facility] Work Phone: Instructions* Name Dates Details Patient Instructions Indication:Non-smoker Start:09-Sep-2022 Instruction Type:Provider Instructions for Treatment How to Access Health Informa tion Online using Patient Portal and 3rd [employer] Apps Indication:Non-smoker Start:09-Sep-2022 Instruction Type:Patient Education Patient Instructions Indication:BMI 35.0-35.9,adult Start:30-Jan-2022 Instruction Type:Provider Instructions for Treatment How to Access Health Informa tion Online using Patient Portal and 3rd [employer] Apps Indication:BMI 35.0-35.9,adult Start:30-Jan-2022 Instruction Type:Patient Education Patient Instructions Indication:Non-smoker Start:31-Jul-2021 Instruction Type:Provider Instructions for Treatment How to Access Health Informa tion Online using Patient Portal and 3rd [employer] Apps Indication:Non-smoker Start:31-Jul-2021 Instruction Type:Patient Education Patient Instructions Indication:BMI 34.0-34.9,adult Start:16-Jun-2021 Instruction Type:Provider Instructions for Treatment How to Access Health Informa tion Online using Patient Portal and 3rd [employer] Apps Indication:BMI 34.0-34.9,adult Start:16-Jun-2021 Instruction Type:Patient Education Patient Instructions Indication:Benign essential HTN Start:23-Jan-2021 Instruction Type:Provider Instructions for Treatment How to Access Health Informa tion Online using Patient Portal and 3rd [employer] Apps Indication:Benign essential HTN Start:23-Jan-2021 Instruction Type:Patient Education How to Access Health Informa tion Online using Patient Portal and [employer]rd [employer] Apps Indication:Non-smoker Start:05-Jul-2020 Instruction Type:Patient Education Patient Instructions Indication:Non-smoker Start:05-Jul-2020 Instruction Type:Provider Instructions for Treatment How to access health informa tion online Indication:Non-smoker Start:14-Feb-2020 Instruction Type:Patient Education How to access health informa tion online - Detail Indication:Non-smoker Start:14-Feb-2020 Instruction Type:Patient Education Patient Instructions Indication:Non-smoker Start:14-Feb-2020 Instruction Type:Provider Instructions for Treatment How to access health informa tion online Indication:BMI 33.0-33.9,adult Start:02-Nov-2019 Instruction Type:Patient Education How to access health informa tion online - Detail Indication:BMI 33.0-33.9,adult Start:02-Nov-2019 Instruction Type:Patient Education Patient Instructions Indication:BMI 33.0-33.9,adult Start:02-Nov-2019 Instruction Type:Provider Instructions for Treatment How to access health informa tion online Indication:BMI 34.0-34.9,adult Start:27-Apr-2019 Instruction Type:Patient Education How to access health informa tion online - Detail Indication:BMI 34.0-34.9,adult Start:27-Apr-2019 Instruction Type:Patient Education Patient Instructions Indication:BMI 34.0-34.9,adult Start:27-Apr-2019 Instruction Type:Provider Instructions for Treatment How to access health informa tion online Indication:Current non-smoker Start:20-Oct-2018 Instruction Type:Patient Education How to access health informa tion online - Detail Indication:Current non-smoker Start:20-Oct-2018 Instruction Type:Patient Education Patient Instructions Indication:Current non-smoker Start:20-Oct-2018 Instruction Type:Provider Instructions for Treatment How to access health informa tion online Indication:Current non-smoker Start:21-Apr-2018 Instruction Type:Patient Education How to access health informa tion online - Detail Indication:Current non-smoker Start:21-Apr-2018 Instruction Type:Patient Education Patient Instructions Indication:Current non-smoker Start:21-Apr-2018 Instruction Type:Provider Instructions for Treatment How to access health informa tion online Indication:BMI 33.0-33.9,adult Start:06-Dec-2017 Instruction Type:Patient Education How to access health informa tion online - Detail Indication:BMI 33.0-33.9,adult Start:06-Dec-2017 Instruction Type:Patient Education Patient Instructions Indication:BMI 33.0-33.9,adult Start:06-Dec-2017 Instruction Type:Provider Instructions for Treatment How to access health informa tion online Indication:Current non-smoker Start:18-Aug-2017 Instruction Type:Patient Education How to access health informa tion online - Detail Indication:Current non-smoker Start:18-Aug-2017 Instruction Type:Patient Education Patient Instructions Indication:Current non-smoker Start:18-Aug-2017 Instruction Type:Provider Instructions for Treatment How to access health informa tion online Indication:Current non-smoker Start:17-Mar-2017 Instruction Type:Patient Education How to access health informa tion online - Detail Indication:Current non-smoker Start:17-Mar-2017 Instruction Type:Patient Education Patient Instructions Indication:Current non-smoker Start:17-Mar-2017 Instruction Type:Provider Instructions for Treatment How to access health informa tion online Indication:Current non-smoker Start:17-Feb-2017 Instruction Type:Patient Education How to access health informa tion online - Detail Indication:Current non-smoker Start:17-Feb-2017 Instruction Type:Patient Education Patient Instructions Indication:Current non-smoker Start:17-Feb-2017 Instruction Type:Provider Instructions for Treatment How to access health informa tion online Indication:Current non-smoker Start:20-Aug-2016 Instruction Type:Patient Education How to access health informa tion online - Detail Indication:Current non-smoker Start:20-Aug-2016 Instruction Type:Patient Education Patient Instructions Indication:Current non-smoker Start:20-Aug-2016 Instruction Type:Provider Instructions for Treatment Patient Instructions Indication:Benign essential HTN Start:06-Dec-2015 Instruction Type:Provider Instructions for Treatment How to access health informa tion online Indication:Hypercholesteremia Start:22-Aug-2015 Instruction Type:Patient Education How to access health informa tion online - Detail Indication:Hypercholesteremia Start:22-Aug-2015 Instruction Type:Patient Education Patient Instructions Indication:Hypercholesteremia Start:22-Aug-2015 Instruction Type:Provider Instructions for Treatment How to access health informa tion online Indication:Hypercholesteremia Start:22-Feb-2015 Instruction Type:Patient Education How to access health informa tion online - Detail Indication:Hypercholesteremia Start:22-Feb-2015 Instruction Type:Patient Education Patient Instructions Indication:Hypercholesteremia Start:22-Feb-2015 Instruction Type:Provider Instructions for Treatment Patient Instructions Indication:Vitamin D deficiency, unspecified Start:17-Aug-2014 Instruction Type:Provider Instructions for Treatment How to access health informa tion online Indication:Hypercholesteremia Start:19-Jan-2014 Instruction Type:Patient Education How to access health informa tion online - Detail Indication:Hypercholesteremia Start:19-Jan-2014 Instruction Type:Patient Education Patient Instructions Indication:Hypercholesteremia Start:19-Jan-2014 Instruction Type:Provider Instructions for Treatment Patient Instructions Indication:Hypercholesteremia Start:15-Jun-2013 Instruction Type:Provider Instructions for Treatment Patient Instructions Indication:Chest pain Start:13-Jan-2013 Instruction Type:Provider Instructions for Treatment Patient Instructions Indication:Benign essential HTN Start:02-Dec-2012 Instruction Type:Provider Instructions for Treatment Patient Instructions Indication:Hypercholesteremia Start:03-Jun-2012 Instruction Type:Provider Instructions for Treatment Patient InstructionsVITAMIN D3 4,000 UNITS A DAY , [facility] IN 4 MONTHS Indication:Benign essential HTN Start:11-Dec-2011 Instruction Type:Provider Instructions for Treatment [facility] Work Phone: reason for referral (narrative)No reason for referral [facility] [place] [facility]: Family History No Family History Records FoundUnknown Family Member Name Dates Details Cancer Comments:Maternal Grandfathe r. Status:Active Hypertension Comments:Father. Status:Active Unknown Family Member Name Dates Details Cancer Comments:Maternal Grandfathe r. Status:Active Hypertension Comments:Father. Status:Active Unknown Family Member Name Dates Details Cancer Comments:Maternal Grandfathe r. Status:Active Hypertension Comments:Father. Status:Active Unknown Family Member Name Dates Details Cancer Comments:Maternal Grandfathe r. Status:Active Hypertension Comments:Father. Status:Active Unknown Family Member Name Dates Details Cancer Comments:Maternal Grandfathe r. Status:Active Hypertension Comments:Father. Status:Active Unknown Family Member Name Dates Details Cancer Comments:Maternal Grandfathe r. Status:Active Hypertension Comments:Father. Status:Active Unknown Family Member Name Dates Details Cancer Comments:Maternal Grandfathe r. Status:Active Hypertension Comments:Father. Status:Active Unknown Family Member Name Dates Details Cancer Comments:Maternal Grandfathe r. Status:Active Hypertension Comments:Father. Status:Active Unknown Family Member Name Dates Details Cancer Comments:Maternal Grandfathe r. Status:Active Hypertension Comments:Father. Status:Active Unknown Family Member Name Dates Details Cancer Comments:Maternal Grandfathe r. Status:Active Hypertension Comments:Father. Status:Active Unknown Family Member Name Dates Details Cancer Comments:Maternal Grandfathe r. Status:Active Hypertension Comments:Father. Status:Active Unknown Family Member Name Dates Details Cancer Comments:Maternal Grandfathe r. Status:Active Hypertension Comments:Father. Status:Active Unknown Family Member Name Dates Details Cancer Comments:Maternal Grandfathe r. Status:Active Hypertension Comments:Father. Status:Active Unknown Family Member Name Dates Details Cancer Comments:Maternal Grandfathe r. Status:Active Hypertension Comments:Father. Status:Active Unknown Family Member Name Dates Details Cancer Comments:Maternal Grandfathe r. Status:Active Hypertension Comments:Father. Status:Active Unknown Family Member Name Dates Details Cancer Comments:Maternal Grandfathe r. Status:Active Hypertension Comments:Father. Status:Active Unknown Family Member Name Dates Details Cancer Comments:Maternal Grandfathe r. Status:Active Hypertension Comments:Father. Status:Active Unknown Family Member Name Dates Details Cancer Comments:Maternal Grandfathe r. Status:Active Hypertension Comments:Father. Status:Active Unknown Family Member Name Dates Details Cancer Comments:Maternal Grandfathe r. Status:Active Hypertension Comments:Father. Status:Active Unknown Family Member Name Dates Details Cancer Comments:Maternal Grandfathe r. Status:Active Hypertension Comments:Father. Status:Active Unknown Family Member Name Dates Details Cancer Comments:Maternal Grandfathe r. Status:Active Hypertension Comments:Father. Status:Active Unknown Family Member Name Dates Details Cancer Comments:Maternal Grandfathe r. Status:Active Hypertension Comments:Father. Status:Active Unknown Family Member Name Dates Details Cancer Comments:Maternal Grandfathe r. Status:Active Hypertension Comments:Father. Status:Active Unknown Family Member Name Dates Details Cancer Comments:Maternal Grandfathe r. Status:Active Hypertension Comments:Father. Status:Active Relationship Condition Age at Onset Recorded Date/T evelin mother Myocardial infarction Unknown Chronic obstructive pulmonary disease Unk nown father Amyotrophic lateral sclerosis Unknown Instructions Name Dates Details BMI 33.0-33.9,adult : How to access health information online Indication:BMI 33.0-33.9,adult BMI 33.0-33.9,adult : How to access health information online - Detail Indication:BMI 33.0-33.9,adult BMI 33.0-33.9,adult : Patien t Instructions Indication:BMI 33.0-33.9,adult Current non-smoker : How to access health information online Indication:Current non-smoker Current non-smoker : How to access health information online - Detail Indication:Current non-smoker Current non-smoker : Patient Instructions Indication:Current non-smoker Benign essential HTN : Patie nt Instructions Indication:Benign essential HTN Hypercholesteremia : How to access health information online Indication:Hypercholesteremia Hypercholesteremia : How to access health information online - Detail Indication:Hypercholesteremia Hypercholesteremia : Patient Instructions Indication:Hypercholesteremia Vitamin D deficiency, unspec ified : Patient Instructions Indication:Vitamin D deficiency, unspecified Chest pain : Patient Instruc tions Indication:Chest pain Benign essential HTN : Patie nt InstructionsVITAMIN D3 4,000 UNITS A DAY , [facility] IN 4 MONTHS Indication:Benign essential HTN Name Dates Details BMI 33.0-33.9,adult : How to access health information online Indication:BMI 33.0-33.9,adult BMI 33.0-33.9,adult : How to access health information online - Detail Indication:BMI 33.0-33.9,adult BMI 33.0-33.9,adult : Patien t Instructions Indication:BMI 33.0-33.9,adult Current non-smoker : How to access health information online Indication:Current non-smoker Current non-smoker : How to access health information online - Detail Indication:Current non-smoker Current non-smoker : Patient Instructions Indication:Current non-smoker Benign essential HTN : Patie nt Instructions Indication:Benign essential HTN Hypercholesteremia : How to access health information online Indication:Hypercholesteremia Hypercholesteremia : How to access health information online - Detail Indication:Hypercholesteremia Hypercholesteremia : Patient Instructions Indication:Hypercholesteremia Vitamin D deficiency, unspec ified : Patient Instructions Indication:Vitamin D deficiency, unspecified Chest pain : Patient Instruc tions Indication:Chest pain Benign essential HTN : Patie nt InstructionsVITAMIN D3 4,000 UNITS A DAY , [facility] IN 4 MONTHS Indication:Benign essential HTN Name Dates Details BMI 33.0-33.9,adult : How to access health information online Indication:BMI 33.0-33.9,adult BMI 33.0-33.9,adult : How to access health information online - Detail Indication:BMI 33.0-33.9,adult BMI 33.0-33.9,adult : Patien t Instructions Indication:BMI 33.0-33.9,adult Current non-smoker : How to access health information online Indication:Current non-smoker Current non-smoker : How to access health information online - Detail Indication:Current non-smoker Current non-smoker : Patient Instructions Indication:Current non-smoker Benign essential HTN : Patie nt Instructions Indication:Benign essential HTN Hypercholesteremia : How to access health information online Indication:Hypercholesteremia Hypercholesteremia : How to access health information online - Detail Indication:Hypercholesteremia Hypercholesteremia : Patient Instructions Indication:Hypercholesteremia Vitamin D deficiency, unspec ified : Patient Instructions Indication:Vitamin D deficiency, unspecified Chest pain : Patient Instruc tions Indication:Chest pain Benign essential HTN : Patie nt InstructionsVITAMIN D3 4,000 UNITS A DAY , [facility] IN 4 MONTHS Indication:Benign essential HTN Name Dates Details Current non-smoker : How to access health information online Indication:Current non-smoker Current non-smoker : How to access health information online - Detail Indication:Current non-smoker Current non-smoker : Patient Instructions Indication:Current non-smoker BMI 33.0-33.9,adult : How to access health information online Indication:BMI 33.0-33.9,adult BMI 33.0-33.9,adult : How to access health information online - Detail Indication:BMI 33.0-33.9,adult BMI 33.0-33.9,adult : Patien t Instructions Indication:BMI 33.0-33.9,adult Benign essential HTN : Patie nt Instructions Indication:Benign essential HTN Hypercholesteremia : How to access health information online Indication:Hypercholesteremia Hypercholesteremia : How to access health information online - Detail Indication:Hypercholesteremia Hypercholesteremia : Patient Instructions Indication:Hypercholesteremia Vitamin D deficiency, unspec ified : Patient Instructions Indication:Vitamin D deficiency, unspecified Chest pain : Patient Instruc tions Indication:Chest pain Benign essential HTN : Patie nt InstructionsVITAMIN D3 4,000 UNITS A DAY , [facility] IN 4 MONTHS Indication:Benign essential HTN Name Dates Details Current non-smoker : How to access health information online Indication:Current non-smoker Current non-smoker : How to access health information online - Detail Indication:Current non-smoker Current non-smoker : Patient Instructions Indication:Current non-smoker BMI 33.0-33.9,adult : How to access health information online Indication:BMI 33.0-33.9,adult BMI 33.0-33.9,adult : How to access health information online - Detail Indication:BMI 33.0-33.9,adult BMI 33.0-33.9,adult : Patien t Instructions Indication:BMI 33.0-33.9,adult Benign essential HTN : Patie nt Instructions Indication:Benign essential HTN Hypercholesteremia : How to access health information online Indication:Hypercholesteremia Hypercholesteremia : How to access health information online - Detail Indication:Hypercholesteremia Hypercholesteremia : Patient Instructions Indication:Hypercholesteremia Vitamin D deficiency, unspec ified : Patient Instructions Indication:Vitamin D deficiency, unspecified Chest pain : Patient Instruc tions Indication:Chest pain Benign essential HTN : Patie nt InstructionsVITAMIN D3 4,000 UNITS A DAY , [facility] IN 4 MONTHS Indication:Benign essential HTN Name Dates Details How to access health informa tion online Indication:Current non-smoker Start:20-Oct-2018 Instruction Type:Patient Education How to access health informa tion online - Detail Indication:Current non-smoker Start:20-Oct-2018 Instruction Type:Patient Education Patient Instructions Indication:Current non-smoker Start:20-Oct-2018 Instruction Type:Provider Instructions for Treatment How to access health informa tion online Indication:Current non-smoker Start:21-Apr-2018 Instruction Type:Patient Education How to access health informa tion online - Detail Indication:Current non-smoker Start:21-Apr-2018 Instruction Type:Patient Education Patient Instructions Indication:Current non-smoker Start:21-Apr-2018 Instruction Type:Provider Instructions for Treatment How to access health informa tion online Indication:BMI 33.0-33.9,adult Start:06-Dec-2017 Instruction Type:Patient Education How to access health informa tion online - Detail Indication:BMI 33.0-33.9,adult Start:06-Dec-2017 Instruction Type:Patient Education Patient Instructions Indication:BMI 33.0-33.9,adult Start:06-Dec-2017 Instruction Type:Provider Instructions for Treatment How to access health informa tion online Indication:Current non-smoker Start:18-Aug-2017 Instruction Type:Patient Education How to access health informa tion online - Detail Indication:Current non-smoker Start:18-Aug-2017 Instruction Type:Patient Education Patient Instructions Indication:Current non-smoker Start:18-Aug-2017 Instruction Type:Provider Instructions for Treatment How to access health informa tion online Indication:Current non-smoker Start:17-Mar-2017 Instruction Type:Patient Education How to access health informa tion online - Detail Indication:Current non-smoker Start:17-Mar-2017 Instruction Type:Patient Education Patient Instructions Indication:Current non-smoker Start:17-Mar-2017 Instruction Type:Provider Instructions for Treatment How to access health informa tion online Indication:Current non-smoker Start:17-Feb-2017 Instruction Type:Patient Education How to access health informa tion online - Detail Indication:Current non-smoker Start:17-Feb-2017 Instruction Type:Patient Education Patient Instructions Indication:Current non-smoker Start:17-Feb-2017 Instruction Type:Provider Instructions for Treatment How to access health informa tion online Indication:Current non-smoker Start:20-Aug-2016 Instruction Type:Patient Education How to access health informa tion online - Detail Indication:Current non-smoker Start:20-Aug-2016 Instruction Type:Patient Education Patient Instructions Indication:Current non-smoker Start:20-Aug-2016 Instruction Type:Provider Instructions for Treatment Patient Instructions Indication:Benign essential HTN Start:06-Dec-2015 Instruction Type:Provider Instructions for Treatment How to access health informa tion online Indication:Hypercholesteremia Start:22-Aug-2015 Instruction Type:Patient Education How to access health informa tion online - Detail Indication:Hypercholesteremia Start:22-Aug-2015 Instruction Type:Patient Education Patient Instructions Indication:Hypercholesteremia Start:22-Aug-2015 Instruction Type:Provider Instructions for Treatment How to access health informa tion online Indication:Hypercholesteremia Start:22-Feb-2015 Instruction Type:Patient Education How to access health informa tion online - Detail Indication:Hypercholesteremia Start:22-Feb-2015 Instruction Type:Patient Education Patient Instructions Indication:Hypercholesteremia Start:22-Feb-2015 Instruction Type:Provider Instructions for Treatment Patient Instructions Indication:Vitamin D deficiency, unspecified Start:17-Aug-2014 Instruction Type:Provider Instructions for Treatment How to access health informa tion online Indication:Hypercholesteremia Start:19-Jan-2014 Instruction Type:Patient Education How to access health informa tion online - Detail Indication:Hypercholesteremia Start:19-Jan-2014 Instruction Type:Patient Education Patient Instructions Indication:Hypercholesteremia Start:19-Jan-2014 Instruction Type:Provider Instructions for Treatment Patient Instructions Indication:Hypercholesteremia Start:15-Jun-2013 Instruction Type:Provider Instructions for Treatment Patient Instructions Indication:Chest pain Start:13-Jan-2013 Instruction Type:Provider Instructions for Treatment Patient Instructions Indication:Benign essential HTN Start:02-Dec-2012 Instruction Type:Provider Instructions for Treatment Patient Instructions Indication:Hypercholesteremia Start:03-Jun-2012 Instruction Type:Provider Instructions for Treatment Patient InstructionsVITAMIN D3 4,000 UNITS A DAY , [facility] IN 4 MONTHS Indication:Benign essential HTN Start:11-Dec-2011 Instruction Type:Provider Instructions for Treatment Name Dates Details How to access health informa tion online Indication:BMI 34.0-34.9,adult Start:27-Apr-2019 Instruction Type:Patient Education How to access health informa tion online - Detail Indication:BMI 34.0-34.9,adult Start:27-Apr-2019 Instruction Type:Patient Education Patient Instructions Indication:BMI 34.0-34.9,adult Start:27-Apr-2019 Instruction Type:Provider Instructions for Treatment How to access health informa tion online Indication:Current non-smoker Start:20-Oct-2018 Instruction Type:Patient Education How to access health informa tion online - Detail Indication:Current non-smoker Start:20-Oct-2018 Instruction Type:Patient Education Patient Instructions Indication:Current non-smoker Start:20-Oct-2018 Instruction Type:Provider Instructions for Treatment How to access health informa tion online Indication:Current non-smoker Start:21-Apr-2018 Instruction Type:Patient Education How to access health informa tion online - Detail Indication:Current non-smoker Start:21-Apr-2018 Instruction Type:Patient Education Patient Instructions Indication:Current non-smoker Start:21-Apr-2018 Instruction Type:Provider Instructions for Treatment How to access health informa tion online Indication:BMI 33.0-33.9,adult Start:06-Dec-2017 Instruction Type:Patient Education How to access health informa tion online - Detail Indication:BMI 33.0-33.9,adult Start:06-Dec-2017 Instruction Type:Patient Education Patient Instructions Indication:BMI 33.0-33.9,adult Start:06-Dec-2017 Instruction Type:Provider Instructions for Treatment How to access health informa tion online Indication:Current non-smoker Start:18-Aug-2017 Instruction Type:Patient Education How to access health informa tion online - Detail Indication:Current non-smoker Start:18-Aug-2017 Instruction Type:Patient Education Patient Instructions Indication:Current non-smoker Start:18-Aug-2017 Instruction Type:Provider Instructions for Treatment How to access health informa tion online Indication:Current non-smoker Start:17-Mar-2017 Instruction Type:Patient Education How to access health informa tion online - Detail Indication:Current non-smoker Start:17-Mar-2017 Instruction Type:Patient Education Patient Instructions Indication:Current non-smoker Start:17-Mar-2017 Instruction Type:Provider Instructions for Treatment How to access health informa tion online Indication:Current non-smoker Start:17-Feb-2017 Instruction Type:Patient Education How to access health informa tion online - Detail Indication:Current non-smoker Start:17-Feb-2017 Instruction Type:Patient Education Patient Instructions Indication:Current non-smoker Start:17-Feb-2017 Instruction Type:Provider Instructions for Treatment How to access health informa tion online Indication:Current non-smoker Start:20-Aug-2016 Instruction Type:Patient Education How to access health informa tion online - Detail Indication:Current non-smoker Start:20-Aug-2016 Instruction Type:Patient Education Patient Instructions Indication:Current non-smoker Start:20-Aug-2016 Instruction Type:Provider Instructions for Treatment Patient Instructions Indication:Benign essential HTN Start:06-Dec-2015 Instruction Type:Provider Instructions for Treatment How to access health informa tion online Indication:Hypercholesteremia Start:22-Aug-2015 Instruction Type:Patient Education How to access health informa tion online - Detail Indication:Hypercholesteremia Start:22-Aug-2015 Instruction Type:Patient Education Patient Instructions Indication:Hypercholesteremia Start:22-Aug-2015 Instruction Type:Provider Instructions for Treatment How to access health informa tion online Indication:Hypercholesteremia Start:22-Feb-2015 Instruction Type:Patient Education How to access health informa tion online - Detail Indication:Hypercholesteremia Start:22-Feb-2015 Instruction Type:Patient Education Patient Instructions Indication:Hypercholesteremia Start:22-Feb-2015 Instruction Type:Provider Instructions for Treatment Patient Instructions Indication:Vitamin D deficiency, unspecified Start:17-Aug-2014 Instruction Type:Provider Instructions for Treatment How to access health informa tion online Indication:Hypercholesteremia Start:19-Jan-2014 Instruction Type:Patient Education How to access health informa tion online - Detail Indication:Hypercholesteremia Start:19-Jan-2014 Instruction Type:Patient Education Patient Instructions Indication:Hypercholesteremia Start:19-Jan-2014 Instruction Type:Provider Instructions for Treatment Patient Instructions Indication:Hypercholesteremia Start:15-Jun-2013 Instruction Type:Provider Instructions for Treatment Patient Instructions Indication:Chest pain Start:13-Jan-2013 Instruction Type:Provider Instructions for Treatment Patient Instructions Indication:Benign essential HTN Start:02-Dec-2012 Instruction Type:Provider Instructions for Treatment Patient Instructions Indication:Hypercholesteremia Start:03-Jun-2012 Instruction Type:Provider Instructions for Treatment Patient InstructionsVITAMIN D3 4,000 UNITS A DAY , [facility] IN 4 MONTHS Indication:Benign essential HTN Start:11-Dec-2011 Instruction Type:Provider Instructions for Treatment Name Dates Details How to access health informa tion online Indication:BMI 33.0-33.9,adult Start:02-Nov-2019 Instruction Type:Patient Education How to access health informa tion online - Detail Indication:BMI 33.0-33.9,adult Start:02-Nov-2019 Instruction Type:Patient Education Patient Instructions Indication:BMI 33.0-33.9,adult Start:02-Nov-2019 Instruction Type:Provider Instructions for Treatment How to access health informa tion online Indication:BMI 34.0-34.9,adult Start:27-Apr-2019 Instruction Type:Patient Education How to access health informa tion online - Detail Indication:BMI 34.0-34.9,adult Start:27-Apr-2019 Instruction Type:Patient Education Patient Instructions Indication:BMI 34.0-34.9,adult Start:27-Apr-2019 Instruction Type:Provider Instructions for Treatment How to access health informa tion online Indication:Current non-smoker Start:20-Oct-2018 Instruction Type:Patient Education How to access health informa tion online - Detail Indication:Current non-smoker Start:20-Oct-2018 Instruction Type:Patient Education Patient Instructions Indication:Current non-smoker Start:20-Oct-2018 Instruction Type:Provider Instructions for Treatment How to access health informa tion online Indication:Current non-smoker Start:21-Apr-2018 Instruction Type:Patient Education How to access health informa tion online - Detail Indication:Current non-smoker Start:21-Apr-2018 Instruction Type:Patient Education Patient Instructions Indication:Current non-smoker Start:21-Apr-2018 Instruction Type:Provider Instructions for Treatment How to access health informa tion online Indication:BMI 33.0-33.9,adult Start:06-Dec-2017 Instruction Type:Patient Education How to access health informa tion online - Detail Indication:BMI 33.0-33.9,adult Start:06-Dec-2017 Instruction Type:Patient Education Patient Instructions Indication:BMI 33.0-33.9,adult Start:06-Dec-2017 Instruction Type:Provider Instructions for Treatment How to access health informa tion online Indication:Current non-smoker Start:18-Aug-2017 Instruction Type:Patient Education How to access health informa tion online - Detail Indication:Current non-smoker Start:18-Aug-2017 Instruction Type:Patient Education Patient Instructions Indication:Current non-smoker Start:18-Aug-2017 Instruction Type:Provider Instructions for Treatment How to access health informa tion online Indication:Current non-smoker Start:17-Mar-2017 Instruction Type:Patient Education How to access health informa tion online - Detail Indication:Current non-smoker Start:17-Mar-2017 Instruction Type:Patient Education Patient Instructions Indication:Current non-smoker Start:17-Mar-2017 Instruction Type:Provider Instructions for Treatment How to access health informa tion online Indication:Current non-smoker Start:17-Feb-2017 Instruction Type:Patient Education How to access health informa tion online - Detail Indication:Current non-smoker Start:17-Feb-2017 Instruction Type:Patient Education Patient Instructions Indication:Current non-smoker Start:17-Feb-2017 Instruction Type:Provider Instructions for Treatment How to access health informa tion online Indication:Current non-smoker Start:20-Aug-2016 Instruction Type:Patient Education How to access health informa tion online - Detail Indication:Current non-smoker Start:20-Aug-2016 Instruction Type:Patient Education Patient Instructions Indication:Current non-smoker Start:20-Aug-2016 Instruction Type:Provider Instructions for Treatment Patient Instructions Indication:Benign essential HTN Start:06-Dec-2015 Instruction Type:Provider Instructions for Treatment How to access health informa tion online Indication:Hypercholesteremia Start:22-Aug-2015 Instruction Type:Patient Education How to access health informa tion online - Detail Indication:Hypercholesteremia Start:22-Aug-2015 Instruction Type:Patient Education Patient Instructions Indication:Hypercholesteremia Start:22-Aug-2015 Instruction Type:Provider Instructions for Treatment How to access health informa tion online Indication:Hypercholesteremia Start:22-Feb-2015 Instruction Type:Patient Education How to access health informa tion online - Detail Indication:Hypercholesteremia Start:22-Feb-2015 Instruction Type:Patient Education Patient Instructions Indication:Hypercholesteremia Start:22-Feb-2015 Instruction Type:Provider Instructions for Treatment Patient Instructions Indication:Vitamin D deficiency, unspecified Start:17-Aug-2014 Instruction Type:Provider Instructions for Treatment How to access health informa General Compressionon online Indication:Hypercholesteremia Start:19-Jan-2014 Instruction Type:Patient Education How to access health informa tion online - Detail Indication:Hypercholesteremia Start:19-Jan-2014 Instruction Type:Patient Education Patient Instructions Indication:Hypercholesteremia Start:19-Jan-2014 Instruction Type:Provider Instructions for Treatment Patient Instructions Indication:Hypercholesteremia Start:15-Jun-2013 Instruction Type:Provider Instructions for Treatment Patient Instructions Indication:Chest pain Start:13-Jan-2013 Instruction Type:Provider Instructions for Treatment Patient Instructions Indication:Benign essential HTN Start:02-Dec-2012 Instruction Type:Provider Instructions for Treatment Patient Instructions Indication:Hypercholesteremia Start:03-Jun-2012 Instruction Type:Provider Instructions for Treatment Patient InstructionsVITAMIN D3 4,000 UNITS A DAY , [facility] IN 4 MONTHS Indication:Benign essential HTN Start:11-Dec-2011 Instruction Type:Provider Instructions for Treatment Name Dates Details How to access health informa tion online Indication:BMI 33.0-33.9,adult Start:02-Nov-2019 Instruction Type:Patient Education How to access health informa tion online - Detail Indication:BMI 33.0-33.9,adult Start:02-Nov-2019 Instruction Type:Patient Education Patient Instructions Indication:BMI 33.0-33.9,adult Start:02-Nov-2019 Instruction Type:Provider Instructions for Treatment How to access health informa tion online Indication:BMI 34.0-34.9,adult Start:27-Apr-2019 Instruction Type:Patient Education How to access health informa tion online - Detail Indication:BMI 34.0-34.9,adult Start:27-Apr-2019 Instruction Type:Patient Education Patient Instructions Indication:BMI 34.0-34.9,adult Start:27-Apr-2019 Instruction Type:Provider Instructions for Treatment How to access health informa tion online Indication:Current non-smoker Start:20-Oct-2018 Instruction Type:Patient Education How to access health informa tion online - Detail Indication:Current non-smoker Start:20-Oct-2018 Instruction Type:Patient Education Patient Instructions Indication:Current non-smoker Start:20-Oct-2018 Instruction Type:Provider Instructions for Treatment How to access health informa tion online Indication:Current non-smoker Start:21-Apr-2018 Instruction Type:Patient Education How to access health informa tion online - Detail Indication:Current non-smoker Start:21-Apr-2018 Instruction Type:Patient Education Patient Instructions Indication:Current non-smoker Start:21-Apr-2018 Instruction Type:Provider Instructions for Treatment How to access health informa tion online Indication:BMI 33.0-33.9,adult Start:06-Dec-2017 Instruction Type:Patient Education How to access health informa tion online - Detail Indication:BMI 33.0-33.9,adult Start:06-Dec-2017 Instruction Type:Patient Education Patient Instructions Indication:BMI 33.0-33.9,adult Start:06-Dec-2017 Instruction Type:Provider Instructions for Treatment How to access health informa tion online Indication:Current non-smoker Start:18-Aug-2017 Instruction Type:Patient Education How to access health informa tion online - Detail Indication:Current non-smoker Start:18-Aug-2017 Instruction Type:Patient Education Patient Instructions Indication:Current non-smoker Start:18-Aug-2017 Instruction Type:Provider Instructions for Treatment How to access health informa tion online Indication:Current non-smoker Start:17-Mar-2017 Instruction Type:Patient Education How to access health informa tion online - Detail Indication:Current non-smoker Start:17-Mar-2017 Instruction Type:Patient Education Patient Instructions Indication:Current non-smoker Start:17-Mar-2017 Instruction Type:Provider Instructions for Treatment How to access health informa tion online Indication:Current non-smoker Start:17-Feb-2017 Instruction Type:Patient Education How to access health informa tion online - Detail Indication:Current non-smoker Start:17-Feb-2017 Instruction Type:Patient Education Patient Instructions Indication:Current non-smoker Start:17-Feb-2017 Instruction Type:Provider Instructions for Treatment How to access health informa tion online Indication:Current non-smoker Start:20-Aug-2016 Instruction Type:Patient Education How to access health informa tion online - Detail Indication:Current non-smoker Start:20-Aug-2016 Instruction Type:Patient Education Patient Instructions Indication:Current non-smoker Start:20-Aug-2016 Instruction Type:Provider Instructions for Treatment Patient Instructions Indication:Benign essential HTN Start:06-Dec-2015 Instruction Type:Provider Instructions for Treatment How to access health informa tion online Indication:Hypercholesteremia Start:22-Aug-2015 Instruction Type:Patient Education How to access health informa tion online - Detail Indication:Hypercholesteremia Start:22-Aug-2015 Instruction Type:Patient Education Patient Instructions Indication:Hypercholesteremia Start:22-Aug-2015 Instruction Type:Provider Instructions for Treatment How to access health informa tion online Indication:Hypercholesteremia Start:22-Feb-2015 Instruction Type:Patient Education How to access health informa tion online - Detail Indication:Hypercholesteremia Start:22-Feb-2015 Instruction Type:Patient Education Patient Instructions Indication:Hypercholesteremia Start:22-Feb-2015 Instruction Type:Provider Instructions for Treatment Patient Instructions Indication:Vitamin D deficiency, unspecified Start:17-Aug-2014 Instruction Type:Provider Instructions for Treatment How to access health informa tion online Indication:Hypercholesteremia Start:19-Jan-2014 Instruction Type:Patient Education How to access health informa tion online - Detail Indication:Hypercholesteremia Start:19-Jan-2014 Instruction Type:Patient Education Patient Instructions Indication:Hypercholesteremia Start:19-Jan-2014 Instruction Type:Provider Instructions for Treatment Patient Instructions Indication:Hypercholesteremia Start:15-Jun-2013 Instruction Type:Provider Instructions for Treatment Patient Instructions Indication:Chest pain Start:13-Jan-2013 Instruction Type:Provider Instructions for Treatment Patient Instructions Indication:Benign essential HTN Start:02-Dec-2012 Instruction Type:Provider Instructions for Treatment Patient Instructions Indication:Hypercholesteremia Start:03-Jun-2012 Instruction Type:Provider Instructions for Treatment Patient InstructionsVITAMIN D3 4,000 UNITS A DAY , [facility] IN 4 MONTHS Indication:Benign essential HTN Start:11-Dec-2011 Instruction Type:Provider Instructions for Treatment Name Dates Details How to access health informa tion online Indication:Non-smoker Start:14-Feb-2020 Instruction Type:Patient Education How to access health informa tion online - Detail Indication:Non-smoker Start:14-Feb-2020 Instruction Type:Patient Education Patient Instructions Indication:Non-smoker Start:14-Feb-2020 Instruction Type:Provider Instructions for Treatment How to access health informa tion online Indication:BMI 33.0-33.9,adult Start:02-Nov-2019 Instruction Type:Patient Education How to access health informa tion online - Detail Indication:BMI 33.0-33.9,adult Start:02-Nov-2019 Instruction Type:Patient Education Patient Instructions Indication:BMI 33.0-33.9,adult Start:02-Nov-2019 Instruction Type:Provider Instructions for Treatment How to access health informa tion online Indication:BMI 34.0-34.9,adult Start:27-Apr-2019 Instruction Type:Patient Education How to access health informa tion online - Detail Indication:BMI 34.0-34.9,adult Start:27-Apr-2019 Instruction Type:Patient Education Patient Instructions Indication:BMI 34.0-34.9,adult Start:27-Apr-2019 Instruction Type:Provider Instructions for Treatment How to access health informa tion online Indication:Current non-smoker Start:20-Oct-2018 Instruction Type:Patient Education How to access health informa tion online - Detail Indication:Current non-smoker Start:20-Oct-2018 Instruction Type:Patient Education Patient Instructions Indication:Current non-smoker Start:20-Oct-2018 Instruction Type:Provider Instructions for Treatment How to access health informa tion online Indication:Current non-smoker Start:21-Apr-2018 Instruction Type:Patient Education How to access health informa tion online - Detail Indication:Current non-smoker Start:21-Apr-2018 Instruction Type:Patient Education Patient Instructions Indication:Current non-smoker Start:21-Apr-2018 Instruction Type:Provider Instructions for Treatment How to access health informa tion online Indication:BMI 33.0-33.9,adult Start:06-Dec-2017 Instruction Type:Patient Education How to access health informa tion online - Detail Indication:BMI 33.0-33.9,adult Start:06-Dec-2017 Instruction Type:Patient Education Patient Instructions Indication:BMI 33.0-33.9,adult Start:06-Dec-2017 Instruction Type:Provider Instructions for Treatment How to access health informa tion online Indication:Current non-smoker Start:18-Aug-2017 Instruction Type:Patient Education How to access health informa tion online - Detail Indication:Current non-smoker Start:18-Aug-2017 Instruction Type:Patient Education Patient Instructions Indication:Current non-smoker Start:18-Aug-2017 Instruction Type:Provider Instructions for Treatment How to access health informa tion online Indication:Current non-smoker Start:17-Mar-2017 Instruction Type:Patient Education How to access health informa tion online - Detail Indication:Current non-smoker Start:17-Mar-2017 Instruction Type:Patient Education Patient Instructions Indication:Current non-smoker Start:17-Mar-2017 Instruction Type:Provider Instructions for Treatment How to access health informa tion online Indication:Current non-smoker Start:17-Feb-2017 Instruction Type:Patient Education How to access health informa tion online - Detail Indication:Current non-smoker Start:17-Feb-2017 Instruction Type:Patient Education Patient Instructions Indication:Current non-smoker Start:17-Feb-2017 Instruction Type:Provider Instructions for Treatment How to access health informa tion online Indication:Current non-smoker Start:20-Aug-2016 Instruction Type:Patient Education How to access health informa tion online - Detail Indication:Current non-smoker Start:20-Aug-2016 Instruction Type:Patient Education Patient Instructions Indication:Current non-smoker Start:20-Aug-2016 Instruction Type:Provider Instructions for Treatment Patient Instructions Indication:Benign essential HTN Start:06-Dec-2015 Instruction Type:Provider Instructions for Treatment How to access health informa tion online Indication:Hypercholesteremia Start:22-Aug-2015 Instruction Type:Patient Education How to access health informa tion online - Detail Indication:Hypercholesteremia Start:22-Aug-2015 Instruction Type:Patient Education Patient Instructions Indication:Hypercholesteremia Start:22-Aug-2015 Instruction Type:Provider Instructions for Treatment How to access health informa tion online Indication:Hypercholesteremia Start:22-Feb-2015 Instruction Type:Patient Education How to access health informa tion online - Detail Indication:Hypercholesteremia Start:22-Feb-2015 Instruction Type:Patient Education Patient Instructions Indication:Hypercholesteremia Start:22-Feb-2015 Instruction Type:Provider Instructions for Treatment Patient Instructions Indication:Vitamin D deficiency, unspecified Start:17-Aug-2014 Instruction Type:Provider Instructions for Treatment How to access health informa tion online Indication:Hypercholesteremia Start:19-Jan-2014 Instruction Type:Patient Education How to access health informa tion online - Detail Indication:Hypercholesteremia Start:19-Jan-2014 Instruction Type:Patient Education Patient Instructions Indication:Hypercholesteremia Start:19-Jan-2014 Instruction Type:Provider Instructions for Treatment Patient Instructions Indication:Hypercholesteremia Start:15-Jun-2013 Instruction Type:Provider Instructions for Treatment Patient Instructions Indication:Chest pain Start:13-Jan-2013 Instruction Type:Provider Instructions for Treatment Patient Instructions Indication:Benign essential HTN Start:02-Dec-2012 Instruction Type:Provider Instructions for Treatment Patient Instructions Indication:Hypercholesteremia Start:03-Jun-2012 Instruction Type:Provider Instructions for Treatment Patient InstructionsVITAMIN D3 4,000 UNITS A DAY , [facility] IN 4 MONTHS Indication:Benign essential HTN Start:11-Dec-2011 Instruction Type:Provider Instructions for Treatment Name Dates Details How to access health informa tion online Indication:Non-smoker Start:14-Feb-2020 Instruction Type:Patient Education How to access health informa tion online - Detail Indication:Non-smoker Start:14-Feb-2020 Instruction Type:Patient Education Patient Instructions Indication:Non-smoker Start:14-Feb-2020 Instruction Type:Provider Instructions for Treatment How to access health informa tion online Indication:BMI 33.0-33.9,adult Start:02-Nov-2019 Instruction Type:Patient Education How to access health informa tion online - Detail Indication:BMI 33.0-33.9,adult Start:02-Nov-2019 Instruction Type:Patient Education Patient Instructions Indication:BMI 33.0-33.9,adult Start:02-Nov-2019 Instruction Type:Provider Instructions for Treatment How to access health informa tion online Indication:BMI 34.0-34.9,adult Start:27-Apr-2019 Instruction Type:Patient Education How to access health informa tion online - Detail Indication:BMI 34.0-34.9,adult Start:27-Apr-2019 Instruction Type:Patient Education Patient Instructions Indication:BMI 34.0-34.9,adult Start:27-Apr-2019 Instruction Type:Provider Instructions for Treatment How to access health informa tion online Indication:Current non-smoker Start:20-Oct-2018 Instruction Type:Patient Education How to access health informa tion online - Detail Indication:Current non-smoker Start:20-Oct-2018 Instruction Type:Patient Education Patient Instructions Indication:Current non-smoker Start:20-Oct-2018 Instruction Type:Provider Instructions for Treatment How to access health informa tion online Indication:Current non-smoker Start:21-Apr-2018 Instruction Type:Patient Education How to access health informa tion online - Detail Indication:Current non-smoker Start:21-Apr-2018 Instruction Type:Patient Education Patient Instructions Indication:Current non-smoker Start:21-Apr-2018 Instruction Type:Provider Instructions for Treatment How to access health informa tion online Indication:BMI 33.0-33.9,adult Start:06-Dec-2017 Instruction Type:Patient Education How to access health informa tion online - Detail Indication:BMI 33.0-33.9,adult Start:06-Dec-2017 Instruction Type:Patient Education Patient Instructions Indication:BMI 33.0-33.9,adult Start:06-Dec-2017 Instruction Type:Provider Instructions for Treatment How to access health informa tion online Indication:Current non-smoker Start:18-Aug-2017 Instruction Type:Patient Education How to access health informa tion online - Detail Indication:Current non-smoker Start:18-Aug-2017 Instruction Type:Patient Education Patient Instructions Indication:Current non-smoker Start:18-Aug-2017 Instruction Type:Provider Instructions for Treatment How to access health informa tion online Indication:Current non-smoker Start:17-Mar-2017 Instruction Type:Patient Education How to access health informa tion online - Detail Indication:Current non-smoker Start:17-Mar-2017 Instruction Type:Patient Education Patient Instructions Indication:Current non-smoker Start:17-Mar-2017 Instruction Type:Provider Instructions for Treatment How to access health informa tion online Indication:Current non-smoker Start:17-Feb-2017 Instruction Type:Patient Education How to access health informa tion online - Detail Indication:Current non-smoker Start:17-Feb-2017 Instruction Type:Patient Education Patient Instructions Indication:Current non-smoker Start:17-Feb-2017 Instruction Type:Provider Instructions for Treatment How to access health informa tion online Indication:Current non-smoker Start:20-Aug-2016 Instruction Type:Patient Education How to access health informa tion online - Detail Indication:Current non-smoker Start:20-Aug-2016 Instruction Type:Patient Education Patient Instructions Indication:Current non-smoker Start:20-Aug-2016 Instruction Type:Provider Instructions for Treatment Patient Instructions Indication:Benign essential HTN Start:06-Dec-2015 Instruction Type:Provider Instructions for Treatment How to access health informa tion online Indication:Hypercholesteremia Start:22-Aug-2015 Instruction Type:Patient Education How to access health informa tion online - Detail Indication:Hypercholesteremia Start:22-Aug-2015 Instruction Type:Patient Education Patient Instructions Indication:Hypercholesteremia Start:22-Aug-2015 Instruction Type:Provider Instructions for Treatment How to access health informa tion online Indication:Hypercholesteremia Start:22-Feb-2015 Instruction Type:Patient Education How to access health informa tion online - Detail Indication:Hypercholesteremia Start:22-Feb-2015 Instruction Type:Patient Education Patient Instructions Indication:Hypercholesteremia Start:22-Feb-2015 Instruction Type:Provider Instructions for Treatment Patient Instructions Indication:Vitamin D deficiency, unspecified Start:17-Aug-2014 Instruction Type:Provider Instructions for Treatment How to access health informa tion online Indication:Hypercholesteremia Start:19-Jan-2014 Instruction Type:Patient Education How to access health informa tion online - Detail Indication:Hypercholesteremia Start:19-Jan-2014 Instruction Type:Patient Education Patient Instructions Indication:Hypercholesteremia Start:19-Jan-2014 Instruction Type:Provider Instructions for Treatment Patient Instructions Indication:Hypercholesteremia Start:15-Jun-2013 Instruction Type:Provider Instructions for Treatment Patient Instructions Indication:Chest pain Start:13-Jan-2013 Instruction Type:Provider Instructions for Treatment Patient Instructions Indication:Benign essential HTN Start:02-Dec-2012 Instruction Type:Provider Instructions for Treatment Patient Instructions Indication:Hypercholesteremia Start:03-Jun-2012 Instruction Type:Provider Instructions for Treatment Patient InstructionsVITAMIN D3 4,000 UNITS A DAY , [facility] IN 4 MONTHS Indication:Benign essential HTN Start:11-Dec-2011 Instruction Type:Provider Instructions for Treatment Name Dates Details How to access health informa tion online Indication:Non-smoker Start:14-Feb-2020 Instruction Type:Patient Education How to access health informa tion online - Detail Indication:Non-smoker Start:14-Feb-2020 Instruction Type:Patient Education Patient Instructions Indication:Non-smoker Start:14-Feb-2020 Instruction Type:Provider Instructions for Treatment How to access health informa tion online Indication:BMI 33.0-33.9,adult Start:02-Nov-2019 Instruction Type:Patient Education How to access health informa tion online - Detail Indication:BMI 33.0-33.9,adult Start:02-Nov-2019 Instruction Type:Patient Education Patient Instructions Indication:BMI 33.0-33.9,adult Start:02-Nov-2019 Instruction Type:Provider Instructions for Treatment How to access health informa tion online Indication:BMI 34.0-34.9,adult Start:27-Apr-2019 Instruction Type:Patient Education How to access health informa tion online - Detail Indication:BMI 34.0-34.9,adult Start:27-Apr-2019 Instruction Type:Patient Education Patient Instructions Indication:BMI 34.0-34.9,adult Start:27-Apr-2019 Instruction Type:Provider Instructions for Treatment How to access health informa tion online Indication:Current non-smoker Start:20-Oct-2018 Instruction Type:Patient Education How to access health informa tion online - Detail Indication:Current non-smoker Start:20-Oct-2018 Instruction Type:Patient Education Patient Instructions Indication:Current non-smoker Start:20-Oct-2018 Instruction Type:Provider Instructions for Treatment How to access health informa tion online Indication:Current non-smoker Start:21-Apr-2018 Instruction Type:Patient Education How to access health informa tion online - Detail Indication:Current non-smoker Start:21-Apr-2018 Instruction Type:Patient Education Patient Instructions Indication:Current non-smoker Start:21-Apr-2018 Instruction Type:Provider Instructions for Treatment How to access health informa tion online Indication:BMI 33.0-33.9,adult Start:06-Dec-2017 Instruction Type:Patient Education How to access health informa tion online - Detail Indication:BMI 33.0-33.9,adult Start:06-Dec-2017 Instruction Type:Patient Education Patient Instructions Indication:BMI 33.0-33.9,adult Start:06-Dec-2017 Instruction Type:Provider Instructions for Treatment How to access health informa tion online Indication:Current non-smoker Start:18-Aug-2017 Instruction Type:Patient Education How to access health informa tion online - Detail Indication:Current non-smoker Start:18-Aug-2017 Instruction Type:Patient Education Patient Instructions Indication:Current non-smoker Start:18-Aug-2017 Instruction Type:Provider Instructions for Treatment How to access health informa tion online Indication:Current non-smoker Start:17-Mar-2017 Instruction Type:Patient Education How to access health informa tion online - Detail Indication:Current non-smoker Start:17-Mar-2017 Instruction Type:Patient Education Patient Instructions Indication:Current non-smoker Start:17-Mar-2017 Instruction Type:Provider Instructions for Treatment How to access health informa tion online Indication:Current non-smoker Start:17-Feb-2017 Instruction Type:Patient Education How to access health informa tion online - Detail Indication:Current non-smoker Start:17-Feb-2017 Instruction Type:Patient Education Patient Instructions Indication:Current non-smoker Start:17-Feb-2017 Instruction Type:Provider Instructions for Treatment How to access health informa tion online Indication:Current non-smoker Start:20-Aug-2016 Instruction Type:Patient Education How to access health informa tion online - Detail Indication:Current non-smoker Start:20-Aug-2016 Instruction Type:Patient Education Patient Instructions Indication:Current non-smoker Start:20-Aug-2016 Instruction Type:Provider Instructions for Treatment Patient Instructions Indication:Benign essential HTN Start:06-Dec-2015 Instruction Type:Provider Instructions for Treatment How to access health informa tion online Indication:Hypercholesteremia Start:22-Aug-2015 Instruction Type:Patient Education How to access health informa tion online - Detail Indication:Hypercholesteremia Start:22-Aug-2015 Instruction Type:Patient Education Patient Instructions Indication:Hypercholesteremia Start:22-Aug-2015 Instruction Type:Provider Instructions for Treatment How to access health informa tion online Indication:Hypercholesteremia Start:22-Feb-2015 Instruction Type:Patient Education How to access health informa tion online - Detail Indication:Hypercholesteremia Start:22-Feb-2015 Instruction Type:Patient Education Patient Instructions Indication:Hypercholesteremia Start:22-Feb-2015 Instruction Type:Provider Instructions for Treatment Patient Instructions Indication:Vitamin D deficiency, unspecified Start:17-Aug-2014 Instruction Type:Provider Instructions for Treatment How to access health informa tion online Indication:Hypercholesteremia Start:19-Jan-2014 Instruction Type:Patient Education How to access health informa tion online - Detail Indication:Hypercholesteremia Start:19-Jan-2014 Instruction Type:Patient Education Patient Instructions Indication:Hypercholesteremia Start:19-Jan-2014 Instruction Type:Provider Instructions for Treatment Patient Instructions Indication:Hypercholesteremia Start:15-Jun-2013 Instruction Type:Provider Instructions for Treatment Patient Instructions Indication:Chest pain Start:13-Jan-2013 Instruction Type:Provider Instructions for Treatment Patient Instructions Indication:Benign essential HTN Start:02-Dec-2012 Instruction Type:Provider Instructions for Treatment Patient Instructions Indication:Hypercholesteremia Start:03-Jun-2012 Instruction Type:Provider Instructions for Treatment Patient InstructionsVITAMIN D3 4,000 UNITS A DAY , [facility] IN 4 MONTHS Indication:Benign essential HTN Start:11-Dec-2011 Instruction Type:Provider Instructions for Treatment Name Dates Details How to access health informa tion online Indication:BMI 33.0-33.9,adult Start:02-Nov-2019 Instruction Type:Patient Education How to access health informa tion online - Detail Indication:BMI 33.0-33.9,adult Start:02-Nov-2019 Instruction Type:Patient Education Patient Instructions Indication:BMI 33.0-33.9,adult Start:02-Nov-2019 Instruction Type:Provider Instructions for Treatment How to access health informa tion online Indication:BMI 34.0-34.9,adult Start:27-Apr-2019 Instruction Type:Patient Education How to access health informa tion online - Detail Indication:BMI 34.0-34.9,adult Start:27-Apr-2019 Instruction Type:Patient Education Patient Instructions Indication:BMI 34.0-34.9,adult Start:27-Apr-2019 Instruction Type:Provider Instructions for Treatment How to access health informa tion online Indication:Current non-smoker Start:20-Oct-2018 Instruction Type:Patient Education How to access health informa tion online - Detail Indication:Current non-smoker Start:20-Oct-2018 Instruction Type:Patient Education Patient Instructions Indication:Current non-smoker Start:20-Oct-2018 Instruction Type:Provider Instructions for Treatment How to access health informa tion online Indication:Current non-smoker Start:21-Apr-2018 Instruction Type:Patient Education How to access health informa tion online - Detail Indication:Current non-smoker Start:21-Apr-2018 Instruction Type:Patient Education Patient Instructions Indication:Current non-smoker Start:21-Apr-2018 Instruction Type:Provider Instructions for Treatment How to access health informa tion online Indication:BMI 33.0-33.9,adult Start:06-Dec-2017 Instruction Type:Patient Education How to access health informa tion online - Detail Indication:BMI 33.0-33.9,adult Start:06-Dec-2017 Instruction Type:Patient Education Patient Instructions Indication:BMI 33.0-33.9,adult Start:06-Dec-2017 Instruction Type:Provider Instructions for Treatment How to access health informa tion online Indication:Current non-smoker Start:18-Aug-2017 Instruction Type:Patient Education How to access health informa tion online - Detail Indication:Current non-smoker Start:18-Aug-2017 Instruction Type:Patient Education Patient Instructions Indication:Current non-smoker Start:18-Aug-2017 Instruction Type:Provider Instructions for Treatment How to access health informa tion online Indication:Current non-smoker Start:17-Mar-2017 Instruction Type:Patient Education How to access health informa tion online - Detail Indication:Current non-smoker Start:17-Mar-2017 Instruction Type:Patient Education Patient Instructions Indication:Current non-smoker Start:17-Mar-2017 Instruction Type:Provider Instructions for Treatment How to access health informa tion online Indication:Current non-smoker Start:17-Feb-2017 Instruction Type:Patient Education How to access health informa tion online - Detail Indication:Current non-smoker Start:17-Feb-2017 Instruction Type:Patient Education Patient Instructions Indication:Current non-smoker Start:17-Feb-2017 Instruction Type:Provider Instructions for Treatment How to access health informa tion online Indication:Current non-smoker Start:20-Aug-2016 Instruction Type:Patient Education How to access health informa tion online - Detail Indication:Current non-smoker Start:20-Aug-2016 Instruction Type:Patient Education Patient Instructions Indication:Current non-smoker Start:20-Aug-2016 Instruction Type:Provider Instructions for Treatment Patient Instructions Indication:Benign essential HTN Start:06-Dec-2015 Instruction Type:Provider Instructions for Treatment How to access health informa tion online Indication:Hypercholesteremia Start:22-Aug-2015 Instruction Type:Patient Education How to access health informa tion online - Detail Indication:Hypercholesteremia Start:22-Aug-2015 Instruction Type:Patient Education Patient Instructions Indication:Hypercholesteremia Start:22-Aug-2015 Instruction Type:Provider Instructions for Treatment How to access health informa tion online Indication:Hypercholesteremia Start:22-Feb-2015 Instruction Type:Patient Education How to access health informa tion online - Detail Indication:Hypercholesteremia Start:22-Feb-2015 Instruction Type:Patient Education Patient Instructions Indication:Hypercholesteremia Start:22-Feb-2015 Instruction Type:Provider Instructions for Treatment Patient Instructions Indication:Vitamin D deficiency, unspecified Start:17-Aug-2014 Instruction Type:Provider Instructions for Treatment How to access health informa tion online Indication:Hypercholesteremia Start:19-Jan-2014 Instruction Type:Patient Education How to access health informa tion online - Detail Indication:Hypercholesteremia Start:19-Jan-2014 Instruction Type:Patient Education Patient Instructions Indication:Hypercholesteremia Start:19-Jan-2014 Instruction Type:Provider Instructions for Treatment Patient Instructions Indication:Hypercholesteremia Start:15-Jun-2013 Instruction Type:Provider Instructions for Treatment Patient Instructions Indication:Chest pain Start:13-Jan-2013 Instruction Type:Provider Instructions for Treatment Patient Instructions Indication:Benign essential HTN Start:02-Dec-2012 Instruction Type:Provider Instructions for Treatment Patient Instructions Indication:Hypercholesteremia Start:03-Jun-2012 Instruction Type:Provider Instructions for Treatment Patient InstructionsVITAMIN D3 4,000 UNITS A DAY , [facility] IN 4 MONTHS Indication:Benign essential HTN Start:11-Dec-2011 Instruction Type:Provider Instructions for Treatment Name Dates Details How to Access Health Informa tion Online using Patient Portal and [employer] Apps Indication:Non-smoker Start:05-Jul-2020 Instruction Type:Patient Education Patient Instructions Indication:Non-smoker Start:05-Jul-2020 Instruction Type:Provider Instructions for Treatment How to access health informa tion online Indication:Non-smoker Start:14-Feb-2020 Instruction Type:Patient Education How to access health informa tion online - Detail Indication:Non-smoker Start:14-Feb-2020 Instruction Type:Patient Education Patient Instructions Indication:Non-smoker Start:14-Feb-2020 Instruction Type:Provider Instructions for Treatment How to access health informa tion online Indication:BMI 33.0-33.9,adult Start:02-Nov-2019 Instruction Type:Patient Education How to access health informa tion online - Detail Indication:BMI 33.0-33.9,adult Start:02-Nov-2019 Instruction Type:Patient Education Patient Instructions Indication:BMI 33.0-33.9,adult Start:02-Nov-2019 Instruction Type:Provider Instructions for Treatment How to access health informa tion online Indication:BMI 34.0-34.9,adult Start:27-Apr-2019 Instruction Type:Patient Education How to access health informa tion online - Detail Indication:BMI 34.0-34.9,adult Start:27-Apr-2019 Instruction Type:Patient Education Patient Instructions Indication:BMI 34.0-34.9,adult Start:27-Apr-2019 Instruction Type:Provider Instructions for Treatment How to access health informa tion online Indication:Current non-smoker Start:20-Oct-2018 Instruction Type:Patient Education How to access health informa tion online - Detail Indication:Current non-smoker Start:20-Oct-2018 Instruction Type:Patient Education Patient Instructions Indication:Current non-smoker Start:20-Oct-2018 Instruction Type:Provider Instructions for Treatment How to access health informa tion online Indication:Current non-smoker Start:21-Apr-2018 Instruction Type:Patient Education How to access health informa tion online - Detail Indication:Current non-smoker Start:21-Apr-2018 Instruction Type:Patient Education Patient Instructions Indication:Current non-smoker Start:21-Apr-2018 Instruction Type:Provider Instructions for Treatment How to access health informa tion online Indication:BMI 33.0-33.9,adult Start:06-Dec-2017 Instruction Type:Patient Education How to access health informa tion online - Detail Indication:BMI 33.0-33.9,adult Start:06-Dec-2017 Instruction Type:Patient Education Patient Instructions Indication:BMI 33.0-33.9,adult Start:06-Dec-2017 Instruction Type:Provider Instructions for Treatment How to access health informa tion online Indication:Current non-smoker Start:18-Aug-2017 Instruction Type:Patient Education How to access health informa tion online - Detail Indication:Current non-smoker Start:18-Aug-2017 Instruction Type:Patient Education Patient Instructions Indication:Current non-smoker Start:18-Aug-2017 Instruction Type:Provider Instructions for Treatment How to access health informa tion online Indication:Current non-smoker Start:17-Mar-2017 Instruction Type:Patient Education How to access health informa tion online - Detail Indication:Current non-smoker Start:17-Mar-2017 Instruction Type:Patient Education Patient Instructions Indication:Current non-smoker Start:17-Mar-2017 Instruction Type:Provider Instructions for Treatment How to access health informa tion online Indication:Current non-smoker Start:17-Feb-2017 Instruction Type:Patient Education How to access health informa tion online - Detail Indication:Current non-smoker Start:17-Feb-2017 Instruction Type:Patient Education Patient Instructions Indication:Current non-smoker Start:17-Feb-2017 Instruction Type:Provider Instructions for Treatment How to access health informa tion online Indication:Current non-smoker Start:20-Aug-2016 Instruction Type:Patient Education How to access health informa tion online - Detail Indication:Current non-smoker Start:20-Aug-2016 Instruction Type:Patient Education Patient Instructions Indication:Current non-smoker Start:20-Aug-2016 Instruction Type:Provider Instructions for Treatment Patient Instructions Indication:Benign essential HTN Start:06-Dec-2015 Instruction Type:Provider Instructions for Treatment How to access health informa tion online Indication:Hypercholesteremia Start:22-Aug-2015 Instruction Type:Patient Education How to access health informa tion online - Detail Indication:Hypercholesteremia Start:22-Aug-2015 Instruction Type:Patient Education Patient Instructions Indication:Hypercholesteremia Start:22-Aug-2015 Instruction Type:Provider Instructions for Treatment How to access health informa tion online Indication:Hypercholesteremia Start:22-Feb-2015 Instruction Type:Patient Education How to access health informa tion online - Detail Indication:Hypercholesteremia Start:22-Feb-2015 Instruction Type:Patient Education Patient Instructions Indication:Hypercholesteremia Start:22-Feb-2015 Instruction Type:Provider Instructions for Treatment Patient Instructions Indication:Vitamin D deficiency, unspecified Start:17-Aug-2014 Instruction Type:Provider Instructions for Treatment How to access health informa tion online Indication:Hypercholesteremia Start:19-Jan-2014 Instruction Type:Patient Education How to access health informa tion online - Detail Indication:Hypercholesteremia Start:19-Jan-2014 Instruction Type:Patient Education Patient Instructions Indication:Hypercholesteremia Start:19-Jan-2014 Instruction Type:Provider Instructions for Treatment Patient Instructions Indication:Hypercholesteremia Start:15-Jun-2013 Instruction Type:Provider Instructions for Treatment Patient Instructions Indication:Chest pain Start:13-Jan-2013 Instruction Type:Provider Instructions for Treatment Patient Instructions Indication:Benign essential HTN Start:02-Dec-2012 Instruction Type:Provider Instructions for Treatment Patient Instructions Indication:Hypercholesteremia Start:03-Jun-2012 Instruction Type:Provider Instructions for Treatment Patient InstructionsVITAMIN D3 4,000 UNITS A DAY , [facility] IN 4 MONTHS Indication:Benign essential HTN Start:11-Dec-2011 Instruction Type:Provider Instructions for Treatment Advance Directives No Advanced Directives Records Found Name Dates Details Immunization Registry [place] - Effective on 02/17/2017. Expiration date unspecified Effective:17-Feb-2017 Name Dates Details Immunization Registry [place] - Effective on 02/17/2017. Expiration date unspecified Effective:17-Feb-2017 Name Dates Details Immunization Registry [place] - Effective on 02/17/2017. Expiration date unspecified Effective:17-Feb-2017 Name Dates Details Immunization Registry [place] - Effective on 02/17/2017. Expiration date unspecified Effective:17-Feb-2017 Name Dates Details Immunization Registry [place] - Effective on 02/17/2017. Expiration date unspecified Effective:17-Feb-2017 Name Dates Details Immunization Registry [place] - Effective on 02/17/2017. Expiration date unspecified Effective:17-Feb-2017 Name Dates Details Immunization Registry [place] - Effective on 02/17/2017. Expiration date unspecified Effective:17-Feb-2017 Name Dates Details Immunization Registry [place] - Effective on 02/17/2017. Expiration date unspecified Effective:17-Feb-2017 Name Dates Details Immunization Registry [place] - Effective on 02/17/2017. Expiration date unspecified Effective:17-Feb-2017 Name Dates Details Immunization Registry [place] - Effective on 02/17/2017. Expiration date unspecified Effective:17-Feb-2017 Name Dates Details Immunization Registry [place] - Effective on 02/17/2017. Expiration date unspecified Effective:17-Feb-2017 Name Dates Details Immunization Registry [place] - Effective on 02/17/2017. Expiration date unspecified Effective:17-Feb-2017 Name Dates Details Immunization Registry [place] - Effective on 02/17/2017. Expiration date unspecified Effective:17-Feb-2017 Name Dates Details Immunization Registry [place] - Effective on 02/17/2017. Expiration date unspecified Effective:17-Feb-2017 Name Dates Details Immunization Registry [place] - Effective on 02/17/2017. Expiration date unspecified Effective:17-Feb-2017 Name Dates Details Immunization Registry [place] - Effective on 02/17/2017. Expiration date unspecified Effective:17-Feb-2017 Name Dates Details Immunization Registry [place] - Effective on 02/17/2017. Expiration date unspecified Effective:17-Feb-2017 Name Dates Details Immunization Registry [place] - Effective on 02/17/2017. Expiration date unspecified Effective:17-Feb-2017 Name Dates Details Immunization Registry [place] - Effective on 02/17/2017. Expiration date unspecified Effective:17-Feb-2017 Name Dates Details Immunization Registry [place] - Effective on 02/17/2017. Expiration date unspecified Effective:17-Feb-2017 Name Dates Details Immunization Registry [place] - Effective on 02/17/2017. Expiration date unspecified Effective:17-Feb-2017 Name Dates Details Immunization Registry [place] - Effective on 02/17/2017. Expiration date unspecified Effective:17-Feb-2017 Name Dates Details Immunization Registry [place] - Effective on 02/17/2017. 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, unspecified J anuary 2024 8:20am Tremor May 11, 2024 8 :20am Hutchinson's palsy June 19, 2024 9:1 8am Trigeminal nerve disorder, unspecified M arch 2024 9:18am Tremor June 19, 2024 9:1 8am Additional Source Comments (unrecognized sect ion and content) No Status Records FoundNo Status Records Found INFORMATION SOURCE (unrecogn ized section and content) DATE CREATED AUTHOR 08/20/2022 [facility] DATE CREATED AUTHOR AUTHOR'S ORGANIZ ATION 11/04/2024 [facility] Care Teams (unrecognized sec tion and content) Team Status: Active Member Role Status Dates Dr. Hermila Kumar DO Primary Care Provider Active Team Status: Inactive Member Role Status Dates Dr. Hermila Kumar DO Primary Care Provider Active Start: March 16, 2024 End: March 16, 2024 Dr. Hermila Kumar DO Attending Provider Active Start: March 16, 2024 End: March 16, 2024 Dr. Hermila Kumar DO Referring Provider Active Start: March 16, 2024 End: March 16, 2024 Team Status: Inactive Member Role Status Dates Dr. Hermila Kumar DO Primary Care Provider Active Start: April 08, 2024 End: April 08, 2024 Dr. Morteza Franz , Attending Provider Active S tart: April 08, 2024 End: April 08, 2024 Dr. Morteza Franz , Emergency Provider Active S tart: April 08, 2024 End: April 08, 2024 Team Status: Inactive Member Role Status Dates Dr. Hermila Kumar DO Primary Care Provider Active Start: May 11, 2024 End: May 11, 2024 Dr. Hermila Kumar DO Referring Provider Active Start: May 11, 2024 End: May 11, 2024 Dr. Simone Chacko MD Attending Provider Active Start: May 11, 2024 End: May 11, 2024 Team Status: Inactive Member Role Status Dates Dr. Hermila Kumar DO Primary Care Provider Active Start: May 11, 2024 End: May 11, 2024 Migdalia Glass ANALYSIS ANALYST-C Attending Provider Active S tart: May 11, 2024 End: May 11, 2024 Migdalia Glass ANALYSIS ANALYST-C Referring Provider Active S tart: May 11, 2024 End: May 11, 2024 Team Status: Inactive Member Role Status Dates Dr. Hermila Kumar DO Primary Care Provider Active Start: June 08, 2024 End: June 08, 2024 Migdalia Glass ANALYSIS ANALYST-C Attending Provider Active S tart: June 08, 2024 End: June 08, 2024 Migdalia Glass ANALYSIS ANALYST-C Referring Provider Active S tart: June 08, 2024 End: June 08, 2024 Team Status: Inactive Member Role Status Dates Dr. Hermial Kumar DO Primary Care Provider Active Start: June 19, 2024 End: June 19, 2024 Dr. Hermila Kumar DO Referring Provider Active Start: June 19, 2024 End: June 19, 2024 Migdalia Glass NP-C Attending Provider Active S tart: June 19, 2024 End: June 19, 2024 Goals (unrecognized section and content) Goals may be documented in a n alternate section FOR RECORDS PERTAINING TO PATIENTS WHO ARE OR HAVE BEEN ENROLLED IN A CHEMICAL DEPENDENCY/SUBSTANCEABUSE PROGRAM, SOME INFORMATION MAY BE OMITTED. This clinical summary was aggregated from multiple sources. Caution should be exercised in using it in the provision of clinical care. This summary normalizes information from multiple sources, and as a consequence, information in this document may materially change the coding, format and clinical context of patient data. In addition, data may be omitted in some cases. CLINICAL DECISIONS SHOULD BE BASED ON THE PRIMARY CLINICAL RECORDS. [facility]. provides no warranty or guarantee of the accuracy or completeness of information in this document.
--- NOTE | 2024-12-12 16:02 | STRESSREP_ITS ---
Stress Test Report Date: 12/12/2024 Procedure: Exercise tolerance test/imaging study Indications: CAD Consent: Per the patient Procedure: The patient exercised on a Peterson protocol for 5 minutes achieving a peak heart rate of 142 bpm (94% predicted maximal heart rate) with a peak blood pressure 182/100 mmHg and a peak MET capacity of 7.0 METs. The baseline ECG demonstrated sinus rhythm. The peak exercise ECG did not show any ischemic changes. There were no cardiac dysrhythmias pretest, during exercise, or recovery. The functional capacity was considered average for age. There was no complaint of chest discomfort during exercise or recovery. The examination was discontinued secondary to target heart rate being achieved. The patient was injected with 15.0 mCi of technetium 99m Cardiolite and subsequently rest SPECT Cardiolite nuclear imaging was obtained in the horizontal long, vertical long, and short axis views. Post-exercise, the patient was injected with 45.0 mCi of technetium 99m Cardiolite and subsequently stress SPECT Cardiolite nuclear imaging was obtained in the horizontal long, vertical long, and short axis views. A gated Cardiolite study at peak stress was obtained. Rest and stress SPECT Cardiolite nuclear imaging status post realignment, normalization, and attenuation correction, demonstrates mildly reduced perfusion of the apex both at rest as well as post stress. Likely represents physiological thinning. No reversible perfusion defects noted. There is end systolic thickening and brightening. The gated Cardiolite study demonstrates myocardial thickening and inward wall motion. The reported LVEF is 67%. Impression: 1. Technically adequate (percent predicted maximal heart rate greater than 85%) exercise tolerance test 2. Peak exercise ECG with no diagnostic ischemic changes 3. There were no cardiac dysrhythmias pretest, during exercise, or recovery 4. Rest and stress SPECT Cardiolite nuclear imaging demonstrate relative uniform tracer uptake and myocardial perfusion appearing within normal limits. 5. The gated Cardiolite study reports an LVEF of 67%. This note was generated with [employer] software. It may contain incorrect words, spelling, and punctuation that were not noted in checking the note before signing.
== END | disposition home or self-care (01) ==
LOC: CVS 06:28
PROVIDERS: PCP Internal Medicine; Referring Provider Internal Medicine; Visit Provider Internal Medicine
DX: I25.10 Atherosclerotic heart disease of native coronary artery without angina pectoris (principal); R93.89 Abnormal findings on diagnostic imaging of other specified body structures
CPT/HCPCS: 78452; 93017; A9500; A4216

== ENCOUNTER → 2025-02-23 | Outpatient (CLI) | payer MEDICARE, OTHER, SELFPAY ==
[2025-02-23 10:42] LABS: Mucous, Urine 0 SEEN /hpf (<or=2+); Squamous Epithelial Cells - UA 0 SEEN /hpf (0-5)
[2025-02-23 11:09] LABS: Color, Urine Yellow (Yellow); Glucose, Dipstick Normal (Normal); Ketone-Dipstick Negative (Negative); Leukocyte Esterase-Dipstick Negative /ul (Negative); Nitrite-Dipstick Negative (Negative); Occult Blood-Urine 10 /ul (Negative); Protein-Dipstick 15 mg/dl (Negative); Specific Gravity, Urine 1.010 (1.002-1.030); Urine Bilirubin Dipstick Negative (Negative)
[2025-02-23 11:11] LABS: Hematocrit 43.8 % (40-54); Hemoglobin 15.3 g/dL (13.0-16.5); Mean Corp Hgb Conc 34.9 g/dL (32-36); Mean Corpuscular Volume 90.7 fL (80-94); Mean Platelet Vol. 11.3 fl (6.2-12.0); Platelet Count 229 K/mm3 (150-450); RBC Distribution Width CV 12.5 % (11.6-14.6); RBC Distribution Width SD 41.1 fl (35.1-43.9); Red Blood Count 4.83 M/mm3 (4.6-6.2); White Blood Count 7.3 K/mm3 (4.4-11.0)
[2025-02-23 11:16] LABS: Red Blood Cells-Urine 0-5 SEEN /hpf (0-5)
[2025-02-23 11:53] LABS: Creatinine, Urine (random) 143.00 mg/dL (39.00-259.00); Microalbumin,Random Urine 26.4 mg/L (<20 mg/L); Protein, Urine (Random) 21.8 mg/dL (0.0-12.0); Protein:Creat Ratio 152 mg/g CRE (0-200)
[2025-02-23 12:04] LABS: AST(SGOT) 23 U/L (<=37); Alanine Aminotransfer ALT/SGPT 44 U/L (<=46); Albumin, Serum 4.6 g/dL (3.4-4.8); Alkaline Phosphatase 101 U/L (40-129); Anion Gap 10 (5-15); BUN 16 mg/dL (4-19); BUN/Creat Ratio 17.0 RATIO (10-20); Calcium,Total 9.7 mg/dL (7.6-11.0); Carbon Dioxide 26.4 mmol/L (21.0-32.0); Chloride 105 mmol/L (98-108); Cholesterol 173 mg/dL (<=200); Globulin 2.3 g/dL (2.2-4.2); Glucose 94 mg/dL (70-99); Low Density Lipoprotein Calc. 93 mg/dL; Potassium 3.7 mmol/L (3.3-5.1); Triglycerides 184 mg/dL; Very Low Density Lipoprotein 37 mg/dL (5-40); cholesterol:hdl ratio screen 3.59
[2025-02-25 16:08] LABS: Vitamin D 1,25-Dihydroxy 43.9 pg/mL (24.8-81.5)
== END | disposition home or self-care (01) ==
LOC: LAB 10:37
PROVIDERS: PCP Internal Medicine; Referring Provider Internal Medicine; Visit Provider Internal Medicine
DX: I10 Essential (primary) hypertension (principal); E55.9 Vitamin D deficiency, unspecified
CPT/HCPCS: 36415; 80053; 80061; 81001; 82043; 82570; 82652; 84156; 84443; 85027

== ENCOUNTER → 2025-03-28 | Outpatient (CLI) | payer MEDICARE, OTHER, SELFPAY ==
[2025-03-28 11:33] LABS: Red Blood Cells-Urine 0 SEEN /hpf (0-5)
[2025-03-28 12:27] LABS: Color, Urine Yellow (Yellow); Glucose, Dipstick Normal (Normal); Ketone-Dipstick Negative (Negative); Leukocyte Esterase-Dipstick 25 /ul (Negative); Nitrite-Dipstick Negative (Negative); Occult Blood-Urine 10 /ul (Negative); Protein-Dipstick 15 mg/dl (Negative); Specific Gravity, Urine 1.015 (1.002-1.030); Urine Bilirubin Dipstick Negative (Negative)
[2025-03-28 12:51] LABS: Mucous, Urine 1+ /hpf (<or=2+); Squamous Epithelial Cells - UA 0-5 SEEN /hpf (0-5)
== END | disposition home or self-care (01) ==
LOC: CIMLAB 11:32
PROVIDERS: PCP Internal Medicine; Referring Provider Internal Medicine; Visit Provider Internal Medicine
DX: R31.9 Hematuria, unspecified (principal)
CPT/HCPCS: 81001